=== PATIENT | female | born 1985 | race Caucasian/White ===

== ENCOUNTER 2023-03-09 11:37 | Outpatient (OUT) | payer MEDICAID, SELFPAY ==
[2023-03-09 12:32] LABS: Magnesium 1.6 mg/dL (1.8-2.4); Phosphorus 3.5 mg/dL (2.6-4.7); Thyroid Stimulating Hormone 1.372 uIU/mL (0.358-3.740)
[2023-03-10 07:11] LABS: Vitamin D, 25-Hydroxy 29.7 ng/mL (30.0-100.0)
[2023-03-12 12:13] LABS: Albumin 3.8 g/dL (2.9-4.4); Alpha-1-Globulin 0.2 g/dL (0.0-0.4); Alpha-2-Globulin 0.8 g/dL (0.4-1.0); Gamma Globulin 0.8 g/dL (0.4-1.8); Protein, Total 6.8 g/dL (6.0-8.5)
== END 2023-03-09 11:38 | disposition home or self-care (01) ==
LOC: LAB 11:40
PROVIDERS: PCP Nurse Practitioner; Visit Provider Psychiatry & Neurology Neurology
DX: G47.33 Obstructive sleep apnea (adult) (pediatric) (principal)
CPT/HCPCS: 36415; 82306; 82607; 82728; 83735; 84100; 84155; 84165; 84443

== ENCOUNTER 2023-09-26 15:05 | Outpatient (OUT) | payer MEDICAID, SELFPAY ==
[2023-09-28 05:07] LABS: Rheumatoid Factor (RF) <10.0 IU/mL (<14.0)
[2023-09-28 12:09] LABS: ANA Direct Negative (Negative)
[2023-09-28 14:09] LABS: Lyme Total Antibody CIA Negative (Negative)
== END 2023-09-26 15:06 | disposition home or self-care (01) ==
LOC: LAB 15:06
PROVIDERS: PCP Nurse Practitioner; Visit Provider Psychiatry & Neurology Neurology
DX: G47.33 Obstructive sleep apnea (adult) (pediatric) (principal); R20.2 Paresthesia of skin
CPT/HCPCS: 36415; 86038; 86430; 86431; 86618

== ENCOUNTER 2023-10-01 11:08 | Outpatient (OUT) | payer MEDICAID, SELFPAY ==
--- NOTE | 2023-10-01 11:11 | MM_ITS ---
Patient Name: THANH VILLALOBOS MR#: [id number] : 1985 Exam Date: 10/01/2023 Ordering Doctor: SCOOTER Howe CNP RADIOLOGY REPORT PROCEDURE: MM TOMOSYNTHESIS SCREENING BI COMPARISON: MG MAMM CHRISTINA DIAG W CAD DIG, 07/24/2014. MAMMO POST BIOPSY RIGHT, 07/30/2014. INDICATIONS: screening Calculator Name NCI Breast Cancer Risk Assessment Tool 5 Year Breast Cancer Risk 0.70% Lifetime Breast Cancer Risk 9.80% Personal Breast Cancer No Personal Ovarian Cancer No Treatments None Family Cancers Mother with ovarian cancer at age 42; Sister with thyroid cancer at age 18; Grandmother-maternal with lung cancer at age ~60; Grandfather-maternal with spleen cancer at age ~60. LOCATION: [facility] BREAST COMPOSITION: Almost entirely fatty. FINDINGS: DIAGNOSTIC CATEGORY 1--NEGATIVE. NO CHANGE FROM COMPARISON ASSESSMENT. Scattered benign-appearing calcifications are present. Scattered benign-appearing lymph nodes are present. RIGHT BREAST: No significant suspicious finding. LEFT BREAST: No significant suspicious finding. RECOMMENDATIONS: ROUTINE MAMMOGRAM AND CLINICAL EVALUATION IN 12 MONTHS. PLEASE NOTE: A NORMAL MAMMOGRAM DOES NOT EXCLUDE THE POSSIBILITY OF BREAST CANCER. A CLINICALLY SUSPICIOUS PALPABLE LUMP SHOULD BE BIOPSIED. Dictated by: Carson Krishnamurthy MD on 10/01/2023 at 13:45 Approved by: Carson Krishnamurthy MD on 10/01/2023 at 13:46
--- OUTSIDE RECORDS SUMMARY | 2023-10-01 11:12 | XMS_ITS | CCD ---
Author Name Unknown Address [id number] [place] [address] Organization [facility] Care Team Providers Care Senior Analyst Market Intelligence Name Role Phone KG TURNER (IMAGERY INTELLIGENCE) Unavailable Unavailable MANZON, YAKELIN D Unavailable Unavailable MANZON, YAKELIN D Unavailable Unavailable MANZON, YAKELIN D Unavailable Unavailable Suzanna Milligan Unavailable Lon Allen Unavailable Laura Howe Primary Care Provider MD Mac Shepard Attending Provider Mac Shepard Attending Unavailable Mac Shepard Admitting Unavailable Shyam, Laura Kemal Primary Care Unavailable Mac Shepard Admitting Unavailable Mac Shepard Attending Unavailable Shyam, Laura Kemal Primary Care Unavailable Mac Shepard Attending Unavailable Mac Shepard Admitting Unavailable Shyam, Laura J Primary Care Unavailable Lon Allen Admitting Unavailable Shyam, Laura Kemal Primary Care Unavailable Lon Allen Attending Unavailable Shyam, Laura Kemal Primary Care Unavailable Lon Allen Attending Unavailable Lon Allen Admitting Unavailable SHYAM, LAURA Kemal Primary Care Physician AURE HOWE LAURA Primary Care Unavailable LON ALLEN Admitting Unavailable LON ALLEN Attending Unavailable LON ALLEN Consulting Unavailable MISC, DR SCHMIDT Admitting Unavailable AICAURE SHERIDAN LAURA Primary Care Unavailable MISC, DR SCHMIDT Attending Unavailable MISC, DR SCHMIDT Consulting Unavailable CHRIS REHMAN Consulting Unavailable AICHHOLZ, IMAGERY INTELLIGENCE LAURA Primary Care Unavailable BEJ, ESVIN Consulting Unavailable BEJ, ESVIN Admitting Unavailable BEJ, ESVIN Attending Unavailable BEJ, ESVIN Attending Unavailable AICHHOLZ, IMAGERY INTELLIGENCE LAURA Primary Care Unavailable BEJ, ESVIN Consulting Unavailable BEJ, ESVIN Admitting Unavailable BEJ, ESVIN Attending Unavailable AICHHOLZ, IMAGERY INTELLIGENCE LAURA Primary Care Unavailable BEJ, ESVIN Consulting Unavailable BEJ, ESVIN Admitting Unavailable AICHHOLZ, IMAGERY INTELLIGENCE LAURA Admitting Unavailable AICHHOLZ, IMAGERY INTELLIGENCE LAURA Attending Unavailable AICHHOLZ, IMAGERY INTELLIGENCE LAURA Consulting Unavailable AICHHOLZ, IMAGERY INTELLIGENCE LAURA Primary Care Unavailable AICHHOLZ, IMAGERY INTELLIGENCE LAURA Admitting Unavailable AICHHOLZ, IMAGERY INTELLIGENCE LAURA Attending Unavailable AICHHOLZ, IMAGERY INTELLIGENCE LAURA Consulting Unavailable AICHHOLZ, IMAGERY INTELLIGENCE LAURA Primary Care Unavailable SALAM, BOB Attending Unavailable SALAM, BOB Consulting Unavailable SALAM, BOB Admitting Unavailable AICHHOLZ, IMAGERY INTELLIGENCE LAURA Primary Care Unavailable SALAM, Bob Attending Unavailable SALAM, Bob Admitting Unavailable SALAM, Bob Referring Unavailable SALAM, Bob Attending Unavailable SALAM, Bob Admitting Unavailable Kamar, Princess A Attending Unavailable Kamar, Princess A Attending Unavailable AICHHOLZ, LAURA J Referring Unavailable SALAM, Bob Attending Unavailable SALAM, Bob Attending Unavailable SALAM, Bob Admitting Unavailable SALAM, Bob Referring Unavailable Kelsy WESTBROOK, Jasmeet Wilson Attending Unavaila gaurav Vila MD, Robert Colindres Attending Unavaila ble Aichholz COMPUTER DISCOVERY TEACHER-IMAGERY INTELLIGENCE, Laura Deborah Primary Care Unava ilable AICHHOLZ, LAURA Attending Unavailable AICHHOLZ, LAURA Attending Unavailable AICHHOLZ, LAURA Attending Unavailable Aichholz AUTOMATIC I THREADING MACHINE FEEDER, Laura Unavailable Sharath Martinez MD Primary Care Provider Allergies Allergy Classification Reported Allergen(s) Allergy Type Date of Onset Reaction(s) Facility (1 source) acetaminophen / codeine; Translations: [ACETAMINOPHEN-CO DEINE] Drug Allergy 5 [facility] (7 sources) Codeine Drug Allergy Unknown [facility] Other (10 sources) Codeine; Translations: [codeine] Drug Allergy 4 Unknown [facility] (3 sources) HYDROcodone / Phenylpropanolami ne; Translations: [hydrocodone-phen ylpropanolamine] Drug Allergy Itching (finding) [facility] Medications Current Medications Medication Drug Class(es) Dates Sig (Normalized) Sig (Original) allopurinol 100 mg oral tablet (16 sources) Xanthine Oxidase Inhibitor Start: 09-10-2023 End: 10-10-2023 take 1 tablet by mouth in the morning, then take 1 tablet by mouth in the evening, then take 1 tablet by mouth at bedtime allopurinol (Zyloprim) 100 MG tablet Indications: Chronic gout without tophus, unspecified cause, unspecified site Take 1 tablet (100 mg) by mouth in the morning and 1 tablet (100 mg) in the evening and 1 tablet (100 mg) before bedtime. 90 tablet 1 09/10/2023 10/10/2023 Active Start: 10-03-2022 allopurinol Or al, BID, Refills(s) 0, Gout pain Start Date: 10/03/22 Status: Ordered Start: 10-03-2022 allopurinol Re fills(s) 0 Start Date: 10/03/22 Status: Ordered Start: 10-12-2021 take 200 mg by mouth once daily at bedtime Allopurinol Active 200 MG PO Daily at bedtime October 12, 2021 1:00am Allopurinol Acti ve ALPRAZolam 0.5 mg oral tablet (3 sources) Benzodiazepine Start: 12-25-2022 alprazolam 0.5 mg Tab Refills(s) 0 Start Date: 12/25/22 Status: Ordered carBAMazepine (9 sources) Mood Stabilizer Start: 10-03-2022 carbamazepine Oral, BID, Refills(s) 0, Seizure Start Date: 10/03/22 Status: Ordered Start: 10-03-2022 carbamazepine Refills(s) 0 Start Date: 10/03/22 Status: Ordered Start: 05-26-2022 take 300 mg by mouth once daily at bedtime Carbamazepine Active 300 MG PO Daily at bedtime May 26, 2022 12:00am ciprofloxacin 500 mg oral tablet (1 source) Quinolone Antimicrobial Start: 10-03-2022 End: 10-13-2022 take 1 tablet by mouth twice daily Cipro 500 mg Tab 500 mg = 1 tab(s), Oral, BID, X 10 day(s), # 20 tab(s), Refills(s) 0, Pharmacy: [email or web address] #[id number], 158, cm, 10/03/22 14:23:00 EST, Height/Length Dosing, 120, kg, 10/03/22 14:23:00 EST, Weight Dosing Start Date: 10/03/22 Stop Date: 10/13/22 Status: Ordered clonazePAM 1 mg oral tablet (1 source) Benzodiazepine Start: 09-09-2023 take 1 tablet by mouth at bedtime clonazePAM (KlonoPIN) 1 MG tablet Take 1 mg by mouth at bedtime 0 09/09/2023 Active dicyclomine hydrochloride 10 mg oral capsule (6 sources) Anticholinergic Start: 10-03-2022 End: 09-28-2023 take 1 capsule by mouth four times daily Bentyl 10 mg Cap 10 mg = 1 cap(s), Oral, QID, X 30 day(s), # 120 cap(s), Refills(s) 11, Pharmacy: [email or web address] #[id number], 158, cm, 10/03/22 14:23:00 EST, Height/Length Dosing, 120, kg, 10/03/22 14:23:00 EST, Weight Dosing Start Date: 10/03/22 Stop Date: 09/28/23 Status: Ordered gabapentin 100 mg oral capsule (1 source) Anti-epileptic Agent take 1 capsule by mouth every eight hours gabapentin (Neurontin) 100 MG capsule Take 100 mg by mouth every 8 (eight) hours. Take 1 every morning, 1 in afternoon and 1 to 3 capsules HS. 0 Active ibuprofen 600 mg oral tablet (1 source) Nonsteroidal Anti-inflammatory Drug Start: 06-06-2022 take 600 mg by mouth every six hours Ibuprofen Active 600 MG PO Q6H June 06, 2022 12:00am lisinopril 10 mg oral tablet (3 sources) Angiotensin Converting Enzyme Inhibitor Start: 12-25-2022 lisinopril 10 mg Tab Refills(s) 0 Start Date: 12/25/22 Status: Ordered magnesium oxide 400 mg oral tablet (1 source) take 1 tablet by mouth in the morning magnesium oxide (Mag-Ox) 400 mg tablet Take 400 mg by mouth in the morning. 0 Active magnesium sulfate 225 MG / potassium chloride 188 MG / sodium sulfate 1479 MG Oral Tablet [Sutab] (2 sources) Start: 10-03-2022 take 1 tablet by mouth once Sutab oral tablet See Instructions, 1 EA, Refill(s) 0, IDA, Please follow instructions per packaging and physician's handout, [facility], 158, cm, 10/03/22 14:23:00 EST, Height/Length Dosing, 120, kg, 10/03/22 14:23:00 EST, Weight Dosing Start Date: 10/03/22 Status: Ordered methylPREDNISolone 4 mg oral tablet (3 sources) Corticosteroid Start: 08-18-2016 Medrol (Tyrone) 4 MG as directed Orally for daily dose take half with breakfast half with dinner for 6 days May, Active methylPREDNISolo ne Not-Taking Multiple Vitamin (multivitamin) tablet (1 source) take 1 tablet by mouth in the morning Multiple Vitamin (multivitamin) tablet Take 1 tablet by mouth in the morning. 0 Active omeprazole 40 mg delayed release oral capsule (8 sources) Proton Pump Inhibitor Start: 10-03-19 take 1 capsule by mouth once daily omeprazole 40 mg Cap-DR 40 mg = 1 cap(s), Oral, Daily, # 30 cap(s), Refills(s) 2, [id number], 158, cm, 10/03/22 14:23:00 EST, Height/Length Dosing, 120, kg, 10/03/22 14:23:00 EST, Weight Dosing Start Date: 10/03/22 Status: Ordered Start: 10-13-2021 End: 05-26-2022 take 40 mg by mouth twice daily Omeprazole Discontinued 40 MG PO Twice daily 112 56 October 13, 2021 1:00am May 26, 2022 11:45am pramipexole dihydrochloride 0.5 mg oral tablet (11 sources) Nonergot Dopamine Agonist Start: 12-25-2022 pramipexole 0.5 mg oral tablet Refills(s) 0 Start Date: 12/25/22 Status: Ordered Start: 10-03-2022 pramipexole Or al, BID, Refills(s) 0, Other (see comment) Start Date: 10/03/22 Status: Ordered Start: 10-03-2022 pramipexole Re fills(s) 0 Start Date: 10/03/22 Status: Ordered Start: 05-26-2022 take 0.25 mg by mout h once daily at bedtime Pramipexole Active 0.25 MG PO Daily at bedtime May 26, 2022 12:00am Robaxin-750 750 MG (1 source) Start: 06-13-2021 take 1 tablet by mouth at bedtime Robaxin-750 750 MG 1 -2 tablet(s) Orally at bedtime for 5 days May, Active terbinafine (3 sources) Allylamine Antifungal LamISIL Active traMADol hydrochloride 50 mg oral tablet (1 source) Opioid Agonist Start: 06-06-2022 take 50 mg by mouth every six hours Tramadol Active 50 MG PO Q6H 30 June 06, 2022 12:00am VITAMIN A PO (1 source) VITAMIN A PO Shashank e by mouth Daily. 0 Active Completed/Discontinued Medications Medication Drug Class(es) Dates Sig (Normalized) Sig (Original) amoxicillin 875 mg oral tablet (1 source) Penicillin-class Antibacterial Start: 08-27-2016 take 1 tablet by mouth every twelve hours Amoxicillin 875 MG 1 tablet Orally every 12 hrs for 10 day(s) Aug, Not-Taking biotin 10 mg oral capsule (4 sources) Start: 10-12-2021 End: 05-26-2022 take 03951 ug by mouth once daily Biotin Discontinued 29894 MCG PO Daily October 12, 2021 1:00am May 26, 2022 11:44am biotin 1 MG caps ule Take by mouth 1 (one) time each day. 0 Active Brompheniramine / Pseudoephedrine (1 source) alpha-Adrenergic Agonist Start: 08-18-2016 take 10 mL by mouth every six hours as needed Bromfed DM 30-2-10 MG/5ML 10 ml as needed Orally every 6 hrs Jul, Not-Taking cholecalciferol 0.125 mg oral tablet (4 sources) Vitamin D Start: 10-12-2021 End: 05-26-2022 take 1 tablet by mouth once daily Cholecalciferol (Vitamin D3) (Vitamin D3) 125 mcg (5,000 unit) Tablet Discontinued 125 MCG PO Daily October 12, 2021 1:00am May 26, 2022 11:44am take 1 tablet by mouth in the mo rning cholecalciferol (Vitamin D-3) 25 MCG (1000 UT) tablet Take 1,000 Units by mouth in the morning. 0 Active Colchicine (1 source) Colchicine Not-Taking Falmina (1 source) Falmina Not-Taki ng Ketorolac (2 sources) Nonsteroidal Anti-inflammatory Drug, Cyclooxygenase Inhibitor Start: 07-21-20 Toradol per 15 mg Jul, 30 mg Magnesium (3 sources) Start: 10-12-19 End: 05-26-20 take 250 mg by mouth once daily Magnesium Discontinued 250 MG PO Daily October 12, 2021 1:00am May 26, 2022 11:45am Norethindrone Acet-Ethinyl Est (1 source) Norethindrone Acet-Ethinyl Est Not-Taking Prenat.Vits,Heath,Min-I checo-Folic ( Vitamin) Tablet (3 sources) Start: 10-12-19 End: 05-26-20 take 1 tablet by mouth once daily Prenat.Vits,Heath,Min- Iron-Folic ( Vitamin) Tablet Discontinued 1 TAB PO Daily October 12, 2021 1:00am May 26, 2022 11:45am Triamcinolone (2 sources) Corticosteroid Start: 07-21-20 KENALOG - 10 mg Jul, 40 mg vitamin a 2.4 mg oral capsule (3 sources) Vitamin A Start: 10-12-19 End: 05-26-20 take 2400 ug by mouth once daily Vitamin A Discontinued 2400 MCG PO Daily October 12, 2021 1:00am May 26, 2022 11:45am Vitamin B Complex (3 sources) Start: 10-12-19 End: 05-26-20 take 1 tablet by mouth once daily Vitamin B Complex Discontinued 1 TAB PO Daily October 12, 2021 1:00am May 26, 2022 11:45am Problems Active Problems Problem Classification Problem Date Documented Da te Episodic/Chronic Abdominal pain (7 sources) Abdominal pain; Translations: [Unspecified abdominal pain] Onset: 3 Episodic Acquired foot deformities (1 source) Acquired equinus deformity of foot; Translations: [Other acquired deformities of unspecified foot] Onset: 3 07-17-2023 Episodic Anxiety disorders (1 source) Claustrophobia; Translations: [Claustrophobia] Onset: 3 01-16-2023 Chronic Deficiency and other anemia (1 source) Other dietary vitamin B12 deficiency anemia; Translations: [OTH DIETARY VITAMIN B12 DEF ANEMIA] Onset: 3 Episodic Diabetes mellitus without complication (4 sources) Hyperglycemia, unspecified; Translations: [HYPERGLYCEMIA UNSPECIFIED] Onset: 3 Episodic Disorders of lipid metabolism (1 source) Hyperlipidemia, unspecified; Translations: [HYPERLIPIDEMIA UNSPECIFIED] Onset: 3 Chronic Epilepsy; convulsions (4 sources) Epilepsy, unspecified, not intractable, without status epilepticus; Translations: [EPILEPSY UNS NOT INTRACT W/O SE] Onset: 3 Chronic Esophageal disorders (7 sources) Gastroesophageal reflux disease without esophagitis; Translations: [Gastro-esophageal reflux disease without esophagitis] Onset: 3 Chronic Essential hypertension (4 sources) Essential (primary) hypertension; Translations: [ESSENTIAL PRIMARY HYPERTENSION] Onset: 3 Chronic Gastroduodenal ulcer (except hemorrhage) (3 sources) Gastric ulcer; Translations: [Gastric ulcer, unspecified as acute or chronic, without hemorrhage or perforation] Onset: 3 Chronic Gout and other crystal arthropathies (3 sources) Idiopathic chronic gout, multiple sites, without tophus (tophi); Translations: [Gout, unspecified] Onset: 6 09-10-2023 Chronic Hemorrhoids (4 sources) Hemorrhoids; Translations: [Unspecified hemorrhoids] Onset: 3 Episodic Immunizations and screening for infectious disease (2 sources) Contact with and (suspected) exposure to other viral communicable diseases; Translations: [Encounter for screening for infections with a predominantly sexual mode of transmission] Onset: 2 Resolved: 2 Episodic Intestinal infection (9 sources) Small bowel bacterial overgrowth syndrome; Translations: [Clostridium difficile diarrhea] 10-03-2022 Episodic Comment on above: Problem added second eri to positive C-Diff lab result. Menstrual disorders (1 source) Excessive and frequent menstruation with regular cycle; Translations: [Excessive and frequent menstruation with regular cycle] Onset: 2 Chronic Miscellaneous mental health disorders (1 source) Chronic insomnia; Translations: [Psychophysiologic insomnia] Onset: 3 01-16-2023 Chronic Nausea and vomiting (17 sources) Nausea; Translations: [Nausea] Onset: 1 Resolved: 2 Episodic Other and unspecified benign neoplasm (4 sources) Polyp of colon; Translations: [Polyp of colon] Onset: 3 Episodic Other connective tissue disease (1 source) Myalgia, unspecified site; Translations: [MYALGIA UNSPECIFIED SITE] Onset: 3 Episodic Other disorders of stomach and duodenum (2 sources) Indigestion; Translations: [Functional dyspepsia] Episodic Other ear and sense organ disorders (1 source) Pain of ear structure; Translations: [Otalgia, unspecified ear] Onset: 3 07-17-2023 Episodic Other ear and sense organ disorders (1 source) Bilateral earache; Translations: [Otalgia, bilateral] Onset: 4 09-18-2023 Episodic Other gastrointestinal disorders (11 sources) Abdominal bloating; Translations: [Abdominal distension (gaseous)] 09-26-2022 Episodic Other gastrointestinal disorders (1 source) Disorder of intestine; Translations: [Other specified diseases of intestine] Onset: 3 Episodic Other gastrointestinal disorders (7 sources) Diarrhea; Translations: [Diarrhea, unspecified] Onset: 3 Episodic Other gastrointestinal disorders (1 source) Abnormal feces; Translations: [Other fecal abnormalities] Onset: 3 Episodic Other gastrointestinal disorders (1 source) Swollen abdomen; Translations: [Abdominal distension (gaseous)] Onset: 3 Episodic Other gastrointestinal disorders (2 sources) Loose stool 12-25-2022 Episodic Other gastrointestinal disorders (4 sources) Diarrhea, unspecified; Translations: [DIARRHEA UNSPECIFIED] Onset: 3 Episodic Other hereditary and degenerative nervous system conditions (1 source) Restless legs; Translations: [Restless legs syndrome] Onset: 3 01-16-2023 Chronic Other nervous system disorders (1 source) Polyneuropathy, unspecified; Translations: [POLYNEUROPATHY UNSPECIFIED] Onset: 3 Chronic Other nervous system disorders (1 source) Hereditary and idiopathic neuropathy, unspecified; Translations: [HEREDITARY IDIOPATH NEUROPATHY UNS] Onset: 3 Chronic Other nervous system disorders (1 source) Polyneuropathy; Translations: [Polyneuropathy, unspecified] Onset: 3 01-16-2023 Chronic Other nervous system disorders (1 source) Acute postoperative pain; Translations: [Other acute postprocedural pain] 06-06-2022 Episodic Other nutritional; endocrine; and metabolic disorders (1 source) Body mass index 30+ - obesity; Translations: [Obesity, unspecified] Onset: 3 07-17-2023 Chronic Other nutritional; endocrine; and metabolic disorders (1 source) Severe obesity; Translations: [Morbid (severe) obesity due to excess calories] Onset: 3 08-07-2023 Chronic Other nutritional; endocrine; and metabolic disorders (1 source) Body mass index 40+ - severely obese; Translations: [Body mass index (BMI) 45.0-49.9, adult] Onset: 4 09-18-2023 Chronic Other nutritional; endocrine; and metabolic disorders (1 source) Abnormal weight gain; Translations: [Abnormal weight gain] Onset: 3 07-17-2023 Episodic Other screening for suspected conditions (not mental disorders or infectious disease) (2 sources) Other specified abnormal findings of blood chemistry; Translations: [Patient encounter status] Onset: 3 07-17-2023 Episodic Otitis media and related conditions (3 sources) Acute bilateral otitis media ; Translations: [Otitis media, unspecified, bilateral] Onset: 3 07-17-2023 Episodic Peripheral and visceral atherosclerosis (1 source) Generalized atherosclerosis; Translations: [GENERALIZED ATHEROSCLEROSIS] Onset: 3 Chronic Residual codes; unclassified (1 source) Periodic limb movement disorder; Translations: [PERIODIC LIMB MOVEMENT DISORDER] Onset: 2 Chronic Residual codes; unclassified (1 source) Obstructive sleep apnea syndrome; Translations: [Obstructive sleep apnea (adult) (pediatric)] Onset: 3 01-16-2023 Chronic Residual codes; unclassified (1 source) Hypersomnia; Translations: [Hypersomnia, unspecified] Onset: 3 05-30-2023 Chronic Spondylosis; intervertebral disc disorders; other back problems (16 sources) Backache; Translations: [Sciatica, left side] Onset: 1 Resolved: 1 Episodic Unclassified (1 source) Unknown / UNK(Unknown) Onset: 8 Unclassified (1 source) Encounter for preprocedural laboratory examination; Translations: [Encounter for preprocedural laboratory examination] Onset: 2 Unclassified (1 source) R10.13 - Epigastric pain; Translations: [R10.13 - Epigastric pain] Onset: 2 Unclassified (1 source) Z01.812 - Encounter for preprocedural laboratory examination; Translations: [Z01.812 - Encounter for preprocedural laboratory examination] Onset: 2 Past or Other Problems Problem Classification Problem Date Documented Da te Episodic/Chronic Nutritional deficiencies (3 sources) Pyridoxine deficiency; Translations: [Vitamin B6 deficiency] Onset: 10-15-2022 01-16-2023 Episodic Other aftercare (1 source) Other terminal carman (current) drug therapy; Translations: [Other terminal carman (current) drug therapy] Onset: 10-23-2017 Episodic Other connective tissue disease (4 sources) Neuralgia and neuritis, unspecified; Translations: [NEURALGIA AND NEURITIS UNSPECIFIED] Onset: 04-19-2022 Episodic Other connective tissue disease (1 source) Neurogenic pain; Translations: [Neuralgia and neuritis, unspecified] Onset: 01-16-2023 01-16-2023 Episodic Other disorders of stomach and duodenum (6 sources) Functional dyspepsia; Translations: [FUNCTIONAL DYSPEPSIA] Onset: 10-17-2021 Resolved: 03-01-2022 Episodic Other gastrointestinal disorders (1 source) Abdominal distension (gaseous) Onset: 08-08-2021 Resolved: 08-08-2021 Episodic Other nervous system disorders (1 source) Other acute postprocedural pain; Translations: [Other acute postprocedural pain] Onset: 06-06-2022 Episodic Other nutritional; endocrine; and metabolic disorders (1 source) Hyperuricemia; Translations: [Hyperuricemia without signs of inflammatory arthritis and tophaceous disease] Onset: 11-03-2015 07-17-2023 Episodic Unclassified (1 source) Exposure to 2019 novel coronavirus; Translations: [Contact with and (suspected) exposure to COVID19] Viral infection (1 source) COVID-19 Onset: 08-27-2021 Resolved: 08-27-2021 Results Test Name Value Interpretation Reference Range Facility [facility] RHEUMATOID FACTORon RHEUMATOID FACTOR (RF) <10.0 [facility] Comment on above: Performed at: [address] [id number] [place]: Matthew Araujo PhD, Phone: [phone] [facility] Otolaryngology Office/Clinic Noteon 03-26-2023 Otolaryngology Office/Clinic Note Chief Complaint Patient states I have ear pain History of Present Illness This pleasant 38-year-old woman has a very long history of chronic ear canal irritation causing her to itch her ears. There is been apparently some infections associated with low-grade chronic otalgia. She has a history of sleep apnea and is having some difficulty with her mask. Otherwise today she does not have any significant ear pain but wishes to be seen as her ENT doctor has retired. Review of Systems General Cardiovascular Chest pain/pressure: No Palpitations: No EENMT Ear drainage: No Ear pain: No Facial pain: No Hearing loss: No Hoarseness: No Nasal congestion: No Nosebleeds: No Sore_throat: No Tinnitus: Yes Gastrointestinal Dysphagia: No Heartburn: No Genitourinary Hematologic/Lymphatic Musculoskeletal Back pain: Yes Joint pain: Yes Neurological Abnormal Gait: No Headache: Yes Psychiatric Anxiety: Yes Depression: No Respiratory Apnea: Yes Cough: No Snoring: Yes Skin Physical Exam Vitals & Measurements T: 36.6 ?C (Temporal Artery) HR: 91 (Peripheral) BP: 131/86 HT: 158 cm WT: 121 kg BMI: 48.47 h General: [Alert and oriented, well nourished, no acute distress]. Eye: [PERRL, EOMI, normal conjunctiva]. HENT: [Normocephalic Ears: Both external ears are healthy without deformity. Nails have no cerumen there is a mild bit of scaling inferiorly laterally and a slight bit of erythema. There is no evidence of infection. The tympanic membranes are both intact with normal landmarks and an aerated middle ear space. Nose: External nose is healthy without deformity. The septum is relatively midline with some mild congestion but no stasis or purulence OC/OP: Good dental repair with evidence of some bruxism. The tongue is very dry though the buccal mucous membranes are moist. Oropharynx is unremarkable with very active gag reflex. Tonsils are not remarkable. Neck: [Supple, mild TMJ and stylohyoid muscle tenderness worse on the right, no lymphadenopathy]. Lungs: [Clear to auscultation and percussion, non-labored respiration]. Heart: [Normal rate, regular rhythm, no murmur, gallop or edema]. Skin: [Skin is warm, dry and pink, no rashes or lesions]. Neurologic: [Awake, alert, and oriented X3, CN II-XII intact]. Psychiatric: [Cooperative, appropriate mood and affect]. Additional Vitals BP Position/Location: Sitting, Right arm Assessment/Plan 1. Otalgia, bilateral 2. TMJ syndrome 3. Dermatitis of both ear canals Recommendation: I have again advised the patient to not place Q-tips or manipulate her ear canals because of the itching. She is aware that this can lead to ear canal infections. I have suggested that 1% hydrocortisone cream on a Q-tip just thinly placed around the external opening of the ear canal should decrease some of the itching. I have also given her some TMJ precautions. We will see her as needed her symptoms. Medical Decision Making Chronic conditions NOT treated during this visit that affected my overall medical decision making: [] Treatment plans discussed but not opted for at this time: [] Prescribed medication that requires intensive monitoring for toxicity: [] I have reviewed the patient?s medication list for medication interactions/contraindicat ions and/or for upcoming procedures: [yes or no] Time Spent with the Patient I have personally spent [] minutes on this date, directly related to today's patient visit, including pre and post visit work, for this date of service. Time listed does not include time spent on separately billable services. Problem List/Past Medical History Ongoing History of Gout Hypertension Neuropathy Sleep apnea Historical No qualifying data Procedure/Surgical History appendectomy hysterectomy Rt breat lump section (01/05/2016) Medications allopurinol lisinopril 10 mg oral tablet, 10 mg= 1 tabs, Oral, Daily Allergies codeine Social History Tobacco Former smoker, quit more than 5 years ago Use:. Cigarettes, Packs, 15 year(s). Electronically signed by Robert Vila MD 03/26/23 11:[address] [facility] Provider Letteron 03-26-2023 Provider Letter (Inserted Image. Domitila ble to display) QUIRINO Kwong [address] [place] [address] Re: THANH VILLALOBOS Date of Visit: 03/26/2023 Dear Laura WIN, Dear Laura, I had the pleasure of seeing your patient Thanh Villalobos today. 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 She has a long history of chronic irritation, otalgia, infections and persisting itching in her ears. Her hearing is otherwise been good. Her canals today reveal mild dermatitis with no infection. She also has some mild TMJ symptoms. I have suggested some 1% hydrocortisone cream very thinly placed in the opening of her canals every couple days should hopefully decrease the dermatitis and itching. I have also discussed TMJ precautions with her. Her other symptoms of pressure have resolved today. Please do not hesitate to review the enclosed office note. With best wishes, Robert Vila MD Let me know if you have any questions or concerns. Sincerely, Robert Vila MD C C Providers: [facility] Reminderson 12-27-2022 Reminders - From: Princess Galvin CNP To: Katelyn Coleman; Sent: 12/25/2022 12:31:05 EDT Show up: 12/25/2022 12:31:00 EDT Subject: Ambulatory Reminder Reminder/Recall Colonoscopy in 2025. 11/27/[address] de la rosa From: Katelyn Coleman To: [facility] - Reminders/Recalls; Sent: 12/27/2022 11:07:35 EDT ! Show up: 10/18/2025 11:07:00 EST Due Date/Time: 11/18/2025 11:07:00 EDT Normal [facility] Lab Reportson 12-26-2022 Lab Reports [id number] Normal [facility] Ambulatory Visit Summaryon 0 12-25-2022 Ambulatory Visit Summary THANH VILLALOBOS Dean :1985 Visit Date:12/25/2022 Ambulatory Visit Instructions Your Diagnosis Gastric erosions Colon polyps Hemorrhoids Abdominal bloating Abdominal pain Acid reflux Nausea Loose stools Your Care Team Attending Physician - Princess Galvin CNP Primary Care Physician - LAURA HOWE CNP This Is Your Medications List Contact prescribing physician if questions or concerns allopurinol alprazolam (alprazolam 0.5 mg Tab) carbamazepine dicyclomine (Bentyl 10 mg Cap) lisinopril (lisinopril 10 mg Tab) omeprazole (omeprazole 40 mg Cap-DR) pramipexole pramipexole (pramipexole 0.5 mg oral tablet) Procedures Performed Colonoscopy (11/27/2022), Esophagogastroduodenoscopy (11/27/2022), Hysterectomy (05/20/2022). Discharge Vitals Temperature (Temporal Artery) 36.2 ?C Heart Rate (Peripheral) 92 Blood Pressure 97/61 Height 158 cm Height 62 in Weight 119.8 kg Weight 263.56 lb BMI 47.99 What to do next Scheduled Follow-Up Appointments Sunday 1:00 PM EDT With: Princess Galvin CNP Where: [facility] Normal [facility] Gastroenterology Office/Clin ic Noteon 12-25-2022 Gastroenterology Office/Clinic Note Chief Complaint EGD and colonoscopy results. HPI Staff Patient is a 37 year old female here today to review results from EGD and colonoscopy. History of Present Illness Patient is a 37-year-old female who presents for follow-up from EGD/colonoscopy completed 11/27/[address] De La Rosa. Patient was previously evaluated by Dr. De La Rosa 09/2022 for abdominal pain, bloating, and feeling of fullness. Patient also with complaints of diarrhea. Patient was ordered stool testing to evaluate for infection, celiac blood panel, EGD/colonoscopy. Patient was also treated by Dr. De La Rosa with Domi for SIBO. Outside labs revealed 12/2022 normal H&H, normal BUN, normal creatinine, normal liver enzymes, normal TSH, normal TTG IgA. No stool testing available to review during today's encounter. EGD completed 11/27/2022 revealed normal esophagus, mild gastric erosions, normal duodenum, stomach biopsy revealed mild chronic inactive gastritis, negative for H. pylori. Colonoscopy completed 11/27/22 revealed 2 ascending colon polyps that pathology revealed was serrated adenoma, and hyperplastic polyps, hyperplastic polyp removed from sigmoid, hemorrhoids?patient is due for repeat colonoscopy in 3 years?2025. During today's visit, patient reports she is still having abdominal bloating over the last year. She is also having occasional RUQ pain described as sharp that occurs after overeating over the last year. She also reports abdominal fullness over the last year that occurs daily. She is also having loose/watery stools occurring 3 times a week that has improved- was occurring daily. Reports having nausea at night over the last year. Reports occasional acid reflux. Is having 1-3 BMs a day. She reports having BRBPR 1 week ago in toilet bowl and on toilet paper. She reports taking ibuprofen 2 times a week. Explains she has never started omeprazole. She reports hx. C. diff. infection 09/2022. Denies black stools, fevers/chills, vomiting. Denies use of fiber supplementation. Denies having any other GI complaints. Review of Systems PHQ Score Initial Depression Screen Score: 0 ROS - Provider Constitutional: no fever, no chills. Skin: no Jaundice. ENMT: Denies dysphagia. Yes occasional acid reflux. Respiratory: no shortness of breath. Cardiovascular: no chest pain. Gastrointestinal: yes nausea, no vomiting, yes loose stools, no GI bleeding. Physical Exam Vitals & Measurements T: 36.2 ?C(Temporal Artery) HR: 92(Peripheral) BP: 97/61 HT: 62 in HT: 158 cm WT: 119.8 kg WT: 263.56 lb BMI: 47.99 General: Well developed, well nourished, in no acute distress Head: Normocephalic/atraumatic Lungs: Normal respiratory effort and clear to auscultation Cardio: Regular rate and rhythm, normal S1 and S2, no murmur, no rub Abdomen: Soft, non-distended, non-tender. Normoactive bowel sounds present in all 4 abdominal quadrants, bilaterally. Mental Status: Alert and oriented x3. Normal mood and affect Assessment/Plan 1. Gastric erosions (K25.9: Gastric ulcer, unspecified as acute or chronic, without hemorrhage or perforation) EGD completed 11/27/2022 revealed normal esophagus, mild gastric erosions, normal duodenum, stomach biopsy revealed mild chronic inactive gastritis, negative for H. pylori. Educated to start omeprazole 40mg daily. Avoid NSAIDs. 2. Colon polyps (K63.5: Polyp of colon) Colonoscopy completed 11/27/22 revealed 2 ascending colon polyps that pathology revealed was serrated adenoma, and hyperplastic polyps, hyperplastic polyp removed from sigmoid, hemorrhoids?patient is due for repeat colonoscopy in 3 years?2025. Educated regarding fiber supplementation daily. 3. Hemorrhoids (K64.9: Unspecified hemorrhoids) Reports BRBPR last week- see HPI for details regarding- likely related to hemorrhoids. Colonoscopy completed 11/27/22 revealed 2 ascending colon polyps that pathology revealed was serrated adenoma, and hyperplastic polyps, hyperplastic polyp removed from sigmoid, hemorrhoids?patient is due for repeat colonoscopy in 3 years?2025. Educated regarding fiber supplementation daily. 4. Abdominal bloating (R14.0: Abdominal distension (gaseous)) Reports having abdominal bloating over the last year. She is also having occasional RUQ pain described as sharp that occurs after overeating over the last year. Has abdominal fullness over the last year that occurs daily. EGD completed 11/27/2022 revealed normal esophagus, mild gastric erosions, normal duodenum, stomach biopsy revealed mild chronic inactive gastritis, negative for H. pylori. Educated to start omeprazole 40mg daily. Educated to start probiotics daily. Avoid NSAIDs. 5. Abdominal pain (R10.9: Unspecified abdominal pain) Reports having abdominal bloating over the last year. She is also having occasional RUQ pain described as sharp that occurs after overeating over the last year. Has abdominal fullness over the last year that occurs daily. EGD completed 11/27/2022 revealed normal esophagus, mild gastric er (more content not included)... Normal [facility] Comment on above: Result Comment: Danis [place] Signed By: Princess Galvin CNP.oj\Date and Time Signed: 12/25/22 13:16 EDT Patient Educationon 12-26-19 Patient Education Oncology Colon Polyps Colon polyps are tissue growths inside the colon, which is part of the large intestine. They are one of the types of polyps that can grow in the body. A polyp may be a round bump or a mushroom-shaped growth. You could have one polyp or more than one. Most colon polyps are noncancerous (benign). However, some colon polyps can become cancerous over time. Finding and removing the polyps early can help prevent this. What are the causes? The exact cause of colon polyps is not known. What increases the risk? The following factors may make you more likely to develop this condition: ? Having a family history of colorectal cancer or colon polyps. ? Being older than 45 years of age. ? Being younger than 45 years of age and having a significant family history of colorectal cancer or colon polyps or a genetic condition that puts you at higher risk of getting colon polyps. ? Having inflammatory bowel disease, such as ulcerative colitis or Crohn's disease. ? Having certain conditions passed from parent to child (hereditary conditions), such as: ? Familial adenomatous polyposis (FAP). ? Fountain syndrome. ? Turcot syndrome. ? Peutz?Jeghers syndrome. ? MUTYH-associated polyposis (MAP). ? Being overweight. ? Certain lifestyle factors. These include smoking cigarettes, drinking too much alcohol, not getting enough exercise, and eating a diet that is high in fat and red meat and low in fiber. ? Having had childhood cancer that was treated with radiation of the abdomen. What are the signs or symptoms? Many times, there are no symptoms. If you have symptoms, they may include: ? Blood coming from the rectum during a bowel movement. ? Blood in the stool (feces). The blood may be bright red or very dark in color. ? Pain in the abdomen. ? A change in bowel habits, such as constipation or diarrhea. How is this diagnosed? This condition is diagnosed with a colonoscopy. This is a procedure in which a lighted, flexible scope is inserted into the opening between the buttocks (anus) and then passed into the colon to examine the area. Polyps are sometimes found when a colonoscopy is done as part of routine cancer screening tests. How is this treated? This condition is treated by removing any polyps that are found. Most polyps can be removed during a colonoscopy. Those polyps will then be tested for cancer. Additional treatment may be needed depending on the results of testing. Follow these instructions at home: Eating and drinking ? Eat foods that are high in fiber, such as fruits, vegetables, and whole grains. ? Eat foods that are high in calcium and vitamin D, such as milk, cheese, yogurt, eggs, liver, fish, and broccoli. ? Limit foods that are high in fat, such as fried foods and desserts. ? Limit the amount of red meat, precooked or cured meat, or other processed meat that you eat, such as hot dogs, sausages, aguilar, or meat loaves. ? Limit sugary drinks. Lifestyle ? Maintain a healthy weight, or lose weight if recommended by your health care provider. ? Exercise every day or as told by your health care provider. ? Do not use any products that contain nicotine or tobacco, such as cigarettes, e-cigarettes, and chewing tobacco. If you need help quitting, ask your health care provider. ? Do not drink alcohol if: ? Your health care provider tells you not to drink. ? You are , may be , or are planning to become . ? If you drink alcohol: ? Limit how much you use to: ? 0?1 drink a day for women. ? 0?2 drinks a day for men. ? Know how much alcohol is in your drink. In the [place] one drink equals one 12 oz bottle of beer (355 mL), one 5 oz glass of wine (148 mL), or one 1? oz glass of hard liquor (44 mL). General instructions ? Take ujvm-jan-poflasi and prescription medicines only as told by your health care provider. ? Keep all follow-up visits. This is important. This includes having regularly scheduled colonoscopies. Talk to your health care provider about when you need a colonoscopy. Contact a health care provider if: ? You have new or worsening bleeding during a bowel movement. ? You have new or increased blood in your stool. ? You have a change in bowel habits. ? You lose weight for no known reason. Summary ? Colon polyps are tissue growths inside the colon, which is part of the large intestine. They are one type of polyp that can grow in the body. ? Most colon polyps are noncancerous (benign), but some can become cancerous over time. ? This condition is diagnosed with a colonoscopy. ? This condition is treated by removing any polyps that are found. Most polyps can be removed during a colonoscopy. This information is not intended to replace advice given to you by your health care provider. Make sure you discuss any questions you have with your health care provider. Document Revised: 11/24/2020 D (more content not included)... Normal [facility] IMMUNOGLOBULIN IGA QUANTITIA VEon 12-23-2022 Immunoglobulin A, Qn, Serum 109 mg/dL Normal 87-352 [facility] Comment on above: Performed By: #### T SH, CMP #### [facility] [address] [place] [address] Dr. Hong Jacobo TRANSGLUTAMINASE IGAon 12-23 t-Transglutaminase (tTG) IgA <2 Normal 0-3 [facility] Comment on above: Result Comment: Nega tive 0 - 3 Weak Positive 4 - 10 Positive >10 . Tissue Transglutaminase (tTG) has been identified as the endomysial antigen. Studies have demonstr- ated that endomysial IgA antibodies have over 99% specificity for gluten sensitive enteropathy. Performed By: #### T ARMANDOA #### [facility] [address] [place] [address] Dr. Hong Jacobo CBC AUTO DIFFon 12-22-2022 BASO # 0.0 103/ul Normal 0.0-0.1 [facility] Comment on above: Performed By: #### C BC #### [facility] [address] [place] [address] Dr. Hong Jacobo Basophils/100 WBC (Bld) 0.5 % Normal 0.2-2.0 [facility] Comment on above: Performed By: #### C BC #### [facility] [address] [place] [address] Dr. Hong Jacobo EO # 0.5 103/ul Normal 0.0-0.7 [facility] Comment on above: Performed By: #### C BC #### [facility] [address] [place] [address] Dr. Hong Jacobo Eosinophils/100 WBC (Bld) 9.8 % Critically high 0.9-7.0 [facility] Comment on above: Performed By: #### C BC #### [facility] [address] [place] [address] Dr. Hong Jacobo Erythrocyte distribution width (RBC) [Ratio] 12.3 % Normal 11.0-15.0 [facility] Comment on above: Performed By: #### C BC #### [facility] [address] [place] [address] Dr. Hong Jacobo Hematocrit (Bld) [Volume fraction] 41.8 % Normal 36.0-48.0 [facility] Comment on above: Performed By: #### C BC #### [facility] [address] [place] [address] Dr. Hong Jacobo Hemoglobin (Bld) [Mass/Vol] 14.2 g/dL Normal 12.0-16.0 [facility] Comment on above: Performed By: #### C BC #### [facility] [address] [place] [address] Dr. Hong Jacobo IG # 0.02 10e3/ul Normal 0.00-0.03 [facility] Comment on above: Performed By: #### C BC #### [facility] [address] [place] [address] Dr. Hong Jacobo IG % 0.4 % Normal 0.0-0.5 [facility] Comment on above: Performed By: #### C BC #### [facility] [address] [place] [address] Dr. Hong Jacobo LYMPH # 1.4 103/ul Normal 1.2-3.8 [facility] Comment on above: Performed By: #### C BC #### [facility] [address] [place] [address] Dr. Hong Jacobo Lymphocytes/100 WBC (Bld) 25.9 % Normal 20.5-60.0 [facility] Comment on above: Performed By: #### C BC #### [facility] [address] [place] [address] Dr. Hong Jacobo MANUAL DIFF REQ NO Normal [facility] Comment on above: Performed By: #### C BC #### [facility] [address] [place] [address] Dr. Hong Jacobo MCH (RBC) [Entitic mass] 30.9 pg Normal 26.7-34.0 [facility] Comment on above: Performed By: #### C BC #### [facility] [address] [place] [address] Dr. Hong Jacobo MCHC (RBC) [Mass/Vol] 34.0 g/dL Normal 29.9-35.2 [facility] Comment on above: Performed By: #### C BC #### [facility] [address] [place] [address] Dr. Hong Jacobo MCV (RBC) [Entitic vol] 90.9 fL Normal 81.0-99.0 [facility] Comment on above: Performed By: #### C BC #### [facility] [address] [place] [address] Dr. Hong Jacobo MONO # 0.4 103/ul Normal 0.3-0.8 [facility] Comment on above: Performed By: #### C BC #### [facility] [address] [place] [address] Dr. Hong Jacobo Monocytes/100 WBC (Bld) 6.7 % Normal 1.7-12.0 [facility] Comment on above: Performed By: #### C BC #### [facility] [address] [place] [address] Dr. Hong Jacobo NEUT # 3.1 103/ul Normal 1.4-6.5 [facility] Comment on above: Performed By: #### C BC #### [facility] [address] [place] [address] Dr. Hong Jacobo Neutrophils/100 WBC (Bld) 56.7 % Normal 43.0-75.0 [facility] Comment on above: Performed By: #### C BC #### [facility] [address] [place] [address] Dr. Hong Jacobo Platelet mean volume (Bld) [Entitic vol] 8.5 fL Critically low 9.5-13.5 [facility] Comment on above: Performed By: #### C BC #### [facility] [address] [place] [address] Dr. Hong Jacobo PLT 208 103/ul Normal 150-450 [facility] Comment on above: Performed By: #### C BC #### [facility] [address] [place] [address] Dr. Hong Jacobo RBC 4.60 106/ul Normal 4.20-5.40 [facility] Comment on above: Performed By: #### C BC #### [facility] [address] [place] [address] Dr. Hong Jacobo WBC 5.5 103/ul Normal 4.0-11.0 [facility] Comment on above: Performed By: #### C BC #### [facility] [address] [place] [address] Dr. Hong Jacobo PROF 14(COMP METB)on 023 Albumin [Mass/Vol] 3.8 g/dL Normal 3.4-5.0 [facility] Comment on above: Performed By: #### T SH, CMP #### [facility] [address] [place] [address] Dr. Hong Jacobo Albumin/Globulin [Mass ratio] 0.9 {ratio} Normal [facility] Comment on above: Performed By: #### T SH, CMP #### [facility] [address] [place] [address] Dr. Hong Jacobo ALP [Catalytic activity/Vol] 102 U/L Normal 46-116 [facility] Comment on above: Performed By: #### T SH, CMP #### [facility] [address] [place] [address] Dr. Hong Jacobo ALT [Catalytic activity/Vol] 32 U/L Normal 14-59 [facility] Comment on above: Performed By: #### T SH, CMP #### [facility] [address] [address] [address] Hong Jacobo Anion gap [Moles/Vol] 10.1 mmol/L Normal [facility] Comment on above: Performed By: #### T SH, CMP #### [facility] [address] [address] [address] Hong Jacobo AST [Catalytic activity/Vol] 15 U/L Normal 15-37 [facility] Comment on above: Performed By: #### T SH, CMP #### [facility] [address] [address] [address] Hong Jacobo Bilirubin [Mass/Vol] 0.2 mg/dL Normal 0.2-1.0 [facility] Comment on above: Performed By: #### T SH, CMP #### [facility] [address] [address] [address] Hong Jacobo Calcium [Mass/Vol] 9.5 mg/dL Normal 8.5-10.1 [facility] Comment on above: Performed By: #### T TJ, CMP #### [facility] [address] [address] [address] Hong Jacobo Chloride [Moles/Vol] 104 mmol/L Normal 98-107 [facility] Comment on above: Performed By: #### T TJ, CMP #### [facility] [address] [address] [address] Hong Jacobo CO2 [Moles/Vol] 29.9 mmol/L Normal 21.0-32.0 [facility] Comment on above: Performed By: #### T SH, CMP #### [facility] [address] [address] [address] Hong Jacobo Creatinine [Mass/Vol] 0.94 mg/dL Normal 0.55-1.02 [facility] Comment on above: Performed By: #### T SH, CMP #### [facility] [address] [address] [address] Hong Jacobo EGFR-AF NEW ZEALANDER >60 Normal >=60 [facility] Comment on above: Performed By: #### T SH, CMP #### [facility] [address] [address] [address] Hong Jacobo EGFR-NON AF NEW ZEALANDER >60 Normal >=60 [facility] Comment on above: Performed By: #### T SH, CMP #### [facility] [address] [address] [address] Hong Jacobo Globulin (S) [Mass/Vol] 4.0 g/dL Normal [facility] Comment on above: Performed By: #### T SH, CMP #### [facility] [address] [address] [address] Hong Jacobo Glucose [Mass/Vol] 162 mg/dL Critically high 74-106 [facility] Comment on above: Performed By: #### T SH, CMP #### [facility] [address] [address] [address] Hong Jacobo Potassium [Moles/Vol] 4.0 mmol/L Normal 3.5-5.1 [facility] Comment on above: Performed By: #### T SH, CMP #### [facility] [address] [address] [address] Hong Jacobo Protein [Mass/Vol] 7.8 g/dL Normal 6.4-8.2 [facility] Comment on above: Performed By: #### T SH, CMP #### [facility] [address] [address] [address] Hong Jacobo Sodium [Moles/Vol] 140 mmol/L Normal 136-145 [facility] Comment on above: Performed By: #### T SH, CMP #### [facility] [facility] [address] [address] [address] Hong Jacobo Urea nitrogen [Mass/Vol] 12.0 mg/dL Normal 7.0-18.0 [facility] Comment on above: Performed By: #### T SH, CMP #### [facility] [address] [address] [address] Hong Jacobo Urea nitrogen/Creatinine [Mass ratio] 12.8 mg/mg Normal [facility] Comment on above: Performed By: #### T TJ, CMP #### [facility] [address] [place], [place] [address] Dr. Hong Jacobo TSHon 12-22-2022 TSH 1.356 uIU/mL Normal 0.358-3.74 0 [facility] Comment on above: Performed By: #### T TJ, CMP #### [facility] [address] [place], [place] [address] Dr. Hong Jacobo IntraOperative Documentson 0 12-01-2022 IntraOperative Documents [id number]#[id number]:127 Normal [facility] Coding Summary.on 11-30-2022 Coding Summary. CD:[id number] Ww+PGh lYWQ+JM5ILARnI52ojBWfsO8vF 0NMTElOSywgQVBQTElOSyIgbmF xJR4ydSZkFVVy IC8+VH4xRRKrJhcekZDmb2H6qQ G3X93mfq3dZRwxtRX9EYCaZxZa qbweo0zbmCl4HYxcEalyGqTi ARGbtU50KSJ7nV15Vv06fTXucU Ihr3nomJh7HrCjGXXiEVR2dPgd LSmon6BqEOPvE36ewZEnb3P5 MWWteFecaXCwMpRiqXW7gZ5uBJ wfovrmz1kpgfdqScx3xb03bHKo s8P0gPK9K9OmieZ7TXZdePLo CvhlkRQLdG4btqkva9yrkaobKa UtHNOvSUn3BTz4COOpiFkoMgJp IS04YEN4VAObnhTxB3FiWCDn iHvlLkE7n2F6Uc1OO9HLGbztV2 VNTUFSWTwvdGQ+DE47im50O8Rx NqpdBcb2SZSwYBQ1oVT9uW5s QAUcUEhxf7K6yRA2V8GoxeRzap 0mm4rqMADcGCpnX43reKCoi9D5 WCJncBI8PWYodYtcIpQhrW40 Oyc+QHLsoXkbl1SqQjzpi6rgf1 ilxFp9YcejIUMavyGqiZkcIHB4 a0GlFy9rKVVvsEL2jQE4uZ8g UqVfNvG5PGxzF847LqQdeNBwAv bxQ16iA0FuxOY+OTBtDwn6WGDx jWzhPZ2dE3RvWTKfrabowCJn qLfcWM9iRBNwaoxgQNPhzO0aXZ ZjK2x3DlBuBgE6NRaiJ5ZfWTLx icefMt64rL2gWoXkViY7PEsv Q7SgteS0PFYvdUGsYNjfKAW3E9 5kb8M7HNArAGEiSTK6xPH8aG2i bGlnbjogbGVmdDsgdmVydGlj YBopWEhbE057JIDgvHtcHmNuWU luZyBEYXRlOiAgMDQvMTMvMjAy MzwvdGQ+EJPfTWB0tZfkYSAq eIDiDEylGd4psTlmwPfpOA0sTJ EwfiviPXIhjK0hXGThtIYibFyv UJ1eUYUrtbyrg134ZhXnZBH0 ARPrpKAlK9PsiF4iUjZsLXIlLL RtL3BsiVXjBJfrW256WZwsVyL2 VSAktsWhY1XyFGBaxTpyEzQ5 r8B6Re4Jk5RtcoiqF1DzzSCsIm CaGwszMOd3B4JmWdcvlEL+PC90 QHJgRC09KZo2KGZ7aZibRNqj WEHkC8AxnC2hIqUeHYQfOGOzWv c+PHRhYmxlIHdpZHRoPScxMDAl VeXkaAfjNM4uLs4mOZSdHWYy yXcuxZByOmEwn7xuLEThGXpbRY 9nfMjyU1GdgBY8VMWsr1u6Qf83 U19hG7BicXU+VQVqbLS5oYH6 aR0vAyLzTqS4UMfsK696EcXdpZ HcBfhkx4trp4svuVs6LxE3AJFi yfMtcXabPLY7k4TeHg54U61d IHdpZHRoPSIxNSUiIHZhbGlnbj 6flQ1oEj6+LCNguQO3aNU4yH1l LwLyNsY6CMkcC063SjDpxJAq Fefgm1ajw9fpmRz5QcVpLIIuvv OjgFzoJMO3e1VcVd18S8CjgKcn f8RbRhm1vo01jSZjr3P2iBE9 O2PxDFClpyosgQXgvFixTH9cIM CtlzhdYLDbvS8pOGXwN8p0PhJr ZmG8XKalW7TarxH2PTAvjWNl FBQlaAXDoN2kbblrk6dwkjykMf QoBDFgUNu9EWp0SIRwzNugStNw HVJ7AyG3ZIJ8iSCagD4zxCrq pfcaxU8tBll+AVX4oEQycZFHTO 1lOjwvdGQ+REErMCW4wStzAKef ACOodR3xIGTlM5q8OeZbAxL4 KDvnX3RsloC5HDKomJRkUQGzsE TFbM7gwalzq0bdewvmWoSvZYJv GLx0TGu2YJGndAgcItLxCOY1 NxX6GDA8qHRebU1djZftvvfnjW 9wOyc+AklspZxiKMK4UGi5Y5Gq Jvp6GXBunIblYL6fyZTtGBmj Py2vjTcmlHkoEX3oJYCpnypuq6 97XfQhj3xcOAKeqVBeKGznPRY9 S51ok1G2HVHdDAXuGRD8zIW5 oN3jyRvtkwzslRZydTeiiyHfsU jzMAsdTAjjD628ESYfuHtxTzOy PLe8P6FdSos3SFPnuQwtNN7r mLLjENbeHf1rwKbudPfoMM9tLX Imyncqo551LbRqs5dvQQGspOTf WBpwWTO0J97ms1M2MJZwNCCa WPU5xHM6dK9smAliczybnWMweZ desyJjfJkkUElpPVnmW687XMTy nKfjJiFblZm4D3CvIve4ITUu nVhrWS8sjIJgQKpuIg2nxUflkF nySG5cLEAfradvy166GjXww4zv KKBafGFaCCimTHQ9F06ru0N9 QFXgNNXyGIR3bUI3zR9zkBciex ogbGVmdDsgdmVydGljYWwtYWxp E088RLDikXfzZtZjhUflnnDi LCaeBBl1I1FvIfwvbPK+PC90YW TfOI19oFSisHGaf3wifYb7XuMr DEDnRFL8eJebRWsms9XdOEOl A39lpXSsu0K6IFPfpLfywLChTk KfmSC4xV3tZHhgbbpum4sxitnc Gkplp8gchy71uL68B44kXIre SXBxRIOhUYDdPFPunSbzsr3zjA 9wIi8+WJPrfGV1cSK3jD6yRMEb CuP8GZitD011PyIpuGIeWrhf r2gqm1wepHr2BvY8BPYocsJltE eiDSH5s1JdNn63C79bGNbzQIDe VVUmVKXpBOQvdUqpno9rdE2b Ii8+MRTnnII5cRW2fN3dPjDsDb Y8FBurG656KhGgbGJpZquwV53g A5PzyJR+XNEsDry6QXEftIwt PR5pzFTfNKcbNm1lGHY4YgSpBa NjDIllT3UhYPXfecsjrechkGP4 DJFhQVXooD97Gt4eaMkfWOQj iAWZzW0rgnqxo2wzcrhlSwMnNN JuJKy1AHq7RWJgnGorQmFrLHJ6 CcS5CCF8dYObhX4ohJskkniw bI3pM6KlUAEukdeoEh26nT4zDk ZgMyV1AJdsClf+IeJMDp6ZNtfz HbsYD4tJSA73W7RvKux3OEHc yJbhBE3riDQpOKzkAc2gfDbzbX yaFO5xRXBrhhmdGMDkwT7sSNGn vXMfbGqqQM9zALIyrjsxj866 EjYwQUZ8VUEomIZkR7NvkS5gBl FdNVEyKNGxU0OyhKVrDUhyC066 NAagMzX7MUBvuoAeZ4XaSNAt vUfdYdN3a5S6Zq1tVG1jAp5rLS meZV60HM44wSZhe2O6sCH5G7Aw ZLXufvqtiocdeZO6MUWwLCUm mC12vGMeJRgkGt8gs9O3k343QX XoTTCbkI45Qx6guQosQANbrABH rP3vjhjon2anmmcvVrKmENFc ZSp9QLl0WIZdnRqnUdLcTRG1Nt Y5ZPO0xHBdiM2lpMgklgikxA3p Oyc+FahcHFXpzhR5M5MoJyn2 AMIvoEtrWS1efXLbOPsbPp6rjX yyiBmwKK1sILKaqcdcCRQwmY9i AQSezUUwpAwaLM1eIYKgzmkx e727ScKrGCC9CSHkrEXiD9IfnZ 9hYwNzLPPvJYYoZ5KkjQEoHPcq R295FOtxWlU6ZUBjykMxM6Ui TFUkmRxgIbF1v6X7Yk8AXY9mhR T9I4JoWyg8JQLhjBhxPS4tlIOj TAqpVa6loKgudErmKS8fYDRg ovevIBLhzN6kVHLixFAvxWyhML 9zRBRwbvqzs267UeCdCIS2WGHj gPXdC0FugN2tWsWmOKBeVVYz R1WreRFlWGrtR665LZjtMkW8JS IlefTbD1UdKIYykMvwYtG4r9X0 Bn9EhMHqPIDfYM94JB56PC65 S8YzVaygtCGsmZT+PHRhYmxlIH dnLIJgXNplSORkLsJfxWwmQS1c Cn2kJVXtJPIkhHqtiFAsEoBf v4xvAYTbXUmzSQ2ckOtlC8RroM Z3XUBfx1x1Fo13J69yN2DtaZH+ FRFwuVF2sSL6hR8dYsHwZcQ7 RHyfK610NyCksALkYwomj9agn6 nwtSd4EkUcMAYxufLfdMhjLOC7 j7PcKo34W84zOBmcZXEkGZHe UCToEAPhzYdlpm5rwG5rCx7+PG RxkKT8fFG9tP2vKuNuNmR6VAqw F635QwEpdZKrXbclL21kM6Sw dXA+NNBvJdb9WEKlzRlfDR5iwI FiCWirKd8xPUY7ChDeTjLcGQqr N4XtLWCqlsgftiwpcTE0EDMo KJYglU95Xt5asMuiEb9rXOLhOA L7RHSgaUPgI9FnwE3tYpUeHJVl XPMdE9BqfMZyYOmnB655QOtf SlF1WSXkguAwA4EhWQYeuXyaLi W0t3O9Uu4SoVbalIIfVG5vMlGv OLx6A5VbIou3BDNcgBocID2x oQYnGUswKm3arKttyLbcOU3rFS Nzbkppi737PjMsd9ffJKPvvBVl QVrtKBK9W08va8A0SFRqRDRd AAS0oGJ9vW3yjQqsbfoniFYivW lvtzNfgFaiSRotXCxpG857WVZm yYccOvGGJye9L1LfAis0PYLa eWpuHH9mmVZlWYosWj1ofWqrbY rpFJ2nWEOmxypua693YoMnl3qi RGYylURdDZetKDK3K80mq1T2 FXUbKQQwVCV6yLD3cG6ybLfelq ogbGVmdDsgdmVydGljYWwtYWxp W967NDZbeHrsPq7CYfo7F3Zk Xxp7NMFcxWrrVZ5gxNCtEGhnTf 4zwAtujSdbXB2gYKFlnhsch096 DnPqj1kzYIMzgZRoQWmdOFF0 Y26ah8A8FNXvTCWaZCM9nNG0zQ 1hbGlnbjogbGVmdDsgdmVydGlj FZwnGTxyR865GEQjxXexGnSj eWVyOjwvdGQ+VD86yp65O5RnVd ifOem5LXOjAWC0oFZ2iD5aNCTv DDrjk2M4dWT7O9YtlwXvet1f g5jnAIFm (more content not included)... Normal [facility] Consenton 11-29-2022 Consent [id number]#[id number]:127 [facility] Discharge Instructionson Discharge Instructions [id number]#1.00CD:127 [facility] Postoperative Documentson Postoperative Documents [id number]#[id number]:127 [facility] Main OR Intraoperative Recor don 11-28-2022 Main OR Intraoperative Record IntraOp Document Type FT Summary Primary Physician: Lisbeth DE LA ROSA MD Finalized Date/Time: 11/28/22 14:10:13 Pt. Name: THANH VILLALOBOS/Sex: 1985 Female Med Rec #: [id number] Physician: Lisbeth DE LA ROSA MD Financial #: [id number] Pt. Type: O Room/Bed: / Admit/Disch: 11/27/22 12:14:45 - 11/27/22 23:59:59 Institution: Case Times FT Entry 1 Patient Times In Room 11/27/22 13:28:00 Out Room 11/27/22 13:54:00 Procedure Times Start 11/27/22 13:32:00 Stop 11/27/22 13:47:00 Anesthesia Times Start 11/27/22 13:28:00 Stop 11/27/22 13:54:00 Time at [place] 11/27/22 13:37:00 Last Modified By: Chuck ALVAREZ, Brina 11/27/22 13:54:51 General Comments: 1334-EGD completed/AW RN 1335-Colonoscopy started/AW RN 11/28/22 Chart opened to review and send charges [facility]oth CSFA Case Attendance FT Entry 1 Entry 2 Entry 3 Case Attendee Shazia DOUGHERTY, Chuck ALVAREZ, Alexandria Gibbs Role Performed ASSISTANT [employer] ATTORNEY Esl Instructor - Primary Staff - Other Time In 11/27/22 13:28:00 11/27/22 13:28:00 11/27/22 13:28:00 Time Out 11/27/22 13:54:00 11/27/22 13:54:00 11/27/22 13:54:00 Procedure EGD AND COLONOSCOPY(.) EGD AND COLONOSCOPY(.) EGD AND COLONOSCOPY(.) Comments Dr. Daniels supervising help in room Last Modified By: Chuck RN, Brina Woods RN, Brina Woods RN, Brina 11/27/22 13:54:52 11/27/22 13:54:52 11/27/22 13:54:52 Entry 4 Entry 5 Case Attendee Damir Moran MD, Lisbeth Role Performed Scrub - Primary Surgeon - Primary Time In 11/27/22 13:28:00 11/27/22 13:28:00 Time Out 11/27/22 13:54:00 11/27/22 13:54:00 Procedure EGD AND COLONOSCOPY(.) EGD AND COLONOSCOPY(.) Comments Last Modified By: Chuck RN, Brina Woods RN, Brina 11/27/22 13:54:52 11/27/22 13:54:52 Perioperative Protocols FT Pre-Care Text: Implements protective measures prior to operative or invasive procedure, confirms identity before the operative or invasive procedure, verifies operative procedure, surgical site, and laterality Entry 1 Procedure(s) EGD AND COLONOSCOPY(.) Patient Identity Birthday, ID Band Verified (select at Check, Patient least 2): Participation Consents / H and P Anesthesia Consent, Operative Site N/A Verified HandP, Surgery/Procedure Marking Verified Consent Surgical Site No Laterality Verified n/a Verified Procedure Verified Yes Correct Patient Yes Position Verified Availability Equipment, Medication Prep Dry n/a Verified (If Applicable) PreOp Antibiotic No Time Out Shazia DOUGHERTY, Given Participants Saundra Prakash, Chuck ALVAREZ, Abdifatah Gonsalves Kirstyn K, Sparks, Micala E, COURTNEY WESTBROOK, Lisbeth Time Out Complete 11/27/22 13:30:00 Outcomes Met? Yes Last Modified By: Brina Woods RN 11/27/22 13:32:53 Post-Care Text: The patient is free from signs and symptoms of injury caused by extraneous objects Allergy Information FT Pre-Care Text: Verifies allergies Entry 1 Allergies Reviewed? Yes Allergies Reviewed Self/Patient With Outcomes Met? Yes Last Modified By: Brina Woods RN 11/27/22 13:33:00 Post-Care Text: The patient received appropriate medication(s) safely administered during the perioperative period Surgical Procedures FT Entry 1 Procedure Description Procedure EGD AND COLONOSCOPY Modifiers . Surgeon Description EGD with gastric biopsy. COLONOSCOPY with ascending colon polypectomy x2, sigmoid colon polypectomy Primary Procedure Yes Primary Surgeon Lisbeth DE LA ROSA MD Start 11/27/22 13:32:00 Stop 11/27/22 13:47:00 Anesthesia Type General Surgical Service Gastroenterology Wound Class 2 - Clean-Contaminated Last Modified By: Brina Woods RN 11/27/22 13:48:03 General Case Data FT Pre-Care Text: Classifies surgical wound, implements aseptic technique, initiates traffic control Entry 1 Case Information OR ENDO 1 FT Case Level Level 2 Wound Class 2 - Clean-Contaminated Specialty Gastroenterology ASA Class 3 Preop Diagnosis DIARRHEA ACID RELFEX Postop Same As Preop No ABDOMINAL PAIN Postop Diagnosis EGD- gastric erosions. Outcomes Met? Yes Colonoscopy-ascending colon polyps x2, sigmoid colon polyp and internal hemorrhoids. Last Modified By: Brina Woods RN 11/27/22 13:48:27 Post-Care Text: The patient is free from signs and symptoms of infection Skin Assessment (Pre Procedure) FT Pre-Care Text: Implements protective measures to prevent skin/ tissue injury due to thermal or mechanical sources Evaluates for signs and symptoms of physical injury to skin and tissue Entry 1 Skin Integrity Intact, [place], Warm, and Skin Abnormality No Dry Outcomes Met? Yes Last Modified By: Brina Woods RN 11/27/22 13:33:42 Post-Care Text: The patient is free from signs and symptoms of injury caused by extraneous objects Patient Positioning FT Pre-Care Text: Identifies physical alterations that require additional precautions for procedure-specific positioning, verifies pre (more content not included)... Normal [facility] Consent for Treatmenton 11-18 Consent for Treatment [id number]#[id number]:127 Normal [facility] Endoscopic Procedure Report - Otheron 11-27-2022 Endoscopic Procedure Report - Other Patient: THANH VILLALOBOS Age: 37 years Sex: Female : 1985 Associated Diagnoses: None Author: Lisbeth DE LA ROSA MD Pre-Procedure Procedure Date 11/27/2022 13:49:00 . Procedure Type: Colonoscopy with removal of tumor(s), polyp(s), or other lesion(s) by cold snare technique. Procedure provider Performed by Lisbeth De La Rosa MD. Current history and physical Documented on chart. Colorectal neoplasm risk assessment Average risk. Informed Consent After discussing the rationale, risks and benefits, and alternatives to this procedure, the patient provided signed consent for the procedure. Pre-procedure diagnosis: Diarrhea, clinically significant. Medications Anticoagulant/antiplatelet None. ASA Classification: Class II. . Procedure The procedure was performed in the hospital. Rectal exam was performed and was normal with no masses palpated. The patient was positioned in the left lateral decubitus position and a digital rectal exam was performed.. Endoscope type used was an adult-size. The endoscope was lubricated then introduced through the anus. The time to the cecum was 2 minutes The withdrawal time was 10 minutes No difficulties encountered during the procedure. The bowel preparation quality was adequate (see polyps greater than or equal to 6 millimeters). The patient tolerated the procedure well. Findings 1. 2 sessile polyps, 5 and 10 mm, in the ascending, both removed with cold snare 2. Sessile polyp, 5 mm, in the sigmoid, removed completely with cold snare 3. Stage II nonbleeding internal hemorrhoids Images Procedure images: Rec1_hd_video__ [id number].jpg Rec1_hd_video_ [id number].jpg Rec1_hd_video__ [id number].jpg Rec1_hd_video__ [id number].jpg Rec1_hd_video_ [id number].jpg . Post-Procedure Complications: none. Estimated blood loss: none. Specimens: sent to pathology. Devices/ implants: none left in place. Impression and Plan 1. 2 sessile polyps, 5 and 10 mm, in the ascending, both removed with cold snare 2. Sessile polyp, 5 mm, in the sigmoid, removed completely with cold snare 3. Stage II nonbleeding internal hemorrhoids Recommendations: Repeat colonoscopy:: Pending pathology results. Follow-up:: Clinic follow-up in 1-2 weeks. Diet:: Resume previous diet. Medication resumption:: Continue current medications. Return to activities:: After 24 hours. Normal [facility] Comment on above: Result Comment: Elec tronically Signed By: COURTNEY WESTBROOK, Lisbeth\.br\Date and Time Signed: 11/27/22 13:50 EDT Other Comment: Amber august Attachment - attachment storage system not supported [id number] Can be viewed in source systemMissing Attachment - attachment storage system not supported [id number] Can be viewed in source systemMissing Attachment - attachment storage system not supported [id number] Can be viewed in source systemMissing Attachment - attachment storage system not supported [id number] Can be viewed in source systemMissing Attachment - attachment storage system not supported [id number] Can be viewed in source system Endoscopic Procedure Report - Other Patient: THANH VILLALOBOS Age: 37 years Sex: Female : 1985 Associated Diagnoses: None Author: Lisbeth DE LA ROSA MD Pre-Procedure Procedure Date 11/27/2022 13:48:00 . Procedure Type: Esophagogastroduodenoscopy . Procedure provider Performed by Lisbeth De La Rosa MD. Current history and physical Documented on chart. Informed Consent After discussing the rationale, risks and benefits, and alternatives to this procedure, the patient provided signed consent for the procedure. Pre-procedure diagnosis: Dyspepsia. Medications Anticoagulant/antiplatelet No anticoagulation or antiplatelet. ASA Classification: Class II. . Monitoring: See anesthesia record. . Procedure The procedure was performed in the hospital. See anesthesia record for sedation given during procedure. The patient was positioned starting in the left lateral decubitus position and with safety measures. Endoscope type used was an adult-size, introduced orally, advanced to the 2nd portion of the duodenum. No difficulty was encountered during the procedure. Views were good. Gastric biopsies were taken of the fundus and of the antrum. The patient tolerated the procedure well. Findings 1. Normal esophagus, Z line at 40 cm 2. Mild gastric erosions, random biopsies obtained to rule out H. pylori 3. Normal duodenum Post-Procedure Complications: none. Estimated blood loss: none. Specimens: sent to pathology. Devices/ implants: none left in place. Impression and Plan Mild gastric erosions, random gastric biopsies obtained to rule out H. pylori Recommendations: 1. Awaiting pathology report. 2. GI clinic follow-up in 2 weeks [facility] Comment on above: Result Comment: Elec tronically Signed By: Lisbeth DE LA ROSA MD\.br\Date and Time Signed: 11/27/22 13:48 EDT Main OR PACU I Recordon 11-18 Main OR PACU I Record PACU Phase I Docum ent Type FT Summary Primary Physician: Lisbeth DE LA ROSA MD Finalized Date/Time: 11/27/22 14:34:22 Pt. Name: THANH VILLALOBOS /Sex: 1985 Female Med Rec #: [id number] Physician: Lisbeth DE LA ROSA MD Financial #: [id number] Pt. Type: O Room/Bed: / Admit/Disch: 11/27/22 12:14:45 - Institution: Case Times PACU I FT Pre-Care Text: Identifies barriers to communication and implements measures to provide psychological support Develops individualized plan of care, and ensures continuity of care Maintains patient's dignity and privacy, and maintains patient confidentiality Identifies and reports philosophical, cultural, and spiritual beliefs and values Identifies individual values and wishes concerning care Implements aseptic technique, and administers prescribed antibiotic therapy and immunizing agents as ordered Evaluates postoperative tissue perfusion Implements thermoregulation measures, and monitors body temperature Evaluates postoperative respiratory status Evaluates postoperative cardiac status Evaluates postoperative neurological status Assesses pain control, collaborated in initiating patient-controlled analgesia and implements alternative methods of pain control Verifies allergies, administers prescribed medications and solutions, evaluates response to medications Entry 1 In PACU I 11/27/22 13:56:00 Discharge from PACU 11/27/22 14:26:00 I Outcomes Met? Yes Last Modified By: Melanie Romero RN 11/27/22 14:34:14 Post-Care Text: The patient demonstrates knowledge of the expected response to the operative or invasive procedure The patient's care is consistent with the individualized perioperative plan of care The patient's right to privacy is maintained The patient's value system, lifestyle, ethnicity, and culture are considered, respected, and incorporated into the perioperative plan of care The patient participates in decisions affecting his or her perioperative plan of care The patient is free from signs and symptoms of infection The patient has wound/tissue perfusion consistent with or improved from baseline levels established preoperatively The patient is at or returning to normothermia at the conclusion of the immediate postoperative period The patient's respiratory function is consistent with or improved from baseline levels established preoperatively The patient's cardiovascular status is consistent with or improved from baseline levels established preoperatively The patient's cardiovascular status is consistent with or improved from baseline levels established preoperatively The patient demonstrates and/or reports adequate pain control throughout the perioperative period The patient received appropriate medication(s), safely administered during the perioperative period Acuity Level PACU I FT Entry 1 Start Time 11/27/22 13:56:00 Stop Time 11/27/22 14:26:00 Acuity Level Acuity Level I Last Modified By: Melanie Romero RN 11/27/22 14:34:21 Finalized By: Melanie Romero RN Document Signatures Signed By: Melanie Romero RN 11/27/22 14:34 Normal [facility] Main OR Preoperative Recordo n 11-27-2022 Main OR Preoperative Record Holding Area Document Type FT Summary Primary Physician: Lisbeth DE LA ROSA MD Finalized Date/Time: 11/27/22 12:35:48 Pt. Name: THANH VILLALOBOS Dean Banda/Sex: 1985 Female Med Rec #: [id number] Physician: Lisbeth D ELA ROSA MD Financial #: [id number] Pt. Type: O Room/Bed: / Admit/Disch: 11/27/22 12:14:45 - Institution: Case Times Holding FT Pre-Care Text: Verifies consent for planned procedure, identifies individual values and wishes concerning care, includes family members in perioperative teaching Secures patient's records' belongings, and valuables, maintains patient's dignity and privacy, and maintains patient confidentiality Entry 1 In Holding 11/27/22 12:30:00 Outcomes Met? Yes Last Modified By: Celina Zelaya RN 11/27/22 12:30:31 Post-Care Text: The patient participates in decisions affecting his or her perioperative plan of care The patient's right to privacy is maintained Surgery Checklist FT Entry 1 Patient Birthday, ID Band Procedure History and Physical, Identification: Check, Patient Verification: Surgical Consent, With Participation Patient NPO after Midnight: Yes Results Reviewed Yellow Comments: Personal Items: Glasses Personal Items Glassess Comment: Limitations: Vision Complaints of Pain: No Pain Comment: Denies Operative Site n/a Marking: Availability Equipment Verified: Does Patient Smoke No Patient states Yes Comment - Adult Tiny- daughter postop adult Supervision supervision available Case Cancelled in No Holding Area see comments below for reason Last Modified By: Celina Zelaya RN 11/27/22 12:35:43 General Comments: Pt completed prep at 0800 and remained NPO since/ANTONIO WOLFF Finalized By: Celina Zelaya RN Document Signatures Signed By: Celina Zelaya RN 11/27/22 12:35 Normal [facility] Monitor Recordon 11-27-2022 Monitor Record [id number]:127 [facility] Progress Note-Physicianon Progress Note-Physician Patient: THANH VILLALOBOS Age: 37 years Sex: Female : 1985 Associated Diagnoses: None Author: Dilan Daniels Jr., DO Postoperative Information Postoperative disposition: Postoperative disposition: Home. Optimetrix number: Optimetrix number [id number]. Anesthetic utilized: General. Physical Examination Vital Signs 11/27/2022 14:24 EDT Heart Rate Monitored 73 bpm Respiratory Rate Monitored 12 br/min Systolic Blood Pressure 136 mmHg Diastolic Blood Pressure 80 mmHg Blood Pressure Location Left arm Mean Arterial Pressure, Cuff 99 mmHg SpO2 95 % 11/27/2022 14:11 EDT Heart Rate Monitored 86 bpm Respiratory Rate Monitored 10 br/min Systolic Blood Pressure 121 mmHg Diastolic Blood Pressure 80 mmHg Blood Pressure Location Left arm Mean Arterial Pressure, Cuff 94 mmHg SpO2 97 % 11/27/2022 14:06 EDT Heart Rate Monitored 85 bpm Respiratory Rate Monitored 18 br/min Systolic Blood Pressure 118 mmHg Diastolic Blood Pressure 81 mmHg Blood Pressure Location Left arm Mean Arterial Pressure, Cuff 93 mmHg SpO2 99 % 11/27/2022 14:01 EDT Heart Rate Monitored 92 bpm Respiratory Rate Monitored 21 br/min Systolic Blood Pressure 84 mmHg LOW Diastolic Blood Pressure 65 mmHg Blood Pressure Location Left arm Mean Arterial Pressure, Cuff 71 mmHg SpO2 97 % 11/27/2022 13:56 EDT Temperature Temporal Artery 36.4 DegC Heart Rate Monitored 104 bpm HI Respiratory Rate Monitored 17 br/min Systolic Blood Pressure 132 mmHg Diastolic Blood Pressure 83 mmHg Blood Pressure Location Left arm Mean Arterial Pressure, Cuff 99 mmHg SpO2 97 % Pain Assessment: Controlled. General: Awake, Alert, Appropriate. Respiratory: Adequate air exchange, Non-labored. Cardiovascular: Stable, Normal peripheral perfusion. Neurological: Neurologic exam at baseline. No changes.. Assessment Anesthetic outcome No anesthetic complications noted. No nausea/vomiting. Review / Management Condition: Stable. Plan Transfer/Discharge: Transfer/Discharge Discharge when meets criteria ( From PACU to Ambulatory Surgery Unit, and To home ). [facility] Comment on above: Result Comment: Elec tronically Signed By: Dilan Daniels Jr., DO\.br\Date and Time Signed: 11/27/22 15:14 EDT Progress Note-Physician Patient: THANH VILLALOBOS Age: 37 years Sex: Female : 1985 Associated Diagnoses: None Author: Dilan Daniels Jr., DO Preoperative Information Anesthesia history: Patient history: No prior anesthetic problems. Informed consent: Signed by patient. Re-evaluation prior to induction: Initial evaluation reviewed: No significant change. Review of Systems Respiratory: Negative except as documented in history of present illness. Cardiovascular: Negative except as documented in history of present illness. Health Status Allergies: Allergic Reactions (Selected) Moderate Codamine- Itchy., Allergies (1) Active Reaction Codamine Itchy Current medications: (Selected) Inpatient Medications Ordered Lactated Ringers IV Faiza 1000 mL 1,000 mL: 1,000 mL, IV, 100 mL/hr, Routine, Start date 11/27/22 12:23:00 EDT, 10 hour(s), Total volume (mL): 1,000 Prescriptions Prescribed Bentyl 10 mg Cap: 10 mg = 1 cap(s), Oral, QID, X 30 day(s), # 120 cap(s), Refills(s) 11, Pharmacy: [email or web address] #[id number], 158, cm, 10/03/22 14:23:00 EST, Height/Length Dosing, 120, kg, 10/03/22 14:23:00 EST, Weight Dosing Sutab oral tablet: See Instructions, 1 EA, Refill(s) 0, IDA, Please follow instructions per packaging and physician's handout, [facility], 158, cm, 10/03/22 14:23:00 EST, Height/Length Dosing, 120, kg, 10/03/22 14:23:00 EST, Weight Dosing omeprazole 40 mg Cap-DR: 40 mg = 1 cap(s), Oral, Daily, # 30 cap(s), Refills(s) 2, Pharmacy: [facility] #[id number], 158, cm, 10/03/22 14:23:00 EST, Height/Length Dosing, 120, kg, 10/03/22 14:23:00 EST, Weight Dosing Documented Medications Documented allopurinol: Oral, BID, Refills(s) 0, Gout pain carbamazepine: Oral, BID, Refills(s) 0, Seizure pramipexole: Oral, BID, Refills(s) 0, Other (see comment), Home Medications (6) Active allopurinol , Oral, BID Bentyl 10 mg Cap 10 mg = 1 cap(s), Oral, QID carbamazepine , Oral, BID omeprazole 40 mg Cap-DR 40 mg = 1 cap(s), Oral, Daily pramipexole , Oral, BID Sutab oral tablet See Instructions , Medications (1) Active Scheduled: (0) Continuous: (1) Lactated Ringers 1,000 mL 1,000 mL, IV, 100 mL/hr PRN: (0) Problem list: All Problems Abdominal bloating / SNOMED CT 227511538 / Confirmed Abdominal pain / SNOMED CT 48549417 / Confirmed Acid reflux / SNOMED CT 785546967 / Confirmed Clostridium difficile diarrhea / SNOMED CT 6568019093 / Confirmed Problem added secondary to positive C-Diff lab result. Diarrhea / SNOMED CT 891232070 / Confirmed Small intestinal bacterial overgrowth (SIBO) / SNOMED CT 6723063583 / Confirmed Histories Past Medical History: No active or resolved past medical history items have been selected or recorded. Procedure history: Hysterectomy ([id number]) on 05/20/2022 at 37 Years. Social History Social & Psychosocial Habits Alcohol 10/03/2022 Use: Current Type: Beer Frequency: 1-2 times per year Substance Abuse Comment: denies - 10/03/2022 14:21 - Tran, Christine I Tobacco 10/03/2022 Tobacco Use: Former smoker, quit more Type: Cigarettes . Physical Examination VS/Measurements Airway: Mallampati classification: II (soft palate, fauces, uvula visible). Respiratory: Lungs are clear to auscultation, Respirations are non-labored. Cardiovascular: Regular rhythm. Plan [place] [employer] (ASA) physical status classification: Class II. Anesthetic Preoperative Plan: Anesthesia General, and -TIVA. Normal [facility] Comment on above: Result Comment: Elec tronically Signed By: Dilan Daniels Jr., DO.oj\Date and Time Signed: 11/27/22 12:25 EDT Coding Summary.on 11-21-2022 Coding Summary. CD:[id number] Ww+PGh lYWQ+RY6POJKgW59bxPXvzL2xN 0NMTElOSywgQVBQTElOSyIgbmF zIE0ugAOqITJc IC8+CN5fYSRdOyvicKXlb2O3sH B2E65usy8hEMuwdEZ0ZYDmFaCg htqnn7xsxOm9RWbvIbycOlDo KMNizC54NBI1aM12Vw72cSAegP Nkk5uysFg5IrIvAGNsXTA7wBuf CLlzf4WiKVGfU61fdWVwa4A4 MJAtfCnobWYlPxEhlXI8aY6uHU ndxhifh8fzzeukJjd6fw80dVGp z7W5pUY1S4MjjgN4ALCfbUZn AszuyCIRhW7ndwvsv3uytbbcBv OeYICkJWp4HIt9YVQktVtwZaNm DH55PYT6CRLjcrRpR1IuSQYj zSljQlF6e6F2Ph0JJ5ALGxmqH6 VNTUFSWTwvdGQ+EU98gd04X4Pl VnhlRum2FAMmYPI5eUD8zM0j HLDlEGcuf5C9aXN8U8TbifKesw 3yh3hrBYExSEhoS06jhFFzp2H9 FFEmhNH9OTVimVvcDuTlnF86 Oyc+SYUolLhtv2LlQahlt7xkt6 yzvMx0PxycUDNmfiVnyXrvHWM6 u8NaEj6rCNGaaDQ9vJK2gV6v PzUxFiX2HEuhP048QoDcpMOvIr lrJ45yN6AifEX+RHFbJcr6URZt qVoaJO3kI5MtYMHwsyedmYXt xMqyEO9qBXOhrsgoJIWwbP2wRF KqA3j4DbGtAqH8UAwjP7AhFICj ejnxCg45yP6bTcOwHnL0HKys M9YpnpK2PQIdhXGeHQzcHST4X6 0kq7Y3FGRzYUMoAFB9zRJ5fM4m bGlnbjogbGVmdDsgdmVydGlj JUpiJEcfC214MPJbtOdiJpYsFS luZyBEYXRlOiAgMDQvMDQvMjAy MzwvdGQ+MTXyHZR8uUirWATf yCIqNXzxLw1haWwplKvhWJ3hQP YrdlfaBVXaqI0qPEBahAQulBvu SV3iCCJmhsjle766KrNrUQF7 USZkeJQqP4DbwA7aGjWtDHWuRT JeO7IseJWhPLmzW836VWrzQqF8 NKMypqYzD7IkCFGqcTxuIaM6 s7F4Kz2Yi3PwhffaJ5WeiIPiSc ZuLyceGGv3H1JgPmgdjOU+PC90 SKKoRM85DXx3KTJ2xIjaQDma XRIfU8KqvQ1yFxLfMIObSNCtPe c+PHRhYmxlIHdpZHRoPScxMDAl FkPazRrqOD3jTg0jKARnWREe zTgojQEcKbOqi7jyXXKdIQxwZK 8sbIetJ2PsaWJ1POJzd6m3Am19 Q21tV3JxvPV+XIFfxBM3uZL6 uY2nFsKtBbY1UAwsP313GfJdkB MxLpqcs8iiv2lpyVh1QvP0QPIz gwMwqZncHQA6g6MwCi02V20v IHdpZHRoPSIxNSUiIHZhbGlnbj 6nmO1yFd3+FZWscFG2cKS9vE3f NgLjScA9YMxnU833YuJixFVy Gebsc0zxp2cuqEf0LjBkDPJxzz WgqZrtAFS9b1VjJf09C8FfcIjp i9TqXgd3vz80dWGke9K2sFL0 R2TxLHDjvxwcoZShoUmkSI9tIK PmbkhmYVKauX2sPPCdW4i1CoQx WiC0PYiqD7OtmoP7QMSbrCFl UYUigMOYeD9rftfei0zkyzlsTh RmTIAwYYm2EAa2VZAfmRgiSiIh JTS9DwQ1XCY2xMEskV7bwTxf ysjydJ6fWlz+XUK5wBDqcXVNJW 1lOjwvdGQ+BUMfTHV0tUjrFQii MWPxpL9qHGEnL3n6EyPtJaH7 JRxnI8YwssG5DONefCGkFWGtdH NQcT2bbgrwx8dizxcnBuBqYHVg UAe4DFn1YOWjgAwcJnVpLYE5 UzT9AZO0pXTpaJ6jkWnwufmejL 9wOyc+QnltlRazVGG4QRi2S3Ek Aqo2GMTqiJypMO1aeXYrQAvy Ik7zhUmgdVlpUZ6nIGExqvrpq1 78ChOlp4daNAMyiUUsRWauLPA9 R86me1D5NGXyCLToODG7pGI4 rY8ihWodutnomNAbvSltipXqoT xjNRfuWUksA895ZZDzzUufFuGm AUf9C1PsAry1PLEzoQxdEL5r lUYuMZkfHe3krAiasDmlYF3tHE Aqhudwb553VzFbs4xxWARepPOg HJumNXB6A86ys8V9SWZbNAYe XCX0tRW8kT8nbTkunleclVIyyR huinDpmVjsCKhzRSybL895TQRw cRbwEqOqsJu0L0HzCvt2WMGy hHacDW1tqPNcXPeuRv1avTdmoP zmSP5pFYKqybnbl073FfPna4cx XDJcyFRbRSquCAU5L73en3V6 TDWaBDYtVIZ0uFY8uV0xlUlegy ogbGVmdDsgdmVydGljYWwtYWxp Q538QSRscUneRgYacOejfzVl NFtjVRh0B0KrLyhzhJL+PC90YW JjTS67uKGlsZDdy4brqUf5JlKr CVFjWBB5cDbrQHrnq1FlABEf V65qhELqe5O4NMEeiVgvxIBtHy PvwZJ0sN0uOMheqjdoy1xrffkg Armln5quek01lA71A75yLXvk XWYjKKVvMTUcQOVgvUlmln7gtT 9wIi8+XWPmlNK4vFB1qS4qEASh IfC4KBygR292HkZxcWJiIndv c2aov2jekWi0PzH9AKAnpfMruZ ueVQA9g1PzPt52X73cLYoxXNNs XCZcPZUzZKLbaXvqsq9yxQ5x Ii8+FUOmsUU6gDT6lV4iRqBfHj B3ARqsR835ZdBeoUSqSzpqP08i F6RqcOS+KBSeWqw2XXUimEyq LD2unBFaWWriDz3wIVJ4ZtGaZy UwMTdlO9VhWDCvsedifzfepEO4 OXCqDPWovZ82Ig9ogTleZWRg gCZFqK4lafxkv4alszsdDbBbCT TsFJp5FDm1YFBsdYsyCgYqDKZ0 UoQ7CYZ2oSGvsG4ykOjgrrrm qJ7jN1KdHWMrpknzZb18tY1vMi MlFdH9ENbuOyz+ZcQQUl0PZujd DnlEY8iQAR67X0PkTzu7CNQg yCikKC0siNUgKLoiGp0haObcfU feUK6pISRpniodCLGrxO8jSPVx vYSemUtsOG9aMEGanpyox640 GbRhRVD4AWXcoPDzE4AqgD6cEj YzPVQsIPVvM9LhqGJhIDvbG266 YOztCdI5ZUHshuVjM3MrXENr qCdcDaG5n6G1Vz0oVI7oTi1aZE yvMY56WH65rWAuq6G2hHE8J5Ja NTFmogtyatznsOD9YHScKEKl mJ33eUVyXXagBi9sp4A1u820JQ HsOQQyjX28Bl1dbMxtMXLmzKPJ yK6dwofhm9jzkqhuTvSuMJAk VDr7CKv4GXHgfKniFoPjOGF4Os I1MGK0zDBrcQ6owAjehcxfxJ5z Oyc+BvepKMUppeN3G1NdRau1 VCNqeVbcKP1gfHScMZbkTn7kpC edvRelLC7hGCAnhborLZUljF9p HYGajDHukCbhSB3sPGBrglby r979MwHrVHH0IHRvxREiS6PltD 8lTwQsGHSiYASmQ1UvySIlECrj I000MBadEuW0FURrayJbC3Ki TVJloJrsSuW9i6N2Xc8PHV1dhR O6K6GhEpb6VMNaiRdqRF8rfQOc VQbkNo5itVafcTyrBP7gWWGv znelKVHdkQ6gSWCsqNAnuQtuSI 5zVLWqingcv885FcElXWI2OIQq nXPkN1OyxW0yAyLuTBRcVQHf V3AnlCQaWKlhW927NEkiPcI1VH YbpsTiD0VpGMOguJhcBoD9i9B1 Pd2ALBS7ddWapax7S8AdKqhd dHI+GQ72FBDeMC35aNNjjSVtu3 jtyOv6YcAqPZYqJEF8dWgmMGuq a3CjBEYfN47kiMHdl8K2PFFa eKaacKBxDmHjpOT9zT3bPAfoqg rjk5iftgccDmjef6jxlr94vI94 L54qIVwuRNUzQXLjZADhQLWx lZlypb4ebZ9fRo6+JCIptJR0xK W7dD9rCgGaLyF4CBdlQ293VjGm xRWgUzxau2qkd4pxiNj2OaSu URNmouYabUpnTFC5y5QwKp97B3 9sIHdpZHRoPSIyMCUiIHZhbGln zh9geQ2yNq7+GN2yx0obhi67 eU90zRK+GLUcFQR2jXatMPinBE OqiK4dMKuaZyF2HISePcHvbX83 mRLlFNitHq7coKcieUisIG6k HUOnqxvio321BuFtg5yvZGCzgM IjORboYXS9G63uu9Y1KMAzDEIj IET1oXW9cF2ttXmkhnohuVXy fToteqFiuOmpAFasDXegH799DM JnnJmwPfXonPFnG1tnmvLOMB8n OjwvdGQ+YOFyXDX2lZcdPMpg FJGqaG0eMEYzE0t0HiCmDvR6YG djG5YzgmO7TAYciBGmPYHbqSKB wO3gizvgf0mpnrbcBbDdGLGf FGu2MAa5TRLbhQcePoUnFPC0Nn G4PNS6yAPgqV7pqJzbakhhyO0w Oyc+RklOOjwvdGQ+PHRkIHN0 uZdcDNbvHJPfwA0lFNVhO6r8Vp MvJoW2LTewH7LboeK0VCHqtUHy EJEeyMQScW9diiqru4lhkemh BpUhFVLgLGj3VJo5UVHjcXcuEt ZlSNZ2SjQ1WDM5iVXgzF1qaCbc prdrpJ0vMzn+TVJOOjwvdGQ+ LYTkSSS1oCmjGQfbYTNrfD8vPH MiI2b3WcDoKzC4WGfcS6AivtW3 GDMqbTYyDDVetYPAxB4prxek z2oeqqloBaMoQXSyJUv1TFy4KH DhnOfdZoIyAQU4BjX5JJK8rNVi rG4uvFxvdxmieZ8bSus+UGF5 YBD0ND35UA18S0CvFyeecXYklF U+PHRhYmxlIHdpZHRoPScxMDAl RmEsmZwoCK3gAn1vOYElUHMy bGxhcHNl (more content not included)... Normal [facility] GLYCOHEMOGLOBIN A1Con 2022 ADA RECOMMENDATION SEE BELOW Normal [facility] Comment on above: Result Comment: ADA RECOMMENDED LIMIT 4.0 - 6.0 ADA THERAPEUTIC TARGET < 7.0 ACTION SUGGESTED > 7.0 Performed By: #### T TJ, CMP #### [facility] [address] [address] [address] Hong Jacobo Glucose [Mass/Vol] 114 mg/dL Normal [facility] Comment on above: Performed By: #### T TJ, CMP #### [facility] [address] [address] [address] Hong Jacobo HbA1c (Bld) [Mass fraction] 5.6 % Normal 4.5-6.2 [facility] Comment on above: Performed By: #### T , CMP #### [facility] [address] [address] [address] Hong Jacobo COVID-19 ([facility])on 11-20-2022 Performing Instrument FT Tomas 2 Normal [facility] Comment on above: Performed By: #### 2 [id number] ####[facility] [address] [place] [address] SARS-CoV-2 (COVID-19) RNA KYM+probe Ql (Resp) Not detected Normal Not Detected [facility] Comment on above: Result Comment: This test result should be correlated with clinical presentations and medical history by a healthcare provider to determine its clinical significance. This assay was performed by a reverse transcriptase real-time polymerase chain reaction (rt PCR) method on the [employer] system. This test has been authorized only for the detection of nucleic acid from SARS-CoV-2, not for any other viruses or pathogens. This test has not been FDA cleared or approved. This test has been authorized by FDA under an Emergency Use Authorization (EUA). This test is only authorized for the duration of time the declaration on that circumstances exist justifying the authorization emergency use of in vitro diagnostic tests for detection and/or diagnosis of COVID-19 infection under section 564 (b) (1) of the Act, 21 U.S.C. 360 bbb-3 (b) (1), unless authorization is terminated or revoked sooner. Performed By: #### 2 [id number] ####[address] [id number] SARS-CoV-2 (COVID-19) RNA KYM+probe Ql (Unsp spec) Pass Normal Pass [facility] Comment on above: Performed By: #### 2 [id number] ####[address] [id number] Specimen source Nom (Unsp spec) Nasal Normal [facility] Comment on above: Performed By: #### 2 [id number] ####[address] [address] Consent for Treatmenton Consent for Treatment [id number] Normal [facility] PROF CHEM 8 (BAS METB)on Anion gap [Moles/Vol] 11.5 mmol/L Normal [facility] Comment on above: Performed By: #### B MP, URIC #### [facility] [address] [place] [address] Dr. Hong Jacobo Calcium [Mass/Vol] 9.8 mg/dL Normal 8.5-10.1 [facility] Comment on above: Performed By: #### B MP, URIC #### [facility] [address] [place] [address] Dr. Hong Jacobo Chloride [Moles/Vol] 102 mmol/L Normal 98-107 [facility] Comment on above: Performed By: #### B MP, URIC #### [facility] [address] [place] [address] Dr. Hong Jacobo CO2 [Moles/Vol] 29.5 mmol/L Normal 21.0-32.0 [facility] Comment on above: Performed By: #### B MP, URIC #### [facility] [address] [place] [address] Dr. Hong Jacobo Creatinine [Mass/Vol] 0.81 mg/dL Normal 0.55-1.02 [facility] Comment on above: Performed By: #### B MP, URIC #### [facility] [address] [address] [address] Hong Jacobo EGFR-AF NEW ZEALANDER >60 Normal >=60 [facility] Comment on above: Performed By: #### B MP, URIC #### [facility] [address] [address] [address] Hong Jacobo EGFR-NON AF NEW ZEALANDER >60 Normal >=60 [facility] Comment on above: Performed By: #### B MP, URIC #### [facility] [address] [place] [address] Dr. Hong Jacobo Glucose [Mass/Vol] 151 mg/dL Critically high 74-106 [facility] Comment on above: Performed By: #### B MP, URIC #### [facility] [address] [address] [address] Hong Jacobo Potassium [Moles/Vol] 4.0 mmol/L Normal 3.5-5.1 [facility] Comment on above: Performed By: #### B MP, URIC #### [facility] [address] [address] [address] Hong Jacobo Sodium [Moles/Vol] 139 mmol/L Normal 136-145 [facility] Comment on above: Performed By: #### B MP, URIC #### [facility] [address] [address] [address] Hong Jacobo Urea nitrogen [Mass/Vol] 15.0 mg/dL Normal 7.0-18.0 [facility] Comment on above: Performed By: #### B MP, URIC #### [facility] [address] [address] [address] Hong Jacobo Urea nitrogen/Creatinine [Mass ratio] 18.5 mg/mg Normal [facility] Comment on above: Performed By: #### B MP, URIC #### [facility] [address] [address] [address] Hong Jacobo URIC ACID SERUMon 11-20-2022 Urate [Mass/Vol] 7.1 mg/dL Critically high 2.6-6.0 [facility] Comment on above: Performed By: #### B MP, URIC #### [facility] [address] [address] [address] Hong Jacobo COVID-19 ([facility])on 11-17-2022 ADMITTED TO INTENSIVE CARE UNIT FOR CONDITION OF INTEREST:FIND:PT: Unknown Normal [facility] Comment on above: Performed By: #### 2 [id number] ####[place] [address] EMPLOYED IN A HEALTHCARE SETTING:FIND:PT: Unknown Normal [facility] Comment on above: Performed By: #### 2 [id number] ####[place] [address] FIRST TEST FOR CONDITION OF INTEREST:FIND:PT: Unknown Normal [facility] Comment on above: Performed By: #### 2 [id number] ####[place] [address] HAS SYMPTOMS RELATED TO CONDITION OF INTEREST:FIND:PT: Unknown Normal [facility] Comment on above: Performed By: #### 2 [id number] ####[place] [address] HOSPITALIZED FOR CONDITION OF INTEREST:FIND:PT: Unknown Normal [facility] Comment on above: Performed By: #### 2 [id number] ####[place] [address] STATUS:FIND:PT: Unknown Normal [facility] Comment on above: Performed By: #### 2 [id number] ####[place] [address] [facility]:FIND:PT: Unknown Normal [facility] Comment on above: Performed By: #### 2 [id number] ####[facility] [address] [place] [address] Giardia, Direct, EIAon 10-30 G. lamblia Ag IA Ql (Stl) Negative Invalid Interpretation Code Negative [facility] Comment on above: Result Comment: Perf ormed at: [address] [id number] PhD Van Castro Performed By: #### 1 [id number], [id number], [id number], [id number], [id number], [id number] ####[facility] [address] [place] [address] O & P EXAM, ROUTINE, REFLEXo n 10-30-2022 Ova and parasites identified Concentration Nom (Stl) Comment Invalid Interpretation Code [facility] Comment on above: Result Comment: No o va, cysts, or parasites seen. One negative specimen does not rule out the possibility of a parasitic infection. Performed at: [address] [id number] PhD Van Castro Performed By: #### 1 [id number], [id number], [id number], [id number], [id number], [id number], [id number], [id number] ####[address] [address] O & P Exam, Routineon 2022 Ova and parasites identified LM Nom (Unsp spec) Final report Invalid Interpretation Code [facility] Comment on above: Result Comment: Thes e results were obtained using wet preparation(s) and trichrome stained smear. This test does not include testing for Cryptosporidium parvum, Cyclospora, or Microsporidia. Performed at: [address] [id number] PhD Van Castro Performed By: #### 1 [id number], [id number], [id number], [id number], [id number], [id number], [id number], [id number] ####[facility] [address] [place] [address] Coding Summary.on 10-28-2022 Coding Summary. CD:[id number] Gh0bWw +PGhlYWQ+ZS6DMSDzK58taJGmv V0kQ1RIWBxRCexkTNRAVKuSDqU jqqGsLE4ejGSnSXXf IC8+DE8uASGnDccbbIYgk8A6iL V7H18oik2eZLbffXO4BGCkOuLn nupbk3rcqJo5IMztFdmoEfNu DIAwjU26OIQ6cW99Ap32pEAarT Owp2epmWj8YnOeLIYsSAE8yCod FUrvp9FiIHFkH35xeYPax3Z0 XTCnxJocnYTdAuCuwQZ6lK5eSO vyorzub8axapbpMns2yq51fTUv o7K2hMT5R4OuxsF5UQDplJHg QnkfdMDKfL1gmizml1onewskPc NtNJSoAWy2MOw3PINyhTktXyUk QE32QAV7DWZuntMfN7OiNRWy hMdsYeL1j9B7Yz4NG5ZKWimrF4 VNTUFSWTwvdGQ+AK71cr51L1Gi FvhnEvc7HCYoGWU6oSY3tB0d WPOmXQzdb5X1pBK3T8ZkieNfeb 6uj0mbGTUcTGseX12bnBCcy5V8 UYLxxXF7EHMkkLwdIgYpiQ81 Oyc+AUTaaAucp1QcBqznp0wfn0 ooxSd2CpbxPAQzgnLhsSczWDZ5 v8IgKn0mLFCbkRQ3aEA0yS0c ArTzCpO5OPdnJ302TpFqpKWkWf qeP73zF5YiqIA+NNApSad4MAJu rEqeUP7vQ5AwRBMykkmdbVVh bJnpUV8nWZSrfnleAXMhrJ5dUI GhR5r6BvAgWvB4SUknK3DdSUZm dlbbYf64mS8kEtYuEeC2TVyo B7IhswN3ZDPxrYLqLLakZBF0T9 9tg1F3WMTxTTVvXUK3fAD2aW9k bGlnbjogbGVmdDsgdmVydGlj SObxKKubE331DWWukBzgXjJoVV luZyBEYXRlOiAgMDMvMTEvMjAy MzwvdGQ+NNCfQIF2lRjlLFPl nDHwHOerFg4mwSojiUbnCI0dTY JexixvOFMplZ2kZMUgdKEkdTbx JD3sCDRlqwklt459ZtVeQQW1 PHOshCFtI4CtqY8eAuCsFORsJI NdI0DdpTVgBNqiX267MAtxEqB9 UPMudwUdG4VrQCAiaVzsVaY7 o1X3Ti9Kq1ExhxzmJ2NquHOfKw KqBjurUHl7U0HtTeictWV+PC90 GOTyWL94JPb9NGB3eYplMBjx KJJyA6JlrD1qZnNdAVLtPTEuMc c+PHRhYmxlIHdpZHRoPScxMDAl FlDjrDhbKT3mBc7eZMMsZNSo kCzhdXZtClXeo0sdZZHfIMshBI 1heEgqV9GonWZ5NZPsm3z6Mh76 P44iV2RjnGC+WNJzsYI9wYI7 wZ8fAbKoOdM6PFbrI236PcHwzS EsYippx2bwe7qfbSj0SiS2EHIw xiEawCdxNUO9w6EeEe02M41z IHdpZHRoPSIxNSUiIHZhbGlnbj 9bpE3rZa4+QTWqvQM6gHT3yC3n UvTaXaS2WZrhT551EmHyoRSt Usspn4kgv9yifKv7WsWpBOUaxe UqyQwsSGL7n1ZwCa13A0UkaSmp x5BcMmn9ev47mCQil4F1cOI9 J2ZwFOAkxqzafNQkeHqxDN1wML PmrrcvTNOyxN3oNJNrN2i9MsTx XvD9LHnoB2DadtM5BDDzvGPl JBEofHOOdN8fueorz7fwppoxTi IwMRFfDUo3TKw1BDKlfJuqQnCm FEJ2HzR1BLY9cDEvyP7blUns brqglO0iApl+GWK1iGCvjVDSUR 1lOjwvdGQ+KFGtUBE7vTpcUXff LIJiuS4lSMXoT7h9XeHeAxF1 DDnsW6BpzhU1TVNylDLtYCAvvN ONzD7mwyctv6vhxakpFpIpSJWs WEn5TUq7XASdgHmaDpWnNMU7 PzY2MJJ8gITbuK4rkGiszvnjzQ 9wOyc+FijacIizAFX9AZi1T9Ag Zch6BIEahHryMB9ryQYhWErz Yj5jiSwtvUcdLB0rDCZmzhjsz7 61YtQgw6ufKJVuoNQmPPezLTY4 Q11or6P5VUZmEKZkQNJ1jUQ8 bD0vxTpjmlcnbBEmzQdvpxVnaS hdCJryAUfiN446GJInnYnsPjVq LDr3R1NiJwj3YJIbzTwuVR1o qNWmIAnzHm6jhGouhQkzTY1rAW Vovesro062CoGmc6myYKDdhHYw PPqsCQB3E00la2X5WODzKGNk PWP9tRZ5bS1jmErwqfaosYSbzK srcpOrjGueNWpxNNayX062BYOs mRnyJiRdrYq4W9HrSvc0DDNq aBtuPK3opTBaFAogEf1jxAlefV arQQ8gCUFptniud147OiRon5ct HCZekCEvFBdoUSP4L15fw5U3 JHCcMBUyPNV3rJS2pY9ddGwjqk ogbGVmdDsgdmVydGljYWwtYWxp E627PVZjpBymJsGalSahczWn SMaxEGr8T6ZlWqfoyMW+PC90YW ZsLI37fOEzbXTdz9fpdOt8FpZk YLHeDDZ9yQqnJPabp8VaKIMo W87txSWek3V8SZUzvRcdrNUqYj SkqMY4wH2wVTzeptslu2lknspn Pkxar7tkrv02nR81C13hKIuo GBXePMZqENDnKCIgkTvory2rbH 9wIi8+BFNlcNT9xNO5zA2vADTv TnI0SAhbH676PiLrfLMcVgse o6vpd1qniUo4ZrM8GMKrozKzdN rbXJD4t9EpWj43V07zHEvaIPXq NLPoPNNcECUzfAecok8ypQ7c Ii8+UQKmfJZ9mFW2kC9eNsMaHl E7BYfpA625ScLzbFSpUlkaI38o X8AarUV+PNHqXsm3VBFyeQza MG2atZSvVTnqPl9bNTM4NeHtBm EsVOmbJ9JjPPWoifzgnfxuqEX2 LDDkTSEpiW46Er9yeWdbOCWg yWJJsQ0apeflc9vanykdIaEsVK FmBIm1MBo8HAJioPirZbYhQZL5 DjL7SYD5kYSnvC9afNxxnlmt eT0qQ4VwWVXtwkguPj40lF3bQp QdQhP8XVriMkp+VmDLXq8HIris NevNI2xOTS01B9QaBtf1RTKy jTmrAC4wgSDmQUjsVo3evQlgrI paAT4oYQDegctbMENmmS6tZPYa xECnoXlkKB2jIAQvvvuge276 DrJxUBU3CRXoaFOcC8YalB1hWg JyBSQvLGZkT4UioWInVEqoO732 WBewVvE3CHXwwuIkU3FsVBNl rGvtQqE4s4B4Ge1mMC7kOp4uYA sxPV79AS50oICqo3S8cFY9X2Aj VUOwihwqkamhwBW6FXCoPMBm sK82kEYjCFrqGt4hr0D3z005MJ RbEPFnnG72Ah6fiSglPBLrmOMY yI4yxdcuh7hnntggGsObUMPo JLz7MHn0OIWluLzoFrJxMNZ0Ap T2DAK7rNYnmW4vaElkprwdyH0x Oyc+DwumFWHtuqA0S5PiHab4 AXKtdOudEZ1qvLAnBUawNj5mfX vrxAtkVZ0jDTRzzsshOHNhuZ3v YLZnzTDhtSptPA2dZBYrbter z528PdWwVST2BVXtdELgL0KsrW 1rUaKjGERyQLMwF9MtuVJnFFyo H211VCgcZvE6VTMcinXzJ8Ae TJEbwHorWqS2o4S3Se5YEZ9mvQ T0G8JtIrt9EJVlgSivLM4cvGVi CBmlTw5ssXebeVcoEK3nVMBw xxksJVKlnA7aHGKsqGMruUtgBW 3rTWVnbbzeh761ApVxXVQ2EYJz iLAaS5WucK6sAnMxRVWaJPDl J7LcuXEcTIitG115FOifOqK4MX LqcxPjA0LtSBYnwUkxHfS3y2Y2 Ql8DFRBuFIPpfFArAhQ7Q1Qy PjwvdHI+FM81AEEoNY79uQQetH Mde6lzoFj5LxEaNWZcVSA1jGby TLaew2NqRGZqT56bpTXcd4B5 KAYmqGedvANpAyTcaSN9tM0dOG oaqhaba0uvrpnbUwwtx6jbjq17 qI38F73kWAzjFROuTOCoRVQq YPAxrYpiff6qtF9nIz7+PGNvbC H0vVN1xY8wYvYtTtK5ENmfQ975 PwIomGDtSzrwr3ncn6tmwJd3 OuQoISJlnfVzmGrwNZO8g1XfEz 54W80mAKreSGIrKIBoGAOdHEDu vEqknf6xjI9iEo2+EG8kx0yd rl45jE33uDK+PTEaOYU5bKouQP avFQNkvB8yRTibTvE9GSJcYtRm jT63nWPqNOrvGp7fuXsvaOux WF4yTWNuezyds816FlJdo0gaCG NbrHDcYWncEYB2P96is4J4JTVr IODqADN4eUV8qN1rvAellmpa bGVmdDsgdmVydGljYWwtYWxpZ2 76BVEyjPwkEwFewHBpJ2bbuzCY TN3eAyfoiZF+JYKbEVS4gEoh CDrcZPLowQ2gWDZdD2r8BrQjOq I3YNqtU5KhlhJ6SSHbuVBhMXJa qXUSmH6rdifeg5uhacmxCeBy BPPcSYi2CFh4GSHyuJbqThTiTH J2BwZ5NNL5rAEndT7sqYeclfhw sZ8qCzz+RklOOjwvdGQ+PHRk MWR3uLjvLHfgFYWnfX3kQTIyU2 b4YlBbLoN6LAzyQ4YdfiL0LOIn kEByLELffUGOdU4ugpdgt6pm bzdqDdMpJNCpTAt9HDq5TXRbhQ niWqYlZJR7NkQ6ERB9zMXmhB8q pWwhuafplO0kQjm+TVJOOjwv dGQ+ZJAlTDX8dPexBPltCNGktS 3bEDSqW0y1OtTbWqN3TZhmM3Hc nyV5YUAtmZOxAWOoxKKTmV5x xzglq6evvsobVlKcSWReRJb0UG m0JLZudUciInWmYHO1VfP6AHO4 aGUbjU9mzUqsqljgjG0oJpu+ SRJ0OWB6VX59NW08D1PoCwsyaF FibGU+PHRhYmxlIHdpZHRoPScx GBZzPaWggMolZX3mYv7yHOLb LWNv (more content not included)... Normal [facility] Lab Miscellaneous-LCon 10-26 Lab Miscellaneous COMMENT Invalid Interpretation Code [facility] Comment on above: Result Comment: Test Ordered: 810103 C difficile Toxins A+B, EIA C difficile Toxins A+B, EIA Negative CB Reference Range: Negative Performed at: [facility] [address] [id number] PhD Van Castro Performed By: #### 1 [id number] ####[facility] [address] [place] [address] METHYLMALONIC ACID (MMA)on 0 10-25-2022 Methylmalonic Acid, Serum 183 nmol/L Normal 0-378 [facility] Comment on above: Performed By: #### T , CMP #### [facility] [address] [place], [place] [address] Dr. Hong Jacobo C. diff by PCRon 10-24-2022 C. diff by PCR Specimen Positive fo r toxigenic C. difficile by DNA amplification. Repeat specimens for this patient will not be accepted for the next 10 Days. ASM Guidelines recommend against using laboratory assays as tests of cure . Abnormal Negative [facility] Comment on above: Result Comment: Resu lts Called To Terrie Garzon (Digestive) By And Read Back For Confirmation On 10/24/2022 12:10:50 EST. This test result should be correlated with clinical presentations and medical history by a healthcare provider to determine its clinical significance.\.br\.br\ Other Comment: Order added by Discern Expert. Clostridium difficile by PCR Positive Abnormal Negative [facility] Comment on above: Order Comment: Order added by Discern Expert. Result Comment: Resu lts Called To Terrie Garzon (Digestive) By And Read Back For Confirmation On 10/24/2022 12:10:50 EST. This test result should be correlated with clinical presentations and medical history by a healthcare provider to determine its clinical significance. Performed By: #### 1 [id number], [id number], [id number], [id number], [id number], [id number], 30297585, [id number] ####[facility] [address] [place] [address] CDiff PCRon 10-24-2022 CDiff PCR Specimen has been fo und to be acceptable for C. difficile testing. Normal [facility] Cdiff Specimen Acceptable Acceptable Normal [facility] Comment on above: Performed By: #### 1 [id number], [id number], [id number], [id number], [id number], [id number], [id number], [id number] ####[facility] [address] [place] [address] Order Cancelled No, PCR to follow Normal [facility] Comment on above: Performed By: #### 1 [id number], [id number], [id number], 830109150, [id number], [id number], [id number], [id number] ####[facility] [address] [place] [address] Enteric Panel by PCRon 10-24 C. coli+jejuni+upsaliens is DNA KYM+non-probe Ql (Stl) Not detected Normal [facility] Comment on above: Result Comment: Test ing was performed utilizing reverse o and m supervisor (RT), polymerase chain reaction (PCR), and array hybridization to detect specific gastrointestinal microbial nucleic acid gene sequences associated with the following pathogenic bacteria and viruses:Campylobacter Group (composed of C. coli, C. jejuni, and C. chandler), Salmonella species, Shigella species (including S. dysenteriae, S. boydii, S. sonnei and S. flexneri), Vibrio Group (composed of V. cholera and V. parahaemolyticus), Yersinia enterocolitica, Norovirus GI/GII, and Rotavirus A. In addition, EPdetects Shiga toxin 1 gene and Shiga toxin 2 gene virulence markers. Shiga toxin producing E. coli (STEC) typically harbor one or both genes that encode for Shiga toxins 1 and 2. Campylobacter group, Salmonella species, Shigella species, Vibrio group, Rotavirus A, Shiga Toxin 1, Shiga Toxin 2, Norovirus GI/GII, and Yersinia enterocolitica were tested by Verigene nulcleic acid test. Performed By: #### 1 [id number], 81636665, [id number], [id number], [id number], [id number], 36578072, [id number] ####[facility] [address] [place] [address] E. coli stx1+stx2 genes KYM+non-probe Ql (Stl) Negative Normal [facility] Comment on above: Performed By: #### 1 [id number], 78558221, [id number], 220808531, [id number], [id number], 32853736, [id number] ####[facility] [address] [place] [address] Enteric Panel by PCR Negative Normal [facility] Enteric Panel Intrl QC Pass Normal [facility] Comment on above: Result Comment: Test ing was performed utilizing reverse o and m supervisor (RT), polymerase chain reaction (PCR), and array hybridization to detect specific gastrointestinal microbial nucleic acid gene sequences associated with the following pathogenic bacteria and viruses:Campylobacter Group (composed of C. coli, C. jejuni, and C. chandler), Salmonella species, Shigella species (including S. dysenteriae, S. boydii, S. sonnei and S. flexneri), Vibrio Group (composed of V. cholera and V. parahaemolyticus), Yersinia enterocolitica, Norovirus GI/GII, and Rotavirus A. In addition, EPdetects Shiga toxin 1 gene and Shiga toxin 2 gene virulence markers. Shiga toxin producing E. coli (STEC) typically harbor one or both genes that encode for Shiga toxins 1 and 2. Performed By: #### 1 [id number], 05418903, 6804305292, 982743332, 7090436387, [id number], 29915412, 45171442 ####[facility] [address] [place] [address] Norovirus genogroup I+II RNA KYM+non-probe Ql (Stl) Not detected Normal [facility] Comment on above: Performed By: #### 1 [id number], 82011983, [id number], 262899768, 0169531171, 1491134578, 09298996, [id number] ####[address] [place] [address] Rotavirus A RNA KYM+non-probe Ql (Stl) Not detected Normal [facility] Comment on above: Performed By: #### 1 9747700, 82366685, [id number], 514804934, 9970263137, 0535978362, 02409732, 25802161 ####[facility] [address] [place] [address] S. enterica+bongori DNA KYM+non-probe Ql (Stl) Not detected Normal [facility] Comment on above: Result Comment: This test result should be correlated with clinical presentations and medical history by a healthcare provider to determine its clinical significance. Performed By: #### 1 [id number], 15844100, [id number], 111277184, 5588180563, 8388126987, 86641217, 98544635 ####[address] [place] [address] Shigella species+EIEC invasion plasmid antigen H ipaH gene KYM+non-probe Ql (Stl) Not detected Normal [facility] Comment on above: Performed By: #### 1 7754214, 74553115, 8917560519, 718335883, 9901547434, 1743622547, 78941276, 78388061 ####[facility] [address] [place] [address] V. cholerae+parahaemolyt icus+vulnificus DNA KYM+non-probe Ql (Stl) Not detected Normal [facility] Comment on above: Performed By: #### 1 9840200, 59116899, 9090489119, 158442728, 6347993130, 8313812159, 00850898, 52196293 ####[facility] [address] [place] [address] Y. enterocolitica DNA KYM+non-probe Ql (Stl) Not detected Normal [facility] Comment on above: Performed By: #### 1 8936557, 66923047, 2655950957, 563132031, 5300492584, 0638982870, 58959163, 45797026 ####[facility] [address] [place] [address] Fecal WBC Lactoferrinon -0 Fecal WBC Lactoferrin Negative Normal Negative [facility] Comment on above: Result Comment: The semi-quantitative detection of elevated levels of fecal lactoferrin is a marker for fecal leukocytes and an indication of intestinal inflammation. Performed By: #### 1 4718236, 79840831, 9244607307, 401913645, 3820435271, 6279173716, 79503055, 40610068 ####[facility] [address] [place] [address] Lab Miscellaneous-LCon 10-24 Source stool Invalid Interpretation Code [facility] Comment on above: Performed By: #### 1 4761368, 73653062, 3998468048, 206523512, 0217825031, 6686121688, 17202287, 01980634 ####[facility] [address] [place] [address] Lab Miscellaneous-LCOrdered By: Joyce Lomeli on 10-24-2022 Test Code 348728 Invalid Interpretation Code [facility] SendOutsSS Comment on above: Performed By: #### 1 7865787, 42523754, 5784589782, 894120507, 6020713170, 7309524547, 81875451, 75847743 ####[facility] [address] [place] [address] Test Name C.diff Toxin Invalid Interpretation Code [facility]Out[facility] Comment on above: Performed By: #### 1 8440616, 70481372, 6682951750, 046177133, 6546126603, 8588190957, 91195105, 54905100 ####[facility] [address] [place] [address] MICRO OTHER TESTSOrdered By: Francy Locke on 10-24-2022 Fecal WBC Lactoferrin Negative (10/24/22 7:00 AM) Normal Negative [facility] Man Sero VITAMIN B6on 10-13-2022 Vitamin B6 16.6 ug/L Normal 3.4-65.2 [facility] Comment on above: Result Comment: Defi ciency: <3.4 Marginal: 3.4 - 5.1 Adequate: >5.1 Performed By: #### T TJ, CMP #### [facility] [address] [place] [address] Dr. Hong Jacobo HOMOCYSTEINEon 10-12-2022 Homocyst(e)ine, Plasma 8.8 umol/L Normal 0.0-14.5 [facility] Comment on above: Performed By: #### T TJ, CMP #### [facility] [address] [address] [address] Hong Jacobo VIT B12 AND FOLATEon 023 Cobalamin (Vitamin B12) [Mass/Vol] 610.0 pg/mL Normal 193.0-986. 0 [facility] Comment on above: Performed By: #### T TJ, CMP #### [facility] [address] [place] [address] Dr. Hong Jacobo FOLATE 26.40 ng/mL Normal 8.60-58.90 [facility] Comment on above: Performed By: #### T , [facility] #### [facility] [address] [address] [address] Hong Jacobo Consent for Procedure/Surger yon 10-05-2022 Consent for Procedure/Surgery [id number]:127 Normal [facility] Gastroenterology Office/Clin ic Noteon 10-04-2022 Gastroenterology Office/Clinic Note Chief Complaint c/o abdominal pain/bloating, distention and diarrhea HPI Staff Patient is a 37 year old femalewho was referred by Shyam for abdominal pain/bloating, feeling of fullness and diarrhea. History of Present Illness Thanh Villalobos is a 37-year-old white female who was referred to me for bloating, abdominal pain, and abdominal distention. The patient reports that she had a hysterectomy in 05/2022 and after that, she started developing diarrhea. She states that her mother had ovarian cancer. The patient reports that she had heavy periods and a lot of cramping. She states that it took her 6 years to find someone to perform an elective hysterectomy. The patient reports that she has an average of 3 to 4 bowel movements daily, but some days she had had more than 7. She states that she does not see a solid stool very often. The patient reports that she has occasional abdominal pain, but nothing consistent. She states that she has nausea, heartburn, and acid reflux. The patient reports that she does not take medication for it. She states that she does not have any specific food that brings up her symptoms. The patient reports that she feels very gassy. She states that she still has her gallbladder. The patient denies any history of pancreas problems. She states that she has not had any recent blood tests. The patient reports that she had an EGD done by Dr. Lon Allen in 09/2021 for the same issue. She states that she was told that she had gastritis. The patient reports that she was given medication, and thinks that it may have been pantoprazole, though she is unsure. She states that the medication gave her a headache. The patient reports that she does not think anxiety or stress brings up her pain and discomfort. She denies being tested for any bowel infections via stool sample. She denies pain during intercourse. The patient denies any history of endometriosis. She denies any family history of Crohn's disease, ulcerative colitis, or celiac disease. Review of Systems PHQ Score Initial Depression Screen Score: 0 Constitutional: no fever, no chills, no sweats, no weakness Skin: no Jaundice, no rash, no lesions, no petechiae ENMT: no ear pain, no sore throat, no congestion, no hoarseness Respiratory: no shortness of breath, no cough, no orthopnea, no wheezing Cardiovascular: no chest pain, no palpitations, no edema Gastrointestinal: no constipation, no GI bleeding, no dysphagia. Positive for nausea, heartburn, abdominal pain, and diarrhea. Genitourinary: no dysuria, no hematuria, no discharge, no pain Musculoskeletal: no back pain, no trauma Neurologic: no numbness, no sleeping problems Additional ROS info: Except as noted in the above Review of Systems and in the History of Present Illness all other systems have been reviewed and are negative or noncontributory. Physical Exam Vitals & Measurements HR: 67(Peripheral) RR: 16 BP: 168/98 HT: 62 in HT: 158 cm WT: 120 kg WT: 264 lb BMI: 48.07 Constitutional: Appearance: well developed Skin: Inspection: no rashes, ulcers, icterus, or telangiectasias. Eyes: Conjunctivae/lids: normal conjunctivae and lids. ENMT: Hearing: within normal limits. Lips/Teeth/Gums: normal oral mucosa Neck: Neck: normal motion, central trachea Respiratory: Percussion: thorax normoresonant. Auscultation: normal breath sounds; no rubs, wheezes, rale or ronchi. Cardiovascular: Auscultation: normal rhythm, S1 and S2; no rubs, murmurs or gallop. Peripheral: no edema Gastrointestinal/Abdomen: Abdomen: normal consistency and bowel sounds; no tenderness or masses. Liver/Spleen: normal size and consistency, not palpable. Rectal: deferred Musculoskeletal: Gait/station: normal gait Assessment/Plan 1. Diarrhea (R19.7: Diarrhea, unspecified) The patient reports a chronic history of diarrhea that started in mid 2021 after her hysterectomy surgery. She has no history of cholecystectomy. She has no history of pancreatic pathology. She has no family history of celiac disease or IBD. At this point, I will proceed with stool testing to rule out infectious etiology. We will also proceed with a celiac panel. We will proceed with a colonoscopy to rule out inflammatory bowel disease and microscopic colitis. 2. Abdominal pain (R10.9: Unspecified abdominal pain) She reports sporadic abdominal pain. We will proceed with an EGD and colonoscopy. 3. Acid reflux (K21.9: Gastro-esophageal reflux disease without esophagitis) She has a history of gastritis. She was started previously on pantoprazole, but stopped secondary to headache. I will switch pantoprazole to omeprazole and we will repeat an EGD. 4. Small intestinal bacterial overgrowth (SIBO) (K63.89: Other specified diseases of intestine) I believe part of her symptoms, mainly the bloating, can be related to small intestinal bacterial overgrowth. We will give a trial of Ciprofloxacin to be taken twice a day for 10 days. Documentation services were performed after patient or guar (more content not included)... Normal [facility] Comment on above: Result Comment: Elec tronically Signed By: Katelyn Alcazar\.br\Date and Time Signed: 10/03/22 16:32 EST\.br\Electronically Co-Signed By: Lisbeth DE LA ROSA MD\.br\Date and Time Co-Signed: 10/04/22 19:21 EST Ambulatory Visit Summaryon 0 10-03-2022 Ambulatory Visit Summary THANH VILLALOBOS Dean :1985 Visit Date:10/03/2022 Ambulatory Visit Instructions Your Diagnosis Diarrhea Abdominal pain Acid reflux Small intestinal bacterial overgrowth (SIBO) Your Care Team Attending Physician - Lisbeth DE LA ROSA MD Primary Care Physician - LAURA HOWE CNP Referring Physician - LAURA HOWE CNP This Is Your Medications List ciprofloxacin (Cipro 500 mg Tab) dicyclomine (Bentyl 10 mg Cap) omeprazole (omeprazole 40 mg Cap-DR) Contact prescribing physician if questions or concerns allopurinol carbamazepine pramipexole Procedures Performed Hysterectomy (05/20/2022). Discharge Vitals Heart Rate (Peripheral) 67 Respiratory Rate 16 Blood Pressure 168/98 Height 62 in Height 158 cm Weight 264 lb Weight 120 kg BMI 48.07 What to do next You Need to Complete the Following CBC w/ Auto Diff, Blood, Routine collect, 10/03/22, Order for future visit, Lab Collect, Diarrhea, Print Label By Order Location Clostridium Difficile PCR, Stool, Routine collect, 10/03/22, Order for future visit, Nurse collect, Diarrhea, Print Label By Order Location Comprehensive Metabolic Panel, Blood, Routine collect, 10/03/22, Order for future visit, Lab Collect, Diarrhea, Print Label By Order Location Enteric Panel by PCR, Stool, Routine collect, 10/03/22, Order for future visit, Nurse collect, Diarrhea, Print Label By Order Location Fecal WBC Lactoferrin, Stool, Routine collect, 10/03/22, Order for future visit, Nurse collect, Diarrhea, Print Label By Order Location Giardia lamblia, Direct Detection EIA, Stool, Routine collect, 10/03/22, Order for future visit, Nurse collect, Diarrhea, Print Label By Order Location IgA, Quant., Blood, Routine collect, 10/03/22, Order for future visit, Lab Collect, Diarrhea, Print Label By Order Location O & P Exam, Routine, Stool, Routine collect, 10/03/22, Order for future visit, Nurse collect, Diarrhea, Print Label By Order Location t-Transglutaminase IgA, Blood, Routine collect, 10/03/22, Order for future visit, Lab Collect, Diarrhea, Print Label By Order Location Thyroid Stimulating Hormone, Blood, Routine collect, 10/03/22, Order for future visit, Lab Collect, Diarrhea, Print Label By Order Location Medications What How Much When Why Instructions New ciprofloxacin (Cipro 500 mg Tab) 1 Tablets By Mouth 2 times a day Small intestinal bacterial overgrowth (SIBO) Duration: 10 Days Pickup at [facility] #[id number] New dicyclomine (Bentyl 10 mg Cap) 1 Capsules By Mouth 4 times a day Abdominal pain Duration: 30 Days Refills: 11 Pickup at [facility] #[id number] New omeprazole (omeprazole 40 mg Cap-DR) 1 Capsules By Mouth Every day Acid reflux Refills: 2 Pickup at [facility] #[id number] Unchanged allopurinol Contact prescribing physician if questions or concerns Unchanged carbamazepine Contact prescribing physician if questions or concerns Unchanged pramipexole Contact prescribing physician if questions or concerns Pharmacy Information [facility] #[id number]: [address] [place] [address] [phone] [phone] Medications and Immunizations Administered Not Given influenza virus vaccine, inactivated, Patient Refuses Allergies Codamine (Itchy) Problems Ongoing - Any problem that you are currently receiving treatment for. Abdominal bloating Abdominal pain Acid reflux Diarrhea Small intestinal bacterial overgrowth (SIBO) Normal [facility] Physician Referralon 023 Physician Referral [id number]:127 Normal [facility] CARBAMAZEPINE FREEon 022 Carbamazepine, Free, Serum 1.0 ug/mL Normal 0.6-4.2 [facility] Comment on above: Result Comment: Dete ction Limit = 0.5 Performed By: #### T TJ, CMP #### [facility] [address] [place] [address] Dr. Hong Jacobo METHYLMALONIC ACID (MMA)on 09-08-2021 Methylmalonic Acid, Serum 287 nmol/L Normal 0-378 [facility] Comment on above: Performed By: #### T TJ, CMP #### [facility] [address] [place] [address] Dr. Hong Jacobo HOMOCYSTEINEon 07-07-2022 Homocyst(e)ine, Plasma 9.4 umol/L Normal 0.0-14.5 [facility] Comment on above: Performed By: #### T TJ, CMP #### [facility] [address] [place] [address] Dr. Hong Jacobo TRANSFERRINon 07-07-2022 Transferrin [Mass/Vol] 330 mg/dL Normal 192-364 [facility] Comment on above: Performed By: #### T TJ, CMP #### [facility] [address] [place] [address] Dr. Hong Jacobo CALCIUMon 07-05-2022 Calcium [Mass/Vol] 9.5 mg/dL Normal 8.5-10.1 [facility] Comment on above: Performed By: #### M G, LIVER, CARB, CA, PHOS #### [facility] [address] [place] [address] Dr. Hong Jacobo CBC AUTO DIFFon 07-05-2022 BASO # 0.0 103/ul Normal 0.0-0.1 [facility] Comment on above: Performed By: #### T SH, CMP #### [facility] [address] [place] [address] Dr. Hong Jacobo Basophils/100 WBC (Bld) 0.3 % Normal 0.2-2.0 [facility] Comment on above: Performed By: #### T SH, CMP #### [facility] [address] [place] [address] Dr. Hong Jacobo EO # 0.2 103/ul Normal 0.0-0.7 [facility] Comment on above: Performed By: #### T TJ, CMP #### [facility] [address] [place] [address] Dr. Hong Jacobo Eosinophils/100 WBC (Bld) 3.5 % Normal 0.9-7.0 [facility] Comment on above: Performed By: #### T TJ, CMP #### [facility] [address] [place] [address] Dr. Hong Jacobo Erythrocyte distribution width (RBC) [Ratio] 12.0 % Normal 11.0-15.0 [facility] Comment on above: Performed By: #### T TJ, CMP #### [facility] [address] [place] [address] Dr. Hong Jacobo Hematocrit (Bld) [Volume fraction] 40.3 % Normal 36.0-48.0 [facility] Comment on above: Performed By: #### T TJ, CMP #### [facility] [address] [place] [address] Dr. Hong Jacobo Hemoglobin (Bld) [Mass/Vol] 13.8 g/dL Normal 12.0-16.0 [facility] Comment on above: Performed By: #### T TJ, CMP #### [facility] [address] [place] [address] Dr. Hong Jacobo IG # 0.02 10e3/ul Normal 0.00-0.03 [facility] Comment on above: Performed By: #### T TJ, CMP #### [facility] [address] [address] [address] Hong Jacobo IG % 0.3 % Normal 0.0-0.5 [facility] Comment on above: Performed By: #### T SH, CMP #### [facility] [address] [address] [address] Hong Jacobo LYMPH # 1.4 103/ul Normal 1.2-3.8 [facility] Comment on above: Performed By: #### T SH, CMP #### [facility] [address] [place] [address] Dr. Hong Jacobo Lymphocytes/100 WBC (Bld) 22.7 % Normal 20.5-60.0 [facility] Comment on above: Performed By: #### T TJ, CMP #### [facility] [address] [place] [address] Dr. Hong Jacobo MANUAL DIFF REQ NO Normal [facility] Comment on above: Performed By: #### T TJ, CMP #### [facility] [address] [place] [address] Dr. Hong Jacobo MCH (RBC) [Entitic mass] 29.7 pg Normal 26.7-34.0 [facility] Comment on above: Performed By: #### T SH, CMP #### [facility] [address] [place] [address] Dr. Hong Jacobo MCHC (RBC) [Mass/Vol] 34.2 g/dL Normal 29.9-35.2 [facility] Comment on above: Performed By: #### T TJ, CMP #### [facility] [address] [place] [address] Dr. Hong Jacobo MCV (RBC) [Entitic vol] 86.7 fL Normal 81.0-99.0 [facility] Comment on above: Performed By: #### T SH, CMP #### [facility] [address] [place] [address] Dr. Hong Jacobo MONO # 0.4 103/ul Normal 0.3-0.8 [facility] Comment on above: Performed By: #### T TJ, CMP #### [facility] [address] [place] [address] Dr. Hong Jacobo Monocytes/100 WBC (Bld) 7.1 % Normal 1.7-12.0 [facility] Comment on above: Performed By: #### T SH, CMP #### [facility] [address] [place] [address] Dr. Hong Jacobo NEUT # 3.9 103/ul Normal 1.4-6.5 [facility] Comment on above: Performed By: #### T SH, CMP #### [facility] [address] [place] [address] Dr. Hong Jacobo Neutrophils/100 WBC (Bld) 66.1 % Normal 43.0-75.0 [facility] Comment on above: Performed By: #### T SH, CMP #### [facility] [address] [place] [address] Dr. Hong Jacobo Platelet mean volume (Bld) [Entitic vol] 8.9 fL Critically low 9.5-13.5 [facility] Comment on above: Performed By: #### T SH, CMP #### [facility] [address] [place] [address] Dr. Hong Jacobo PLT 208 103/ul Normal 150-450 [facility] Comment on above: Performed By: #### T SH, CMP #### [facility] [address] [place] [address] Dr. Hong Jacobo RBC 4.65 106/ul Normal 4.20-5.40 [facility] Comment on above: Performed By: #### T SH, CMP #### [facility] [address] [place] [address] Dr. Hong Jacobo WBC 5.9 103/ul Normal 4.0-11.0 [facility] Comment on above: Performed By: #### T SH, CMP #### [facility] [address] [place] [address] Dr. Hong Jacobo FERRITINon 07-05-2022 Ferritin [Mass/Vol] 39.0 ng/mL Normal 6.2-137.[address] [facility] Comment on above: Performed By: #### T SH, CMP #### [facility] [address] [address] [address] Hong Jacobo IRON AND TIBCon 07-05-2022 % SATURATION 11.4 % Normal [facility] Comment on above: Performed By: #### T SH, CMP #### [facility] [address] [place] [address] Dr. Hong Jacobo Iron [Mass/Vol] 43.0 ug/dL Critically low 50.0-170.[address] [facility] Comment on above: Performed By: #### T SH, CMP #### [facility] [address] [place] [address] Dr. Hong Jacobo TIBC DIRECT 378.0 ug/dL Normal 250.0-450. 0 [facility] Comment on above: Performed By: #### T SH, CMP #### [facility] [address] [place] [address] Dr. Hong Jacobo LIVER PROFILEon 07-05-2022 Albumin [Mass/Vol] 4.0 g/dL Normal 3.4-5.0 [facility] Comment on above: Performed By: #### M G, LIVER, CARB, CA, PHOS #### [facility] [address] [place] [address] Dr. Hong Jaocbo Albumin/Globulin [Mass ratio] 1.1 {ratio} Normal [facility] Comment on above: Performed By: #### M G, LIVER, CARB, CA, PHOS #### [facility] [address] [place] [address] Dr. Hong Jacobo ALP [Catalytic activity/Vol] 84 U/L Normal 46-116 [facility] Comment on above: Performed By: #### M G, LIVER, CARB, CA, PHOS #### [facility] [address] [place] [address] Dr. Hong Jacobo ALT [Catalytic activity/Vol] 19 U/L Normal 14-59 [facility] Comment on above: Performed By: #### M G, LIVER, CARB, CA, PHOS #### [facility] [address] [place] [address] Dr. Hong Jacobo AST [Catalytic activity/Vol] 16 U/L Normal 15-37 [facility] Comment on above: Performed By: #### M G, LIVER, CARB, CA, PHOS #### [facility] [address] [place] [address] Dr. Hong Jacobo BILI, CONJUGATED 0.1 mg/dL Normal 0.0-0.2 [facility] Comment on above: Performed By: #### M G, LIVER, CARB, CA, PHOS #### [facility] [address] [place] [address] Dr. Hong Jacobo Bilirubin [Mass/Vol] 0.2 mg/dL Normal 0.2-1.0 [facility] Comment on above: Performed By: #### M G, LIVER, CARB, CA, PHOS #### [facility] [address] [place] [address] Dr. Hong Jacobo Globulin (S) [Mass/Vol] 3.7 g/dL Normal [facility] Comment on above: Performed By: #### M G, LIVER, CARB, CA, PHOS #### [facility] [address] [place] [address] Dr. Hong Jacobo Protein [Mass/Vol] 7.7 g/dL Normal 6.4-8.2 [facility] Comment on above: Performed By: #### M G, LIVER, CARB, CA, PHOS #### [facility] [address] [place] [address] Dr. Hong Jacobo MAGNESIUMon 07-05-2022 Magnesium [Mass/Vol] 1.9 mg/dL Normal 1.8-2.4 [facility] Comment on above: Performed By: #### M G, LIVER, CARB, CA, PHOS #### [facility] [address] [place] [address] Dr. Hong Jacobo PHOSPHORUSon 07-05-2022 Phosphate [Mass/Vol] 3.4 mg/dL Normal 2.6-4.7 [facility] Comment on above: Performed By: #### M G, LIVER, CARB, CA, PHOS #### [facility] [address] [address] [address] Hong Jacobo TEGRETOLon 07-05-2022 TEGRETOL 3.9 ug/mL Critically low 4.0-12.0 [facility] Comment on above: Performed By: #### T TJ, CMP #### [facility] [address] [address] [address] Hong Jacobo VIT B12 AND FOLATEon 022 Cobalamin (Vitamin B12) [Mass/Vol] 424.0 pg/mL Normal 193.0-986. 0 [facility] Comment on above: Performed By: #### T SH, CMP #### [facility] [address] [address] [address] Hong Jacobo FOLATE 21.00 ng/mL Normal 8.60-58.90 [facility] Comment on above: Performed By: #### T TJ, CMP #### [facility] [address] [address] [address] Hong Jacobo HCG ( test) IA.rapi d Ql (U)Ordered By: Kvng Mobley on 06-06-2022 HCG ( test) Ql (U) Negative [facility] HCG,Urineon 06-06-2022 Beta HCG ( test) Ql (U) Negative Normal [facility] Comment on above: Result Comment: PERF ORMED BY: [place] [address] PATHOLOGIST PILLOWCASE MAKER MARY ALICE SY M.D. Performed By: #### U HCG #### [place] [address] [place] Ivan 06-06-2022 L ------ Specimen: [id number] Received: 06/06/22 Status: SOUT Req Num: [id number] Spec Type: Surgical Subm Dr: MAC SHEPARD MD Tissues: A Uterus w/ or w/o tubes ovaries except neoplastic or prolap (CERVIX, CHRISTINA TU Procedures: HE Stain/12, Gross/Micro L5 Age/ Patient Sex Location Account Attending Physician Thanh Villalobos 37/F [place] [id number] MAC SHEPARD MD SPEC NUM: [id number] RECD: 06/06/22 STATUS: EMILIANA HAQUE NUM: [id number] SILVIA: 06/06/[address] [facility] [address]: MAC SHEPARD MD ENTERED: 06/06/[address] [facility] [address]: SPEC TYPE: Surgical DEPT: S ORDERED: HE Stain/12, Gross/Micro L5 ORDERED: HE Stain/12, Gross/Micro L5 Pathological Diagnosis Uterus and bilateral ovaries and fallopian tubes, total hysterectomy, bilateral salpingo- oophorectomy: Uterine cervix: Nabothian cyst. Endometrium: Secretory phase endometrium. Myometrium: Leiomyoma with dystrophic calcifications. Bilateral ovaries: Cystic follicles and corpus luteum. Bilateral fallopian tubes: Unremarkable. Clinical Information Endometrial polyps, menorrhagia, Grams 230 Gross Description Received in formalin labeled with the patient's name, number and uterus, cervix, bilateral tubes and ovaries is a 216 g, 12.3 x 7.5 x 6.8 cm uterus with attached bilateral adnexa. The uterine serosa is purple pink, focally hyperemic with yellow-kennedy fibrous adhesions on the anterior surface. The exocervix is kennedy pink with a central 1.3 cm slitlike os. The endocervix is kennedy red, glistening. There is a 0.6 cm linear umbilication in the anterior lower uterine segment consistent with site of previous . The lash, kennedy-red endometrium averages 0.4 cm in thickness. No discrete polyps are identified. The pink-kennedy, trabecular myometrium measures up to 1.8 cm in thickness and contains a 1.5 cm subserosal nodule with a white, for old, focally indurated cut surface. The right purple-hidalgo lobular ovary measures 4.5 x 3.2 x 2.5 cm and contains multiple smooth-walled, clear fluid-filled cysts and hemorrhagic material filled cysts measuring up to 1.5 cm. The remaining cut Specimen: [id number] Received: 06/06/22 Status: EMILIANA Haque Num: [id number] Spec Type: Surgical Subm Dr: MAC SHEPARD MD Tissues: A Uterus w/ or w/o tubes ovaries except neoplastic or prolap (CERVIX, CHRISTINA TU Procedures: HE Stain/12, Gross/Micro L5 Patient: Thanh Villalobos [id number] (Continued) Specimen: [id number] Received: 06/06/22 (Continued) Gross Description (Continued) Signed (signature on file) Therese Browne MD 06/07/22 175 Specimen: [id number] Received: 06/06/22 Status: EMILIANA Haque Num: [id number] Spec Type: Surgical Subm Dr: MAC SHEPARD MD Tissues: A Uterus w/ or w/o tubes ovaries except neoplastic or prolap (CERVIX, CHRISTINA TU Procedures: HE Stain/, Gross/Micro L5 Patient: Thanh Villalobos [id number] (Continued) Specimen: [id number] Received: 06/06/22 (Continued) Gross Description (Continued) surface is rubbery, kennedy-villanueva. The right purple villanueva fimbriated fallopian tube measures 6.3 x 1.0 x 0.8 cm and has a pinpoint lumen on cut section. The left kennedy-villanueva, lobular ovary measures 3.5 x 3.0 x 2.2 cm and contains multiple smooth-walled, clear fluid-filled cysts measuring up to 0.7 cm. The remaining cut surface is rubbery, kennedy-villanueva. The left purple villanueva fimbriated fallopian tube measures 6.0 x 0.8 x 0.5 cm and has a patent lumen on cut section.. [employer] sections are submitted in 13 cassettes as follows: A1 - Anterior cervix A2 - Anterior lower uterine segment A3 - Posterior cervix A4-A5 - Anterior endomyometrium A6-A7 - Posterior endomyometrium A8 - Subserosal nodule A9 - Serosa A10 - Right ovary A11 - Right fallopian tube A12 - Left ovary A13 - Left fallopian tube Microscopic Description 13 glass slides with H E stained material have been examined. The microscopic findings support the above pathologic diagnosis. CPT Codes (more content not included)... Normal [facility] SARS-CoV-2 (COVID-19) RNA KYM+probe Ql (Unsp spec) Negative Normal Negative [facility] Comment on above: Order Comment: Healt hcare Worker?: N Result Comment: Testing for SARS-CoV-2 by RT-PCR This test was developed and its performance characteristics determined by [employer]) and validated at the [facility]. This test has not been FDA cleared or approved. This test has been authorized by FDA under an Emergency Use Authorization (EUA). This test has been validated in accordance with the FDA's Guidance Document (Policy for Diagnostics Testing in Laboratories Certified to Perform High Complexity Testing under CLIA prior to Emergency Use Authorization for Coronavirus Disease-2019 during the Public Health Emergency) issued on November 20, 2019. This test is only authorized for the duration of time the declaration that circumstances exist justifying the authorization of the emergency use of in vitro diagnostic tests for detection of SARS-CoV-2 virus and/or diagnosis of COVID-19 infection under section 564(b)(1) of the Act, 21 U.S.C. 360bbb-3(b)(1), unless the authorization is terminated or revoked sooner. PERFORMED BY: [place] [address] PATHOLOGIST PILLOWCASE MAKER MARY ALICE SY M.D. Performed By: #### C OVID 19 [facility] #### [address] COVID-19 Positive/NegativeOr dered By: MAC SHEPARD on 06-02-2022 SARS-CoV-2 (COVID-19) N gene KYM+probe Ql (Resp) Negative Negative [facility] Comment on above: Testing for SARS-CoV -2 by RT-PCRThis test was developed and its performance characteristics determined by [employer] and validated at the [facility]. This test has not been FDA cleared or approved. This test has been authorized by FDA under an Emergency Use Authorization (EUA). This test has been validated in accordance with the FDA's Guidance Document (Policy for Diagnostics Testing in Laboratories Certified to Perform High Complexity Testing under CLIA prior to Emergency Use Authorization for Coronavirus Disease-2019 during the Public Health Emergency) issued on November 20, 2019. This test is only authorized for the duration of time the declaration that circumstances exist justifying the authorization of the emergency use of in vitro diagnostic tests for detection of SARS-CoV-2 virus and/or diagnosis of COVID-19 infection under section 564(b)(1) of the Act, 21 U.S.C. 360bbb-3(b)(1), unless the authorization is terminated or revoked sooner. Basic Metabolic Panelon 10-0 Anion gap [Moles/Vol] 14.6 mmol/L Normal 6.0-15.0 [facility] Comment on above: Performed By: #### C BC, BMP #### [facility] [address] [place] [address] [place] Calcium [Mass/Vol] 9.6 mg/dL Normal 8.2-10.2 [facility] Comment on above: Result Comment: PERF ORMED BY: [place] [address] PATHOLOGIST PILLOWCASE MAKER MARY ALICE SY M.D. Performed By: #### C BC, BMP #### [facility] [address] [place] [address] [place] Chloride [Moles/Vol] 100 mmol/L Normal 95-114 [facility] Comment on above: Performed By: #### C BC, BMP #### [facility] [address] CO2 [Moles/Vol] 27.1 mmol/L Normal 22.0-30.0 [facility] Comment on above: Performed By: #### C BC, BMP #### [facility] [address] Creatinine [Mass/Vol] 0.83 mg/dL Normal 0.44-1.03 [facility] Comment on above: Performed By: #### C BC, BMP #### [facility] [address] Estimated GFR ( Karen > 60 [facility] Comment on above: Result Comment: GFR estimated reference range: According to KDOQI guidelines, <60 ml/min/1.73m2 is sufficient to diagnose a patient with chronic kidney disease. Performed By: #### C BC, BMP #### [facility] [address] [place] [address] [place] Estimated GFR (Non- Am > 60 [facility] Comment on above: Performed By: #### C BC, BMP #### [facility] [address] [place] [address] [place] Glucose [Mass/Vol] 145 mg/dL High 70-100 [facility] Comment on above: Result Comment: [place] om Glucose Reference Range is dependent on time and content of last meal. Glucose of more than 200 mg/dL in a nonstressed, ambulatory subject supports the diagnosis of Diabetes Mellitus. ADA recommended reference range Performed By: #### C ALLAN, BMP #### [facility] [address] Potassium [Moles/Vol] 3.7 mmol/L Normal 3.5-5.1 [facility] Comment on above: Performed By: #### C ALLAN, BMP #### [facility] [address] Sodium [Moles/Vol] 138 mmol/L Normal 136-146 [facility] Comment on above: Performed By: #### C ALLAN, BMP #### [facility] [address] Urea nitrogen [Mass/Vol] 9 mg/dL Normal 9-23 [facility] Comment on above: Performed By: #### C ALLAN, BMP #### [facility] [address] Basophils Auto (Bld) [#/Vol] Ordered By: MAC SHEPARD on 05-26-2022 Basophils (Bld) [#/Vol] 0.0 10*3/uL 0.0-0.2 [facility] Basophils/100 WBC Auto (Bld) Ordered By: MAC SHEPARD on 05-26-2022 Basophils/100 WBC (Bld) 0.7 % . [facility] Blood hemoglobin measurement (mass/volume)Ordered By: MAC SHEPARD on 05-26-2022 Hemoglobin (Bld) [Mass/Vol] 13.8 g/dL 11.8-15.4 [facility] Blood leukocytes automated c ount (number/volume)Ordered By: MAC SHEPARD on 05-26-2022 WBC (Bld) [#/Vol] 4.7 10*3/uL 4.5-11.0 [facility] Complete Blood Count Auto Di ffon 05-26-2022 Basophils (Bld) [#/Vol] 0.0 10*3/uL Normal 0.0-0.2 [facility] Comment on above: Result Comment: PERF ORMED BY: [place] [address] PATHOLOGIST PILLOWCASE MAKER MARY ALICE SY M.D. Performed By: #### C BC, BMP #### [address] Basophils/100 WBC (Bld) 0.7 % Normal . [facility] Comment on above: Performed By: #### C BC, BMP #### [address] Eosinophils (Bld) [#/Vol] 0.2 10*3/uL Normal 0.0-0.45 [facility] Comment on above: Performed By: #### C BC, BMP #### [address] Eosinophils/100 WBC (Bld) 3.8 % Normal . [facility] Comment on above: Performed By: #### C BC, BMP #### [address] Erythrocyte distribution width (RBC) [Ratio] 13.3 % Normal 11.9-15.3 [facility] Comment on above: Performed By: #### C ALLAN, BMP #### [address] Hematocrit (Bld) [Volume fraction] 40.5 % Normal 34.0-46.4 [facility] Comment on above: Performed By: #### C BC, BMP #### [address] Hemoglobin (Bld) [Mass/Vol] 13.8 g/dL Normal 11.8-15.4 [facility] Comment on above: Performed By: #### C BC, BMP #### [address] Lymphocytes (Bld) [#/Vol] 1.0 10*3/uL Normal 1.00-4.8 [facility] Comment on above: Performed By: #### C BC, BMP #### [address] Lymphocytes/100 WBC (Bld) 20.5 % Normal . [facility] Comment on above: Performed By: #### C BC, BMP #### [address] MCH (RBC) [Entitic mass] 30.7 pg Normal 24.7-34.3 [facility] Comment on above: Performed By: #### C BC, BMP #### [address] MCV (RBC) [Entitic vol] 90.2 fL Normal 80-100 [facility] Comment on above: Performed By: #### C ALLAN, BMP #### [address] Mean Corpuscular HGB Conc 34.0 g/dL Normal 32.0-35.0 [facility] Comment on above: Performed By: #### C ALLAN, BMP #### [address] Monocytes (Bld) [#/Vol] 0.4 10*3/uL Normal 0.0-0.8 [facility] Comment on above: Performed By: #### C ALLAN, BMP #### [address] Monocytes/100 WBC (Bld) 8.0 % Normal . [facility] Comment on above: Performed By: #### C BC, BMP #### [address] Neutrophils (Bld) [#/Vol] 3.2 10*3/uL Normal 1.8-7.7 [facility] Comment on above: Performed By: #### C BC, BMP #### [address] Neutrophils/100 WBC (Bld) 67.0 % Normal . [facility] Comment on above: Performed By: #### C BC, BMP #### [address] Nucleated RBC/100 WBC (Bld) [Ratio] 0.1 % Normal 0-0.5 [facility] Comment on above: Performed By: #### C BC, BMP #### [facility] [address] Platelet mean volume (Bld) [Entitic vol] 6.8 fL Normal 6.3-10.7 [facility] Comment on above: Performed By: #### C BC, BMP #### [facility] [address] [place] [address] [place] Platelets (Bld) [#/Vol] 208 10*3/uL Normal 150-450 [facility] Comment on above: Performed By: #### C BC, BMP #### [facility] [address] RBC (Bld) [#/Vol] 4.48 10*6/uL Normal 3.60-5.00 [facility] Comment on above: Performed By: #### C BC, BMP #### [facility] [address] WBC (Bld) [#/Vol] 4.7 10*3/uL Normal 4.5-11.0 [facility] Comment on above: Performed By: #### C BC, BMP #### [address] Creatinine and Glomerular fi ltration rate.predicted panel (S/P/Bld)Ordered By: MAC SHEPARD on 05-26-2022 Creatinine [Mass/Vol] 0.83 mg/dL 0.44-1.03 [facility] ECG 12 lead ECGon 05-26-2022 ECG 12 lead ECG [facility] [place] [address] [place] [address] Electrocardiograph Report Signed Patient: Thanh Villalobos MR#: [id number] : 1985 Acct:[id number] Age/Sex: 37 / F ADM Date: 05/26/22 Loc: Room: Type: [facility] Attending Dr: Mac Shepard MD Ordering Provider: MAC SHEPARD MD Date of Service: 05/26/2203/10/1111 ECG/ECG 12 lead ECG: surgery 06/06/22 Copies to: Test Reason : Blood Pressure : / mmHG Vent. Rate : 078 BPM Atrial Rate : 078 BPM P-R Int : 166 ms QRS Dur : 070 ms QT Int : 350 ms P-R-T Axes : 018 033 028 degrees QTc Int : 399 ms Normal sinus rhythm Cannot rule out Anteroseptal infarct , age undetermined Abnormal ECG No previous ECGs available Confirmed by RAMSEY GALLAGHER DO ([id number]) on 05/27/2022 8:11:47 AM Referred By: DREA Electronically Signed By:RAMSEY GALLAGHER DO Transcribed By: MUS Signed By Ramsey Gallagher DO 05/27 0811 Normal [facility] Eosinophils Auto (Bld) [#/Vo l]Ordered By: MAC SHEPARD on 05-26-2022 Eosinophils (Bld) [#/Vol] 0.2 10*3/uL 0.0-0.45 [facility] Eosinophils/100 WBC Auto (Bl d)Ordered By: MAC SHEPARD on 05-26-2022 Eosinophils/100 WBC (Bld) 3.8 % . [facility] Erythrocyte distribution wid th Auto (RBC) [Ratio]Ordered By: MAC SHEPARD on 05-26-2022 Erythrocyte distribution width (RBC) [Ratio] 13.3 % 11.9-15.3 [facility] Estimated glomerular filtrat ion rate (GFR) non- AmericanOrdered By: MAC SHEPARD on 05-26-2022 GFR/1.73 sq M.predicted among non-blacks MDRD (S/P/Bld) [Vol rate/Area] > 60 mL/Min [facility] Hematocrit Auto (Bld) [Volum e fraction]Ordered By: MAC SHEPARD on 05-26-2022 Hematocrit (Bld) [Volume fraction] 40.5 % 34.0-46.4 [facility] - Hematology and Cell countsOrdered By: MAC SHEPARD on 05-26-2022 Nucleated RBC/100 WBC (Bld) [Ratio] 0.1 % 0-0.5 [facility] Lymphocytes Auto (Bld) [#/Vo l]Ordered By: MAC SHEPARD on 05-26-2022 Lymphocytes (Bld) [#/Vol] 1.0 10*3/uL 1.00-4.8 [facility] Lymphocytes/100 WBC Auto (Bl d)Ordered By: MAC SHEPARD on 05-26-2022 Lymphocytes/100 WBC (Bld) 20.5 % . [facility] MCH Auto (RBC) [Entitic mass ]Ordered By: MAC SHEPARD on 05-26-2022 MCH (RBC) [Entitic mass] 30.7 pg 24.7-34.3 [facility] MCHC Auto (RBC) [Mass/Vol]Or dered By: MAC SHEPARD on 05-26-2022 MCHC (RBC) [Mass/Vol] 34.0 g/dL 32.0-35.0 [facility] MCV Auto (RBC) [Entitic vol] Ordered By: MAC SHEPARD on 05-26-2022 MCV (RBC) [Entitic vol] 90.2 fL 80-100 [facility] Monocytes Auto (Bld) [#/Vol] Ordered By: MAC SHEPARD on 05-26-2022 Monocytes (Bld) [#/Vol] 0.4 10*3/uL 0.0-0.8 [facility] Monocytes/100 WBC Auto (Bld) Ordered By: MAC SHEPARD on 05-26-2022 Monocytes/100 WBC (Bld) 8.0 % . [facility] Neutrophils Auto (Bld) [#/Vo l]Ordered By: MAC SHEPARD on 05-26-2022 Neutrophils (Bld) [#/Vol] 3.2 10*3/uL 1.8-7.7 [facility] Neutrophils/100 WBC Auto (Bl d)Ordered By: MAC SHEPARD on 05-26-2022 Neutrophils/100 WBC (Bld) 67.0 % . [facility] No Panel InformationOrdered By: MAC SHEPARD on 05-26-2022 Estimated GFR () > 60 mL/Min [facility] Comment on above: GFR estimated refere nce range: According to KDOQI guidelines, <60 ml/min/1.73m2 is sufficient to diagnose a patient with chronic kidney disease. Pharmacy Creatinine Clearance (Chem N/A [facility] Platelet mean volume Auto (B ld) [Entitic vol]Ordered By: MAC SHEPARD on 05-26-2022 Platelet mean volume (Bld) [Entitic vol] 6.8 fL 6.3-10.7 [facility] Platelets Auto (Bld) [#/Vol] Ordered By: MAC SHEPARD on 05-26-2022 Platelets (Bld) [#/Vol] 208 10*3/uL 150-450 [facility] RBC Auto (Bld) [#/Vol]Ordere d By: MAC SHEPARD on 05-26-2022 RBC (Bld) [#/Vol] 4.48 10*6/uL 3.60-5.00 [facility] Serum or plasma anion gap de terminationOrdered By: MAC SHEPARD on 05-26-2022 Anion gap [Moles/Vol] 14.6 mmol/L 6.0-15.0 [facility] Serum or plasma calcium sofya urement (mass/volume)Ordered By: MAC SHEPARD on 05-26-2022 Calcium [Mass/Vol] 9.6 mg/dL 8.2-10.2 [facility] Serum or plasma chloride lauren surement (moles/volume)Ordered By: MAC SHEPARD on 05-26-2022 Chloride [Moles/Vol] 100 mmol/L 95-114 [facility] Serum or plasma glucose sofya urement (mass/volume)Ordered By: MAC SHEPARD on 05-26-2022 Glucose [Mass/Vol] 145 mg/dL 70-100 [facility] Comment on above: ADA recommended refe rence rangeRandom Glucose Reference Range is dependent on time and content of last meal. Glucose of more than 200 mg/dL in a nonstressed, ambulatory subject supports the diagnosis of Diabetes Mellitus. Serum or plasma potassium me asurement (moles/volume)Ordered By: MAC SHEPARD on 05-26-2022 Potassium [Moles/Vol] 3.7 mmol/L 3.5-5.1 [facility] Serum or plasma sodium measu rement (moles/volume)Ordered By: MAC SHEPARD on 05-26-2022 Sodium [Moles/Vol] 138 mmol/L 136-146 [facility] Serum or plasma total carbon dioxide measurement (moles/volume)Ordered By: MAC SHEPARD on 05-26-2022 CO2 [Moles/Vol] 27.1 mmol/L 22.0-30.0 [facility] Serum or plasma urea nitroge n measurement (mass/volume)Ordered By: MAC SHEPARD on 05-26-2022 Urea nitrogen [Mass/Vol] 9 mg/dL 05-12 [facility] CBC AUTO DIFFon 04-19-2022 BASO # 0.0 103/ul Normal 0.0-0.1 [facility] Comment on above: Performed By: #### T TJ, CMP #### [facility] [address] [place] [address] Dr. Hong Jacobo Basophils/100 WBC (Bld) 0.4 % Normal 0.2-2.0 [facility] Comment on above: Performed By: #### T TJ, CMP #### [facility] [facility] [address] [place] [address] Dr. Hong Jacobo EO # 0.2 103/ul Normal 0.0-0.7 [facility] Comment on above: Performed By: #### T TJ, CMP #### [facility] [address] [place] [address] Dr. Hong Jacobo Eosinophils/100 WBC (Bld) 3.7 % Normal 0.9-7.0 [facility] Comment on above: Performed By: #### T TJ, CMP #### [facility] [address] [place] [address] Dr. Hong Jacobo Erythrocyte distribution width (RBC) [Ratio] 13.0 % Normal 11.0-15.0 [facility] Comment on above: Performed By: #### T TJ, CMP #### [facility] [address] [place] [address] Dr. Hong Jacobo Hematocrit (Bld) [Volume fraction] 41.2 % Normal 36.0-48.0 [facility] Comment on above: Performed By: #### T TJ, CMP #### [facility] [address] [place] [address] Dr. Hong Jacobo Hemoglobin (Bld) [Mass/Vol] 13.8 g/dL Normal 12.0-16.0 [facility] Comment on above: Performed By: #### T SH, CMP #### [facility] [address] [place] [address] Dr. Hong Jacobo IG # 0.01 10e3/ul Normal 0.00-0.03 [facility] Comment on above: Performed By: #### T SH, CMP #### [facility] [address] [place] [address] Dr. Hong Jacobo IG % 0.2 % Normal 0.0-0.5 [facility] Comment on above: Performed By: #### T TJ, CMP #### [facility] [address] [place] [address] Dr. Hong Jacobo LYMPH # 1.4 103/ul Normal 1.2-3.8 [facility] Comment on above: Performed By: #### T TJ, CMP #### [facility] [address] [place] [address] Dr. Hong Jacobo Lymphocytes/100 WBC (Bld) 24.9 % Normal 20.5-60.0 [facility] Comment on above: Performed By: #### T TJ, CMP #### [facility] [address] [place] [address] Dr. Hong Jacobo MANUAL DIFF REQ NO Normal [facility] Comment on above: Performed By: #### T TJ, CMP #### [facility] [address] [address] [address] Hong Jacobo MCH (RBC) [Entitic mass] 31.1 pg Normal 26.7-34.0 [facility] Comment on above: Performed By: #### T SH, CMP #### [facility] [address] [place] [address] Dr. Hong Jacobo MCHC (RBC) [Mass/Vol] 33.5 g/dL Normal 29.9-35.2 [facility] Comment on above: Performed By: #### T TJ, CMP #### [facility] [address] [place] [address] Dr. Hong Jacobo MCV (RBC) [Entitic vol] 92.8 fL Normal 81.0-99.0 [facility] Comment on above: Performed By: #### T SH, CMP #### [facility] [address] [place] [address] Dr. Hong Jacobo MONO # 0.3 103/ul Normal 0.3-0.8 [facility] Comment on above: Performed By: #### T SH, CMP #### [facility] [address] [place] [address] Dr. Hong Jacobo Monocytes/100 WBC (Bld) 6.3 % Normal 1.7-12.0 [facility] Comment on above: Performed By: #### T SH, CMP #### [facility] [address] [place] [address] Dr. Hong Jacobo NEUT # 3.5 103/ul Normal 1.4-6.5 [facility] Comment on above: Performed By: #### T SH, CMP #### [facility] [address] [place] [address] Dr. Hong Jacobo Neutrophils/100 WBC (Bld) 64.5 % Normal 43.0-75.0 [facility] Comment on above: Performed By: #### T SH, CMP #### [facility] [address] [place] [address] Dr. Hong Jacobo Platelet mean volume (Bld) [Entitic vol] 9.1 fL Critically low 9.5-13.5 [facility] Comment on above: Performed By: #### T SH, CMP #### [facility] [address] [place] [address] Dr. Hong Jacobo PLT 255 103/ul Normal 150-450 [facility] Comment on above: Performed By: #### T SH, CMP #### [facility] [address] [place] [address] Dr. Hong Jacobo RBC 4.44 106/ul Normal 4.20-5.40 [facility] Comment on above: Performed By: #### T SH, CMP #### [facility] [address] [place] [address] Dr. Hong Jacobo WBC 5.4 103/ul Normal 4.0-11.0 [facility] Comment on above: Performed By: #### T TJ, CMP #### [facility] [address] [place] [address] Dr. Hong Jacobo LIVER PROFILEon 04-19-2022 Albumin [Mass/Vol] 3.7 g/dL Normal 3.4-5.0 [facility] Comment on above: Performed By: #### T TJ, CMP #### [facility] [address] [place] [address] Dr. Hong Jacobo Albumin/Globulin [Mass ratio] 1.1 {ratio} Normal [facility] Comment on above: Performed By: #### T TJ, CMP #### [facility] [address] [place] [address] Dr. Hong Jacobo ALP [Catalytic activity/Vol] 66 U/L Normal 46-116 [facility] Comment on above: Performed By: #### T TJ, CMP #### [facility] [address] [place] [address] Dr. Hong Jacobo ALT [Catalytic activity/Vol] 19 U/L Normal 14-59 [facility] Comment on above: Performed By: #### T TJ, CMP #### [facility] [address] [place] [address] Dr. Hong Jacobo AST [Catalytic activity/Vol] 16 U/L Normal 15-37 [facility] Comment on above: Performed By: #### T TJ, CMP #### [facility] [address] [place] [address] Dr. Hong Jacobo BILI, CONJUGATED 0.1 mg/dL Normal 0.0-0.2 [facility] Comment on above: Performed By: #### T SH, CMP #### [facility] [address] [place] [address] Dr. Hong Jacobo Bilirubin [Mass/Vol] 0.4 mg/dL Normal 0.2-1.0 [facility] Comment on above: Performed By: #### T TJ, CMP #### [facility] [address] [place], [place] [address] Dr. Hong Jacobo Globulin (S) [Mass/Vol] 3.4 g/dL Normal [facility] Comment on above: Performed By: #### T SH, CMP #### [facility] [address] [place], [place] [address] Dr. Hong Jacobo Protein [Mass/Vol] 7.1 g/dL Normal 6.4-8.2 [facility] Comment on above: Performed By: #### T SH, CMP #### [facility] [address] [place], [place] [address] Dr. Hong Jacobo MRI Pelvis w/o + w/on 2021 MRI Pelvis w/o + w/ CLINICAL HISTORY: Dysmenorrhea. Menorrhagia with regular cycle. Patient is currently on her menstrual cycle. COMPARISON: Pelvic sonogram 03/10/2022. TECHNIQUE: Multiplanar multi sequence images of the pelvis were obtained without and with IV contrast. 20 mL ProHance was given intravenously. FINDINGS: The uterus is anteverted and measures approximately 6.3 x 5.4 x 11.8 cm in length. The uterus has a volume of approximately 209 mL. The uterus does appear enlarged. Within the lower uterine segment endometrium on the sagittal T2 image suspect rounded lesion that measures approximately 16 mm diameter, possible endometrial polyp. This is only seen on the sagittal T2-weighted image . Endometrium measures approximate 9 mm in AP diameter. There is fluid within the endometrial cavity and the endocervical canal. There is a small amount fluid within the anterior and posterior fornix is of the vagina. No definite myometrial mass. The right ovary measures approximately 3.2 x 3 x 2.1 cm with a volume of 10.5 mL. The left ovary measures approximate 2.8 x 3.3 x 2.2 cm with a volume of 10.6 mL. There are small peripheral follicles in both ovaries. No abnormal mass arising from the ovaries. No free fluid in posterior cul-de-sac. No abnormal adnexal mass visualized. IMPRESSION: ENLARGED UTERUS. SUSPECT ROUNDED LESION IN THE LOWER UTERINE SEGMENT ENDOMETRIUM, POSSIBLE POLYP ONLY SEEN ON SAGITTAL T2-WEIGHTED SEQUENCE. NORMAL-SIZED OVARIES WITH SMALL PERIPHERAL FOLLICLES. NO FREE FLUID OR ABNORMAL ADNEXAL MASS. Report reported and signed by Kassidy Nur on 03/20/2022 1345 Normal [facility] NM GASTRIC EMPTYon 2 NM GASTRIC EMPTY NUCLEAR MEDICINE GAS TRIC EMPTYING SCAN HISTORY: Nausea and vomiting.. COMPARISON: None. TECHNIQUE: The patient ingested a meal of eggs labeled with 1.0 mCi of technetium-99 sulfur colloid and images were performed of the stomach over 4 hours. Gastric retention was calculated. FINDINGS: There is normal clearance of activity from the stomach into the small bowel. At one hour, there was 74% gastric retention. The normal range is 30% to 90%. At two hours, there was 9% gastric retention. The normal range 0% to 60%. At four hours, there was 0% gastric retention. The normal range 0% to 10%. IMPRESSION: Normal gastric emptying. Electronically authenticated by: CHRIS REHMAN Date: 2022-03-16 11:00 Normal [facility] CELIAC ANTIBODIES PROFILEon 2022 Deamidated Gliadin Abs, IgA 6 units Normal 0-19 [facility] Comment on above: Result Comment: Nega tive 0 - 19 Weak Positive 20 - 30 Moderate to Strong Positive >30 Performed By: #### T SH, CMP #### [facility] [address] [address] [address] Hong Jacobo Deamidated Gliadin Abs, IgG 4 units Normal 0-19 [facility] Comment on above: Result Comment: Nega tive 0 - 19 Weak Positive 20 - 30 Moderate to Strong Positive >30 Performed By: #### T SH, CMP #### [facility] [address] [address] [address] Hong Jacobo Endomysial Antibody IgA Negative Normal Negative [facility] Comment on above: Result Comment: Seru m is slightly hemolyzed Performed By: #### T SH, CMP #### [facility] [address] [address] [address] Hong Jacobo Immunoglobulin A, Qn, Serum 148 mg/dL Normal 87-352 [facility] Comment on above: Performed By: #### T SH, CMP #### [facility] [address] [address] [address] Hong Jacobo t-Transglutaminase (tTG) IgA <2 Normal 0-3 [facility] Comment on above: Result Comment: Nega tive 0 - 3 Weak Positive 4 - 10 Positive >10 . Tissue Transglutaminase (tTG) has been identified as the endomysial antigen. Studies have demonstr- ated that endomysial IgA antibodies have over 99% specificity for gluten sensitive enteropathy. Performed By: #### T SH, CMP #### [facility] [address] [address] [address] Hong Jacobo t-Transglutaminase (tTG) IgG 4 U/mL Normal 0-5 [facility] Comment on above: Result Comment: Nega tive 0 - 5 Weak Positive 6 - 9 Positive >9 Performed By: #### T SH, CMP #### [facility] [address] [address] [address] Hong Jacobo HCG,Urineon 10-13-2021 Beta HCG ( test) Ql (U) Negative Normal [facility] Comment on above: Result Comment: PERF ORMED BY: [place] [address] PATHOLOGIST PILLOWCASE MAKER MARY ALICE SY M.D. Performed By: #### U HCG #### [address] 10-13-2021 L ------ Specimen: [id number] Received: 10/13/21 Status: EMILIANA Haque Num: [id number] Spec Type: Surgical Subm Dr: Lon Allen MD Tissues: A Small Intestine - Biopsy/Polyp (SMALL BOWEL) B Stomach - Biopsy/Polyp (GASTRIC) Procedures: HE Stain/4, Gross/Micro L4/2 Patient Age/Sex Location Account Attending Physician Thanh Villalobos 36/F [id number] Lon Allen MD SPEC NUM: [id number] RECD: 10/13/21 STATUS: EMILIANA ESTRELLAYoni NUM: [id number] SILVIA: 10/13/21- DR: Lon Allen MD ENTERED: 10/13/21-[address] [facility] [address]: SHE TYPE: Surgical DEPT: S ORDERED: HE Stain/4, Gross/Micro L4/2 ORDERED: HE Stain/4, Gross/Micro L4/2 Pathological Diagnosis A. Small bowel, biopsy: - Small bowel mucosa with patchy mild villous blunting, no intraepithelial lymphocytosis identified, see NOTE. Note: Clinical correlation with serology studies is recommended to rule out celiac disease. B. Stomach,: - Gastric mucosa with minimal chronic gastritis and focal reactive change. - No morphologic evidence of H. pylori Identified. Clinical Information Abdominal bloating, nausea Gross Description A. Received in formalin labeled with the patient's name, number and small bowel biopsy rule out celiac are 2 kennedy tissue fragments, 0.2 cm and 0.3 cm. Entirely submitted in one cassette labeled A1. Type of Fixative: 10% Neutral Buffered Formalin (AMY/YJ) B. Received in formalin labeled with the patient's name, number and gastric biopsy rule out H. pylori by IHC is a 0.4 cm kennedy tissue fragment. Entirely submitted in one cassette Specimen: [id number] Received: 10/13/21 Status: EMILIANA Haque Num: [id number] Spec Type: Surgical Subm Dr: Lon Allen MD Tissues: A Small Intestine - Biopsy/Polyp (SMALL BOWEL) B Stomach - Biopsy/Polyp (GASTRIC) Procedures: HE Stain/4, Gross/Micro L4/2 Patient: Thanh Villalobos [id number] (Continued) Specimen: [id number] Received: 10/13/21 (Continued) Gross Description (Continued) Signed (signature on file) Quang Heath MD 10/14/21 1400 Specimen: [id number] Received: 10/13/21 Status: EMILIANA Haque Num: [id number] Spec Type: Surgical Subm Dr: Lon Allne MD Tissues: A Small Intestine - Biopsy/Polyp (SMALL BOWEL) B Stomach - Biopsy/Polyp (GASTRIC) Procedures: HE Stain/4, Gross/Micro L4/2 Patient: Thanh Villalobos [id number] (Continued) Specimen: [id number] Received: 10/13/21 (Continued) Gross Description (Continued) labeled B1. Type of Fixative: 10% Neutral Buffered Formalin (AMY/YJ) Microscopic Description A. Two glass slides with H E stained material have been examined. The microscopic findings support the above pathologic diagnosis. B. Two glass slides with H E stained material have been examined. The microscopic findings support the above pathologic diagnosis. CPT Codes 81882?2 Specimen: [id number] Received: 10/13/21 Status: EMILIANA Cristian Num: [id number] Spec Type: Surgical Subm Dr: Lon Allen MD Tissues: A Small Intestine - Biopsy/Polyp (SMALL BOWEL) B Stomach - Biopsy/Polyp (GASTRIC) Procedures: HE Stain/4, Gross/Micro L4/2 Patient: Thanh Villalobos [id number] (Continued) Signed (signature on file) Quang Heath MD 10/14/21 1400 [facility] COVID-19 FRon 09-26-2021 SARS-CoV-2 (COVID-19) RNA KYM+probe Ql (Unsp spec) Positive Critically abnormal Negative [facility] Comment on above: Order Comment: Resul ts called at 1025 on 09/27/21. Healthcare Worker?: N Result Comment: Posi tive results will only be called to Providers for the following groups of patients: Pre-Surgical Testing, Emergency Room, and Inpatients. Testing for SARS-CoV-2 by RT-PCR This test was developed and its performance characteristics determined by [employer] and validated at the [facility]. This test has not been FDA cleared or approved. This test has been authorized by FDA under an Emergency Use Authorization (EUA). This test has been validated in accordance with the FDA's Guidance Document (Policy for Diagnostics Testing in Laboratories Certified to Perform High Complexity Testing under CLIA prior to Emergency Use Authorization for Coronavirus Disease-2019 during the Public Health Emergency) issued on November 20, 2019. This test is only authorized for the duration of time the declaration that circumstances exist justifying the authorization of the emergency use of in vitro diagnostic tests for detection of SARS-CoV-2 virus and/or diagnosis of COVID-19 infection under section 564(b)(1) of the Act, 21 U.S.C. 360bbb-3(b)(1), unless the authorization is terminated or revoked sooner. PERFORMED BY: [place] [address] PATHOLOGIST PILLOWCASE MAKER MARY ALICE SY M.D. Performed By: #### C OVID 19 [facility] #### [address] COVID Quick Testingon 2021 Result Positive [employer] Other CNOVon 04-30-2018 CNOV Office Visit (RICCOUAV) THANH VILLALOBOS ([id number]) 1985 FDate Time Provider Department04/30/18 1:20 PM YAKELIN CARRILLOYGBryant During your visit today, we recorded the following information about you: Temperature Pulse Blood pressure Weight 98.4 degrees 90/minute 128/81 112.5 kgYakelin Carrillo MD 04/30/2018 2:49 PM SignedDx: Gout (not crystal proven)BRIEF RHEUM HISTORYPresented to rheum clinic October 2014 with episodic joint pain and swelling thatis steroid responsive. She was diagnosed with gout when she was 19 yoa.Presented to ED with left elbow swollen, red, hot and painful to move. Nodiagnostic aspiration. Uric acid elevated. Continues to have episodic swellingand warmth of the feet, knees, elbows and wrist but no tenderness to touch.These episodes can last anywhere from a couple of days to weeks. She had twoepisodes of possible dactylitis based on her description. [place]. She does not recall any tests done.Treated with colchicine and allopurinol but she discontinued allopurinol aftera month because joints got worse while she was on it. She was on colchicinetwice a day for a couple months without relief of her symptoms.Jul 2014, she developed acute widespread pain. Given steroids for 9 days withimprovement but she continues to have daily pain in her feet. She alsocomplains of nonradiating low back pain that started around 8 yo and morningstiffness lasting an hour or two. Back pain can wake her up at night.Uric acid 11.2Elevated sed rate and crp (31 and 2.3, respectively)(-)RF/CCP/HLA B27/KENDALL/Hepatitis serologiesNormal x-rays of feet and SI jointsTHERAPIES/MEDICATION S TRIEDNSAIDs: indocin, naproxenOthers: Tylenol, allopurinol, colchicineOral glucocorticosteroids: prednisoneInjections in joints: noneInjections in spine: noneINTERVAL HISTORY:-accompanied by her toddler daughter Sabiha today.-she reduce allopurinol to 300 mg daily from 400 mg daily with improvement inthe numbness and tingling in her feet. No longer on gabapentin because itcaused excessive sedation-no gout flares-a month ago, she noticed soreness in her hands (only when she grasped thingsbut not with palpation of the hands). It resolved after a week. 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).No pain elsewhere.Swollen joints: noneEMS:E lasting 30 minutesTolerating allopurinol, colchicine,Tylenol without evident toxicities: yesREVIEW OF SYSTEMS (Positive symptoms in bold-7 positive responses recorded):CONSTITUTIONAL: Fever, fatigue, unintentional weight lossEYES: Pain, redness, loss of vision, drynessEAR, NOSE, MOUTH, THROAT: nose bleeds, hearing loss, sores in mouth,swallowing problems, dry mouthCARDIOVASCULAR: chest pain, swelling in the feet or legsRESPIRATORY: shortness of breath, pain with breathing, chronic cough, coughingup bloodGASTROINTESTINAL: heartburn, nausea, diarrhea, blood in the stool or blackstool, abdominal painGENITOURINARY: blood in urine, pain or burning on urinationMUSCULOSKELETAL: joint pain, joint swelling, morning stiffness in joint,muscle weakness, back painSKIN: rashes, sun sensitive rashes, color changes of hands or feet in thecold, hair loss, nail changesNEUROLOGICAL: Headaches, dizziness, numbness or tingling (intermittent rightfoot), memory loss, seizuresHEMATOLOGIC/LYMPHA TIC: Swollen glands, anemiaALLERGIES/IMMUNOLOGI C: allergies (other than medications), increasedsusceptibility to infectionKNOWN MEDICAL CONDITIONS: Diabetes, thyroid disease, high blood pressurePAST MEDICAL HISTORYHyperlipidemiaNephr olithiasisOBSTETRICAL/SUPERVISOR ADVERTISING DISPATCH CLERKS PCFSOPER1V2 2 first trimester miscarriagesPAST SURGICAL HISTORY/PROCEDURESbreast reductionappendectomyJoint arthroscopies or surgeries: noneSpinal surgeries: noneFAMILY HISTORYMother: ovarian cancerSister: thyroid cancerNo crystal arthritis. No rheumatologic autoimmune disorders, psoriasis or IBDSOCIAL HISTORYMarital status:SingleNumber of children: 1Occupation: works at [employer]: Current Every Day Smoker Packs/Day: .5 Years: 15 Types: CigarettesEtOH: noneRecreational drugs: noneExercise: noneALLERGIESAllergen Reactions- Acetaminophen-Codei* ItchingCurrent Outpatient Prescriptions:allopurinol (ZYLOPRIM) 100 mg tablet Take along with 300 mg tabs. Take a totalof 350 mg daily. (Patient not taking: Reported on 04/30/2018)allopurinol (ZYLOPRIM) 300 mg tablet Take along with with 100 mg tabs. Take atotal of 350 mg daily. (Patient taking differently: 300 mg. Take along withwith 100 mg tabs. Take a total of 350 mg daily.) VIT/IRON FUMARATE/FA ( ORAL) Take by mouth.No current facility-administered medications for this visit.PE:BP 128/81 (BP Site: Left Arm, BP Position: Sitting, BP Cuff Size: RegularAdult) Pulse 90 Temp 36.9 ?C (98.4 ?F) (Oral) Wt 112.5 kg (248 lb) BMI 45.36 kg/m?GEN WD/WN, in nad, AANDOx3, normal gaitHEART rrr, no mgrLUNGS ctabABDOM +bs, soft, ndEXT no e/e/cMSSwollen joints: noneTender joints: noneNo synovitisNo joint deformities, tophi or subcutaneous nodules.Remainder of joint exam unremarkable.OUTSIDE IMAGING ([facility]) - SEE SCANNED DOCUMENTS IN EMR11/16/14 XR FEET BILATERAL-normal11/16/14 XR SACROILIAC JOINTS-normalPRIOR LABSComponent CRP Uric Acid WSR Vitamin D 25 HydroxyLatest Ref Rng AND Units <0.9 mg/dL 2.5 - 6.6 mg/dL 0 - 20 mm/hr 31.0 - 80.0ng/mL05/05/2015 0.9 9.0 (H)06/06/2016 1.0 13.3 (H) 0.6 8.3 (H) 8 21.0 (L)OUTSIDE LABS ([facility]) - SEE SCANNED DOCUMENTS IN EMR11/16/14abnormal: sed rate 31 (<25mm/hr), crp 2.3 (<1.0 mg/dL), uric acid 11.2RECENT LABS11/23/17WBC 4.2Hgb 18.8Hct 43.1Platelets 224Sed rate 21 H (<20)Creatinine 0.74CRP 1.4 H (<1.0)Uric acid 5. (abnormal results in bold):wbc 6.1 (4.0-11.0)Hgb 14.1 (12.0-16.0)Hct 40.5 (36.0-48.0)plt 221 (150-450)sed rate 33 H <20Alb 4.2 (3.5-5.0)AST 16 (14-36)ALT 28 (9-52)Uric acid 5.5 (2.5-6.2)11/09/16:Creat 0.83ALT 27AST 24Uric acid 6.3 H (2.5-6.2)09/22/16:AST 27ALT 32Uric acid 7.5 H (2.5-6.2)Creatinine 0.87ASSESSMENT:Gout (not crystal proven). Other PMH: hyperlipidemia and nephrolithiasis.On allopurinol 300 mg dailyPLAN1. GOUT-she was on allopurinol and colchicine in the past but likely had insufficienttreatment since she only took them for a month.-Treatment with colchicine and allopurinol postponed because of plans to starta family. Started allopurinol 08/23/2016-off colchicine since 03/[id number]-jkokdvxpqu-zgdatihu allopurinol at the present dose.-she had labs drawn yesterday, will obtain results.-I asked that she have labs done a few days prior to next visit. (signed letterfor lab orders given to patient today):-CBC + DIFF-AST/SGOT BLD-ALT/SGPT-ALBUMIN NEU-K-[id number] PROTEIN (CRP)-CREATININE BLD-SED RATE WESTERGREN-URIC ACID BLOOD2. HYPERURICEMIA-at goal-continue allopurinol at the present dose3. VITAMIN D DEFICIENCY-completed 8 week course of twice weekly vitamin D 50,000 IU-currently taking vitamin D 1000 IU daily4. GENERAL HEALTH MAINTENANCE-she will follow up with her PCP for her general health issuesRTC in 6 mon or sooner if neededYakelin Carrillo MD 04/30/2018 2:13 PM AddendumContinue allopurinol 300 mg once a dayPlease have labs done at least 3-4 days prior to your appointment. This willallow me to discuss results, adjust medication(s) and answer any questions atyour visit. No paperwork or appointment is needed. You can go to any [facility] facility to have the labs drawn since the orders are in the system.Referring Provider: YAKELIN CARRILLO [[id number]]Allergies As of Date: 04/30/2018 Noted Allergy ReactionACETAMINOPHEN-CODE INE 11/11/2014 9 - ItchingDate Reviewed: 04/30/2018Reviewed by: Momo Comer) JASEN Cody - Fully AssessedReason for Visit: Established Patient [175]Primary Visit Diagnosis:Idiopathic chronic gout of multiple sites without tophus [M1A.09X0] Other Visit Diagnoses:Hyperuricemia [E79.0] Medication monitoring encounter [Z51.81]Order(s):allopurin ol (ZYLOPRIM) 300 mg tabletTake 1 tablet by mouth once daily.Disp: 90 tabletRfl: 2Prescriptions as of 04/30/2018 Sig: ALLOPURINOL 300 MG TABLET Take 1 tablet by mouth once d* ORAL Take by mouth.Problem List As Of Date 04/30/2018 Noted Resolved Idiopathic chronic gout of multiple sites witho*INVALID FOR* Hyperuricemia [E79.0] INVALID FOR* Other instructions from your clinician: Continue allopurinol 300 mg once a day Please have labs done at least 3-4 days prior to your appointment. This will allow me to discuss results, adjust medication(s) and answer any questions at your visit. No paperwork or appointment is needed. You can go to any [facility] facility to have the labs drawn since the orders are in the system.Prescriptions ordered this encounter Disp Refills Start End ALLOPURINOL 300 MG TABLET 90 t* 2 04/30/2018 Route: ORAL Sig: Take 1 tablet by mouth once daily.Medications Discontinued During This Encounter gabapentin (NEURONTIN) 100 mg capsule 0 03/12/2017 04/30/2018 Class: Historical Med Route: ORAL Sig: Take 100 mg by mouth once daily. Disc: Reason for discontinue is not on file. allopurinol (ZYLOPRIM) 100 mg tablet 45 t* 1 10/23/2017 04/30/2018 Sig: Take along with 300 mg tabs. Take a total of 350 mg daily. Patient not taking: Reported on 04/30/2018 Disc: Reason for discontinue is not on file. allopurinol (ZYLOPRIM) 300 mg tablet 90 t* 1 10/23/2017 04/30/2018 Sig: Take along with with 100 mg tabs. Take a total of 350 mg daily. Patient taking differently: 300 mg. Take along with with 100 mg tabs. Take a total of 350 mg daily. Disc: Reason for discontinue is not on file.Disposition: Return in about 6 months (around 10/28/2018).Follow-up and Disposition History RecordedLetter Aisha Carrillo MS, , FACRRheumatic and Immunologic DiseasesMarshfield Medical Center [facility]aver Dam MarivelHealdsburg District Hospitalcal Specialties, 3rd Xmrft[address], [place] [phone] 2017Re: Thanh Le:. 1985Please obtain the following laboratory tests October 2018:-CBC + DIFF-AST/SGOT BLD-ALT/SGPT-ALBUMIN [id number] PROTEIN (CRP)-CREATININE BLD-SED RATE WESTERGREN-URIC ACID BLOODDiagnoses:M1A.09X0 Idiopathic chronic gout of multiple sites without tophus (primaryencounter diagnosis)E79.0 HyperuricemiaPlease fax result to [phone] (Sabrina)Thank you.Yakelin Carrillo MDEncounter Number: [id number] Status:Closed by YAKELIN CARRILLO MD on 04/30/18 Normal [facility] PROGRESSon 04-30-2018 Protein mass conc HNO ID: [id number] thor: Yakelin Garciaervice: (none)Author Type: PhysicianType: Progress NotesFiled: 04/30/2018 7:39 PMNote Text:ESTEBAN Sandy pls inform patient that her Apr 2018 lab results. Hercreatinine is mildly elevated. This mild elevation is not worrisome butshe should have her primary care doctor keep an eye on the creatinine.I also suggest that she minimize or avoid using anti-inflammatoryarthritis medication (such as Aleve, Advil, Ibuprofen, Motrin etc) as muchas possible and ensure that she is keeping herself adequately hydratedwith fluidsThe remainder of her lab results are normal or within acceptable range.Her uric acid level is at goal. Pls advise patient ok to continueallopurinol at the present dose. Thx.Received results of labs done on 04/29/18 from [facility] (abnormalresults in bold) :wbc 5.9Hgb 14.1Hct 40.7plt 189CRP 0.9 (1.0 or less)sed rate 13 (0-20)uric acid 5.9Alb 3.6AST 14ALT 20Cr 1.09 (0.52-1.04), eGFR 57Report sent for scanning into EMR Normal [facility] PROGRESSon 04-28-2018 Protein mass conc HNO ID: [id number] thor: Yakelin Davidson: (none)Author Type: PhysicianType: Progress NotesFiled: 04/30/2018 2:49 PMNote Text:Dx: Gout (not crystal proven)BRIEF RHEUM HISTORYPresented to rheum clinic October 2014 with episodic joint pain and swellingthat is steroid responsive. She was diagnosed with gout when she was 19yoa. Presented to ED with left elbow swollen, red, hot and painful tomove. No diagnostic aspiration. Uric acid elevated. Continues to haveepisodic swelling and warmth of the feet, knees, elbows and wrist but notenderness to touch. These episodes can last anywhere from a couple ofdays to weeks. She had two episodes of possible dactylitis based on herdescription. She saw a barber stylist in [place] few years ago. She doesnot recall any tests done. Treated with colchicine and allopurinol ritesh discontinued allopurinol after a month because joints got worse whileshmarivel was on it. She was on colchicine twice a day for a couple monthswithout relief of her symptoms.Jul 2014, she developed acute widespread pain. Given steroids for 9 dayswith improvement but she continues to have daily pain in her feet. Maryalso complains of nonradiating low back pain that started around 8 yo andmorning stiffness lasting an hour or two. Back pain can wake her up atnight.Uric acid 11.2Elevated sed rate and crp (31 and 2.3, respectively)(-)RF/CCP/HLA B27/KENDALL/Hepatitis serologiesNormal x-rays of feet and SI jointsTHERAPIES/MEDICATION S TRIEDNSAIDs: indocin, naproxenOthers: Tylenol, allopurinol, colchicineOral glucocorticosteroids: prednisoneInjections in joints: noneInjections in spine: noneINTERVAL HISTORY:-accompanied by her toddler daughter Sabiha today.-she reduce allopurinol to 300 mg daily from 400 mg daily with improvementin the numbness and tingling in her feet. No longer on gabapentin becauseit caused excessive sedation-no gout flares-a month ago, she noticed soreness in her hands (only when she graspedthings but not with palpation of the hands). It resolved after a week.No associated swelling or erythema of the joints.-she has not noticed the chronic bump on her left elbow in quite a whileSites of pain:-knees (usually at the end of the day)-chronic intermittent low back - no worse (PT was ordered by her doctorbut she was unable to go due to her schedule and child welfare consultant issues).No pain elsewhere.Swollen joints: noneEMS:E lasting 30 minutesTolerating allopurinol, colchicine,Tylenol without evident toxicities: yesREVIEW OF SYSTEMS (Positive symptoms in bold-7 positive responsesrecorded):CONSTIT UTIONAL: Fever, fatigue, unintentional weight lossEYES: Pain, redness, loss of vision, drynessEAR, NOSE, MOUTH, THROAT: nose bleeds, hearing loss, sores in mouth,swallowing problems, dry mouthCARDIOVASCULAR: chest pain, swelling in the feet or legsRESPIRATORY: shortness of breath, pain with breathing, chronic cough,coughing up bloodGASTROINTESTINAL: heartburn, nausea, diarrhea, blood in the stool or blackstool, abdominal painGENITOURINARY: blood in urine, pain or burning on urinationMUSCULOSKELETAL: joint pain, joint swelling, morning stiffness in joint,muscle weakness, back painSKIN: rashes, sun sensitive rashes, color changes of hands or feet in thecold, hair loss, nail changesNEUROLOGICAL: Headaches, dizziness, numbness or tingling (intermittentright foot), memory loss, seizuresHEMATOLOGIC/LYMPHA TIC: Swollen glands, anemiaALLERGIES/IMMUNOLOGI C: allergies (other than medications), increasedsusceptibility to infectionKNOWN MEDICAL CONDITIONS: Diabetes, thyroid disease, high blood pressurePAST MEDICAL HISTORYHyperlipidemiaNephr olithiasisOBSTETRICAL/SUPERVISOR ADVERTISING DISPATCH CLERKS [id number] 2 first trimester miscarriagesPAST SURGICAL HISTORY/PROCEDURESbreast reductionappendectomyJoint arthroscopies or surgeries: noneSpinal surgeries: noneFAMILY HISTORYMother: ovarian cancerSister: thyroid cancerNo crystal arthritis. No rheumatologic autoimmune disorders, psoriasis orIBDSOCIAL HISTORYMarital status:SingleNumber of children: 1Occupation: works at [employer]: Current Every Day Smoker Packs/Day: .5 Years: 15 Types: CigarettesEtOH: noneRecreational drugs: noneExercise: noneALLERGIESAllergen Reactions- Acetaminophen-Codei* ItchingCurrent Outpatient Prescriptions:allopurinol (ZYLOPRIM) 100 mg tablet Take along with 300 mg tabs. Take atotal of 350 mg daily. (Patient not taking: Reported on 04/30/2018)allopurinol (ZYLOPRIM) 300 mg tablet Take along with with 100 mg tabs.Take a total of 350 mg daily. (Patient taking differently: 300 mg. Takealong with with 100 mg tabs. Take a total of 350 mg daily.) VIT/IRON FUMARATE/FA ( ORAL) Take by mouth.No current facility-administered medications for this visit.PE:BP 128/81 (BP Site: Left Arm, BP Position: Sitting, BP Cuff Size: RegularAdult) Pulse 90 Temp 36.9 ?C (98.4 ?F) (Oral) Wt 112.5 kg (248lb) BMI 45.36 kg/m?GEN WD/WN, in nad, AANDOx3, normal gaitHEART rrr, no mgrLUNGS ctabABDOM +bs, soft, ndEXT no e/e/cMSSwollen joints: noneTender joints: noneNo synovitisNo joint deformities, tophi or subcutaneous nodules.Remainder of joint exam unremarkable.OUTSIDE IMAGING ([facility]) - SEE SCANNED DOCUMENTS IN EMR11/16/14 XR FEET BILATERAL-normal11/16/14 XR SACROILIAC JOINTS-normalPRIOR LABSComponent CRP Uric Acid WSR Vitamin D 25 HydroxyLatest Ref Rng AND Units <0.9 mg/dL 2.5 - 6.6 mg/dL 0 - 20 mm/hr 31.0 - 80.0ng/mL05/05/2015 0.9 9.0 (H)06/06/2016 1.0 13.3 (H) 0.6 8.3 (H) 8 21.0 (L)OUTSIDE LABS ([facility]) - SEE SCANNED DOCUMENTS IN EMR11/16/14abnormal: sed rate 31 (<25mm/hr), crp 2.3 (<1.0 mg/dL), uric acid 11.2RECENT LABS11/23/17WBC 4.2Hgb 18.8Hct 43.1Platelets 224Sed rate 21 H (<20)Creatinine 0.74CRP 1.4 H (<1.0)Uric acid 5. (abnormal results in bold):wbc 6.1 (4.0-11.0)Hgb 14.1 (12.0-16.0)Hct 40.5 (36.0-48.0)plt 221 (150-450)sed rate 33 H <20Alb 4.2 (3.5-5.0)AST 16 (14-36)ALT 28 (9-52)Uric acid 5.5 (2.5-6.2)11/09/16:Creat 0.83ALT 27AST 24Uric acid 6.3 H (2.5-6.2)09/22/16:AST 27ALT 32Uric acid 7.5 H (2.5-6.2)Creatinine 0.87ASSESSMENT:Gout (not crystal proven). Other PMH: hyperlipidemia and nephrolithiasis.On allopurinol 300 mg dailyPLAN1. GOUT-she was on allopurinol and colchicine in the past but likely hadinsufficient treatment since she only took them for a month.-Treatment with colchicine and allopurinol postponed because of plans tostart a family. Started allopurinol 08/23/2016-off colchicine since [id number]-nvyzdxekfu-vtshykph allopurinol at the present dose.-she had labs drawn yesterday, will obtain results.-I asked that she have labs done a few days prior to next visit. (signedletter for lab orders given to patient today):-CBC + DIFF-AST/SGOT BLD-ALT/SGPT-ALBUMIN [id number] PROTEIN (CRP)-CREATININE BLD-SED RATE WESTERGREN-URIC ACID BLOOD2. HYPERURICEMIA-at goal-continue allopurinol at the present dose3. VITAMIN D DEFICIENCY-completed 8 week course of twice weekly vitamin D 50,000 IU-currently taking vitamin D 1000 IU daily4. GENERAL HEALTH MAINTENANCE-she will follow up with her PCP for her general health issuesRTC in 6 mon or sooner if needed Normal [facility] PROGRESSon 11-30-2017 Protein mass conc HNO ID: [id number] thor: Kg Keating: (none)Author Type: Nurse PractitionerType: Progress NotesFiled: 11/30/2017 1:37 PMNote Text:Outside labs reviewed and discussed with the patient:WBC 4.2Hgb 18.8Hct 43.1Platelets 224Sed rate 21 H (<20)Creatinine 0.74CRP 1.4 H (<1.0)Uric acid 5.5 Normal [facility] CNOVon 10-23-2017 CNOV Office Visit (RHEUAV) THANH VILLALOBOS ([id number]) 1985 [facility] Time Provider Department10/23/17 3:40 PM KG TURNER (AURE) RHEUAV During your visit today, we recorded the following information about you: Temperature Pulse Respiration Blood pressure 98.2 degrees 96/minute 16/minute 129/89 Weight Height 112.8 kg 1.575 Timo Turner CNP, AURE 10/23/2017 4:55 PM SignedDx: Gout (not crystal proven)BRIEF RHEUM HISTORYPresented to rheum clinic October 2014 with episodic joint pain and swelling thatis steroid responsive. She was diagnosed with gout when she was 19 yoa.Presented to ED with left elbow swollen, red, hot and painful to move. Nodiagnostic aspiration. Uric acid elevated. Continues to have episodic swellingand warmth of the feet, knees, elbows and wrist but no tenderness to touch.These episodes can last anywhere from a couple of days to weeks. She had twoepisodes of possible dactylitis based on her description. [place]. She does not recall any tests done.Treated with colchicine and allopurinol but she discontinued allopurinol aftera month because joints got worse while she was on it. She was on colchicinetwice a day for a couple months without relief of her symptoms.Jul 2014, she developed acute widespread pain. Given steroids for 9 days withimprovement but she continues to have daily pain in her feet. She alsocomplains of nonradiating low back pain that started around 8 yo and morningstiffness lasting an hour or two. Back pain can wake her up at night.Uric acid 11.2Elevated sed rate and crp (31 and 2.3, respectively)(-)RF/CCP/HLA B27/KENDALL/Hepatitis serologiesNormal x-rays of feet and SI jointsTHERAPIES/MEDICATION S TRIEDNSAIDs: indocin, naproxenOthers: Tylenol, allopurinol, colchicineOral glucocorticosteroids: prednisoneInjections in joints: noneInjections in spine: noneINTERVAL HISTORY:She is here for follow up. She is accompanied by her 22 month old daughter.She is doing well in terms of the gout. She denies any gout flares since herLOV.She reports numbness and tingling to feet that seemed to start when sheincreased allopurinol to 400 mg daily. Symptoms are worse at night. She wasprescribed neurontin, but states it does not help and makes her drowsy.She was diagnosed DDD to the neck. She completed PT and is doing a HEP, whichhelps somewhat.She is taking antibiotics for an infected tooth. She had a root canal today.Sites of pain: no current painJoint swelling: noneEMS: yes, lasting a couple hoursNo recent infections.Tolerating meds.-she has chronic ANDquot;bumpANDquot; on left elbow and the left elbow willintermittently be sore and swollen but it resolves after a couple of days. Wasbothering her last weekend. No more than an annoyance.Chronic intermittent low back and neck pain. Overall her symptoms aremanageable with ibuprofen prn.REVIEW OF SYSTEMS: October 23, 2017CONSTITUTIONAL:Fever: NoFatigue: YesPain: Yes- no current painEYES:Pain: Yes- error, patient denies any eye pain.Redness: NoLoss of vision: NoDryness: NoEAR, NOSE, MOUTH, THROAT:Nose bleeds: NoHearing loss: NoSores in mouth: NoSwallowing problems: NoDry mouth: NoCARDIOVASCULAR:Chest pain: NoSwelling in the feet or legs: NoRESPIRATORY:Shortness of breath: NoPain with breathing: NoChronic cough: NoCoughing up blood: No,GASTROINTESTINAL:Heartb urn: NoNausea: NoDiarrhea: NoBlood in the stool or black stool: NoAbdominal pain: NoGENITOURINARY:Blood in urine: NoPain or burning on urination: NoMUSCULOSKELETAL:See above:Joint pain: YesJoint swelling: NoMorning stiffness in joints: YesMuscle weakness: NoBack pain: YesSKIN:Rashes: NoSun sensitive rashes: NoColor changes of hands or feet in the cold: NoHair loss: NoNail changes: NoNEUROLOGICAL:Headaches: YesDizziness: NoNumbness or tingling: Yes- intermittent to b/l feetMemory loss: NoSeizures: NoHEMATOLOGIC/LYMPHATIC:Sw ollen glands: NoAnemia: NoALLERGIES/IMMUNOLOGIC:Al lergies (other than medications): NoIncreased susceptibility to infection: NoKNOWN MEDICAL CONDITIONS:Diabetes: NoThyroid disease: NoHigh blood pressure: NoPAST MEDICAL HISTORYHyperlipidemiaNephr olithiasisOBSTETRICAL/SUPERVISOR ADVERTISING DISPATCH CLERKS [id number] 2 first trimester miscarriagesPAST SURGICAL HISTORY/PROCEDURESbreast reductionappendectomyJoint arthroscopies or surgeries: noneSpinal surgeries: noneFAMILY HISTORYMother: ovarian cancerSister: thyroid cancerNo crystal arthritis. No rheumatologic autoimmune disorders, psoriasis or IBDSOCIAL HISTORYMarital status:SingleNumber of children: 1Occupation: works at [employer]: Current Every Day Smoker Packs/Day: .5 Years: 15 Types: CigarettesEtOH: noneRecreational drugs: noneExercise: noneALLERGIESAllergen Reactions- Acetaminophen-Codei* ItchingCurrent Outpatient Prescriptions:gabapentin (NEURONTIN) 100 mg capsule Take 100 mg by mouth once daily.allopurinol (ZYLOPRIM) 100 mg tablet Take along with 300 mg tabs. Take a totalof 400 mg daily.allopurinol (ZYLOPRIM) 300 mg tablet Take along with with 100 mg tabs. Take atotal of 400 mg daily. VIT/IRON FUMARATE/FA ( ORAL) Take by mouth.No current facility-administered medications for this visit.PE:BP 129/89 (BP Site: Left Arm, BP Position: Sitting, BP Cuff Size: Large Adult) Pulse 96 Temp 36.8 ?C (98.2 ?F) (Oral) Resp 16 Ht 157.5 cm (5' 2ANDquot;) Wt 112.8 kg (248 lb 11.2 oz) BMI 45.49 kg/m2GEN WD/WN, in nad, AANDamp;Ox3, normal gaitHEART rrr, no mgrLUNGS ctabABDOM +bs, soft, ndEXT no e/e/cMSSwollen joints: noneTender joints: noneNo synovitisNo joint deformities, tophi or subcutaneous nodules.Remainder of joint exam unremarkable.OUTSIDE IMAGING ([facility]) - SEE SCANNED DOCUMENTS IN EMR11/16/14 XR FEET BILATERAL-normal11/16/14 XR SACROILIAC JOINTS-normalLabs reviewed and discussed with the patient:10/12/2017 from [facility] (abnormal results in bold):wbc 6.1 (4.0-11.0)Hgb 14.1 (12.0-16.0)Hct 40.5 (36.0-48.0)plt 221 (150-450) CRP 2.5 H (ANDlt;+1.0)sed rate 33 H ANDlt;20creatinine 0.70 (0.52-1.04)Vitamin D 68.9 (ANDlt;20)Alb 4.2 (3.5-5.0)AST 16 (14-36)ALT 28 (9-52)Uric acid 5.5 (2.5-6.2)Report sent for scanning.?04/02/17 [facility] (ABNORMAL RESULTS IN BOLD)Lwbc 5.7Hgb 14.1Hct 40.4plt 230CRP 2.2 (ANDlt;=1.0)sed rate 12(ANDlt;=20)uric acid 5.9 (2.5-6.2)AST 35ALT 20Cr 0.73 (0.52-1.04)11/09/16:Creat 0.83ALT 27AST 24Uric acid 6.3 H (2.5-6.2)09/22/16:AST 27ALT 32Uric acid 7.5 H (2.5-6.2)Creatinine 0.87Component Latest Ref Rng 05/05/2015CRP 0.0 - 1.0 mg/dL 0.9Uric Acid 2.0 - 7.0 mg/dL 9.0 (H)OUTSIDE LABS ([facility]) - SEE SCANNED DOCUMENTS IN EMR11/16/14abnormal: sed rate 31 (ANDlt;25mm/hr), crp 2.3 (ANDlt;1.0 mg/dL), uric acid 11.:Creat 0.83ALT 27AST 24Uric acid 6.3 H (2.5-6.2)09/22/16:AST 27ALT 32Uric acid 7.5 H (2.5-6.2)Creatinine 0.87Component Latest Ref Rng ANDamp; Units 09/05/2016WBC 3.70 - 11.00 k/uL 4.90RBC 3.90 - 5.20 m/uL 4.85Hemoglobin 11.5 - 15.5 g/dL 14.2Hematocrit 36.0 - 46.0 % 41.9MCV 80.0 - 100.0 fL 86.4MCH 26.0 - 34.0 pG 29.3MCHC 30.5 - 36.0 g/dL 33.9RDW-CV 11.5 - 15.0 % 13.5Platelet Count 150 - 400 k/uL 241MPV 9.0 - 12.7 fL 9.3Neut% % 54.2Abs Neut (ANC) 1.45 - 7.50 k/uL 2.66Lymph% % 34.9Abs Lymph 1.00 - 4.00 k/uL 1.71Mono% % 7.6Abs [place] 0.00 - 0.86 k/uL 0.37Eosin% % 2.9Abs Eosin 0.00 - 0.45 k/uL 0.14Baso% % 0.4Abs Baso 0.00 - 0.10 k/uL 0.02Diff Type Auto DiffAlbumin 3.9 - 4.9 g/dL 4.4Bilirubin, Total 0.2 - 1.3 mg/dL 0.3Bilirubin, Conjug ANDlt;0.2 mg/dL ANDlt;0.2Alkaline Phosphatase 32 - 117 U/L 49AST 13 - 35 U/L 22ALT 7 - 38 U/L 17Protein, Total 6.3 - 8.0 g/dL 7.3Creatinine 0.58 - 0.96 mg/dL 0.81eGFR- ANDgt;60eGFR-All Other Races . ANDgt;60Component CRP Uric Acid WSR Vitamin D 25 HydroxyLatest Ref Rng ANDamp; Units ANDlt;0.9 mg/dL 2.5 - 6.6 mg/dL 0 - 20 mm/hr 31.0 -80.0 ng/mL05/05/2015 0.9 9.0 (H)06/06/2016 1.0 13.3 (H) 0.6 8.3 (H) 8 21.0 (L)ASSESSMENT:Gout (not crystal proven). Other PMH: hyperlipidemia and nephrolithiasis.PLAN1. GOUT-she was on allopurinol and colchicine in the past but likely had insufficienttreatment since she only took them for a month.-Treatment with colchicine and allopurinol postponed because of plans to starta family. Started allopurinol 08/23/2016-controlled. Uric acid at goal.-will decrease allopurinol to 350 mg daily to see if numbness and tingling tofeet improves-will check labs in 4 weeks-order letter given2. Numbness and tingling to feet- see above3. VITAMIN D DEFICIENCY-completed 8 week course of twice weekly vitamin D 50,000 IU-continue taking vitamin D 1000 IU daily4. GENERAL HEALTH MAINTENANCE-she will follow up with her PCP for her general health issuesPatient was advised to call for any new or worsening symptoms.RTC in 4 months or sooner if neededShun Reyes CNP, AURE 10/23/2017 4:18 PM AddendumPlease have labs done in 4 weeks.Referring Provider: YAKELIN CARRILLO [[id number]]Allergies As of Date: 10/23/2017 Noted Allergy ReactionACETAMINOPHEN-CODE INE 11/11/2014 9 - ItchingDate Reviewed: 10/23/2017Reviewed by: Kg (Egg Gatherer) AURE Turner - Fully AssessedReason for Visit: Follow Up [171]Primary Visit Diagnosis:Idiopathic chronic gout of multiple sites without tophus [M1A.09X0] Other Visit Diagnosis:Encounter for long-term (current) use of medications [Z79.899]Order(s):CBC + DIFF [SQCBCDIF] Order #: [id number] FUTURE AST/SGOT BLD [SQAST] Order #: [id number] FUTURE ALT/SGPT [SQALT] Order #: [id number] FUTURE ALBUMIN BLD [SQALB] Order #: [id number] FUTURE CREATININE BLD [SQCRET] Order #: [id number] FUTURE SED RATE WESTERGREN [SQWSR] Order #: [id number] FUTURE C-REACTIVE PROTEIN (CRP) [SQCRP] Order #: [id number] FUTURE URIC ACID BLOOD [SQURIC] Order #: [id number] FUTURE allopurinol (ZYLOPRIM) 100 mg tabletTake along with 300 mg tabs. Take a total of 350 mg daily.Disp: 45 tabletRfl: 1 allopurinol (ZYLOPRIM) 300 mg tabletTake along with with 100 mg tabs. Take a total of 350 mg daily.Disp: 90 tabletRfl: 1Prescriptions as of 10/23/2017 Sig: ALLOPURINOL 100 MG TABLET Take along with 300 mg tabs. * ALLOPURINOL 300 MG TABLET Take along with with 100 mg t* GABAPENTIN 100 MG CAPSULE Take 100 mg by mouth once skylar* ORAL Take by mouth.Problem List As Of Date 10/23/2017 Noted Resolved Idiopathic chronic gout of multiple sites witho*INVALID FOR* Hyperuricemia [E79.0] INVALID FOR* Other instructions from your clinician: Please have labs done in 4 weeks.Prescriptions ordered this encounter Disp Refills Start End ALLOPURINOL 100 MG TABLET 45 t* 1 10/23/2017 Sig: Take along with 300 mg tabs. Take a total of 350 mg daily. ALLOPURINOL 300 MG TABLET 90 t* 1 10/23/2017 Sig: Take along with with 100 mg tabs. Take a total of 350 mg daily.Medications Discontinued During This Encounter colchicine 0.6 mg tablet 90 t* 0 11/10/2016 10/23/2017 Route: ORAL Sig: Take 1 tablet by mouth once daily. Disc: Reason for discontinue is not on file. methylPREDNISolone (MEDROL, TYRONE,) 4 * 1 Pa* 0 04/25/2017 10/23/2017 Sig: Take as directed on package. Disc: Reason for discontinue is not on file. allopurinol (ZYLOPRIM) 100 mg tablet 90 t* 2 04/06/2017 10/23/2017 Sig: Take along with 300 mg tabs. Take a total of 400 mg daily. Disc: Reason for discontinue is not on file. allopurinol (ZYLOPRIM) 300 mg tablet 90 t* 2 04/06/2017 10/23/2017 Sig: Take along with with 100 mg tabs. Take a total of 400 mg daily. Disc: Reason for discontinue is not on file.Disposition: Return in about 4 months (around 02/22/2018).Follow-up and Disposition History RecordedLetter Radha Villalobos Turner CNPRheumatic and Immunologic DiseasesCHI St. Alexius Health Bismarck Medical Centercal Specialties, 3rd [id number] [place] [address].[place], [place] [phone] [phone]?Date: 10/23/2017??Tests to be performed approximately 11/23/2017.??Name: Thanh Villalobos [facility] ID: [id number]??Please obtain the following tests:???Appointment on 10/23/17-CBC + DIFF-AST/SGOT BLD-ALT/SGPT-ALBUMIN BLD-CREATININE BLD-SED RATE [id number] PROTEIN (CRP)-URIC ACID BLOODICD Code: (M1A.09X0) Idiopathic chronic gout of multiple sites without tophus(primary encounter diagnosis)(Z79.899) Encounter for long-term (current) use of medications?Please fax results to Elyse Reyes the above fax number.??Kg Turner [employer]TELL[employer],(Electronically signed to expedite mailing)?? Status:Closed by KG TURNER CNP on 10/23/17 [facility]-2017 Protein mass conc HNO ID: [id number] thor: Kg (Aure) AURE TurnerService: (none)Author Type: Nurse PractitionerType: Progress NotesFiled: 10/23/2017 4:55 PMNote Text:Dx: Gout (not crystal proven)BRIEF RHEUM HISTORYPresented to rheum clinic October 2014 with episodic joint pain and swellingthat is steroid responsive. She was diagnosed with gout when she was 19yoa. Presented to ED with left elbow swollen, red, hot and painful tomove. No diagnostic aspiration. Uric acid elevated. Continues to haveepisodic swelling and warmth of the feet, knees, elbows and wrist but notenderness to touch. These episodes can last anywhere from a couple ofdays to weeks. She had two episodes of possible dactylitis based on herdescription. She saw a barber stylist in [place] a few years ago. She doesnot recall any tests done. Treated with colchicine and allopurinol butmary discontinued allopurinol after a month because joints got worse whileshe was on it. She was on colchicine twice a day for a couple monthswithout relief of her symptoms.Jul 2014, she developed acute widespread pain. Given steroids for 9 dayswith improvement but she continues to have daily pain in her feet. Shealso complains of nonradiating low back pain that started around 8 yo andmorning stiffness lasting an hour or two. Back pain can wake her up atnight.Uric acid 11.2Elevated sed rate and crp (31 and 2.3, respectively)(-)RF/CCP/HLA B27/KENDALL/Hepatitis serologiesNormal x-rays of feet and SI jointsTHERAPIES/MEDICATION S TRIEDNSAIDs: indocin, naproxenOthers: Tylenol, allopurinol, colchicineOral glucocorticosteroids: prednisoneInjections in joints: noneInjections in spine: noneINTERVAL HISTORY:She is here for follow up. She is accompanied by her 22 month olddaughter.She is doing well in terms of the gout. She denies any gout flares sinceher ZULLY.She reports numbness and tingling to feet that seemed to start when sheincreased allopurinol to 400 mg daily. Symptoms are worse at night. Shewas prescribed neurontin, but states it does not help and makes herdrowsy.She was diagnosed DDD to the neck. She completed PT and is doing a HEP,which helps somewhat.She is taking antibiotics for an infected tooth. She had a root canaltoday.Sites of pain: no current painJoint swelling: noneEMS: yes, lasting a couple hoursNo recent infections.Tolerating meds.-she has chronic bump on left elbow and the left elbow willintermittently be sore and swollen but it resolves after a couple of days.Was bothering her last weekend. No more than an annoyance.Chronic intermittent low back and neck pain. Overall her symptoms aremanageable with ibuprofen prn.REVIEW OF SYSTEMS: October 23, 2017CONSTITUTIONAL:Fever: NoFatigue: YesPain: Yes- no current painEYES:Pain: Yes- error, patient denies any eye pain.Redness: NoLoss of vision: NoDryness: NoEAR, NOSE, MOUTH, THROAT:Nose bleeds: NoHearing loss: NoSores in mouth: NoSwallowing problems: NoDry mouth: NoCARDIOVASCULAR:Chest pain: NoSwelling in the feet or legs: NoRESPIRATORY:Shortness of breath: NoPain with breathing: NoChronic cough: NoCoughing up blood: No,GASTROINTESTINAL:Heartb urn: NoNausea: NoDiarrhea: NoBlood in the stool or black stool: NoAbdominal pain: NoGENITOURINARY:Blood in urine: NoPain or burning on urination: NoMUSCULOSKELETAL:See above:Joint pain: YesJoint swelling: NoMorning stiffness in joints: YesMuscle weakness: NoBack pain: YesSKIN:Rashes: NoSun sensitive rashes: NoColor changes of hands or feet in the cold: NoHair loss: NoNail changes: NoNEUROLOGICAL:Headaches: YesDizziness: NoNumbness or tingling: Yes- intermittent to b/l feetMemory loss: NoSeizures: NoHEMATOLOGIC/LYMPHATIC:Sw ollen glands: NoAnemia: NoALLERGIES/IMMUNOLOGIC:Al lergies (other than medications): NoIncreased susceptibility to infection: NoKNOWN MEDICAL CONDITIONS:Diabetes: NoThyroid disease: NoHigh blood pressure: NoPAST MEDICAL HISTORYHyperlipidemiaNephr olithiasisOBSTETRICAL/SUPERVISOR ADVERTISING DISPATCH CLERKS [id number] 2 first trimester miscarriagesPAST SURGICAL HISTORY/PROCEDURESbreast reductionappendectomyJoint arthroscopies or surgeries: noneSpinal surgeries: noneFAMILY HISTORYMother: ovarian cancerSister: thyroid cancerNo crystal arthritis. No rheumatologic autoimmune disorders, psoriasis orIBDSOCIAL HISTORYMarital status:SingleNumber of children: 1Occupation: works at [employer]: Current Every Day Smoker Packs/Day: .5 Years: 15 Types: CigarettesEtOH: noneRecreational drugs: noneExercise: noneALLERGIESAllergen Reactions- Acetaminophen-Codei* ItchingCurrent Outpatient Prescriptions:gabapentin (NEURONTIN) 100 mg capsule Take 100 mg by mouth once daily.allopurinol (ZYLOPRIM) 100 mg tablet Take along with 300 mg tabs. Take atotal of 400 mg daily.allopurinol (ZYLOPRIM) 300 mg tablet Take along with with 100 mg tabs.Take a total of 400 mg daily. VIT/IRON FUMARATE/FA ( ORAL) Take by mouth.No current facility-administered medications for this visit.PE:BP 129/89 (BP Site: Left Arm, BP Position: Sitting, BP Cuff Size: LargeAdult) Pulse 96 Temp 36.8 ?C (98.2 ?F) (Oral) Resp 16 Ht 157.5 cm(5' 2 ) Wt 112.8 kg (248 lb 11.2 oz) BMI 45.49 kg/m2GEN WD/WN, in nad, AANDOx3, normal gaitHEART rrr, no mgrLUNGS ctabABDOM +bs, soft, ndEXT no e/e/cMSSwollen joints: noneTender joints: noneNo synovitisNo joint deformities, tophi or subcutaneous nodules.Remainder of joint exam unremarkable.OUTSIDE IMAGING ([facility]) - SEE SCANNED DOCUMENTS IN EMR11/16/14 XR FEET BILATERAL-normal11/16/14 XR SACROILIAC JOINTS-normalLabs reviewed and discussed with the patient:10/12/2017 from [facility] (abnormal results in bold):wbc 6.1 (4.0-11.0)Hgb 14.1 (12.0-16.0)Hct 40.5 (36.0-48.0)plt 221 (150-450) CRP 2.5 H (<+1.0)sed rate 33 H <20creatinine 0.70 (0.52-1.04)Vitamin D 68.9 (<20)Alb 4.2 (3.5-5.0)AST 16 (14-36)ALT 28 (9-52)Uric acid 5.5 (2.5-6.2)Report sent for scanning.?04/02/17 [facility] (ABNORMAL RESULTS IN BOLD)Lwbc 5.7Hgb 14.1Hct 40.4plt 230CRP 2.2 (<=1.0)sed rate 12(<=20)uric acid 5.9 (2.5-6.2)AST 35ALT 20Cr 0.73 (0.52-1.04)11/09/16:Creat 0.83ALT 27AST 24Uric acid 6.3 H (2.5-6.2)09/22/16:AST 27ALT 32Uric acid 7.5 H (2.5-6.2)Creatinine 0.87Component Latest Ref Rng 05/05/2015CRP 0.0 - 1.0 mg/dL 0.9Uric Acid 2.0 - 7.0 mg/dL 9.0 (H)OUTSIDE LABS ([facility]) - SEE SCANNED DOCUMENTS IN EMR11/16/14abnormal: sed rate 31 (<25mm/hr), crp 2.3 (<1.0 mg/dL), uric acid 11.:Creat 0.83ALT 27AST 24Uric acid 6.3 H (2.5-6.2)09/22/16:AST 27ALT 32Uric acid 7.5 H (2.5-6.2)Creatinine 0.87Component Latest Ref Rng AND Units 09/05/2016WBC 3.70 - 11.00 k/uL 4.90RBC 3.90 - 5.20 m/uL 4.85Hemoglobin 11.5 - 15.5 g/dL 14.2Hematocrit 36.0 - 46.0 % 41.9MCV 80.0 - 100.0 fL 86.4MCH 26.0 - 34.0 pG 29.3MCHC 30.5 - 36.0 g/dL 33.9RDW-CV 11.5 - 15.0 % 13.5Platelet Count 150 - 400 k/uL 241MPV 9.0 - 12.7 fL 9.3Neut% % 54.2Abs Neut (ANC) 1.45 - 7.50 k/uL 2.66Lymph% % 34.9Abs Lymph 1.00 - 4.00 k/uL 1.71Mono% % 7.6Abs Shackelford 0.00 - 0.86 k/uL 0.37Eosin% % 2.9Abs Eosin 0.00 - 0.45 k/uL 0.14Baso% % 0.4Abs Baso 0.00 - 0.10 k/uL 0.02Diff Type Auto DiffAlbumin 3.9 - 4.9 g/dL 4.4Bilirubin, Total 0.2 - 1.3 mg/dL 0.3Bilirubin, Conjug <0.2 mg/dL <0.2Alkaline Phosphatase 32 - 117 U/L 49AST 13 - 35 U/L 22ALT 7 - 38 U/L 17Protein, Total 6.3 - 8.0 g/dL 7.3Creatinine 0.58 - 0.96 mg/dL 0.81eGFR- >60eGFR-All Other Races . >60Component CRP Uric Acid WSR Vitamin D 25 HydroxyLatest Ref Rng AND Units <0.9 mg/dL 2.5 - 6.6 mg/dL 0 - 20 mm/hr 31.0 - 80.0ng/mL05/05/2015 0.9 9.0 (H)06/06/2016 1.0 13.3 (H) 0.6 8.3 (H) 8 21.0 (L)ASSESSMENT:Gout (not crystal proven). Other PMH: hyperlipidemia and nephrolithiasis.PLAN1. GOUT-she was on allopurinol and colchicine in the past but likely hadinsufficient treatment since she only took them for a month.-Treatment with colchicine and allopurinol postponed because of plans tostart a family. Started allopurinol 08/23/2016-controlled. Uric acid at goal.-will decrease allopurinol to 350 mg daily to see if numbness and tinglingto feet improves-will check labs in 4 weeks-order letter given2. Numbness and tingling to feet- see above3. VITAMIN D DEFICIENCY-completed 8 week course of twice weekly vitamin D 50,000 IU-continue taking vitamin D 1000 IU daily4. GENERAL HEALTH MAINTENANCE-she will follow up with her PCP for her general health issuesPatient was advised to call for any new or worsening symptoms.RTC in 4 months or sooner if neededKg Turner CNP Normal [facility] Vital Signs Date Time Vital Sign Value Performing Clinician Facility 12-25-2022 12:55-0400 Blood Pressure Location Princess Sera [facility] 12-25-2022 12:55-0400 Body temperature 97.16 [degF] Princess Kamar [facility] 12-25-2022 12:55-0400 Diastolic blood pressure 61 mm[Hg] Princess S[facility] 12-25-2022 12:55-0400 Heart rate 92 /min Princess Sera [facility] 12-25-2022 12:55-0400 Systolic blood pressure 97 mm[Hg] Princess Sera [facility] 11-27-2022 14:24-0400 Blood Pressure Location [facility] 11-27-2022 14:24-0400 Diastolic blood pressure 80 mm[Hg] Bob SALAM [facility] 11-27-2022 14:24-0400 Heart rate 73 /min Bob SALAM [facility] 11-27-2022 14:24-0400 Mean blood pressure 99 mm[Hg] Bob SALAM [facility] 11-27-2022 14:24-0400 Respiratory rate 12 /min Bob SALAM [facility] 11-27-2022 14:24-0400 SaO2% (BldA) [Mass fraction] 95 % Bob SALAM [facility] 11-27-2022 14:24-0400 Systolic blood pressure 136 mm[Hg] Bob SALAM [facility] 11-27-2022 14:11-0400 Blood Pressure Location Bob SALAM [facility] 11-27-2022 14:11-0400 Diastolic blood pressure 80 mm[Hg] Bob SALAM [facility] 11-27-2022 14:11-0400 Heart rate 86 /min Bob SALAM [facility] 11-27-2022 14:11-0400 Mean blood pressure 94 mm[Hg] Bob SALAM [facility] 11-27-2022 14:11-0400 Respiratory rate 10 /min Bob SALAM [facility] 11-27-2022 14:11-0400 SaO2% (BldA) [Mass fraction] 97 % Bob SALAM [facility] 11-27-2022 14:11-0400 Systolic blood pressure 121 mm[Hg] Bob SALAM [facility] 11-27-2022 14:06-0400 Blood Pressure Location Bob SALAM [facility] 11-27-2022 14:06-0400 Diastolic blood pressure 81 mm[Hg] Bob SALAM [facility] 11-27-2022 14:06-0400 Heart rate 85 /min Bob SALAM [facility] 11-27-2022 14:06-0400 Mean blood pressure 93 mm[Hg] Bob SALAM [facility] 11-27-2022 14:06-0400 Respiratory rate 18 /min Bob SALAM [facility] 11-27-2022 14:06-0400 SaO2% (BldA) [Mass fraction] 99 % Bob SALAM [facility] 11-27-2022 14:06-0400 Systolic blood pressure 118 mm[Hg] Bob SALAM [facility] 11-27-2022 13:56-0400 Body temperature 97.52 [degF] Bbo SALAM [facility] 11-27-2022 12:51-0400 Body temperature 97.52 [degF] Bob SALAM [facility] 11-27-2022 12:51-0400 Respiratory rate 12 /min Bob SALAM [facility] 10-03-2022 14:23-0500 Diastolic blood pressure 98 mm[Hg] Bob SALAM [facility] 10-03-2022 14:23-0500 Mean blood pressure 121 mm[Hg] Bob SALAM [facility] 10-03-2022 14:23-0500 Systolic blood pressure 168 mm[Hg] Bob SALAM [facility] 10-03-2022 14:20-0500 Blood Pressure Location Bob SALAM [facility] 10-03-2022 14:20-0500 Diastolic blood pressure 90 mm[Hg] Bob SALAM [facility] 10-03-2022 14:20-0500 Heart rate 67 /min Bob SALAM [facility] 10-03-2022 14:20-0500 Respiratory rate 16 /min Bob SALAM [facility] 10-03-2022 14:20-0500 Systolic blood pressure 160 mm[Hg] Bob SALAM [facility] 06-06-2022 14:00-0400 Diastolic blood pressure 78 mm[Hg] Laura Aichholz Work Phone: [facility] 06-06-2022 14:00-0400 Heart rate 80 /min Laura Aichholz Work Phone: [facility] 06-06-2022 14:00-0400 SaO2% (BldA) [Mass fraction] 96 % Laura Aichholz Work Phone: [facility] 06-06-2022 14:00-0400 Systolic blood pressure 115 mm[Hg] Laura Aichholz Work Phone: [facility] 06-06-2022 12:00-0400 Inhaled oxygen flow rate 2 L/min Laura Aichholz Work Phone: [facility] 06-06-2022 11:45-0400 Respiratory rate 18 /min Laura Aichholz Work Phone: [facility] 06-06-2022 11:00-0400 Body temperature 97.2 [degF] Laura Aichholz Work Phone: [facility] 06-06-2022 08:25-0400 Body height 158.75 cm Laura Aichholz Work Phone: [facility] 06-06-2022 08:25-0400 Body mass index (BMI) [Ratio] 47.6 kg/m2 Laura Howe Work Phone: [facility] 06-06-2022 08:25-0400 Body weight 120 kg Laura Howe Work Phone: [facility] 03-01-2022 14:15-0400 Body height 157.48 cm Lon Allen Other [facility] Other 03-01-2022 14:15-0400 Body mass index (BMI) [Ratio] 46.45 kg/m2 Lon Ashleighzoeyy Other [facility] Other 03-01-2022 14:15-0400 Body weight 115.21 kg Lon Grahamy Other [facility] Other 03-01-2022 14:15-0400 Diastolic blood pressure 105 mm[Hg] Lon Grahamy Other [facility] Other 03-01-2022 14:15-0400 Systolic blood pressure 149 mm[Hg] Lon Sotelotty Other [facility] Other 08-27-2021 12:00-0500 Body height 157.48 cm Suzanna Ginty Other [facility] Other 08-27-2021 12:00-0500 Body mass index (BMI) [Ratio] 48.46 kg/m2 Suzanna Ginty Other [facility] Other 08-27-2021 12:00-0500 Body weight 120.2 kg Suzanna Ginty Other [facility] Other 08-08-2021 15:30-0500 Body height 157.48 cm Lon Allen Other [facility] Other 08-08-2021 15:30-0500 Body mass index (BMI) [Ratio] 47.55 kg/m2 Lon Allen Other [facility] Other 08-08-2021 15:30-0500 Body weight 117.94 kg Lon Allen Other [facility] Other 06-13-2021 16:35-0400 Body height 157.48 cm Suzanna Ginty Other [facility] Other 06-13-2021 16:35-0400 Body mass index (BMI) [Ratio] 48.28 kg/m2 Suzanna Ginty Other [facility] Other 06-13-2021 16:35-0400 Body temperature 99.3 [degF] Suzanna Ginty Other [facility] Other 06-13-2021 16:35-0400 Body weight 119.75 kg Suzanna Ginty Other [facility] Other 06-13-2021 16:35-0400 Diastolic blood pressure 95 mm[Hg] Suzanna Ginty Other [facility] Other 06-13-2021 16:35-0400 Respiratory rate 18 /min Suzanna Ginty Other [facility] Other 06-13-2021 16:35-0400 SaO2% (BldA) [Mass fraction] 99 % Suzanna Ginty Other [facility] Other 06-13-2021 16:35-0400 Systolic blood pressure 155 mm[Hg] Suzanna Milligan Other [facility] Other Encounters Encounter Date Encounter Type Care Provider Facility Start: 09-26-2023 Clinisync Result Encounter Generic External Data Provider [facility] External [facility] Unsolicited Start: 09-26-2023 Clinisync Result Encounter Generic External Data Provider [facility] External Department Unsolicited Start: 09-18-2023 End: 09-18-2023 ambulatory LAURA AICHHOLZ Not Available Start: 08-07-2023 End: 08-07-2023 ambulatory LAURA AICHHOLZ Not Available Start: 07-17-2023 End: 07-17-2023 ambulatory LAURA AICHHOLZ Not Available Start: 03-28-2023 ambulatory Princess Galvin Facili ty:[facility] Start: 03-26-2023 End: 03-27-2023 ambulatory Robert Vila MD Facility[facility] Start: 01-09-2023 End: 01-10-2023 ambulatory Jasmeet Tierney MD Facility:[facility] Start: 12-25-2022 End: 12-26-2022 [facility]ulatory [facility] Start: 12-25-2022 End: 12-25-2022 Patient encounter procedure Princess Galvin [facility] Start: 12-22-2022 End: 12-23-2022 ambulatory BOB SALAM Facility: Start: 11-27-2022 End: 11-28-2022 ambulatory Bob SALAM Facility:[facility] Start: 11-27-2022 End: 11-27-2022 Patient encounter procedure Bob SALAM [facility] Start: 11-21-2022 End: 11-22-2022 ambulatory [facility] LAURA AICHHOLZ Facility:[facility] Start: 11-20-2022 End: 02-19-2023 ambulatory [facility] LAURA SHYAM Facility:[facility] Start: 10-24-2022 End: 10-25-2022 ambulatory Bob SALAM Facility:[facility] Start: 10-24-2022 End: 10-24-2022 Lab Drop off Bob SALAM [facility] Start: 10-11-2022 End: 10-12-2022 ambulatory ESVIN BEJ Facility:[facility] Start: 10-03-2022 End: 10-04-2022 ambulatory LAURA J SHAVONNEHLAZAROZ Facility:[facility] Start: 10-03-2022 End: 02-18-2023 Recurring [facility] Start: 10-03-2022 End: 10-03-2022 Patient encounter procedure [facility] Start: 09-18-2022 ambulatory Bob SALAM Facility:[facility] Start: 07-05-2022 End: 07-06-2022 ambulatory ESVIN BEJ Facility:[facility] Start: 06-06-2022 End: 06-06-2022 ambulatory Mac Printy Facility:[facility] Start: 06-06-2022 End: 06-06-2022 Admission to same day surgery center Laura Howe Work Phone: [facility] [place] Start: 06-06-2022 End: 06-06-2022 ambulatory Laura J Aichholz Work Phone: [facility] Work Phone: Start: 06-02-2022 End: 06-02-2022 ambulatory Mac Printy Facility:[facility] Start: 06-02-2022 End: 06-02-2022 ambulatory Laura J Shavonnehholz Work Phone: [facility] Work Phone: Start: 06-02-2022 End: 06-02-2022 Patient encounter procedure Laura Howe Work Phone: [facility] Start: 05-26-2022 End: 05-26-2022 ambulatory Laura Kemal Shawholz Work Phone: [facility] Work Phone: Start: 05-26-2022 End: 05-26-2022 Patient encounter procedure Laura Howe Work Phone: [facility] Start: 04-19-2022 End: 04-20-2022 ambulatory [facility] LAURA ROMAHOLZ Facility:[facility] Start: 03-16-2022 End: 03-17-[address] DOCTOR SALEH Facility:[facility] Start: 03-01-2022 End: 03-01-2022 ambulatory Lon Grahamy Other [facility] Other Start: 03-01-2022 Patient encounter procedure Lon Allen [facility] Start: 01-02-2022 End: 2022 ambulatory [employer] [employer] LAURA SHAWHOLZ Facility:[facility] Start: 10-17-2021 End: 10-17-2021 ambulatory Lon Grahamy Other [facility] Other Start: 10-17-2021 Telephone encounter Lon LUBIN [facility] Start: 10-13-2021 End: 10-13-2021 ambulatory Lon Allen Facility:[facility] Start: 09-27-2021 End: 09-27-2021 ambulatory Lon Grahamy Other [facility] Other Start: 09-27-2021 Telephone encounter Lon Allen [facility] Start: 09-26-2021 End: 09-26-2021 ambulatory Laura J Shavonnehholz Facility:[facility] Start: 08-27-2021 End: 08-27-2021 ambulatory Suzanna Ginty Other [facility] Other Start: 08-27-2021 Office outpatient visit 15 minutes Suzanna Ginty [facility] Start: 08-26-2021 End: 08-26-2021 ambulatory Lon Allen Other [facility] Other Start: 08-26-2021 Telephone encounter Lon Allen [facility] Start: 08-08-2021 End: 08-08-2021 ambulatory Lon Allen Other [facility] Other Start: 08-08-2021 [facility] visit new patient Lon [facility] Start: 06-13-2021 Office outpatient ne w 20 minutes Suzanna Ginty [facility] Start: 04-30-2018 End: 05-01-2018 Patient encounter [facility]ELIN [facility] Start: 10-23-2017 End: 10-25-2017 Patient encounter KG TURNER [facility] Procedures Date Procedure Procedure Detail Performing Clinician Start: 09-26-2023 [facility] RHEUMATOID FACTOR Generic External Data Provider Start: 11-27-2022 Colonoscopy [facility] Start: 11-27-2022 Esophagogastroduodenoscopy [facility] Start: 06-06-2022 Total hysterectomy via vaginal approach Laura Howe Work Phone: Start: 05-20-2022 Hysterectomy [facility] Plan of Treatment Date Care Activity Detail Author Start: 02-17-2024 Influenza vaccination Influenza Vacc ine (#1) [facility] Comment on above: Postponed from 04/20 (Patient Refused) Start: 12-18-2023 End: 12-18-2023 Patient encounter procedure 12/18/2023 9:20 AM EDT Office Visit [facility] [address] [place] [address] Laura Howe, [employer] [address] [place] [address] [facility] Start: 2023 Screening for malign ant neoplasm of breast Mammogram [facility] Start: 06-06-2022 [facility] Start: 06-06-2022 Hospital admission [facility] Start: 2013 Screening for malign ant neoplasm of cervix HPV/Cotest [facility] Start: 01-04-2004 Screening for malign ant neoplasm of cervix Pap Smear [facility] Patient Education Hysterectomy, Abdominal or Laparoscopic Surgery [facility] Work Phone: Patient referral [facility] Work Phone: Immunizations Immunization Date Immunization Notes Care Provider Fa jose 07-21-2017 KENALOG - 10 mg Suzanna Ginty Other [facility] Other 07-21-2017 Toradol per 15 mg Suzanna Gint y Other [facility] Other 01-25-2007 measles, mumps and rubella virus vaccine [employer] [facility] 01-25-2007 poliovirus vaccine, unspecified formulation [employer] [facility] 08-02-2006 hepatitis A vaccine, adult dosage [employer] [facility] 08-02-2006 tetanus and diphtheria toxoids, adsorbed, preservative free, for adult use (2 Lf of tetanus toxoid and 2 Lf of diphtheria toxoid) [employer] [facility] NEGATED: Highlighted row has not occurred!10-03-2022 influenza virus vaccine, unspecified formulation [employer] [facility] Payers Date Payer Category Payer Medicaid [id number] 2022 Medicaid [place] [employer] [id number] 2022-Present [address] [place] [address] [id number] 2022 Unknown 2021 Self-pay [id number] 1983 Unknown [id number] 2.840.1.343848.3.579.2.593 1983 Unknown [id number] .840.1.310297.3.579.2.593 1983 Unknown [id number] 840.1.710997.3.579.2.593 1983 Unknown [id number] .840.1.208579.3.579.2.593 1983 Unknown [id number] 840.1.088261.3.579.2.593 1983 Unknown [id number] 840.1.567096.3.579.2.593 1983 Unknown [id number] 840.1.515692.3.579.2.593 1983 Unknown [id number] .840.1.571749.3.579.2.593 1983 Unknown [id number] 2.16840.1.567255.3.579.2.727 1983 Unknown [id number] 2.16840.1.852765.3.579.2.727 1983 Unknown [id number] 2.16840.1.993581.3.579.2.727 1983 Unknown [id number] 2.16.840.1.557455.3.579.2.727 1983 Unknown [id number] 2.16.840.1.372191.3.579.2.727 1983 Unknown [id number] 2.16.840.1.279403.3.579.2.727 1983 Unknown [id number] 2.16.840.1.388808.3.579.2.196 1983 Unknown [id number] 2.16.840.1.863220.3.579.2.1259 1983 Unknown [id number] 2.16.840.1.164529.3.579.2.1259 1983 Unknown [id number] 2.16.840.1.337632.3.579.2.1259 1959 Unknown [id number] 2.16.840.1.443583.19 Unknown [id number] 2.16.840.1.428793.3.579.2.531 Unknown [id number] 2.16.840.1.846633.3.579.2.531 Unknown [id number] 2.16.840.1.254017.3.579.2.531 Unknown [id number] 2.16.840.1.705300.3.579.2.531 Unknown [id number] 2.16.840.1.305836.3.579.2.531 Social History Date Type Detail Facility Unknown if ever smoked [facility] Other Start: 09-18-2023 Sex Assigned At F [facility] Start: 05-26-2022 End: 08-07-2023 Tobacco smoking status MAIS Ex-smoker (finding) [facility] Start: 1985 Sex Assigned At Female F [facility] Tobacco smoking status Never [facility] Start: 02-28-2000 End: 08-20-2014 History of tobacco use Current smoker [facility] Start: 02-28-2000 End: 08-20-2014 History of tobacco use Cigarette Smoker [facility] Start: 08-07-2023 End: 09-18-2023 Cigarettes smoked current (pack per day) - Reported 0.5 [facility] Start: 08-07-2023 Tobacco use and exposure Smokeless tobacco non-user [facility] Start: 09-18-2023 Alcohol intake Lifetime non-d jonah (finding) [facility] Start: 08-07-2023 Alcohol Comment soda: 1 daily [facility] Start: 1985 Sex Assigned At Not on file [facility] Goals Date Patient Goal Desired Activity /State Functional Status Date Assessment Result Facility 12-25-2022 Functional Status N/A [facility] 11-27-2022 Functional Status N/A [facility] 10-03-2022 Functional Status N/A [facility] Clinical Notes 06-13-2021 to 12-25-2022 Note Date & Type Note Facility 12-25-2022 Hospital Discharg e instructions Patient Education 12/25/2022 13:15:36 Colon Polyps Colon Polyps Colon polyps are tissue growths inside the colon, which is part of the large intestine. They are one of the types of polyps that can grow in the body. A polyp may be a round bump or a mushroom-shaped growth. You could have one polyp or more than one. Most colon polyps are noncancerous (benign). However, some colon polyps can become cancerous over time. Finding and removing the polyps early can help prevent this. What are the causes? The exact cause of colon polyps is not known. What increases the risk? The following factors may make you more likely to develop this condition: Having a family history of colorectal cancer or colon polyps. Being older than 45 years of age. Being younger than 45 years of age and having a significant family history of colorectal cancer or colon polyps or a genetic condition that puts you at higher risk of getting colon polyps. Having inflammatory bowel disease, such as ulcerative colitis or Crohn's disease. Having certain conditions passed from parent to child (hereditary conditions), such as: ?Familial adenomatous polyposis (FAP). ?Fountain syndrome. ?Turcot syndrome. ?Peutz Jeghers syndrome. ?MUTYH-associated polyposis (MAP). Being overweight. Certain lifestyle factors. These include smoking cigarettes, drinking too much alcohol, not getting enough exercise, and eating a diet that is high in fat and red meat and low in fiber. Having had childhood cancer that was treated with radiation of the abdomen. What are the signs or symptoms? Many times, there are no symptoms. If you have symptoms, they may include: Blood coming from the rectum during a bowel movement. Blood in the stool (feces). The blood may be bright red or very dark in color. Pain in the abdomen. A change in bowel habits, such as constipation or diarrhea. How is this diagnosed? This condition is diagnosed with a colonoscopy. This is a procedure in which a lighted, flexible scope is inserted into the opening between the buttocks (anus) and then passed into the colon to examine the area. Polyps are sometimes found when a colonoscopy is done as part of routine cancer screening tests. How is this treated? This condition is treated by removing any polyps that are found. Most polyps can be removed during a colonoscopy. Those polyps will then be tested for cancer. Additional treatment may be needed depending on the results of testing. Follow these instructions at home: Eating and drinking Eat foods that are high in fiber, such as fruits, vegetables, and whole grains. Eat foods that are high in calcium and vitamin D, such as milk, cheese, yogurt, eggs, liver, fish, and broccoli. Limit foods that are high in fat, such as fried foods and desserts. Limit the amount of red meat, precooked or cured meat, or other processed meat that you eat, such as hot dogs, sausages, aguilar, or meat loaves. Limit sugary drinks. Lifestyle Maintain a healthy weight, or lose weight if recommended by your health care provider. Exercise every day or as told by your health care provider. Do not use any products that contain nicotine or tobacco, such as cigarettes, e-cigarettes, and chewing tobacco. If you need help quitting, ask your health care provider. Do not drink alcohol if: ?Your health care provider tells you not to drink. ?You are , may be , or are planning to become . If you drink alcohol: ?Limit how much you use to: ?0 1 drink a day for women. ?0 2 drinks a day for men. ?Know how much alcohol is in your drink. In the [place] one drink equals one 12 oz bottle of beer (355 mL), one 5 oz glass of wine (148 mL), or one 1 oz glass of hard liquor (44 mL). General instructions Take ntky-ywx-bkaktql and prescription medicines only as told by your health care provider. Keep all follow-up visits. This is important. This includes having regularly scheduled colonoscopies. Talk to your health care provider about when you need a colonoscopy. Contact a health care provider if: You have new or worsening bleeding during a bowel movement. You have new or increased blood in your stool. You have a change in bowel habits. You lose weight for no known reason. Summary Colon polyps are tissue growths inside the colon, which is part of the large intestine. They are one type of polyp that can grow in the body. Most colon polyps are noncancerous (benign), but some can become cancerous over time. This condition is diagnosed with a colonoscopy. This condition is treated by removing any polyps that are found. Most polyps can be removed during a colonoscopy. This information is not intended to replace advice given to you by your health care provider. Make sure you discuss any questions you have with your health care provider. Document Revised: 11/24/2020 Document Reviewed: 11/24/2020 [employer] Patient Education 2022 [employer]. Follow Up Care 12/06/2022 10:44:07 With:Princess Galvin CNP Address: When:3 months [facility] 11-29-2022 Note [id number] [facility] 11-27-2022 Hospital Discharg e instructions Patient Education 11/27/2022 14:12:05 Upper Endoscopy, Adult, Care After Upper Endoscopy, Adult, Care After This sheet gives you information about how to care for yourself after your procedure. Your health care provider may also give you more specific instructions. If you have problems or questions, contact your health care provider. What can I expect after the procedure? After the procedure, it is common to have: A sore throat. Mild stomach pain or discomfort. Bloating. Nausea. Follow these instructions at home: Follow instructions from your health care provider about what to eat or drink after your procedure. Return to your normal activities as told by your health care provider. Ask your health care provider what activities are safe for you. Take afeu-zoo-pttzizl and prescription medicines only as told by your health care provider. Do not drive for 24 hours if you were given a sedative during your procedure. Keep all follow-up visits as told by your health care provider. This is important. Contact a health care provider if you have: A sore throat that lasts longer than one day. Trouble swallowing. Get help right away if: You vomit blood or your vomit looks like coffee grounds. You have: ?A fever. ?Bloody, black, or tarry stools. ?A severe sore throat or you cannot swallow. ?Difficulty breathing. ?Severe pain in your chest or abdomen. Summary After the procedure, it is common to have a sore throat, mild stomach discomfort, bloating, and nausea. Do not drive for 24 hours if you were given a sedative during the procedure. Follow instructions from your health care provider about what to eat or drink after your procedure. Return to your normal activities as told by your health care provider. This information is not intended to replace advice given to you by your health care provider. Make sure you discuss any questions you have with your health care provider. Document Released: 02/04/2013 Document Revised: 01/28/2019 Document Reviewed: 01/06/2019 [employer] Patient Education 2020 [employer]. 11/27/2022 14:12:05 Colonoscopy, Care After Surgery [facility] (CUSTOM) Colonoscopy Care After Surgery Please read the instructions outlined below and refer to this sheet in the next few weeks. These discharge instructions provide you with general information on caring for yourself after you leave the hospital. Your doctor may also give you specific instructions. While your treatment has been planned according to the most current medical practices available, unavoidable complications occasionally occur. If you have any problems or questions after discharge, please call your doctor. ACTIVITY You may resume your regular activity, but move at a slower pace for the next 24 hours. Take frequent rest periods for the next 24 hours. Walking will help get rid of the air and reduce the bloated feeling in your abdomen (belly). No driving for 24 hours (because of the anesthesia (medicine) used during the test). You may shower. Do not sign any important legal documents or operate any machinery for 24 hours (because of the anesthesia used during the test). NUTRITION Drink plenty of fluids. You may resume your normal diet as instructed by your doctor. Begin with a light meal and progress to your normal diet. Heavy or fried foods are harder to digest and may make you feel nauseated (sick to your stomach). Avoid alcoholic beverages for 24 hours or as instructed. MEDICATIONS You may resume your normal medications unless your doctor tells you otherwise. WHAT YOU CAN EXPECT TODAY Some feelings of bloating in the abdomen. Passage of more gas than usual. Spotting of blood in your stool or on the toilet paper. FOLLOW-UP Your doctor will discuss the results of your test with you. SEEK IMMEDIATE MEDICAL ATTENTION IF: There is more than a spotting of blood in your stool. There is abdominal distention (your abdomen is swollen). There is vomiting. You have a temperature over 101.5 F. There is abdominal pain or discomfort that is severe or gets worse throughout the day. 11/27/2022 14:12:05 Colon Polyps Colon Polyps Polyps are tissue growths inside the body. Polyps can grow in many places, including the large intestine (colon). A polyp may be a round bump or a mushroom-shaped growth. You could have one polyp or several. Most colon polyps are noncancerous (benign). However, some colon polyps can become cancerous over time. Finding and removing the polyps early can help prevent this. What are the causes? The exact cause of colon polyps is not known. What increases the risk? You are more likely to develop this condition if you: Have a family history of colon cancer or colon polyps. Are older than 50 or older than 45 if you are . Have inflammatory bowel disease, such as ulcerative colitis or Crohn's disease. Have certain hereditary conditions, such as: ?Familial adenomatous polyposis. ?Fountain syndrome. ?Turcot syndrome. ?Peutz Jeghers syndrome. Are overweight. Smoke cigarettes. Do not get enough exercise. Drink too much alcohol. Eat a diet that is high in fat and red meat and low in fiber. Had childhood cancer that was treated with abdominal radiation. What are the signs or symptoms? Most polyps do not cause symptoms. If you have symptoms, they may include: Blood coming from your rectum when having a bowel movement. Blood in your stool. The stool may look dark red or black. Abdominal pain. A change in bowel habits, such as constipation or diarrhea. How is this diagnosed? This condition is diagnosed with a colonoscopy. This is a procedure in which a lighted, flexible scope is inserted into the anus and then passed into the colon to examine the area. Polyps are sometimes found when a colonoscopy is done as part of routine cancer screening tests. How is this treated? Treatment for this condition involves removing any polyps that are found. Most polyps can be removed during a colonoscopy. Those polyps will then be tested for cancer. Additional treatment may be needed depending on the results of testing. Follow these instructions at home: Lifestyle Maintain a healthy weight, or lose weight if recommended by your health care provider. Exercise every day or as told by your health care provider. Do not use any products that contain nicotine or tobacco, such as cigarettes and e-cigarettes. If you need help quitting, ask your health care provider. If you drink alcohol, limit how much you have: ?0 1 drink a day for women. ? 0 2 drinks a day for men. Be aware of how much alcohol is in your drink. In the [place] one drink equals one 12 oz bottle of beer (355 mL), one 5 oz glass of wine (148 mL), or one 1 oz shot of hard liquor (44 mL). Eating and drinking Eat foods that are high in fiber, such as fruits, vegetables, and whole grains. Eat foods that are high in calcium and vitamin D, such as milk, cheese, yogurt, eggs, liver, fish, and broccoli. Limit foods that are high in fat, such as fried foods and desserts. Limit the amount of red meat and processed meat you eat, such as hot dogs, sausage, aguilar, and lunch meats. General instructions Keep all follow-up visits as told by your health care provider. This is important. ?This includes having regularly scheduled colonoscopies. ?Talk to your health care provider about when you need a colonoscopy. Contact a health care provider if: You have new or worsening bleeding during a bowel movement. You have new or increased blood in your stool. You have a change in bowel habits. You lose weight for no known reason. Summary Polyps are tissue growths inside the body. Polyps can grow in many places, including the colon. Most colon polyps are noncancerous (benign), but some can become cancerous over time. This condition is diagnosed with a colonoscopy. Treatment for this condition involves removing any polyps that are found. Most polyps can be removed during a colonoscopy. This information is not intended to replace advice given to you by your health care provider. Make sure you discuss any questions you have with your health care provider. Document Released: 05/02/2005 Document Revised: 11/21/2018 Document Reviewed: 11/21/2018 [employer] Patient Education 2020 [employer]. 11/27/2022 14:12:05 Hemorrhoids Hemorrhoids Hemorrhoids are swollen veins in and around the rectum or anus. There are two types of hemorrhoids: Internal hemorrhoids. These occur in the veins that are just inside the rectum. They may poke through to the outside and become irritated and painful. External hemorrhoids. These occur in the veins that are outside the anus and can be felt as a painful swelling or hard lump near the anus. Most hemorrhoids do not cause serious problems, and they can be managed with home treatments such as diet and lifestyle changes. If home treatments do not help the symptoms, procedures can be done to shrink or remove the hemorrhoids. What are the causes? This condition is caused by increased pressure in the anal area. This pressure may result from various things, including: Constipation. Straining to have a bowel movement. Diarrhea. . Obesity. Sitting for long periods of time. Heavy lifting or other activity that causes you to strain. Anal sex. Riding a bike for a long period of time. What are the signs or symptoms? Symptoms of this condition include: Pain. Anal itching or irritation. Rectal bleeding. Leakage of stool (feces). Anal swelling. One or more lumps around the anus. How is this diagnosed? This condition can often be diagnosed through a visual exam. Other exams or tests may also be done, such as: An exam that involves feeling the rectal area with a gloved hand (digital rectal exam). An exam of the anal canal that is done using a small tube (anoscope). A blood test, if you have lost a significant amount of blood. A test to look inside the colon using a flexible tube with a camera on the end (sigmoidoscopy or colonoscopy). How is this treated? This condition can usually be treated at home. However, various procedures may be done if dietary changes, lifestyle changes, and other home treatments do not help your symptoms. These procedures can help make the hemorrhoids smaller or remove them completely. Some of these procedures involve surgery, and others do not. Common procedures include: Rubber band ligation. Rubber bands are placed at the base of the hemorrhoids to cut off their blood supply. Sclerotherapy. Medicine is injected into the hemorrhoids to shrink them. Infrared coagulation. A type of light energy is used to get rid of the hemorrhoids. Hemorrhoidectomy surgery. The hemorrhoids are surgically removed, and the veins that supply them are tied off. Stapled hemorrhoidopexy surgery. The surgeon neelima the base of the hemorrhoid to the rectal wall. Follow these instructions at home: Eating and drinking Eat foods that have a lot of fiber in them, such as whole grains, beans, nuts, fruits, and vegetables. Ask your health care provider about taking products that have added fiber (fiber supplements). Reduce the amount of fat in your diet. You can do this by eating low-fat dairy products, eating less red meat, and avoiding processed foods. Drink enough fluid to keep your urine pale yellow. Managing pain and swelling Take warm sitz baths for 20 minutes, 3 4 times a day to ease pain and discomfort. You may do this in a bathtub or using a portable sitz bath that fits over the toilet. If directed, apply ice to the affected area. Using ice packs between sitz baths may be helpful. ?Put ice in a plastic bag. ?Place a towel between your skin and the bag. ?Leave the ice on for 20 minutes, 2 3 times a day. General instructions Take oese-qfr-naeqbdt and prescription medicines only as told by your health care provider. Use medicated creams or suppositories as told. Get regular exercise. Ask your health care provider how much and what kind of exercise is best for you. In general, you should do moderate exercise for at least 30 minutes on most days of the week (150 minutes each week). This can include activities such as walking, biking, or yoga. Go to the bathroom when you have the urge to have a bowel movement. Do not wait. Avoid straining to have bowel movements. Keep the anal area dry and clean. Use wet toilet paper or moist towelettes after a bowel movement. Do not sit on the toilet for long periods of time. This increases blood pooling and pain. Keep all follow-up visits as told by your health care provider. This is important. Contact a health care provider if you have: Increasing pain and swelling that are not controlled by treatment or medicine. Difficulty having a bowel movement, or you are unable to have a bowel movement. Pain or inflammation outside the area of the hemorrhoids. Get help right away if you have: Uncontrolled bleeding from your rectum. Summary Hemorrhoids are swollen veins in and around the rectum or anus. Most hemorrhoids can be managed with home treatments such as diet and lifestyle changes. Taking warm sitz baths can help ease pain and discomfort. In severe cases, procedures or surgery can be done to shrink or remove the hemorrhoids. This information is not intended to replace advice given to you by your health care provider. Make sure you discuss any questions you have with your health care provider. Document Released: 08/03/2001 Document Revised: 01/02/2020 Document Reviewed: 12/26/2018 [employer] Patient Education 2020 [employer]. Follow Up Care 10/03/2022 15:02:46 With:Lisbeth DE LA ROSA Address: [address] [place] [address]. [address] [place] [address] [facility] (1) When: Unknown Comments:Call for any problemsCall for followup appointment [facility] 11-27-2022 Evaluation + Plan note Extrac dejon from: Title:ANES Post-operative Note - General Author: Dilan Daniels Jr., DO Date:11/27/22 Plan Transfer/Discharge: Transfer/Discharge Discharge when meets criteria ( From PACU to Ambulatory Surgery Unit, and To home ). Extracted from: Title:REBAS Pre-operative Note - Endo Author:Dilan Davey Jr., DO Date:11/27/22 Plan [place] [employer] (ASA) physical status classification: Class II. Anesthetic Preoperative Plan: Anesthesia General, and -TIVA. Future Scheduled Tests Laboratory* IgA, Quant. 10/03/22 * t-Transglutaminase IgA 10/03/22 * CBC w/ Auto Diff 10/03/22 * Comprehensive Metabolic Panel 10/03/22 * Thyroid Stimulating Hormone 10/03/22 [facility]07-13-2022 Evaluation note* Encounter Date Diagnosis Assessment Notes Treatment Notes Treatment Clinical Notes Feb, Dyspepsia (ICD-10 - K30) Feb, Nausea & vomiting (ICD-10 - R11.2) Proceed with gastric emptying study as ordered previously - pt states she would like to have this done at [email or web address] Other 02-28-2022 Evaluation note* Encounter Date Diagnosis Assessment Notes Treatment Notes Treatment Clinical Notes Sep, Dyspepsia (ICD-10 - K30) [email or web address] Other 01-08-2022 Evaluation note* Encounter Date Diagnosis Assessment Notes Treatment Notes Treatment Clinical Notes Aug, Contact with and (suspected) exposure to other viral communicable diseases (ICD-10 - Z20.828) Aug, COVID-19 (ICD-10 - U07.1) Rapid COVID test performed in office today. Advised patient that test was positive. Instructed patient to isolate per CDC guidelines for 10 days from symptom onset. May return to work/activities outside home after isolation period as long as symptoms are improving and has been afebrile for 24 hours without use of antipyretic. Advised patient that health dept. will be in contact as results are reported to them. Advised patient that treatment of COVID is with viral supportive care, OTC cold medications as directed, Tylenol/Motrin as needed for body aches/fever. Increase fluids and rest. Encouraged use of cool mist humidifier. Follow-up with PCP to advise of positive result and further management. Immediate eval for SOB, difficulty, chest pain, fevers that do not break with antipyretic or any other concerning symptoms as reviewed on patient education handout. Patient verbalizes understanding and is agreeable to treatment plan. Patient left in stable condition Aug, Other Additional time spent conducting pre-visit phone call, screening for symptoms, instructions on social distancing, application and removal of PPE, and cleaning of examination room, equipment and supplies was preformed. Patient education given for testing methodology and results. Patient care instructions given in writting by [facility] document [email or web address] Other 01-07-2022 Evaluation note* Encounter Date Diagnosis Assessment Notes Treatment Notes Treatment Clinical Notes Aug, Nausea (ICD-10 - R11.0) Aug, Vomiting (ICD-10 - R11.10) [email or web address] Other 12-20-2021 Evaluation note* Encounter Date Diagnosis Assessment Notes Treatment Notes Treatment Clinical Notes Jul, Abdominal bloating (ICD-10 - R14.0) AFTER EATING ABOUT 30-45 MINS. ONGOING FOR A FEW MONTHS PROCEED WITH EGD Jul, Nausea (ICD-10 - R11.0) AFTER EATING ABOUT 30-45 MINS. PROCEED WITH EGD [email or web address] Other 10-25-2021 Evaluation note* Encounter Date Diagnosis Assessment Notes Treatment Notes Treatment Clinical Notes May, Back pain with left-sided sciatica (ICD-10 - M54.32) Discussed dx with patient. Advised patient to take steroid as directed, take with food and plenty of water, reviewed side effects of steroid. Advised patient to use muscle relaxer at night time as it may cause drowsiness. May take Tylenol as directed. Warm compress, light stretches, and massage may also help with pain. Avoid strenuous activity, perform activity as tolerated, do not stay stationary for long periods of time as it might make symptoms worse. Follow up with PCP in 1 week. Immediate eval if chest pain, shortness of breath, fever, numbness or tingling, loss of bowel or bladder control, pain becomes severe, difficulty moving neck, back, arms or legs, dizziness, headache, or any other new or concerning symptoms. Patient verbalizes understanding and is agreeable to treatment plan [email or web address] Other Evaluation + Plan note Future Appointments Appointment Date:11/20/2022 01:00:00 PM Scheduled Provider: Location:[facility] Appointment Type:Surgery PAT COVID Testing Appointment Date:11/27/2022 01:30:00 PM Scheduled Provider: Location:[facility] Appointment Type:Surgery FT Future Scheduled Tests Laboratory* Fecal WBC Lactoferrin 10/03/22 * Giardia lamblia, Direct Detection EIA 10/03/22 * IgA, Quant. 10/03/22 * O & P Exam, Routine 10/03/22 * t-Transglutaminase IgA 10/03/22 * Clostridium Difficile PCR 10/03/22 * Enteric Panel by PCR 10/03/22 * CBC w/ Auto Diff 10/03/22 * Comprehensive Metabolic Panel 10/03/22 * Thyroid Stimulating Hormone 10/03/22 [facility] Evaluation + Plan note Future Appointments Appointment Date:11/20/2022 01:00:00 PM Scheduled Provider: Location:[facility] Appointment Type:Surgery PAT COVID Testing Appointment Date:11/27/2022 01:30:00 PM Scheduled Provider: Location:[facility] Appointment Type:Surgery FT Diagnostic Tests Pending * O & P Exam, Routine 10/24/22 * Giardia lamblia, Direct Detection EIA 10/24/22 Future Scheduled Tests Laboratory* IgA, Quant. 10/03/22 * t-Transglutaminase IgA 10/03/22 * CBC w/ Auto Diff 10/03/22 * Comprehensive Metabolic Panel 10/03/22 * [facility] Appointment Date:03/28/2023 01:00:00 PM Scheduled Provider:Princess Galvin CNP Location:[facility] Appointment Type:[facility] Follow Up Future Scheduled Tests Laboratory* IgA, Quant. 10/03/22 * t-Transglutaminase IgA 10/03/22 * CBC w/ Auto Diff 10/03/22 * Comprehensive Metabolic Panel 10/03/22 * Thyroid Stimulating Hormone 10/03/22 [facility]No [facility] Other Evaluation noteNo assessment information available [facility] Work Phone: Histbnd general Narrative - Reported* Type Description Date Medical History Fungal infection of toenail Medical History Gout Medical History neuropathy in feet Surgical History breast reduction 1998 Surgical History appendectomy 2001 Surgical History lumpectomy, right breast November 17, 2014 Surgical History Hospitalization History see above surgical histo ry [facility] N4MD Other Hospital course Narrative No data available for this section [facility] Discharge instructions No data available for this section [facility] Progress note No data available for this section [facility] Reason for visit NarrativePATIENT HERE AT THE REQUEST OF LAURA HOWE FOR EVALUATION & TREATMENT OF ABDOMINAL BLOATING, PATIENT STATES THIS HAS BEEN ONGOING SINCE . PATIENT STATES WORSE AT NIGHT, NAUSEATED AFTEREATING. PATIENT STATES MOVING BOWELS DO NOT HELP. PATIENT HAS NEVER HAD EGD/COLON BEFORE.[email or web address] Other Summary Purpose Family History Relationship Condition Age at Onset Recorded Date/T [place] Not Specified Malignant neoplasm of ovary Unknown grandparent Kidney disorder Unknown Heart problem Unknown Malignant neoplasm of lung Unknown grandparent Malignant neoplasm of spleen Unknown sister Malignant neoplasm of thyroid gland Unkno wn father Medical history unknown Unknown Advance Directives Advance Directive Response Recorded Date/ Time Advance Directives No July 24, 2017 1:12pm Chief Complaint and Reason for Visit Chief Complaint Endometrial Polyps, Menorrhagia with Regular Cycle Chief Complaint Endometrial Polyps, Menorrhagia with Regular Cycle Endometrial Polyps, Menorrhagia with Regular Cycle Chief Complaint Endometrial Polyps, Menorrhagia with Regular Cycle Endometrial Polyps, Menorrhagia with Regular Cycle Endometrial Polyps, Menorrhagia with Regular Cyc. Additional Source Comments INFORMATION SOURCE (unrecogn ized section and content) DATE CREATED AUTHOR 05/22/2018 [facility] DATE CREATED AUTHOR AUTHOR'S ORGANIZ ATION 03/22/2022 [facility] dical Specialist DATE CREATED AUTHOR AUTHOR'S ORGANIZ ATION 09/23/2022 [facility] DATE CREATED AUTHOR AUTHOR'S ORGANIZ ATION 12/29/2022 [facility] DATE CREATED AUTHOR AUTHOR'S ORGANIZ ATION 03/26/2023 [facility] DATE CREATED AUTHOR AUTHOR'S ORGANIZ ATION 03/27/2023 [facility] DATE CREATED AUTHOR AUTHOR'S ORGANIZ ATION 09/19/2023 [facility] dical Specialists EPIC REASON FOR VISIT (unrecogniz ed section and content) LOWER BACK PAINNo Informatio nClinical Acute [id number] ORANGE DODGE DART, FEVER, B/A, EXPOSURElab orderPATIENT HERE FOR FOLLOW UP EGD. PT WAS TO HAVE CELIAC LAB DRAWN AT [facility]. 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 This clinical summary was aggregated from multiple sources. Caution should be exercised in using it in the provision of clinical care. This summary normalizes information from multiple sources, and as a consequence, information in this document may materially change the coding, format and clinical context of patient data. In addition, data may be omitted in some cases. CLINICAL DECISIONS SHOULD BE BASED ON THE PRIMARY CLINICAL RECORDS. [employer] provides no warranty or guarantee of the accuracy or completeness of information in this document.
== END 2023-10-01 11:09 | disposition home or self-care (01) ==
LOC: MAMMO 11:09
PROVIDERS: PCP Nurse Practitioner; Visit Provider Nurse Practitioner
DX: Z12.31 Encounter for screening mammogram for malignant neoplasm of breast (principal); Z80.41 Family history of malignant neoplasm of ovary; Z80.8 Family history of malignant neoplasm of other organs or systems
CPT/HCPCS: 77063; 77067

== ENCOUNTER 2024-01-07 08:58 | Outpatient (OUT) | payer MEDICAID, SELFPAY ==
--- OUTSIDE RECORDS SUMMARY | 2024-01-07 09:24 | XMS_ITS | CCD ---
Author Organization [facility] Care Team Providers Care Machinery Erector Name Role Phone KG TURNER (LAW ENFORCEMENT OFFICER) Unavailable Unavailable MANZON, YAKELIN D Unavailable Unavailable MANZON, YAKELIN D Unavailable Unavailable MANZON, YAKELIN D Unavailable Unavailable Suzanna Milligan Unavailable Lon Allen Unavailable Laura Howe Primary Care Provider [phone] MD Mac Shepard Attending Provider Mac Shepard Attending Unavailable Mac Shepard Admitting Unavailable Aicmagali, Laura J Primary Care Unavailable Mac Shepard Admitting Unavailable Mac Shepard Attending Unavailable Shyam Laura Keaml Primary Care Unavailable Mac Shepard Attending Unavailable Mac Shepard Admitting Unavailable Aichholratna, Laura J Primary Care Unavailable Lon Allen Admitting Unavailable Shyam, Laura J Primary Care Unavailable Lon Allen Attending Unavailable Shyam Laura J Primary Care Unavailable Lon Allen Attending Unavailable Lon Allen Admitting Unavailable ROMAHOLZ, LAURA J Primary Care Physician SHYAM, LAW ENFORCEMENT OFFICER LAURA Primary Care Unavailable LON ALLEN Admitting Unavailable LON ALLEN Attending Unavailable LON ALLEN Consulting Unavailable MISC, DR SCHMIDT Admitting Unavailable AICHHOLZ, LAW ENFORCEMENT OFFICER LAURA Primary Care Unavailable MISC, DR SCHMIDT Attending Unavailable MISC, DR SCHMIDT Consulting Unavailable CHRIS REHMAN Consulting Unavailable AICHHOLZ, LAW ENFORCEMENT OFFICER LAURA Primary Care Unavailable ESVIN OLMSTEAD Consulting Unavailable ESVIN OLMSTEAD Admitting Unavailable ESVIN OLMSTEAD Attending Unavailable ESVIN OLMSTEAD Attending Unavailable AICHHOLZ, LAW ENFORCEMENT OFFICER LAURA Primary Care Unavailable BEJ, ESVIN Consulting Unavailable BEJ, ESVIN Admitting Unavailable BEJ, ESVIN Attending Unavailable AICHHOLZ, LAW ENFORCEMENT OFFICER LAURA Primary Care Unavailable BEJ, ESVIN Consulting Unavailable BEJ, ESVIN Admitting Unavailable AICHHOLZ, LAW ENFORCEMENT OFFICER LAURA Admitting Unavailable AICHHOLZ, LAW ENFORCEMENT OFFICER LAURA Attending Unavailable AICHHOLZ, LAW ENFORCEMENT OFFICER LAURA Consulting Unavailable AICHHOLZ, LAW ENFORCEMENT OFFICER LAURA Primary Care Unavailable AICHHOLZ, LAW ENFORCEMENT OFFICER LAURA Admitting Unavailable AICHHOLZ, LAW ENFORCEMENT OFFICER LAURA Attending Unavailable AICHHOLZ, LAW ENFORCEMENT OFFICER LAURA Consulting Unavailable AICHHOLZ, LAW ENFORCEMENT OFFICER LAURA Primary Care Unavailable SALAM, BOB Attending Unavailable SALAM, BOB Consulting Unavailable SALAM, BOB Admitting Unavailable AICHHOLZ, LAW ENFORCEMENT OFFICER LAURA Primary Care Unavailable SALAM, Bob Attending [...] MD, Robert Colindres Attending Unavaila ble Aichholz KEEPER HEAD-LAW ENFORCEMENT OFFICER, Laura Deborah Primary Care Unava ilable Aichholz INTERNAL AUDIT SENIOR MANAGER, Laura Unavailable Juan WESTBROOK, Sharath Primary Care Provider AICHHOLZ, LAURA Attending Unavailable AICHHOLZ, LAURA Attending Unavailable AICHHOLZ, LAURA Attending Unavailable AICHHOLZ, LAURA Attending Unavailable Allergies Allergy Classification Reported Allergen(s) Allergy Type Date of Onset Reaction(s) Facility (1 source) acetaminophen / codeine; Translations: [ACETAMINOPHEN-CO DEINE] Drug Allergy 5 [facility] (7 sources) Codeine Drug Allergy Unknown [facility] Other (11 sources) Codeine; Translations: [codeine] Drug Allergy 4 Unknown [facility] (3 sources) HYDROcodone / Phenylpropanolami ne; Translations: [hydrocodone-phen ylpropanolamine] Drug Allergy Itching (finding) [facility] Medications Current Medications Medication Drug [...] day(s), # 20 tab(s), Refills(s) 0, Pharmacy: [facility] #[id number], 158, cm, 10/03/22 14:23:00 EST, Height/Length Dosing, [...] day(s), # 120 cap(s), Refills(s) 11, Pharmacy: [facility] #[id number], 158, cm, 10/03/22 14:23:00 EST, Height/Length Dosing, [...] 2022 12:00am lisinopril 10 mg oral tablet (4 sources) Angiotensin Converting Enzyme Inhibitor Start: 12-25-2022 [...] follow instructions per packaging and physician's handout, [facility], 158, cm, 10/03/22 14:23:00 EST, [...] Daily, # 30 cap(s), Refills(s) 2, [id number], 158, cm, 10/03/22 14:23:00 EST, Height/Length Dosing, 120, kg, 10/03/22 14:23:00 EST, Weight Dosing Start Date: 10/03/22 Status: Ordered Start: 10-13-2021 End: 05-26-2022 take 40 mg by mouth twice daily Omeprazole Discontinued 40 MG PO Twice daily 112 56 October 13, 2021 1:00am May 26, 2022 11:45am pramipexole dihydrochloride 0.5 mg oral tablet (12 sources) Nonergot Dopamine Agonist Start: 12-25-2022 pramipexole [...] (4 sources) Start: 10-12-2021 End: 05-26-2022 take 33181 ug by mouth once daily Biotin Discontinued 33071 MCG PO Daily October 12, 2021 1:00am [...] pain] Onset: 3 Episodic Acquired foot deformities (2 sources) Acquired equinus deformity of foot; Translations: [Other acquired deformities of unspecified foot] Onset: 3 07-17-2023 Episodic Anxiety disorders (2 sources) Claustrophobia; Translations: [Claustrophobia] Onset: 3 01-16-2023 Chronic [...] 3 Chronic Gout and other crystal arthropathies (4 sources) Idiopathic chronic gout, multiple sites, without tophus (tophi); Translations: [Gout, unspecified] Onset: 6 09-10-2023 Chronic Hemorrhoids (5 sources) Hemorrhoids; Translations: [Unspecified hemorrhoids] Onset: 3 [...] Onset: 2 Chronic Miscellaneous mental health disorders (2 sources) Chronic insomnia; Translations: [Psychophysiologic insomnia] Onset: 3 01-16-2023 Chronic Nausea and vomiting (17 sources) Nausea; Translations: [Nausea] Onset: 1 Resolved: 2 Episodic Other and unspecified benign neoplasm (5 sources) Polyp of colon; Translations: [Polyp of colon] Onset: 3 Episodic Other connective tissue disease (1 source) Myalgia, unspecified site; Translations: [MYALGIA UNSPECIFIED SITE] Onset: 3 Episodic Other disorders of stomach and duodenum (2 sources) Indigestion; Translations: [Functional dyspepsia] Episodic Other ear and sense organ disorders (2 sources) Pain of ear structure; Translations: [Otalgia, unspecified ear] Onset: 3 07-17-2023 Episodic Other ear and sense organ disorders (2 sources) Bilateral earache; Translations: [Otalgia, bilateral] Onset: 4 [...] Other hereditary and degenerative nervous system conditions (2 sources) Restless legs; Translations: [Restless legs syndrome] Onset: 3 01-16-2023 Chronic Other nervous system disorders (1 source) Polyneuropathy, unspecified; Translations: [POLYNEUROPATHY UNSPECIFIED] Onset: 3 Chronic Other nervous system disorders (1 source) Hereditary and idiopathic neuropathy, unspecified; Translations: [HEREDITARY IDIOPATH NEUROPATHY UNS] Onset: 3 Chronic Other nervous system disorders (2 sources) Polyneuropathy; Translations: [Polyneuropathy, unspecified] Onset: 3 01-16-2023 Chronic Other nervous system disorders (1 source) Acute postoperative pain; Translations: [Other acute postprocedural pain] 06-06-2022 Episodic Other nutritional; endocrine; and metabolic disorders (2 sources) Body mass index 30+ - obesity; Translations: [Obesity, unspecified] Onset: 3 07-17-2023 Chronic Other nutritional; endocrine; and metabolic disorders (2 sources) Severe obesity; Translations: [Morbid (severe) obesity due to excess calories] Onset: 3 08-07-2023 Chronic Other nutritional; endocrine; and metabolic disorders (2 sources) Body mass index 40+ - severely obese; Translations: [Body mass index (BMI) 45.0-49.9, adult] Onset: 4 09-18-2023 Chronic Other nutritional; endocrine; and metabolic disorders (2 sources) Abnormal weight gain; Translations: [Abnormal weight gain] Onset: 3 07-17-2023 Episodic Other screening for suspected conditions (not mental disorders or infectious disease) (3 sources) Other specified abnormal findings of blood chemistry; Translations: [Patient encounter status] Onset: 3 07-17-2023 Episodic Otitis media and related conditions (6 sources) Acute bilateral otitis media ; Translations: [Otitis media, unspecified, bilateral] Onset: 3 07-17-2023 Episodic Peripheral and visceral atherosclerosis (1 source) Generalized atherosclerosis; Translations: [GENERALIZED ATHEROSCLEROSIS] Onset: 3 Chronic Residual codes; unclassified (1 source) Periodic limb movement disorder; Translations: [PERIODIC LIMB MOVEMENT DISORDER] Onset: 2 Chronic Residual codes; unclassified (2 sources) Obstructive sleep apnea syndrome; Translations: [Obstructive sleep apnea (adult) (pediatric)] Onset: 3 01-16-2023 Chronic Residual codes; unclassified (2 sources) Hypersomnia; Translations: [Hypersomnia, unspecified] Onset: 3 01-16-2023 Chronic Spondylosis; intervertebral disc disorders; other back problems (17 sources) Backache; Translations: [Sciatica, left side] Onset: [...] Date Documented Da te Episodic/Chronic Nutritional deficiencies (5 sources) Pyridoxine deficiency; Translations: [Vitamin B6 deficiency] Onset: 10-15-2022 01-16-2023 Episodic Other aftercare (1 source) Other group home (current) drug therapy; Translations: [Other group home (current) drug therapy] Onset: 10-23-2017 Episodic Other connective tissue disease (4 sources) Neuralgia and neuritis, unspecified; Translations: [NEURALGIA AND NEURITIS UNSPECIFIED] Onset: 04-19-2022 Episodic Other connective tissue disease (2 sources) Neurogenic pain; Translations: [Neuralgia and neuritis, unspecified] [...] Episodic Other nutritional; endocrine; and metabolic disorders (2 sources) Hyperuricemia; Translations: [Hyperuricemia without signs of inflammatory arthritis and tophaceous disease] Onset: 11-03-2015 07-17-2023 Episodic Unclassified (1 source) Exposure to 2019 novel coronavirus; Translations: [Contact with and (suspected) exposure to COVID19] Viral infection (1 source) COVID-19 Onset: 08-27-2021 Resolved: 08-27-2021 Results Test Name Value Interpretation Reference Range Facility [facility] RHEUMATOID FACTORon RHEUMATOID FACTOR (RF) <10.0 [facility] Comment on above: Performed at: [address] [id number] Mainframe Architect: Matthew Araujo PhD, Phone: [phone] [facility] 03-26-2023 Otolaryngology Office/Clinic Note [...] by Robert Vila MD 03/26/23 11:08 EDT [facility] Provider Letteron 03-26-2023 Provider Letter (Inserted Image. Domitila ble to display) QUIRINO Kwong [address] [place] [address] Re: THANH VILLALOBOS Date of Visit: 03/26/2023 Dear Laura WIN, Dear Laura, I had the pleasure of seeing your patient Thanh Villalobos today. 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 She has a long history of chronic [...] Sincerely, Robert Vila MD C C Providers: [facility] Reminderson 12-27-2022 Reminders - From: Princess Galvin CNP To: Katelyn Coleman; Sent: 12/25/2022 12:31:05 EDT Show up: 12/25/2022 12:31:00 EDT Subject: Ambulatory Reminder Reminder/Recall Colonoscopy in 2025. 11/27/[address] de la rosa From: Katelyn Coleman To: [facility] - Reminders/Recalls; Sent: 12/27/2022 11:07:35 EDT ! Show up: 10/18/2025 11:07:00 EST Due Date/Time: 11/18/2025 11:07:00 EDT Normal [facility] Lab Reportson 12-26-2022 Lab Reports [id number]:127 Normal [facility] Ambulatory Visit Summaryon 0 12-25-2022 Ambulatory Visit Summary THANH VILLALOBOS :1985 Visit Date:12/25/2022 Ambulatory Visit Instructions Your [...] PM EDT With: Princess Galvin CNP Where: [facility] Normal [facility] Gastroenterology Office/Clin ic Noteon 12-25-2022 Gastroenterology Office/Clinic [...] gastric er (more content not included)... Normal [facility] Comment on above: Result Comment: Elec tronically Signed By: Princess Galvin CNP\.oj\Date and Time Signed: 12/25/22 13:16 EDT Patient [...] liquor (44 mL). General instructions ? Take liix-qcy-hgihkzs and prescription medicines only as told by [...] 11/24/2020 D (more content not included)... Normal [facility] IMMUNOGLOBULIN IGA QUANTITIA VEon 12-23-2022 Immunoglobulin A, Qn, Serum 109 mg/dL Normal 87-352 [facility] Comment on above: Performed By: #### T SH, CMP #### [facility] [address] [place] [address] Dr. Hong Jacobo TRANSGLUTAMINASE IGAon 12-23 t-Transglutaminase (tTG) IgA <2 Normal 0-3 [facility] Comment on above: Result Comment: Nega tive 0 - 3 Weak Positive 4 - 10 Positive >10 . Tissue Transglutaminase (tTG) has been identified as the endomysial antigen. Studies have demonstr- ated that endomysial IgA antibodies have over 99% specificity for gluten sensitive enteropathy. Performed By: #### T ARMANDOA #### [facility] [address] [place] [address] Dr. Hong Jacobo CBC AUTO DIFFon 12-22-2022 BASO # 0.0 103/ul Normal 0.0-0.1 [facility] Comment on above: Performed By: #### C BC #### [facility] [address] [address] [address] Hong Jacobo Basophils/100 WBC (Bld) 0.5 % Normal 0.2-2.0 [facility] Comment on above: Performed By: #### C BC #### [facility] [address] [place] [address] Dr. Hong Jacobo EO # 0.5 103/ul Normal 0.0-0.7 [facility] Comment on above: Performed By: #### C BC #### [facility] [address] [place] [address] Dr. Hong Jacobo Eosinophils/100 WBC (Bld) 9.8 % Critically high 0.9-7.0 [facility] Comment on above: Performed By: #### C BC #### [facility] [address] [place] [address] Dr. Hong Jacobo Erythrocyte distribution width (RBC) [Ratio] 12.3 % Normal 11.0-15.0 [facility] Comment on above: Performed By: #### C BC #### [facility] [address] [place] [address] Dr. Hong Jacobo Hematocrit (Bld) [Volume fraction] 41.8 % Normal 36.0-48.0 [facility] Comment on above: Performed By: #### C BC #### [facility] [address] [place] [address] Dr. Hong Jacobo Hemoglobin (Bld) [Mass/Vol] 14.2 g/dL Normal 12.0-16.0 [facility] Comment on above: Performed By: #### C BC #### [facility] [address] [place] [address] Dr. Hong Jacobo IG # 0.02 10e3/ul Normal 0.00-0.03 [facility] Comment on above: Performed By: #### C BC #### [facility] [address] [place] [address] Dr. Hong Jacobo IG % 0.4 % Normal 0.0-0.5 [facility] Comment on above: Performed By: #### C BC #### [facility] [address] [place] [address] Dr. Hong Jacobo LYMPH # 1.4 103/ul Normal 1.2-3.8 [facility] Comment on above: Performed By: #### C BC #### [facility] [address] [place] [address] Dr. Hong Jacobo Lymphocytes/100 WBC (Bld) 25.9 % Normal 20.5-60.0 [facility] Comment on above: Performed By: #### C BC #### [facility] [address] [place] [address] Dr. Hong Jacobo MANUAL DIFF REQ NO Normal [facility] Comment on above: Performed By: #### C BC #### [facility] [address] [place] [address] Dr. Hong Jacobo MCH (RBC) [Entitic mass] 30.9 pg Normal 26.7-34.0 [facility] Comment on above: Performed By: #### C BC #### [facility] [address] [place] [address] Dr. Hong Jacobo MCHC (RBC) [Mass/Vol] 34.0 g/dL Normal 29.9-35.2 [facility] Comment on above: Performed By: #### C BC #### [facility] [address] [place] [address] Dr. Hong Jacobo MCV (RBC) [Entitic vol] 90.9 fL Normal 81.0-99.0 [facility] Comment on above: Performed By: #### C BC #### [facility] [address] [place] [address] Dr. Hong Jacobo MONO # 0.4 103/ul Normal 0.3-0.8 [facility] Comment on above: Performed By: #### C BC #### [facility] [address] [place] [address] Dr. Hong Jacobo Monocytes/100 WBC (Bld) 6.7 % Normal 1.7-12.0 [facility] Comment on above: Performed By: #### C BC #### [facility] [address] [place] [address] Dr. Hong Jacobo NEUT # 3.1 103/ul Normal 1.4-6.5 [facility] Comment on above: Performed By: #### C BC #### [facility] [address] [place] [address] Dr. Hong Jacobo Neutrophils/100 WBC (Bld) 56.7 % Normal 43.0-75.0 [facility] Comment on above: Performed By: #### C BC #### [facility] [address] [place] [address] Dr. Hong Jacobo Platelet mean volume (Bld) [Entitic vol] 8.5 fL Critically low 9.5-13.5 [facility] Comment on above: Performed By: #### C BC #### [facility] [address] [place] [address] Dr. Hong Jacobo PLT 208 103/ul Normal 150-450 [facility] Comment on above: Performed By: #### C BC #### [facility] [address] [place] [address] Dr. Hong Jacobo RBC 4.60 106/ul Normal 4.20-5.40 [facility] Comment on above: Performed By: #### C BC #### [facility] [address] [place] [address] Dr. Hong Jacobo WBC 5.5 103/ul Normal 4.0-11.0 [facility] Comment on above: Performed By: #### C BC #### [facility] [address] [place] [address] Dr. Hong Jacobo PROF 14(COMP METB)on 023 Albumin [Mass/Vol] 3.8 g/dL Normal 3.4-5.0 [facility] Comment on above: Performed By: #### T SH, CMP #### [facility] [address] [place] [address] Dr. Hong Jacobo Albumin/Globulin [Mass ratio] 0.9 {ratio} Normal [facility] Comment on above: Performed By: #### T SH, CMP #### [facility] [address] [place] [address] Dr. Hong Jacobo ALP [Catalytic activity/Vol] 102 U/L Normal 46-116 [facility] Comment on above: Performed By: #### T SH, CMP #### [facility] [address] [place] [address] Dr. Hong Jacobo ALT [Catalytic activity/Vol] 32 U/L Normal 14-59 [facility] Comment on above: Performed By: #### T SH, CMP #### [facility] [address] [address] [address] Hong Jacobo Anion gap [Moles/Vol] 10.1 mmol/L Normal [facility] Comment on above: Performed By: #### T SH, CMP #### [facility] [address] [address] [address] Hong Jacobo AST [Catalytic activity/Vol] 15 U/L Normal 15-37 [facility] Comment on above: Performed By: #### T SH, CMP #### [facility] [address] [address] [address] Hong Jacobo Bilirubin [Mass/Vol] 0.2 mg/dL Normal 0.2-1.0 [facility] Comment on above: Performed By: #### T TJ, CMP #### [facility] [address] [address] [address] Hong Jacobo Calcium [Mass/Vol] 9.5 mg/dL Normal 8.5-10.1 [facility] Comment on above: Performed By: #### T TJ, CMP #### [facility] [address] [address] [address] Hong Jacobo Chloride [Moles/Vol] 104 mmol/L Normal 98-107 [facility] Comment on above: Performed By: #### T SH, CMP #### [facility] [address] [address] [address] Hong Jacobo CO2 [Moles/Vol] 29.9 mmol/L Normal 21.0-32.0 [facility] Comment on above: Performed By: #### T SH, CMP #### [facility] [address] [address] [address] Hong Jacobo Creatinine [Mass/Vol] 0.94 mg/dL Normal 0.55-1.02 [facility] Comment on above: Performed By: #### T SH, CMP #### [facility] [address] [address] [address] Hong Jacobo EGFR-AF CHINESE >60 Normal >=60 [facility] Comment on above: Performed By: #### T SH, CMP #### [facility] [address] [address] [address] Hong Jacobo EGFR-NON AF CHINESE >60 Normal >=60 [facility] Comment on above: Performed By: #### T SH, CMP #### [facility] [address] [address] [address] Hong Jacobo Globulin (S) [Mass/Vol] 4.0 g/dL Normal [facility] Comment on above: Performed By: #### T SH, CMP #### [facility] [address] [address] [address] Hong Jacobo Glucose [Mass/Vol] 162 mg/dL Critically high 74-106 [facility] Comment on above: Performed By: #### T SH, CMP #### [facility] [address] [place] [address] Dr. Hong Jacobo Potassium [Moles/Vol] 4.0 mmol/L Normal 3.5-5.1 [facility] Comment on above: Performed By: #### T SH, CMP #### [facility] [address] [place] [address] Dr. Hong Jacobo Protein [Mass/Vol] 7.8 g/dL Normal 6.4-8.2 [facility] Comment on above: Performed By: #### T TJ, CMP #### [facility] [address] [place] [address] Dr. Hong Jacobo Sodium [Moles/Vol] 140 mmol/L Normal 136-145 [facility] Comment on above: Performed By: #### T SH, CMP #### [facility] [address] [place] [address] Dr. Hong Jacobo Urea nitrogen [Mass/Vol] 12.0 mg/dL Normal 7.0-18.0 [facility] Comment on above: Performed By: #### T SH, CMP #### [facility] [address] [place] [address] Dr. Hong Jacobo Urea nitrogen/Creatinine [Mass ratio] 12.8 mg/mg Normal [facility] Comment on above: Performed By: #### T SH, CMP #### [facility] [address] [place], [place] [address] Dr. Hong Jacobo TSHon 12-22-2022 TSH 1.356 uIU/mL Normal 0.358-3.74 0 [facility] Comment on above: Performed By: #### T , CMP #### [facility] [address] [place], [place] [address] Dr. Hong Jacobo IntraOperative Documentson 0 12-01-2022 Intra[employer] Documents [id number]:127 Normal [facility] Coding Summary.on 11-30-2022 Coding Summary. CD:[id number] Ww+PGh lYWQ+VZ4NDUDmW98xqDHjlC7kL 0NMTElOSywgQVBQTElOSyIgbmF oQG9xuVNnESMi IC8+GT1zTVZlExzrvKLpx1D6jY H7G39yqy3xTMawnFH3JZTcJnKj ekqcc9tbhUt6XMmpAgpnBySd VBGohW46HAX8tW05Vz02gXTcaN Xhi9gduGh6HjPsBEZaEBR2jMwn HPhjc9AgHPXxP76ogPMrx8W3 PFIxxBkgvORyKaXobKD5fT1lEH saywipj2bexbhbDtp5po96vIOj b0S0nPY8D7DwpiN5WVNhmELr MbomkRZVbB5abovja2nswfkkAx HyYRCiJPx8RGu4EIGtbDlsGsHa UD37NBL3YCNydaDeT0VvIPFj fLjrBoV3k9O2Ei8SX4GQAoreY5 VNTUFSWTwvdGQ+UH37qv84R5Zv KedoMrf8DAGuYWZ4cNY5sX3q ZKUvSNlww0C9mGD3S2HvpmEotg 0up8ylOKUkOPiqU22klZPbw3M8 JYJohWR3ZSOzuTpmMtAmbE79 Oyc+NYFphVaov5FqAkvvi5axj4 ndaFe7HegkZSIwyjUblQtkISY2 u0UxYs2cLTRmlNE8tKB3nU1v NaCkQpA5UVqbJ940FkKkvWZvOc ezQ61rW7RnyHE+CHKeFud4TUCz rHvoIZ5nA3HpLPAvkscewXJw wBkrCS6wRNNaddokHOYoqH9qNG CnN2t1UoTrVuR0CYcwK0HlNRJc wzjeZv27aT2jCiTdBpU7BKrv F9RhhyD3VVHfjCEwETwuKHY7Q7 4ki3F7IOYxGPTiNWH6pPW3yB3h bGlnbjogbGVmdDsgdmVydGlj ZXwbBRdjX196EUAuuXofOkMlOQ luZyBEYXRlOiAgMDQvMTMvMjAy MzwvdGQ+HVNxIEN4oGmgTPGo fCVvJMgqAi7urIuroPnpDI0qKN ObemcpCGNcwR2wUIYjkVKjlCcb IQ6zFWZmmecqo711HmQjGQI8 MVGjzZQaN8KwxG1oWiJbLPBeIY HmW8XixEMxHMjkI094AZweIgR8 PDAspdUbF0SdLCTpvPnmWeB2 r1B7Zn6Tu0VjvwjcF8XeqJYqYd BmVoujDTb4A6XfMmzhvPV+PC90 UELhOI63KQf8DUL5eCzqRNrj OODzZ8AdgY2eIxEdVSHzIYJkFi c+PHRhYmxlIHdpZHRoPScxMDAl LuGylHdxTG2oYa0yZHLsGPSf sAeujXLeWhBlm0qjTQMxTLltZG 8wlGqeD8QraNJ4MNIwi8q6Qa44 K86kL6QgnAK+SZStjYB2dBX2 uV6xFuQnOpJ3RFbgX494SaMeeU RqWfxug0qdb7qmxYp2QyA7EDGm tfUaeIbnCQA7h4BoLh03X25f IHdpZHRoPSIxNSUiIHZhbGlnbj 3wqQ1qDo3+UZRblXG7yXL1vI4h EnKnEkL7SKgnP684HvEebLCi Difsa6exh9jnvAk9AtPkRECmwh PukYrlCZX3a6DjBf77Q1ZyqHha q3JeZrf8za74xYUpv8G3aYV1 M3GaPUColdthfPItzRhbTI4xTK FwqwblUVDdwX5wHLQeF5q3GxXd TqO7EPabD5HgltR8KSFtqUCk FRNxeJUFlZ6kdbzoy3kivktxCf UkAPWrWVc7TVr9CHUioDkcYwEl UTF6PaG3CIN5aMOmrJ4nlEvn dmrinO7eBwm+ONS5tZDogODSXA 1lOjwvdGQ+DQNhRYB9sIonIYrf AHOljF0pKXJvF1u0UzQgOoC9 TDpiH5OqzhC9HHSltVZrHRNhwB QPvM9rhigmv3tvjwppKtFkJUUe FJa0BWz2XNHycTwwRgXiTEN9 DkH4RKJ9kWZrxR0bcFtsdqgyrX 9wOyc+YivsdTzdTML7ARu6R7Rg Hhn1GYSrlXktZJ4tdFUzCGby Ad5fyQhquBfvQN0xZKHxlgpjh0 44TvEme9viHRNoxPTfQVdePEA6 Z06io5O2QIVlKURyEDH5oRE0 lV1fyPwwdrnjnPDqpYdtclDpbQ rfRWkxOXsuL178CXKuwTbeFwNv KYk4P7SwGms5TBApuBxbBQ7h qAEmFZweFu3soFrifXaxCK8dOG Sgkfrvy250MnIaf9sfMWDubFTt NWwvTZD0T14xh1G7MWMlKGMl NVA4mVM4oZ3jqWdywmkdzXQtzH hubiMgoTegPSzjMWlhR839XLEf qLauKlBpyTn1C4DzZhd4KFYg oXeaVH0ayXZzYPlwRb7pxXbjeT aaNL1sIBZhialex235KwDjz7fr OJMouBMsYIdbMNZ8Q02ih8I5 KNWqNKIeBWN1dHU0sD2neAcatc ogbGVmdDsgdmVydGljYWwtYWxp E288OGBjbRsgGiOenZqgfvKt GKtzQPv9U7TmTcqniTT+PC90YW CxNL28aNBnoCUac5acnPi8EvHm LTDmKPX1aSpvJQiyb2VqXQZu R79mbUEtr0K2CGWkhYkudRAcKn EbjPN0zW5tLCxfitmry6zqlkeb Ltioh0renv24wQ57P47lDSlb TQFmERNnJEZyOJKpcTgzgx2koJ 9wIi8+ROPknZU7kKI0cP3oMNQj EeS3VChcF932LpGydRYzKzdc s8nvv1zpsJu3OaK8ZBWomhKyoZ vjBEQ3g9ZcAp98S92qECvyWJQg WDVtITNxZMSzlUxbux0ddG7u Ii8+WSOhdSD1qWQ9jZ4uUfXkSb W9FPqiI719HhHvbRDnHhujY54s H6JlfKA+TPRzTyv6ISUydZfk TM0dyXQpVBbkAn5aAYD7OzRwRz AhQVwbM4GbACXhihozkxpqkCW9 MYLuURIckB03Ty2pmRgaQUZx zEEKbI4rsaukn9zhjsfgMfSfHG IlIGm1HAu1YKPvnDolPbMnUGC9 LbE3SPH7dXCpyR9krHxmrjxy fW2jW2XeWYEftxxcHv08vA5sXs MaDwH4IVfdSso+RlGFFw2SYyyr YiiTR9cCAD61N1HvNtz1HHHs tPorMI1ytFLhHGlgDj6bvVgpiG msBT4dRNAwelxlKZRuwU6qHOPc rEIriZkvDA7nPMEzeemie253 MnBxMDH5JEGnxLMfZ3FzlE1rSl OdHQTnEOMrW8EpxMNpYUqsA890 TAgyOvJ2VBQazkBjD3YzXWQf nHtjMkK0x1J3En8rXB7mSi0yPX brNU79ZX40hCBng4E9kWE8B7Th KYQzbbyxgjqfoSG4COGqOWLa xS25rOXiIHcvXn9ka3A8f494XW OlXUPnwT12Hx8uuYkhTVGpxQCD mK3rekjen0gcwmakPePcDBVa WUj7NYz3NAZcwCcuJjLuXGZ4Ei B6RTB1iGVvnJ3hkTzzlefllX0v Oyc+WfegZXAtiwU6Y3YmCbv9 UBAbyFdsMT7ewQFqCWjtQo0brV imjLunHG5dYGJkanwgZHGbvN4v YPTmkMLziDsrMG1oEPUajwit w117InKaGYQ1GRYahOMjN4LsgV 5mWtFqQBGoRNXlU0KvnNTnVYka J311UQbpHhW7ZGHiasEsN9Ke WXAhaQcpMoG9q3P2Hx5ECZ1icU N9Z3KeUiq8EQRnpMveTN7nuYRu CXsyBe3jcNvnqXllOF7iXVKn ljsvJFDvrN8xYHOghVVuzOwbSI 7gXHIcagxdc995CqBeBJY8CUEn fHGiF5VpwT6nEoJwEHOoDTYi U9XgdAGySUztB838WDzoRiH8YQ NyatZhA0CdCSQinMiuPiP7q5G7 Sm9MnIPqCEMuWD22UV05YY09 I2YqZozntZHtpHA+PHRhYmxlIH bnMEFtJGguKJTtJuIccIbzCW1v Es1xQXGnQPNqlQgjyHTkMzDo n3ulJHSkDUgyLH5enXyuL2DopO F4TEBqd6l8Fp53D51gN7VigYQ+ GRIihQF8aUP1zP2bYuGwFvZ1 ZOlxB715VhSyuZHiWndbv6ryu9 bcjMg4NkKzFJJwhxRqaPbzESP1 a1ThMl54X18dKVwkFNVbLWVr WUQeJFKghEboar6myE5dSw6+PG PdnOR1wPP2oT0rKiPgMgW6LDbq N879MnNzuHXtLzjbM94xG4Pd dXA+AUNuVho3XJObbKbnMS7veT SaAPtzAn0hAWV0NxUsHhMjNHyk U7VyCITgjuyfdwhrhOX5UHHt OAMbjC06Ha2grZljKe6tSNDtZE N9CHKpcHJfW1UbbF0qQcQsAKRv BENhD4VasHFrJYzeR018DEse DhK6GCPvkeByY4EpRZVlqNxdHg X3u8H1Kn3ScDzaeYTsSC6qZnOt ZKg0Y9RtTpn5XIBdaOniAI6f dYThEWlmCu4rtVthkSjnUI0cGZ Sazbvyk579TvZka1miWRQvrCOd KOplEPC7N08fd4U6LVWfAJTc PZP6sND2fB1jmLkciwdmhTUhvM fwriQddRekYIfhGGskL584PNPk cMnnRpPVIox4E5KoAbd7SZQk oKciBJ0ynUXcKYloBw4qxMwxoS ubWY2cGBQtffxjg377VdYtg3ry MTVimVTnCTnbFPU5H45bg4B3 FGLeAWJbXIU1lSQ0cN1izDznsa ogbGVmdDsgdmVydGljYWwtYWxp I719AFPwlOadFx2ZPtp5A1Nm Ems8ADJdhDrnFP7mxLVaGXbkNe 5uyOyipUqyYU5pSCVerrklp744 ScCsr8vmSZJzzPDtCUkyOZA2 Q84bt5Q4RPTjYDLpCKT9gRQ9fJ 1hbGlnbjogbGVmdDsgdmVydGlj ESvqVIucB064HQXktPynWuGa eWVyOjwvdGQ+TY58of40L8HtGj bwFxb8JUIxSWI5kZB9aQ0iJDRu WQqgc4V3lRW2T1YlkqOaex3s g8lnCCXn (more content not included)... Normal [facility] Consenton 11-29-2022 Consent [id number]#1.00CD:127 [facility] Discharge Instructionson Discharge Instructions [id number]#1.00CD:127 [facility] Postoperative Documentson Postoperative Documents [id number]#1.00CD:127 [facility] Main OR Intraoperative Recor don 11-28-2022 Main OR Intraoperative Record IntraOp Document Type FT Summary Primary Physician: Lisbeth DE LA ROSA MD Finalized Date/Time: 11/28/22 14:10:13 Pt. Name: THANH VILLALOBOS/Sex: 1985 Female Med Rec #: [id number] Physician: Lisbeth DE LA ROSA MD Financial #: [id number] Pt. Type: O Room/Bed: / Admit/Disch: 11/27/22 12:14:45 - 04/10/23 23:59:59 Institution: Case Times FT Entry 1 [...] DOUGHERTY, Chuck ALVAREZ, Alexandria Gibbs Role Performed [facility] [facility] - Primary Staff - Other Time In [...] Entry 5 Case Attendee Damir Moran MD, Bob Role Performed Scrub - Primary Surgeon - [...] No Time Out Shazia DOUGHERTY, Given Participants Chuck Singleton RN, Abdifatah Gonsalves Kirstyn K, Sparks, Micala E, [...] and tissue Entry 1 Skin Integrity Intact, Booker, Warm, and Skin Abnormality No Dry Outcomes Met? Yes Last Modified By: Brina Woods RN 11/27/22 13:33:42 Post-Care Text: The patient is free from signs and symptoms of injury caused by extraneous objects Patient Positioning FT Pre-Care Text: Identifies physical alterations that require additional precautions for procedure-specific positioning, verifies pre (more content not included)... Normal [facility] Consent for Treatmenton 11-18 Consent for Treatment [id number]#[id number]:127 Normal [facility] Endoscopic Procedure Report - Otheron 11-27-2022 Endoscopic [...] II nonbleeding internal hemorrhoids Images Procedure images: Rec1_hd_video_ 2_50_14_712.jpg Rec1_hd_video_ 2_44_30_132.jpg Rec1_hd_video_ 2_41_47_921.jpg Rec1_hd_video_ 2_42_17_808.jpg Rec1_hd_video_ 2_41_12_329.jpg . Post-Procedure Complications: none. [...] Return to activities:: After 24 hours. Normal [facility] Comment on above: Result Comment: Elec tronically Signed By: COURTNEY WESTBROOK, Lisbeth\.br\Date and Time Signed: 11/27/22 13:50 EDT Other Comment: Amber august Attachment - attachment storage system not supported [id number] Can be viewed in source systemMissing Attachment - attachment storage system not supported [id number] Can be viewed in source systemMissing Attachment - attachment storage system not supported [id number] Can be viewed in source systemMissing Attachment - attachment storage system not supported [id number] Can be viewed in source systemMissing Attachment - attachment storage system not supported [id number] Can be viewed in source system Endoscopic [...] 2. GI clinic follow-up in 2 weeks [facility] Comment on above: Result Comment: Elec tronically Signed By: Lisbeth DE LA ROSA MD\.br\Date and Time Signed: 11/27/22 13:48 EDT Main OR PACU I Recordon 11-18 Main OR PACU I Record PACU Phase I Docum ent Type FT Summary Primary Physician: Lisbeth DE LA ROSA MD Finalized Date/Time: 11/27/22 14:34:22 Pt. Name: THANH VILLALOBOS/Sex: 1985 Female Med Rec #: [id number] Physician: Lisbeth DE LA ROSA MD Financial #: [id number] Pt. Type: O Room/Bed: / Admit/Disch: 11/27/22 [...] RN Document Signatures Signed By: Melanie Romero RN/10/23 14:34 Normal [facility] Main OR Preoperative Recordo n 11-27-2022 Main OR Preoperative Record Holding Area Document Type FT Summary Primary Physician: Lisbeth DE LA ROSA MD Finalized Date/Time: 11/27/22 12:35:48 Pt. Name: THANH VILLALOBOS /Sex: 1985 Female Med Rec #: [id number] Physician: Lisbeth DE LA ROSA MD Financial #: [id number] Pt. Type: O Room/Bed: / Admit/Disch: 11/27/22 [...] By: Celina Zelaya RN 11/27/22 12:35 Normal [facility] Monitor Recordon 11-27-2022 Monitor Record [id number]#[id number]:127 Normal [facility] Progress Note-Physicianon Progress Note-Physician Patient: THANH VILLALOBOS Age: 37 years Sex: Female : 1985 Associated Diagnoses: None Author: Dilan Daniels Jr., DO Postoperative Information Postoperative disposition: Postoperative disposition: Home. Optimetrix number: Optimetrix number [id number]. Anesthetic utilized: General. Physical Examination Vital Signs [...] Ambulatory Surgery Unit, and To home ). Normal [facility] Comment on above: Result Comment: Elec [...] day(s), # 120 cap(s), Refills(s) 11, Pharmacy: [id number], 158, cm, 10/03/22 14:23:00 EST, Height/Length Dosing, 120, kg, 10/03/22 14:23:00 EST, Weight Dosing Sutab oral tablet: See Instructions, 1 EA, Refill(s) 0, IDA, Please follow instructions per packaging and physician's handout, [facility], 158, cm, 10/03/22 14:23:00 EST, Height/Length Dosing, 120, kg, 10/03/22 14:23:00 EST, Weight Dosing omeprazole 40 mg Cap-DR: 40 mg = 1 cap(s), Oral, Daily, # 30 cap(s), Refills(s) 2, Pharmacy: [facility] #[id number], 158, cm, 10/03/22 14:23:00 EST, Height/Length Dosing, [...] All Problems Abdominal bloating / SNOMED CT 293086274 / Confirmed Abdominal pain / SNOMED CT 35764571 / Confirmed Acid reflux / SNOMED CT 394973793 / Confirmed Clostridium difficile diarrhea / SNOMED CT 6153541127 / Confirmed Problem added secondary to positive C-Diff lab result. Diarrhea / SNOMED CT 074042235 / Confirmed Small intestinal bacterial overgrowth (SIBO) / SNOMED CT 4356486408 / Confirmed Histories Past Medical History: No active or resolved past medical history items have been selected or recorded. Procedure history: Hysterectomy ([id number]) on 05/20/2022 at 37 Years. Social History [...] Respirations are non-labored. Cardiovascular: Regular rhythm. Plan [employer] (ASA) physical status classification: Class II. Anesthetic Preoperative Plan: Anesthesia General, and -TIVA. Normal [facility] Comment on above: Result Comment: Elec tronically Signed By: Dilan Daniels Jr., DO.oj\Date and Time Signed: 11/27/22 12:25 EDT Coding Summary.on 11-21-2022 Coding Summary. CD:[id number] Ww+PGh lYWQ+QV0YTGKcV37jfQXfiG9mW 0NMTElOSywgQVBQTElOSyIgbmF qEW6avGGoYWQt IC8+JB7yICYpRqluvLUah4V3tA G2L76obq7tDFallBY8PQPtFnBg wrxvj6ykdDa2URycVpohBjOm TRQruP11ONA2bW59Ig10xNIrvL Bcl0xptMs1BbAsNVFnNQX2nUum SHsoi8OyTJXdW01tzHWof6U4 KYZwhZdjpPGdSuXdlAH7rD1nDK vxtbjfi1kfxkosYho1hj88uCTk u2F0uQR0E4SvadL1BJVftKOz VytvdNPDgV6tzgkit2syeumvUe HmPEHdWPs8NKr1CVCcuLorBaId GM14YAZ6CYAolzPtQ0TwQDEo bAtcTuB4i5X8Bi0SW3SFGclkY5 VNTUFSWTwvdGQ+IU85jz01H9Ll MkirQct1BBAmFTQ3xEY4bX6o SIGjMAiui6J2lJM8T4XqujLvja 8nf2ldPTTfUUkfR99tqKScq8H5 PMJjnCM6PEAfoZidYaQmrZ27 Oyc+HSNzzSoqx2XcOhdnn2bvf9 sffJx9ZoukEBCfcbVcsUjbXJJ1 f5RgNh8mPNKiiTC0rFE9wH9b JzBnYfJ1MOjrF855DaBjmMFaOk vtO84sJ0WmeYR+HWSaQiz1JHMu vOpdDF3gF4QuRSBfepufxKLu wLxgPL6jLMYbrencSNBqpX7pRK GyC4i1UrXaOqE9TSypB1ViRTVq fyfnJs84cZ1iToIiYyC8PQub R8AqzdF6VTCykDPiJBgvICK9H6 5id9D6PNQuOSLcPLZ6jBO7gG2v bGlnbjogbGVmdDsgdmVydGlj YWkaWYhjA948SLOjzPxsXyGnYQ luZyBEYXRlOiAgMDQvMDQvMjAy MzwvdGQ+IRWoNNQ6gQdkTXBp aYEgUQkvRt6zlYuhqGzuKG2jRX OwqwsuZLYrmA6jXKTwtJEvnVap XX3uOBGephcwz245CaYcWJE7 KLBaeGOrZ4MioG1cGkHdRVPoSI OyG9CadZSkMLrgJ661FFceWkZ5 EQRhkhKwE5OpYDRcmCnaZfU4 p0M6Ut5Pk6SycakgX2VtlOQtUd OqTpfwIEi1P4VaWucegHF+PC90 EEQyIU31XZh9MIT1lNkbJEdj CQXwH1KgmD3mQzDcTCJlPTKgSu c+PHRhYmxlIHdpZHRoPScxMDAl UtBefFmtTM1rFe4tZFRrUMTz xCxzcVVvKvAzt2xbXKUhQTxmXL 2dnJegG2UmnIX9JWFbc2v7Ci55 O78eM0GhmRN+GGHikEQ0qLI0 uV7aLqDyTeH9LUywM238KiUtsK RtQbltc0jlj4pzaMw0WdY6PSCz fcCywJxzSAB3h9YvNj40X18z IHdpZHRoPSIxNSUiIHZhbGlnbj 8bhR9mNh2+YSAhcLA6fOB2qU3j QaGkHlY9UCibD887LyAwmSVi Egjta8ijt8ebkMq3XqPsENIcld KshCfmWKU0a3TmQe52L9HbwTwg g9EwPzt6pa81kPFuv1B0jOE2 E1QxDMSjvaijlFHahYhiVG5lEI IdykwdSZTqkF4jIPSsU2c3NlCq EkK6BEcoO6QzxpN9VSPueFOj FMSvoZANkX9zlfnvw4rtyswqPx DhDAVyKUb8YDa8RNRwmAxjQsWb KKI8QsM5OAP5uVBfhG1xbEpd nakliP1gRic+DWE1sLNxjAZWJO 1lOjwvdGQ+UXYeIKI1mDmbFVcl PXQurP5zGIRzW4n5AzXuIlL3 ZYqnK5OkjpM5RQEzqBLmKSQsoK GRmP1ydkbhg5ahyutpNwZyGAAc EFa6CSl0GPTeiEreTxZfOOG2 SbO4EIJ1hNJapP0vkIegdsjajL 9wOyc+UwweoJjfAXL1IOp0J0Fg Ujz1RBYggFvlRY7wsUAuHDlf Vz8isPstuDduUJ1xGFHddqqim9 95JtVkp7tgFSOhzBQdKKwjGCT4 Y93ax6H2IYNnAJPnAMA5tNM8 rP1jtXknbkzzvKWlxZmyzzZwzF gdEIueBOziT065LZOmcMioJrVx RJe3B7MiIlv3CWAvcGyyNA6z rENmUEdvAh0psSstpGfpZN8zTK Ylwlpih164ThXgd3rqZDArjDKi RVjuQEI3A23dr0B1TDBfPIQl ORH1cVK7bR5ihUmzijmhcGNgwT tpvlIenWtdLGdjGDbzS627YCCe sRapWhYcyOv8I9WnPmz7XOUv aSznHJ6qwTZrCAuvKh3qrWwmxP qnGM3kRNMearrco780LjIet1wb OZEitTOfEFlkEQN4T70dw2E9 PPOaQTTnCIL3sRK5rM5kuNoqvd ogbGVmdDsgdmVydGljYWwtYWxp D779CTVniKdlTzXdpDbefrYg CTagPNb4O2YoJbjxmVG+PC90YW SkAA94wGEtyISjo4xruUv1ExKj QSUcJSJ9yTbdTRylo3UfOQTm C22pzWVqy6F3PZPbaWgsfLLaAg KzgUY3xU0cRVrbwmzmg2ebopon Pdfur0mpms45gW77V96tJKzz NOFdYBPyLGYeUIQjgOzpsa0aiT 9wIi8+WBKgoFS6aYJ5qZ8vGPCh UsE7GDmmK199AqVfaZFnGmre r5oxf2hneDn9FuR8MCHvvwAnoV qnWLP1k8NwYx68L04yPNhrHAIv AGMgDSMrOYKcrNzwdb1ioE5b Ii8+LTGjzEI2xTF7jJ4lJmFoUm R8BMpbU141WuXocSHcIbyxX19k H8ThgVT+ESJaPjq3YFXrwGvo OL9uvEHcKRqsXw0oVNO6LvVbFa PmJJoxI6VlWVWxuaqvumjriTI5 CAUvQFRpeF62Kx5njHyaUMCk cMTUoN4rxuqli6rgpxcwLxEqWC SqPVw3QXm0SXPkiZonSaXuCUW9 TdV4NTI8tSJbgA9pqMbfxwzm mQ4cV7GpPDVvnssaEt22bP2vVt MhGfW1MDxzXrb+YqQSRw8IDhjm WqlIL3uLGV50P0AhHoo5YMQt dVqwEX2ltRUiTPtvTb8scRzyqY xvBP8vGVJksplrKHPpgO9eOQTo uVUdxIorBH2pDFWastzoj807 HwKvSSP9NTDzkVZhH8CooT8aRw AsNPOlXJYdQ5TxiUKcRKrsP661 HRnuHoW3QZTpzzWzR6SvRKOe uTlkHfM2t4K8Ex4zSU8mRx4tRG koXB77GM35sHCoo4S5bTE1T2Si IDEzzupzfbentPC5XRCvHDKy nJ81zSEpPWncWz6wd8P1a571NI OmXNNjwZ13Dr5dxMcnWMFqmFWR zV0wzyqxn4sswjoiDwQxZATk NOv5VSr4KRSozDdeWpJeDBE6Uh D7SLR6nVBfxK1hhOifnfhbfJ1q Oyc+BgyeSVMcdiX7L7QhEjm3 PYJreAthVS3fxKAgRRwkQt1rkY iblDmwPW0qNFMgdtrnBHXahH7x DQUiyJNheBpxRU8nLPXlzqoa j163QkDnHFV5IWWwhOYoD2TwwQ 0xVxYyYYLgBLEeD1SmrVLxJYra M073NNdhTfA0FXGaodEvZ5Kw KAHqkXufZwM6t7I8Fh0VJW8rgX F1D2AxPkr5JVIseVkwNQ6enVGx JVnpVs4ipHvqoBblJS7wHZEz tfiaTXTvuJ6qQAFxlPFpsMafEF 7vZTUfuprnr492PvGfTUF7ZVPw tLIaX4ArzP9qTpGnCAXkQIWe H1JzcFLhTMfrO894TNwdTrW4TU RbpqQpV3LuIBWsgMbxHhS8i0I7 Kz2CQRV0cdZgkmr6S6SvQnwa dHI+IU21XLVtZT57jVHskSHzv6 zfkLy3SqOaPKBvHUM8oXxoLCvt h0ZyVCLxN87ljDJiv3U9MOBe fTautZCcPcBioRK4gK4xVCtkhx tqr0bhtcbdFyyzo7nnfl34sS04 H05fPMpnFLOlLRIjNTQyHVYa bSwujw6ofT1zWk8+EPEvgDN6yL P4xV2vQeTvTpS3MWacI835GgHo wBEwNhahr9qiv9cizIf6PsSb RCLsjiJfmDzmWFJ7p6XpEu86R4 9sIHdpZHRoPSIyMCUiIHZhbGln fv7kxF1lOu9+NR7jo2ezqf97 oH42mLH+JUScRQO2yFxiXBvnSW XbnV5xODegNyR8IUMmKwCzhM65 eIJuMCgjQx4buLnbzCogPF7i VFLsrjzcb415TrJqp7xwOAOumA YqPMqzICE0A43tv0E6OCVcQMDh RUL7oGU0qL5gaIuiavkryECe sDsvvoMigTqaPUycGPslL831TA FrzPzpLtFblKSxY1vbfaBPGE9j OjwvdGQ+UTSdKCY6nDhaKNge DLSkbG1tSDEcH0q6IhJyVhL7WM dzI1JppiK4TDXifNYrGUIhjEJA hE2njthlr5bsdbhmZaLlJZAc FJb1UJt4CRAldIxoDtZqPGE7Pl T1ZOH4qHRfvQ6izEfstjzdsH4n Oyc+RklOOjwvdGQ+PHRkIHN0 uPtwJKyiYKQjnD0jRKSlD7g5Np SyAxS3NQkhO7EjxrF1CFEdsTDb DMJmpBFAmY9hakkhu4rlnocv ArLwFFRtRXm9CUa5CMKcyEusHi LnPIS4JnE0ISX8xULarA5cfOlv ilktnM6uKbq+TVJOOjwvdGQ+ QTUyEYG6wVbiIJybOIGnhH7rEX HqY9s7IwMnMbV5XGxvQ6EufpQ1 DVVbaZRtQWEtbBZUfY8cgejn u8eyawaxOrLyCVUzCWi4VXn4VL DyyDjmDdQeBIB7YqD0IJH2kXFi eK6myUlmieogjL8aBpt+UGF5 XQP8HR10OM68A2EgSbqanUEssD U+PHRhYmxlIHdpZHRoPScxMDAl RaBvtStcCI7zIr9oCPUoYAHl bGxhcHNl (more content not included)... Normal [facility] GLYCOHEMOGLOBIN A1Con 2022 ADA RECOMMENDATION SEE BELOW Normal [facility] Comment on above: Result Comment: ADA RECOMMENDED LIMIT 4.0 - 6.0 ADA THERAPEUTIC TARGET < 7.0 ACTION SUGGESTED > 7.0 Performed By: #### T TJ, CMP #### [facility] [address] [address] [address] Hong Jacobo Glucose [Mass/Vol] 114 mg/dL Normal [facility] Comment on above: Performed By: #### T TJ, CMP #### [facility] [address] [address] [address] Hong Jacobo HbA1c (Bld) [Mass fraction] 5.6 % Normal 4.5-6.2 [facility] Comment on above: Performed By: #### T TJ, CMP #### [facility] [address] [address] [address] Hong Jacobo COVID-19 ([facility])on 11-20-2022 Performing Instrument FT Tomas 2 Normal [facility] Comment on above: Performed By: #### 2 [id number] ####[facility] [address] [place] [address] SARS-CoV-2 (COVID-19) RNA KYM+probe Ql (Resp) Not detected Normal Not Detected [facility] Comment on above: Result Comment: This test result should be correlated with clinical presentations and medical history by a healthcare provider to determine its clinical significance. This assay was performed by a reverse transcriptase real-time polymerase chain reaction (rt PCR) method on the [employer] system. This test has been authorized only [...] or revoked sooner. Performed By: #### 2 [id number] ####[facility] [address] [place] [address] SARS-CoV-2 (COVID-19) RNA KYM+probe Ql (Unsp spec) Pass Normal Pass [facility] Comment on above: Performed By: #### 2 [id number] ####[facility] [address] [place] [address] Specimen source Nom (Unsp spec) Nasal Normal [facility] Comment on above: Performed By: #### 2 [id number] ####[facility] [address] [place] [address] Consent for Treatmenton Consent for Treatment [id number]#[id number]:127 Normal [facility] PROF CHEM 8 (BAS METB)on Anion gap [Moles/Vol] 11.5 mmol/L Normal [facility] Comment on above: Performed By: #### B MP, URIC #### [facility] [address] [place] [address] Dr. Hong Jacobo Calcium [Mass/Vol] 9.8 mg/dL Normal 8.5-10.1 [facility] Comment on above: Performed By: #### B MP, URIC #### [facility] [address] [place] [address] Dr. Hong Jacobo Chloride [Moles/Vol] 102 mmol/L Normal 98-107 [facility] Comment on above: Performed By: #### B MP, URIC #### [facility] [address] [place] [address] Dr. Hong Jacobo CO2 [Moles/Vol] 29.5 mmol/L Normal 21.0-32.0 [facility] Comment on above: Performed By: #### B MP, URIC #### [facility] [address] [address] [address] Hong Jacobo Creatinine [Mass/Vol] 0.81 mg/dL Normal 0.55-1.02 [facility] Comment on above: Performed By: #### B MP, URIC #### [facility] [address] [place] [address] Dr. Hong Jacobo EGFR-AF CHINESE >60 Normal >=60 [facility] Comment on above: Performed By: #### B MP, URIC #### [facility] [address] [address] [address] Hong Jacobo EGFR-NON AF CHINESE >60 Normal >=60 [facility] Comment on above: Performed By: #### B MP, URIC #### [facility] [address] [place] [address] Dr. Hong Jacobo Glucose [Mass/Vol] 151 mg/dL Critically high 74-106 [facility] Comment on above: Performed By: #### B MP, URIC #### [facility] [address] [place] [address] Dr. Hong Jacobo Potassium [Moles/Vol] 4.0 mmol/L Normal 3.5-5.1 [facility] Comment on above: Performed By: #### B MP, URIC #### [facility] [address] [place] [address] Dr. Hong Jacobo Sodium [Moles/Vol] 139 mmol/L Normal 136-145 [facility] Comment on above: Performed By: #### B MP, URIC #### [facility] [address] [place] [address] Dr. Hong Jacobo Urea nitrogen [Mass/Vol] 15.0 mg/dL Normal 7.0-18.0 [facility] Comment on above: Performed By: #### B MP, URIC #### [facility] [address] [place] [address] Dr. Hong Jacobo Urea nitrogen/Creatinine [Mass ratio] 18.5 mg/mg Normal [facility] Comment on above: Performed By: #### B MP, URIC #### [facility] [address] [address] [address] Hong Jacobo URIC ACID SERUMon 11-20-2022 Urate [Mass/Vol] 7.1 mg/dL Critically high 2.6-6.0 [facility] Comment on above: Performed By: #### B MP, URIC #### [facility] [address] [address] [address] Hong Jacobo COVID-19 ([facility])on 11-17-2022 ADMITTED TO INTENSIVE CARE UNIT FOR CONDITION OF INTEREST:FIND:PT: Unknown Normal [facility] Comment on above: Performed By: #### 2 [id number] ####[place] [address] EMPLOYED IN A HEALTHCARE SETTING:FIND:PT: Unknown Normal [facility] Comment on above: Performed By: #### 2 [id number] ####[place] [address] FIRST TEST FOR CONDITION OF INTEREST:FIND:PT: Unknown Normal [facility] Comment on above: Performed By: #### 2 [id number] ####[place] [address] HAS SYMPTOMS RELATED TO CONDITION OF INTEREST:FIND:PT: Unknown Normal [facility] Comment on above: Performed By: #### 2 [id number] ####[place] [address] HOSPITALIZED FOR CONDITION OF INTEREST:FIND:PT: Unknown Normal [facility] Comment on above: Performed By: #### 2 [id number] ####[place] [address] STATUS:FIND:PT: Unknown Normal [facility] Comment on above: Performed By: #### 2 [id number] ####[facility] [address] [place] [address] RESIDES IN A CONGREGATE CARE SETTING:FIND:PT: Unknown Normal [facility] Comment on above: Performed By: #### 2 [id number] ####[facility] [address] [place] [address] Giardia, Direct, EIAon 10-30 G. lamblia Ag IA Ql (Stl) Negative Invalid Interpretation Code Negative [facility] Comment on above: Result Comment: Perf ormed at: [address] [id number] PhD Van Castro Performed By: #### 1 [id number], [id number], [id number], [id number], [id number], [id number], [id number] ####[facility] [address] [place] [address] O & P EXAM, ROUTINE, REFLEXo n 10-30-2022 Ova and parasites identified Concentration Nom (Stl) Comment Invalid Interpretation Code [facility] Comment on above: Result Comment: No o va, cysts, or parasites seen. One negative specimen does not rule out the possibility of a parasitic infection. Performed at: [address] [id number] PhD Van Castro Performed By: #### 1 [id number], [id number], [id number], [id number], [id number], [id number], [id number] ####[facility] [address] [place] [address] O & P Exam, Routineon 2022 Ova and parasites identified LM Nom (Unsp spec) Final report Invalid Interpretation Code [facility] Comment on above: Result Comment: Thes e results were obtained using wet preparation(s) and trichrome stained smear. This test does not include testing for Cryptosporidium parvum, Cyclospora, or Microsporidia. Performed at: [address] [id number] PhD Van Castro Performed By: #### 1 [id number], [id number], [id number], [id number], [id number], [id number], [id number] ####[facility] [address] [place] [address] Coding Summary.on 10-28-2022 Coding Summary. CD:[id number] Gh0bWw +PGhlYWQ+AU5JIOOqV13bhFSku Y9nN8GGRXcNSrqnAFQQDOfWKpV jmuSfQI3uwDWiSQLp IC8+JN0eTOErPcfdaMSfe8N4qA Z0Y26unn4pLJqthJT4CWVeAiWw hwhcl4eaoGg6CFyvPyreDaDj GOCotV20RPA2vU25Wn41aJZkgJ Yzo7eylKf7KlYkDADcUFB2nCgd KNpvx6PzUHDxO91pvZZos3J5 PIPgmDtmaBOhVhZaoSH4eB5jOP yjztwlr1xixogtFxs2tu26cQYh y9R4aNN4W2WzuhR3KICmrHEy GxwymFZIkN3wfapia3lqljeiNd KgLOOaUJn7GAv0EHWdxItmZwLm RB74COM7RPGslrOvZ1PgYKNp vLdvVjQ9q2M2Qw7ET8LCDoehL8 VNTUFSWTwvdGQ+AD62ab16A5Dv AjjjXxy4XLAeGPL0aSS4hC3n SVZbNHwdb1B9dGV3U3NscoMeeo 2hm9zcQOLqKItdN82kqVFsz2X3 CQWasWK4RSYiyIkiLfYmeA51 Oyc+MNVlwVfgl7GoHcryw4lrq3 vnkEl1HhosVZZpnmNgzIheGUF4 m5NcWj7nKDMuxFD0fGJ1sT2t DvStZrE8KAnlK592MdSjlYRlLn sjE82lL8VpqYP+ITQvArv8IDEe eXmlMU9dF6YrCZQnrnuzzWSq lFxuOC1zLMKibzkjAWZswG7bPB OyY5e0MpSaOnN3ZCqpD1VaCNRp uproFs94wK7xXeWuGvK9FNvj W1OuahX7PLDfnGIpPPycWXH1H5 9vy0V3DXPeKDQkUBZ9vMQ2vM3q bGlnbjogbGVmdDsgdmVydGlj SBibYEwlH820SFRtvZitJlSkQP luZyBEYXRlOiAgMDMvMTEvMjAy MzwvdGQ+MWUlQXE4hMlgTJPt pVTzCBdtTg2ucXrybMqkJT9cWL IbyyhrSQHsqP9rRZAtwRLzjOxp XS9rLSBjdbwnl972VoUtBOQ4 FMPnoGHnV2YitT3ePfIjJEDvGW SdZ2HobFWyXFdtT746EGxjTyX3 ZDMlplBmN1NjZXDehDzmSmJ6 a0E8Ap7Fj1GvcpptX7DihEQmOa FtKavoYIm5R3BtVuugxXY+PC90 UFThPS03ZNw4SOP4kBemXGld QWBjA8HyeK5vGlRoUKDtQJDuCe c+PHRhYmxlIHdpZHRoPScxMDAl LtUdeJjtCX5pXg2zSEOeTSFf iSnipJGwViBuo7grMJUtGWhpLA 0hkNfpU8GogPE1AYXru6r0Xw24 M93rS6NtbTI+XEZzuSH7nQW6 gM3hFuOiGoI3OMujT690RuZthZ VrLkhsi4eof7reaBz2BkF3IWDw bsUckOjiNUF0t2SzFe32L24f IHdpZHRoPSIxNSUiIHZhbGlnbj 0rmI3zOp0+BQXwiKQ0dGA4pD3x MjLpHxC1VMxmO047SsQyjNEv Jmjfa8lwc4lnpFx7SgZcRUJufr GkvPtrLZD8x6MgKk00F6NowDyn u8KzUkn1og28vSArf8W7nEH0 D8EwVOEaciumjLSunTczKE0vJJ TjehdyHDFwgI9pNPTuY5r1XyZh CpM3QBqzN5PqvkX2IVZsvAGv HCXsrXGUgI0onknte4yrazzpEe BkIWLyVLc1EYz9HQJoiGfrWrSe IIR6IrN7QLN2nHAitV1nsIrc anmqkR6zPjk+GXW3yRHuxFEMFS 1lOjwvdGQ+PRChBEK5fZkeYDeo BGYvdG7kFQBmF0x6OpRiXdK0 WPjhG5XlprE3HUCoiOCoVBZhzU QBgD3oagejk3hyoqdtAmOzFYOn FVv1IPq7ANIqzKosKeHvLOG9 KrX3BDX9aHGrvP2hbOcfljbpeO 9wOyc+JejamWncCFK5VOk1W5Bt Oni0RMQdtHtfVR3vnYZeQFwd Iu2wqHytaYzoRM3gTDFwblncy2 08OjFga8idTLEztXRdTAdkAZO3 F55dw5N6GDUnGGByLWJ4vXT5 nM3mdBqvriavhKTxkLlnakIzmV isABwoSDfzE898XWBxtYjvWtDv LZf5L7FmUed1MGEvyFroHO2x sOXjUWjvAv1osZfqaNbsTF0mBS Dfgsfkv341TrBpt2ptTVWnfGIh EWaxGFH9J84xj6N1MNBqJJFc BWS5wQJ7eH5aqLbjmcuclVPvvE cmhbDtiYxeVFnsOUayZ680HNVr kXuqXaAlnMu9T7QpAqe2WOMp vXgcTF4paFBrATxuZq5nrZxkaW nwMV8wRITfnvrtl196DpLcw6be ECJmhYUmJXoxVAV5Y49md2V0 PLRlROIlSTC2eYG7vP0nbYeabj ogbGVmdDsgdmVydGljYWwtYWxp B581UQRjhNriZhFogVtavxKu LJaaMWr9O2RnAttnrET+PC90YW KiSZ45aLOebPEgi8kvrQs8WlJy BJDvUQQ6mVsyDOpsn0NkIARv H32hyGVmb7U5WGExcDgzhPTeWa QqwRG6mH4zKYkkrwwgh1tntdje Rtgdc8rgqe13zO73B80rYZym MQJsRGMbFPGkBCSgtWzoza9vzM 9wIi8+DKQhtRW6vRP5wR4uNVBl ZgK7NAbbE748GmFxoGXlVfng w0adv4wvdPy7RgP4DUAqtyEuuE qfECP6n5PcRp95E24jAWmbXOVh VKImZFOcJXYexCjspt1inJ2k Ii8+PMTsxIA4aPP3nL4wZhYyVi C3TTebV479CcXasTHoVinjY01b J3IuvQA+KADjBjg0XLXfnWdl HE5dkDKsNZspSw3jOTZ5CuLkLn QqLYnkJ0LwHQMfhhvtaqmuuUC1 IYMbGXOjzJ96Eb6hoAmbNXGh rZCYrL8eaelvd1mkddghHzIqJE SnAOa1TYm7HYApqIbsZmSgPGN3 VtV1ALE2yKBijB4tkVxtespt nM2nV6WcQJTbptceNd90hI2vTc CiQkO7UFwwExk+GtIIIb5QJxfz IewHD2oARZ99P7CpIfn1NDAk sLxcAR3btWGaMGlwUs3buHmprH fgNC2gKQPncpeiUXOraP6tQSSq sGBwiKknFV6qCBRrktyid210 AzGvJXA5RWEmsILiR3WioH3qKg DeLOUeRMMsH9HtvJZuZRhmZ947 MHagFvY2GGWlcjJfB4IcPOZj uVqiXkC0p2H2Ea9sKR8kDb2nOR qiUJ61EH34bDYix1N1zVZ3C8Ut ROHnwsyocsdjjNF1CZLoUEBn pW10qSUyUMugBi7ry1F0z767ER XeTAJtaJ62Eu0lrBoiJUChzLBB aG0llaxsz3gaafdvPrXoIBOp FFk2KWc1RHUguBngXtTdHKG5Vm C8ZUO1nIYvrX2kyPckbekwbX1s Oyc+EvbrVZNeatT9Y8LmOtg8 BHVgzAlrLE5alKKtMClhRv8klY cwwLqaJC3pZAGolmgnTJUstI0e DQUpjBHwfHnpFT0eOXFbrjin d617KaFdHAO2TMOihDZxJ3TgoA 9nBrPgGUTmNAUzP0KgcIIjJQos V440WAcwOsQ6IRDikjSlK3Ug TRJlpBggAsU1u4O8Ux8CEF1brJ K1Y7CuTqn1CXXunWfiOI9xjJBd TFtcBx0yuWqovKolJU9tOGJz sgucJFIgtV4aGKGbeQYnjPbgYN 4uKOGdznemq069TuXqDZA6VWMe hJZhS0UlnE2vXsRbTMHkISXp Y1HxqAQcTVhmB069KZugIjL0QS SdxvGmJ1XvCMZzqSdvOaC9c0U2 Ru8DYAWbFRYkfJOoCjA4P0Iu PjwvdHI+OZ14OWWcBP90rWNwtY Pts1wzxIm2ZiHtUAUnMCG1qKck LHqxk4HxEHCuO38dkTEqr5H3 HIYrzWbnfBUjRdOjbDY1lY6yOZ njfuops9llihlpDfpvi2tnba54 hN15M45wNLscAMDoENJjZAMr ILSiwGwqir9awN8jEa6+PGNvbC D5jRI9hX8eEpZxGgC0FKixF932 IfNytOPuBkntq0xgj7iqcMm8 NqMuXXKfysFteJajASS6a2XhCw 70H49eFOrxZILiAONeROGvAYSa nZtsgo7tqP6nGv9+ZO8rw2sd tw41oC81mAV+POOfUBG5oMpmEA umBJRijE3zKWogQaZ1MPYpRuBb bZ45lPMdVPkkBt7uyHgzmGsl QU9xHFOdfymar292KoEem3wfKF SefKUtFJycPEB1Y18ef7E8FQMg KTMwLWC2fYM5aX7rrBtiifux bGVmdDsgdmVydGljYWwtYWxpZ2 97TQMbyApvCyTvuLPqW7sxjcWJ PV7lBqzexFH+OZUxQFT6wOwh BWabHPVrjT9bWUDgP9p3DcKjMs N9OMugX4FhzjR6JVByoGYtQUYo jSSPlW1cwwrfn1qiebkcByPb CXKuVAf8BPd6PFPbxAsdYvPuAB L2VlL9ZQS9uXNkvB6qaFlkjsur yW1uFva+RklOOjwvdGQ+PHRk IGH8nMolDUtgPRKydK8hKNCyC5 j4LbRqBcN6EByqQ3UwwzO0PRKw kNVdGYThuGKBoT3hqmqka8di sywcBpSfAFJnYRk4WXf1ZAUtyA yeMzNvKTE8RaF6MUM4nCFzcO9m rRdtbtwjxO6hSgg+TVJOOjwv dGQ+GRXrFKZ4oFxoDBalCYEyiB 4vXVDzL2t1CrGeNtZ0CJjmJ6Ae zlJ9TLRagKXeVYTlsHUEtF7z lmvfu9dxpnvyGiWbDQMyYHh6MW f4SGUdiYzaBsLoNBA1DwP0WTJ2 oJStaQ6tyUmplyoliS9oAdd+ VKV6NJF0OY43JX40A6NlPrpdmX FibGU+PHRhYmxlIHdpZHRoPScx URKhGaBzaEwlLN7pTw4cUAJw LWNv (more content not included)... Normal [facility] Lab Miscellaneous-LCon 10-26 Lab Miscellaneous COMMENT Invalid Interpretation Code [facility] Comment on above: Result Comment: Test Ordered: [id number] C difficile Toxins A+B, EIA C difficile Toxins A+B, EIA Negative CB Reference Range: Negative Performed at: [facility] [id number] PhD Van Castro Performed By: #### 1 [id number], [id number], [id number], [id number], [id number], [id number], 05989289, [id number] ####[facility] [address] [place] [address] METHYLMALONIC ACID (MMA)on 0 10-25-2022 Methylmalonic Acid, Serum 183 nmol/L Normal 0-378 [facility] Comment on above: Performed By: #### T , CMP #### [facility] [address] [place], [place] [address] Dr. Hong Jacobo C. diff by PCRon 10-24-2022 C. diff by PCR Specimen Positive fo r toxigenic C. difficile by DNA amplification. Repeat specimens for this patient will not be accepted for the next 10 Days. ASM Guidelines recommend against using laboratory assays as tests of cure . Abnormal Negative [facility] Comment on above: Result Comment: Resu lts Called To Terrie Garzon (Digestive) By And Read Back For Confirmation On 10/24/2022 12:10:50 EST. This test result should be correlated with clinical presentations and medical history by a healthcare provider to determine its clinical significance.\.br\.br\ Other Comment: Order added by Discern Expert. Clostridium difficile by PCR Positive Abnormal Negative [facility] Comment on above: Order Comment: Order added by Discern Expert. Result Comment: Resu lts Called To Terrie Garzon (Digestive) By And Read Back For Confirmation On 10/24/2022 12:10:50 EST. This test result should be correlated with clinical presentations and medical history by a healthcare provider to determine its clinical significance. Performed By: #### 1 [id number], 82556725, 7989049136, 926249194, 9428584551, 1490610721, 88019453, 43451881 ####[facility] [address] [place] [address] CDiff PCRon 10-24-2022 CDiff PCR Specimen has been fo und to be acceptable for C. difficile testing. Normal [facility] Cdiff Specimen Acceptable Acceptable Normal [facility] Comment on above: Performed By: #### 1 [id number], 20985939, 8229848571, 804850576, 8100216025, 5861785904, 69060712, 63703812 ####[facility] [address] [place] [address] Order Cancelled No, PCR to follow Normal Fi [facility] Comment on above: Performed By: #### 1 9849837, 65516697, 0001035911, 726133261, 5933482678, 2744549226, 47998348, 96704118 ####[facility] [address] [place] [address] Enteric Panel by PCRon 10-24 C. coli+jejuni+upsaliens is DNA KYM+non-probe Ql (Stl) Not detected Normal [facility] Comment on above: Result Comment: Test ing was performed utilizing reverse popcorn candy maker (RT), polymerase chain reaction (PCR), and array [...] nulcleic acid test. Performed By: #### 1 7738683, 31983749, 6223539526, 785760460, 9158438733, 6477997677, 10491434, 39186942 ####[place] [address] [place] [address] E. coli stx1+stx2 genes KYM+non-probe Ql (Stl) Negative Normal [facility] Comment on above: Performed By: #### 1 6833567, 11800167, 0177066752, 747696545, 1421265937, 2081116411, 93143226, 19191061 ####[facility] [address] [place] [address] Enteric Panel by PCR Negative Normal [facility] Enteric Panel Intrl QC Pass Normal [facility] Comment on above: Result Comment: Test ing was performed utilizing reverse popcorn candy maker (RT), polymerase chain reaction (PCR), and array [...] 1 and 2. Performed By: #### 1 7992329, 19963665, 1652082345, 534590192, 5238575858, 6026667634, 28583009, 31110156 ####[facility] [address] [place] [address] Norovirus genogroup I+II RNA KYM+non-probe Ql (Stl) Not detected Normal [facility] Comment on above: Performed By: #### 1 6847755, 69628344, 6535267814, 810072356, 2575078319, 9482804650, 40365580, 15504981 ####[facility] [address] [place] [address] Rotavirus A RNA KYM+non-probe Ql (Stl) Not detected Normal [facility] Comment on above: Performed By: #### 1 1139487, 62175827, 8168034412, 051190178, 2312627218, 2343737218, 17363812, 91800966 ####[facility] [address] [place] [address] S. enterica+bongori DNA KYM+non-probe Ql (Stl) Not detected Normal [facility] Comment on above: Result Comment: This test result should be correlated with clinical presentations and medical history by a healthcare provider to determine its clinical significance. Performed By: #### 1 5973390, 81066075, 6913865333, 854067378, 6233614494, 7427406509, 66020819, 73218231 ####[facility] [address] [place] [address] Shigella species+EIEC invasion plasmid antigen H ipaH gene KYM+non-probe Ql (Stl) Not detected Normal [facility] Comment on above: Performed By: #### 1 2626414, 06591950, 4380801084, 345211985, 1312617205, 5814881989, 21988058, 35690554 ####[facility] [address] [place] [address] V. cholerae+parahaemolyt icus+vulnificus DNA KYM+non-probe Ql (Stl) Not detected Normal [facility] Comment on above: Performed By: #### 1 6741917, 62895148, 9391296093, 672920601, 9793749441, 8058576437, 61988652, 19735078 ####[facility] [address] [place] [address] Y. enterocolitica DNA KYM+non-probe Ql (Stl) Not detected Normal [facility] Comment on above: Performed By: #### 1 1786784, 99092446, 0428567244, 668404570, 2818093673, 8921706526, 21789775, 99965361 ####[address] [place] [address] Fecal WBC Lactoferrinon 0 Fecal WBC Lactoferrin Negative Normal Negative [facility] Comment on above: Result Comment: The semi-quantitative detection of elevated levels of fecal lactoferrin is a marker for fecal leukocytes and an indication of intestinal inflammation. Performed By: #### 1 6378334, 93273706, 2716163231, 769287433, 5266292348, 3906402561, 06365724, 86738726 ####[facility] [address] [place] [address] Lab Miscellaneous-LCon 10-24 Source stool Invalid Interpretation Code [facility] Comment on above: Performed By: #### 1 6189698, 46652089, 2942456764, 270210674, 3975720241, 6593711878, 87787566, 47386037 ####[facility] [address] [place] [address] Lab Miscellaneous-LCOrdered By: Joyce Lomeli on 10-24-2022 Test Code 251821 Invalid Interpretation Code [facility] Comment on above: Performed By: #### 1 6455323, 22893374, 4744347281, 483424898, 1127307556, 0814412539, 45610328, 50982464 ####[facility] [address] [place] [address] Test Name C.diff Toxin Invalid Interpretation Code [facility] Comment on above: Performed By: #### 1 8713102, 78802635, 2370799971, 034774813, 4341681304, 1267029893, 65555371, 12309281 ####[facility] [address] [place] [address] MICRO OTHER TESTSOrdered By: Francy Locke on 10-24-2022 Fecal WBC Lactoferrin Negative (10/24/22 7:00 AM) Normal Negative [facility] Man Sero VITAMIN B6on 10-13-2022 Vitamin B6 16.6 ug/L Normal 3.4-65.2 [facility] Comment on above: Result Comment: Defi ciency: <3.4 Marginal: 3.4 - 5.1 Adequate: >5.1 Performed By: #### T TJ, CMP #### [facility] [address] [place] [address] Dr. Hong Jacobo HOMOCYSTEINEon 10-12-2022 Homocyst(e)ine, Plasma 8.8 umol/L Normal 0.0-14.5 [facility] Comment on above: Performed By: #### T TJ, CMP #### [facility] [address] [place] [address] Dr. Hong Jacobo VIT B12 AND FOLATEon 023 Cobalamin (Vitamin B12) [Mass/Vol] 610.0 pg/mL Normal 193.0-986. 0 [facility] Comment on above: Performed By: #### T TJ, CMP #### [facility] [address] [place] [address] Dr. Hong Jacobo FOLATE 26.40 ng/mL Normal 8.60-58.90 [facility] Comment on above: Performed By: #### T , [facility] #### [facility] [address] [place] [address] [address] Hong Jacobo Consent for Procedure/Surger yon 10-05-2022 Consent for Procedure/Surgery [id number]:127 Normal [facility] Gastroenterology Office/Clin ic Noteon 10-04-2022 Gastroenterology Office/Clinic [...] or guar (more content not included)... Normal [facility] Comment on above: Result Comment: Elec tronically Signed By: Katelyn Alcazar\.br\Date and Time Signed: 10/03/22 16:32 EST\.br\Electronically Co-Signed By: iLsbeth DE LA ROSA MD\.br\Date and Time Co-Signed: 10/04/22 19:21 EST Ambulatory Visit Summaryon 0 10-03-2022 Ambulatory Visit Summary GRISELDATHANH :1985 Visit Date:10/03/2022 Ambulatory Visit Instructions Your [...] overgrowth (SIBO) Duration: 10 Days Pickup at [facility] #[id number] New dicyclomine (Bentyl 10 mg Cap) 1 Capsules By Mouth 4 times a day Abdominal pain Duration: 30 Days Refills: 11 Pickup at [facility] #[id number] New omeprazole (omeprazole 40 mg Cap-DR) 1 Capsules By Mouth Every day Acid reflux Refills: 2 Pickup at [facility] #[id number] Unchanged allopurinol Contact prescribing physician if questions or concerns Unchanged carbamazepine Contact prescribing physician if questions or concerns Unchanged pramipexole Contact prescribing physician if questions or concerns Pharmacy Information [id number]: [address], [place] [id number] [phone] Medications and Immunizations Administered Not Given influenza virus vaccine, inactivated, Patient Refuses Allergies Codamine (Itchy) Problems Ongoing - Any problem that you are currently receiving treatment for. Abdominal bloating Abdominal pain Acid reflux Diarrhea Small intestinal bacterial overgrowth (SIBO) Normal [facility] Physician Referralon 023 Physician Referral [id number]:127 Normal [facility] CARBAMAZEPINE FREEon 022 Carbamazepine, Free, Serum 1.0 ug/mL Normal 0.6-4.2 [facility] Comment on above: Result Comment: Dete ction Limit = 0.5 Performed By: #### T TJ, CMP #### [facility] [address] [place] [address] Dr. Hong Jacobo METHYLMALONIC ACID (MMA)on 09-08-2021 Methylmalonic Acid, Serum 287 nmol/L Normal 0-378 [facility] Comment on above: Performed By: #### T TJ, CMP #### [facility] [address] [place] [address] Dr. Hong Jacobo HOMOCYSTEINEon 07-07-2022 Homocyst(e)ine, Plasma 9.4 umol/L Normal 0.0-14.5 [facility] Comment on above: Performed By: #### Bryant SPENCER, CMP #### [facility] [address] [place] [address] Dr. Hong Jacobo TRANSFERRINon 07-07-2022 Transferrin [Mass/Vol] 330 mg/dL Normal 192-364 [facility] Comment on above: Performed By: #### Bryant SPENCER, CMP #### [facility] [address] [place] [address] Dr. Hong Jacobo CALCIUMon 07-05-2022 Calcium [Mass/Vol] 9.5 mg/dL Normal 8.5-10.1 [facility] Comment on above: Performed By: #### M G, LIVER, CARB, CA, PHOS #### [facility] [address] [place] [address] Dr. Hong Jacobo CBC AUTO DIFFon 07-05-2022 BASO # 0.0 103/ul Normal 0.0-0.1 [facility] Comment on above: Performed By: #### T SH, CMP #### [facility] [address] [place] [address] Dr. Hong Jacobo Basophils/100 WBC (Bld) 0.3 % Normal 0.2-2.0 [facility] Comment on above: Performed By: #### T SH, CMP #### [facility] [address] [place] [address] Dr. Hong Jacobo EO # 0.2 103/ul Normal 0.0-0.7 [facility] Comment on above: Performed By: #### T SH, CMP #### [facility] [address] [place] [address] Dr. Hong Jacobo Eosinophils/100 WBC (Bld) 3.5 % Normal 0.9-7.0 [facility] Comment on above: Performed By: #### T SH, CMP #### [facility] [address] [place] [address] Dr. Hong Jacobo Erythrocyte distribution width (RBC) [Ratio] 12.0 % Normal 11.0-15.0 [facility] Comment on above: Performed By: #### T SH, CMP #### [facility] [address] [place] [address] Dr. Hong Jacobo Hematocrit (Bld) [Volume fraction] 40.3 % Normal 36.0-48.0 [facility] Comment on above: Performed By: #### T SH, CMP #### [facility] [address] [place] [address] Dr. Hong Jacobo Hemoglobin (Bld) [Mass/Vol] 13.8 g/dL Normal 12.0-16.0 [facility] Comment on above: Performed By: #### T SH, CMP #### [facility] [address] [place] [address] Dr. Hong Jacobo IG # 0.02 10e3/ul Normal 0.00-0.03 [facility] Comment on above: Performed By: #### T SH, CMP #### [facility] [address] [place] [address] Dr. Hong Jacobo IG % 0.3 % Normal 0.0-0.5 [facility] Comment on above: Performed By: #### T SH, CMP #### [facility] [address] [place] [address] Dr. Hong Jacobo LYMPH # 1.4 103/ul Normal 1.2-3.8 [facility] Comment on above: Performed By: #### T SH, CMP #### [facility] [address] [place] [address] Dr. Hong Jacobo Lymphocytes/100 WBC (Bld) 22.7 % Normal 20.5-60.0 [facility] Comment on above: Performed By: #### T SH, CMP #### [facility] [address] [place] [address] Dr. Hong Jacobo MANUAL DIFF REQ NO Normal [facility] Comment on above: Performed By: #### T SH, CMP #### [facility] [address] [place] [address] Dr. Hong Jacobo MCH (RBC) [Entitic mass] 29.7 pg Normal 26.7-34.0 [facility] Comment on above: Performed By: #### T SH, CMP #### [facility] [address] [place] [address] Dr. Hong Jacobo MCHC (RBC) [Mass/Vol] 34.2 g/dL Normal 29.9-35.2 [facility] Comment on above: Performed By: #### T SH, CMP #### [facility] [address] [place] [address] Dr. Hong Jacoob MCV (RBC) [Entitic vol] 86.7 fL Normal 81.0-99.0 [facility] Comment on above: Performed By: #### T SH, CMP #### [facility] [address] [place] [address] Dr. Hong Jacobo MONO # 0.4 103/ul Normal 0.3-0.8 [facility] Comment on above: Performed By: #### T SH, CMP #### [facility] [address] [place] [address] Dr. Hong Jacobo Monocytes/100 WBC (Bld) 7.1 % Normal 1.7-12.0 [facility] Comment on above: Performed By: #### T TJ, CMP #### [facility] [address] [place] [address] Dr. Hong Jacobo NEUT # 3.9 103/ul Normal 1.4-6.5 [facility] Comment on above: Performed By: #### T TJ, CMP #### [facility] [address] [place] [address] Dr. Hong Jacobo Neutrophils/100 WBC (Bld) 66.1 % Normal 43.0-75.0 [facility] Comment on above: Performed By: #### T TJ, CMP #### [facility] [address] [place] [address] Dr. Hong Jacobo Platelet mean volume (Bld) [Entitic vol] 8.9 fL Critically low 9.5-13.5 [facility] Comment on above: Performed By: #### T TJ, CMP #### [facility] [address] [place] [address] Dr. Hong Jacobo PLT 208 103/ul Normal 150-450 [facility] Comment on above: Performed By: #### T TJ, CMP #### [facility] [address] [place] [address] Dr. Hong Jacobo RBC 4.65 106/ul Normal 4.20-5.40 [facility] Comment on above: Performed By: #### T TJ, CMP #### [facility] [address] [place] [address] Dr. Hong Jacobo WBC 5.9 103/ul Normal 4.0-11.0 [facility] Comment on above: Performed By: #### T TJ, CMP #### [facility] [address] [place] [address] Dr. Hong Jacobo FERRITINon 07-05-2022 Ferritin [Mass/Vol] 39.0 ng/mL Normal 6.2-137.0 [facility] Comment on above: Performed By: #### T TJ, CMP #### [facility] [address] [place] [address] Dr. Hong Jacobo IRON AND TIBCon 07-05-2022 % SATURATION 11.4 % Normal [facility] Comment on above: Performed By: #### T SH, CMP #### [facility] [address] [place] [address] [address] Hong Jacobo Iron [Mass/Vol] 43.0 ug/dL Critically low 50.0-170.0 [facility] Comment on above: Performed By: #### T SH, CMP #### [facility] [address] [place] [address] [address] Hong Jacobo TIBC DIRECT 378.0 ug/dL Normal 250.0-450. 0 [facility] Comment on above: Performed By: #### T SH, CMP #### [facility] [address] [place] [address] [address] Hong Jacobo LIVER PROFILEon 07-05-2022 Albumin [Mass/Vol] 4.0 g/dL Normal 3.4-5.0 [facility] Comment on above: Performed By: #### M G, LIVER, CARB, CA, PHOS #### [facility] [address] [place] [address] [address] Hong Jacobo Albumin/Globulin [Mass ratio] 1.1 {ratio} Normal [facility] Comment on above: Performed By: #### M G, LIVER, CARB, CA, PHOS #### [facility] [address] [place] [address] [address] Hong Jacobo ALP [Catalytic activity/Vol] 84 U/L Normal 46-116 [facility] Comment on above: Performed By: #### M G, LIVER, CARB, CA, PHOS #### [facility] [address] [place] [address] [address] Hong Jacobo ALT [Catalytic activity/Vol] 19 U/L Normal 14-59 [facility] Comment on above: Performed By: #### M G, LIVER, CARB, CA, PHOS #### [facility] [address] [place] [address] [address] Hong Jacobo AST [Catalytic activity/Vol] 16 U/L Normal 15-37 [facility] Comment on above: Performed By: #### M G, LIVER, CARB, CA, PHOS #### [facility] [address] [place] [address] [address] Hong Jacobo BILI, CONJUGATED 0.1 mg/dL Normal 0.0-0.2 [facility] Comment on above: Performed By: #### M G, LIVER, CARB, CA, PHOS #### [facility] [address] [place] [address] [address] Hong Jacobo Bilirubin [Mass/Vol] 0.2 mg/dL Normal 0.2-1.0 [facility] Comment on above: Performed By: #### M G, LIVER, CARB, CA, PHOS #### [facility] [address] [place] [address] Dr. Hong Jacobo Globulin (S) [Mass/Vol] 3.7 g/dL Normal [facility] Comment on above: Performed By: #### M G, LIVER, CARB, CA, PHOS #### [facility] [address] [place] [address] Dr. Hong Jacobo Protein [Mass/Vol] 7.7 g/dL Normal 6.4-8.2 [facility] Comment on above: Performed By: #### M G, LIVER, CARB, CA, PHOS #### [facility] [address] [place] [address] Dr. Hong Jacobo MAGNESIUMon 07-05-2022 Magnesium [Mass/Vol] 1.9 mg/dL Normal 1.8-2.4 [facility] Comment on above: Performed By: #### M G, LIVER, CARB, CA, PHOS #### [facility] [address] [address] [address] Hong Jacobo PHOSPHORUSon 07-05-2022 Phosphate [Mass/Vol] 3.4 mg/dL Normal 2.6-4.7 [facility] Comment on above: Performed By: #### M G, LIVER, CARB, CA, PHOS #### [facility] [address] [place] [address] Dr. Hong Jacobo TEGRETOLon 07-05-2022 TEGRETOL 3.9 ug/mL Critically low 4.0-12.0 [facility] Comment on above: Performed By: #### T SH, CMP #### [facility] [address] [address] [address] Hong Jacobo VIT B12 AND FOLATEon 022 Cobalamin (Vitamin B12) [Mass/Vol] 424.0 pg/mL Normal 193.0-986. 0 [facility] Comment on above: Performed By: #### T SH, CMP #### [facility] [address] [address] [address] Hong Jacobo FOLATE 21.00 ng/mL Normal 8.60-58.90 [facility] Comment on above: Performed By: #### T SH, CMP #### [facility] [address] [address] [address] Hong Jacobo HCG ( test) IA.kenneth d Ql (U)Ordered By: Kvng Mobley on 06-06-2022 HCG ( test) Ql (U) Negative [facility] HCG,Urineon 06-06-2022 Beta HCG ( test) Ql (U) Negative Normal [facility] [facility] Comment on above: Result Comment: PERF ORMED BY: [place] [id number] PATHOLOGIST OUTSIDE PARTS SALESMAN MARY ALICE SY M.D. Performed By: #### U HCG #### [address] Ivan 06-06-2022 L ------ Specimen: [id number] Received: 06/06/22 Status: EMILIANA Felicianokorina Num: [id number] Spec Type: Surgical Subm Dr: MAC SHEPARD MD Tissues: A Uterus w/ or w/o tubes ovaries except neoplastic or prolap (CERVIX, CHRISTINA TU Procedures: HE Stain/12, Gross/Micro L5 Age/ Patient Sex Location Account Attending Physician Thanh Villalobos 37/F [place] [id number] MAC SHEPARD MD SPEC NUM: [id number] RECD: 06/06/22 STATUS: EMILIANA SHABNAM NUM: [id number] SILVIA: 06/06/22 [facility] DR: MAC SHEPARD MD ENTERED: 06/06/22 [facility] DR: SHE TYPE: Surgical DEPT: S ORDERED: HE Stain/12, [...] to 1.5 cm. The remaining cut Specimen: [id number] Received: 06/06/22 Status: EMILIANA Felicianokorina Num: [id number] Spec Type: Surgical Subm Dr: MAC SHEPARD MD Tissues: A Uterus w/ or w/o tubes ovaries except neoplastic or prolap (CERVIX, CHRISTINA TU Procedures: HE Stain/12, Gross/Micro L5 Patient: Thanh Villalobos [id number] (Continued) Specimen: [id number] Received: 06/06/22 (Continued) Gross Description (Continued) Signed (signature on file) Therese Browne MD 06/07/221751 Specimen: [id number] Received: 06/06/22 Status: EMILIANA Shabnam Num: [id number] Spec Type: Surgical Subm Dr: MAC SHEPARD MD Tissues: A Uterus w/ or w/o tubes ovaries except neoplastic or prolap (CERVIX, CHRISTINA TU Procedures: HE Stain/12, Gross/Micro L5 Patient: Thanh Villalobos [id number] (Continued) Specimen: [id number] Received: 06/06/22103 (Continued) Gross Description (Continued) surface is rubbery, [...] has a patent lumen on cut section.. [employer] sections are submitted in 13 cassettes as [...] CPT Codes (more content not included)... Normal [facility] SARS-CoV-2 (COVID-19) RNA KYM+probe Ql (Unsp spec) Negative Normal Negative [facility] Comment on above: Order Comment: Healt hcare Worker?: N Result Comment: Testing for SARS-CoV-2 by RT-PCR This test was developed and its performance characteristics determined by [employer] ([employer]) and validated at the [facility]. This test has not been FDA [...] is terminated or revoked sooner. PERFORMED BY: [place] [id number] PATHOLOGIST [employer]IDE [employer] SALESMAN MARY ALICE SY M.D. Performed By: #### C OVID 19 [facility] #### [address] COVID-19 Positive/NegativeOr dered By: MAC SHEPARD on 06-02-2022 SARS-CoV-2 (COVID-19) N gene KYM+probe Ql (Resp) Negative Negative [facility] Comment on above: Testing for SARS-CoV -2 by RT-PCRThis test was developed and its performance characteristics determined by [employer] ([employer]) and validated at the [facility]. This test has not been FDA [...] Anion gap [Moles/Vol] 14.6 mmol/L Normal 6.0-15.0 [facility] Comment on above: Performed By: #### C BC, [facility] #### [facility] [address] Calcium [Mass/Vol] 9.6 mg/dL Normal 8.2-10.2 [facility] Comment on above: Result Comment: PERF ORMED BY: [place] [id number] PATHOLOGIST [employer] SALESMAN MARY ALICE SY M.D. Performed By: #### C BC, BMP #### [facility] [address] Chloride [Moles/Vol] 100 mmol/L Normal 95-114 [facility] Comment on above: Performed By: #### C ALLAN, BMP #### [address] CO2 [Moles/Vol] 27.1 mmol/L Normal 22.0-30.0 [facility] Comment on above: Performed By: #### C ALLAN, BMP #### [address] Creatinine [Mass/Vol] 0.83 mg/dL Normal 0.44-1.03 [facility] Comment on above: Performed By: #### C ALLAN, BMP #### [address] Estimated GFR ( Karen > 60 [facility] Comment on above: Result Comment: GFR estimated reference range: According to KDOQI guidelines, <60 ml/min/1.73m2 is sufficient to diagnose a patient with chronic kidney disease. Performed By: #### C BC, BMP #### [address] Estimated GFR (Non- Am > 60 Normal [facility] Comment on above: Performed By: #### C BC, BMP #### [place] [address] [place] Glucose [Mass/Vol] 145 mg/dL High 70-100 [facility] Comment on above: Result Comment: [place] Glucose Reference Range is dependent on time and content of last meal. Glucose of more than 200 mg/dL in a nonstressed, ambulatory subject supports the diagnosis of Diabetes Mellitus. ADA recommended reference range Performed By: #### C BC, BMP #### [facility] [address] Potassium [Moles/Vol] 3.7 mmol/L Normal 3.5-5.1 [facility] Comment on above: Performed By: #### C BC, BMP #### [facility] [address] Sodium [Moles/Vol] 138 mmol/L Normal 136-146 [facility] Comment on above: Performed By: #### C BC, BMP #### [facility] [address] Urea nitrogen [Mass/Vol] 9 mg/dL Normal 9-23 [facility] Comment on above: Performed By: #### C BC, BMP #### [facility] [address] Basophils Auto (Bld) [#/Vol] Ordered By: MAC SHEPARD on 05-26-2022 Basophils (Bld) [#/Vol] 0.0 10*3/uL 0.0-0.2 [facility] Basophils/100 WBC Auto (Bld) Ordered By: MAC SHEPARD on 05-26-2022 Basophils/100 WBC (Bld) 0.7 % . [facility] Blood hemoglobin measurement (mass/volume)Ordered By: MAC SHEPARD on 05-26-2022 Hemoglobin (Bld) [Mass/Vol] 13.8 g/dL 11.8-15.4 [facility] Blood leukocytes automated c ount (number/volume)Ordered By: MAC SHEPARD on 05-26-2022 WBC (Bld) [#/Vol] 4.7 10*3/uL 4.5-11.0 [facility] Complete Blood Count Auto Di ffon 05-26-2022 Basophils (Bld) [#/Vol] 0.0 10*3/uL Normal 0.0-0.2 [facility] Comment on above: Result Comment: PERF ORMED BY: [facility] [address] [place] [address] PATHOLOGIST [employer] SALESMAN MARY ALICE SY M.D. Performed By: #### C BC, BMP #### [facility] [address] [place] [address] [place] Basophils/100 WBC (Bld) 0.7 % Normal . [facility] Comment on above: Performed By: #### C BC, BMP #### [facility] [address] [place] [address] [place] Eosinophils (Bld) [#/Vol] 0.2 10*3/uL Normal 0.0-0.45 [facility] Comment on above: Performed By: #### C BC, BMP #### [facility] [address] Eosinophils/100 WBC (Bld) 3.8 % Normal . [facility] Comment on above: Performed By: #### C BC, BMP #### [facility] [address] Erythrocyte distribution width (RBC) [Ratio] 13.3 % Normal 11.9-15.3 [facility] Comment on above: Performed By: #### C BC, BMP #### [facility] [address] Hematocrit (Bld) [Volume fraction] 40.5 % Normal 34.0-46.4 [facility] Comment on above: Performed By: #### C BC, BMP #### [facility] [address] [place] [address] [place] Hemoglobin (Bld) [Mass/Vol] 13.8 g/dL Normal 11.8-15.4 [facility] Comment on above: Performed By: #### C BC, BMP #### [facility] [address] [place] [address] [place] Lymphocytes (Bld) [#/Vol] 1.0 10*3/uL Normal 1.00-4.8 [facility] Comment on above: Performed By: #### C BC, BMP #### [facility] [address] [place] [address] [place] Lymphocytes/100 WBC (Bld) 20.5 % Normal . [facility] Comment on above: Performed By: #### C BC, BMP #### [facility] [address] MCH (RBC) [Entitic mass] 30.7 pg Normal 24.7-34.3 [facility] Comment on above: Performed By: #### C BC, BMP #### [facility] [address] MCV (RBC) [Entitic vol] 90.2 fL Normal 80-100 [facility] Comment on above: Performed By: #### C BC, BMP #### [facility] [address] Mean Corpuscular HGB Conc 34.0 g/dL Normal 32.0-35.0 [facility] Comment on above: Performed By: #### C BC, BMP #### [facility] [address] [place] [address] [place] Monocytes (Bld) [#/Vol] 0.4 10*3/uL Normal 0.0-0.8 [facility] Comment on above: Performed By: #### C BC, BMP #### [facility] [address] [place] [address] [place] Monocytes/100 WBC (Bld) 8.0 % Normal . [facility] Comment on above: Performed By: #### C BC, BMP #### [facility] [address] [place] [address] [place] Neutrophils (Bld) [#/Vol] 3.2 10*3/uL Normal 1.8-7.7 [facility] Comment on above: Performed By: #### C BC, BMP #### [facility] [address] [place] [address] [place] Neutrophils/100 WBC (Bld) 67.0 % Normal . [facility] Comment on above: Performed By: #### C BC, BMP #### [facility] [address] [place] [address] [place] Nucleated RBC/100 WBC (Bld) [Ratio] 0.1 % Normal 0-0.5 [facility] Comment on above: Performed By: #### C BC, BMP #### [facility] [address] [place] [id number] [facility] Platelet mean volume (Bld) [Entitic vol] 6.8 fL Normal 6.3-10.7 [facility] Comment on above: Performed By: #### C BC, BMP #### [facility] [address] [place] [address] [place] Platelets (Bld) [#/Vol] 208 10*3/uL Normal 150-450 [facility] Comment on above: Performed By: #### C BC, BMP #### [facility] [address] RBC (Bld) [#/Vol] 4.48 10*6/uL Normal 3.60-5.00 [facility] Comment on above: Performed By: #### C BC, BMP #### [facility] [address] WBC (Bld) [#/Vol] 4.7 10*3/uL Normal 4.5-11.0 [facility] Comment on above: Performed By: #### C BC, BMP #### [facility] [address] Creatinine and Glomerular fi ltration rate.predicted panel (S/P/Bld)Ordered By: MAC SHEPARD on 05-26-2022 Creatinine [Mass/Vol] 0.83 mg/dL 0.44-1.03 [facility] ECG 12 lead ECGon 05-26-2022 ECG 12 lead ECG [facility] [address] [place] [address] [place] [address] Electrocardiograph Report Signed Patient: Thanh Villalobos MR#: [id number] : 1985 Acct:[id number] Age/Sex: 37 / F ADM Date: 05/26/22 Loc: PS Room: Type: [facility] Attending Dr: Mac Shepard MD Ordering Provider: [...] By Ramsey Gallagher DO 05/27 0811 Normal [facility] Eosinophils Auto (Bld) [#/Vo l]Ordered By: MAC SHEPARD on 05-26-2022 Eosinophils (Bld) [#/Vol] 0.2 10*3/uL 0.0-0.45 [facility] Eosinophils/100 WBC Auto (Bl d)Ordered By: MAC SHEPARD on 05-26-2022 Eosinophils/100 WBC (Bld) 3.8 % . [facility] Erythrocyte distribution wid th Auto (RBC) [Ratio]Ordered By: MAC SHEPARD on 05-26-2022 Erythrocyte distribution width (RBC) [Ratio] 13.3 % 11.9-15.3 [facility] Estimated glomerular filtrat ion rate (GFR) non- AmericanOrdered By: MAC SHEPARD on 05-26-2022 GFR/1.73 sq M.predicted among non-blacks MDRD (S/P/Bld) [Vol rate/Area] > 60 mL/Min [facility] Hematocrit Auto (Bld) [Volum e fraction]Ordered By: MAC SHEPARD on 05-26-2022 Hematocrit (Bld) [Volume fraction] 40.5 % 34.0-46.4 [facility] Laboratory - Hematology and Cell countsOrdered By: MAC SHEPARD on 05-26-2022 Nucleated RBC/100 WBC (Bld) [Ratio] 0.1 % 0-0.5 [facility] Lymphocytes Auto (Bld) [#/Vo l]Ordered By: MAC SHEPARD on 05-26-2022 Lymphocytes (Bld) [#/Vol] 1.0 10*3/uL 1.00-4.8 [facility] Lymphocytes/100 WBC Auto (Bl d)Ordered By: MAC SHEPARD on 05-26-2022 Lymphocytes/100 WBC (Bld) 20.5 % . [facility] MCH Auto (RBC) [Entitic mass ]Ordered By: MAC SHEPARD on 05-26-2022 MCH (RBC) [Entitic mass] 30.7 pg 24.7-34.3 [facility] MCHC Auto (RBC) [Mass/Vol]Or dered By: MAC SHEPARD on 05-26-2022 MCHC (RBC) [Mass/Vol] 34.0 g/dL 32.0-35.0 [facility] MCV Auto (RBC) [Entitic vol] Ordered By: MAC SHEPARD on 05-26-2022 MCV (RBC) [Entitic vol] 90.2 fL 80-100 [facility] Monocytes Auto (Bld) [#/Vol] Ordered By: MAC SHEPARD on 05-26-2022 Monocytes (Bld) [#/Vol] 0.4 10*3/uL 0.0-0.8 [facility] Monocytes/100 WBC Auto (Bld) Ordered By: MAC SHEPARD on 05-26-2022 Monocytes/100 WBC (Bld) 8.0 % . [facility] Neutrophils Auto (Bld) [#/Vo l]Ordered By: MAC SHEPARD on 05-26-2022 Neutrophils (Bld) [#/Vol] 3.2 10*3/uL 1.8-7.7 [facility] Neutrophils/100 WBC Auto (Bl d)Ordered By: MAC SHEPARD on 05-26-2022 Neutrophils/100 WBC (Bld) 67.0 % . [facility] No Panel InformationOrdered By: MAC SHEPARD on 05-26-2022 Estimated GFR () > 60 mL/Min [facility] Comment on above: GFR estimated refere nce range: According to KDOQI guidelines, <60 ml/min/1.73m2 is sufficient to diagnose a patient with chronic kidney disease. Pharmacy Creatinine Clearance (Chem N/A [facility] Platelet mean volume Auto (B ld) [Entitic vol]Ordered By: MAC SHEPARD on 05-26-2022 Platelet mean volume (Bld) [Entitic vol] 6.8 fL 6.3-10.7 [facility] Platelets Auto (Bld) [#/Vol] Ordered By: MAC SHEPARD on 05-26-2022 Platelets (Bld) [#/Vol] 208 10*3/uL 150-450 [facility] RBC Auto (Bld) [#/Vol]Ordere d By: MAC SHEPARD on 05-26-2022 RBC (Bld) [#/Vol] 4.48 10*6/uL 3.60-5.00 [facility] Serum or plasma anion gap de terminationOrdered By: MAC SHEPARD on 05-26-2022 Anion gap [Moles/Vol] 14.6 mmol/L 6.0-15.0 [facility] Serum or plasma calcium sofya urement (mass/volume)Ordered By: MAC SHEPARD on 05-26-2022 Calcium [Mass/Vol] 9.6 mg/dL 8.2-10.2 [facility] Serum or plasma chloride lauren surement (moles/volume)Ordered By: MAC SHEPARD on 05-26-2022 Chloride [Moles/Vol] 100 mmol/L 95-114 [facility] Serum or plasma glucose sofya urement (mass/volume)Ordered By: MAC SHEPARD on 05-26-2022 Glucose [Mass/Vol] 145 mg/dL 70-100 [facility] Comment on above: ADA recommended refe rence rangeRandom Glucose Reference Range is dependent on time and content of last meal. Glucose of more than 200 mg/dL in a nonstressed, ambulatory subject supports the diagnosis of Diabetes Mellitus. Serum or plasma potassium me asurement (moles/volume)Ordered By: MAC SHEPARD on 05-26-2022 Potassium [Moles/Vol] 3.7 mmol/L 3.5-5.1 [facility] Serum or plasma sodium measu rement (moles/volume)Ordered By: MAC SHEPARD on 05-26-2022 Sodium [Moles/Vol] 138 mmol/L 136-146 [facility] Serum or plasma total carbon dioxide measurement (moles/volume)Ordered By: MAC SHEPARD on 05-26-2022 CO2 [Moles/Vol] 27.1 mmol/L 22.0-30.0 [facility] Serum or plasma urea nitroge n measurement (mass/volume)Ordered By: MAC SHEPARD on 05-26-2022 Urea nitrogen [Mass/Vol] 9 mg/dL 05-12 [facility] CBC AUTO DIFFon 04-19-2022 BASO # 0.0 103/ul Normal 0.0-0.1 [facility] Comment on above: Performed By: #### T SH, CMP #### [facility] [address] [place] [address] [address] Hong Jacobo Basophils/100 WBC (Bld) 0.4 % Normal 0.2-2.0 [facility] Comment on above: Performed By: #### T SH, CMP #### [facility] [address] [place] [address] [address] Hong Jacobo EO # 0.2 103/ul Normal 0.0-0.7 [facility] Comment on above: Performed By: #### T SH, CMP #### [facility] [address] [place] [address] [address] Hong Jacobo Eosinophils/100 WBC (Bld) 3.7 % Normal 0.9-7.0 [facility] Comment on above: Performed By: #### T SH, CMP #### [facility] [address] [place] [address] [address] Hong Jacobo Erythrocyte distribution width (RBC) [Ratio] 13.0 % Normal 11.0-15.0 [facility] Comment on above: Performed By: #### T SH, CMP #### [facility] [address] [place] [address] [address] Hong Jacobo Hematocrit (Bld) [Volume fraction] 41.2 % Normal 36.0-48.0 [facility] Comment on above: Performed By: #### T SH, CMP #### [facility] [address] [place] [address] [address] Hong Jacobo Hemoglobin (Bld) [Mass/Vol] 13.8 g/dL Normal 12.0-16.0 [facility] Comment on above: Performed By: #### T SH, CMP #### [facility] [address] [place] [address] Dr. Hong Jacobo IG # 0.01 10e3/ul Normal 0.00-0.03 [facility] Comment on above: Performed By: #### T SH, CMP #### [facility] [address] [place] [address] Dr. Hong Jacobo IG % 0.2 % Normal 0.0-0.5 [facility] Comment on above: Performed By: #### T SH, CMP #### [facility] [address] [place] [address] Dr. Hong Jacobo LYMPH # 1.4 103/ul Normal 1.2-3.8 [facility] Comment on above: Performed By: #### T SH, CMP #### [facility] [address] [place] [address] Dr. Hong Jacobo Lymphocytes/100 WBC (Bld) 24.9 % Normal 20.5-60.0 [facility] Comment on above: Performed By: #### T SH, CMP #### [facility] [address] [place] [address] Dr. Hong Jacobo MANUAL DIFF REQ NO Normal [facility] Comment on above: Performed By: #### T SH, CMP #### [facility] [address] [place] [address] Dr. Hong Jacobo MCH (RBC) [Entitic mass] 31.1 pg Normal 26.7-34.0 [facility] Comment on above: Performed By: #### T SH, CMP #### [facility] [address] [place] [address] Dr. Hong Jacobo MCHC (RBC) [Mass/Vol] 33.5 g/dL Normal 29.9-35.2 [facility] Comment on above: Performed By: #### T SH, CMP #### [facility] [address] [place] [address] Dr. Hong Jacobo MCV (RBC) [Entitic vol] 92.8 fL Normal 81.0-99.0 [facility] Comment on above: Performed By: #### T SH, CMP #### [facility] [address] [place] [address] Dr. Hong Jacobo MONO # 0.3 103/ul Normal 0.3-0.8 [facility] Comment on above: Performed By: #### T SH, CMP #### [facility] [address] [place] [address] Dr. Hong Jacobo Monocytes/100 WBC (Bld) 6.3 % Normal 1.7-12.0 [facility] Comment on above: Performed By: #### T TJ, CMP #### [facility] [address] [place] [address] Dr. Hong Jacobo NEUT # 3.5 103/ul Normal 1.4-6.5 [facility] Comment on above: Performed By: #### T TJ, CMP #### [facility] [address] [place] [address] Dr. Hong Jacobo Neutrophils/100 WBC (Bld) 64.5 % Normal 43.0-75.0 [facility] Comment on above: Performed By: #### T TJ, CMP #### [facility] [address] [place] [address] Dr. Hong Jacobo Platelet mean volume (Bld) [Entitic vol] 9.1 fL Critically low 9.5-13.5 [facility] Comment on above: Performed By: #### T SH, CMP #### [facility] [address] [place] [address] Dr. Hong Jacobo PLT 255 103/ul Normal 150-450 [facility] Comment on above: Performed By: #### T SH, CMP #### [facility] [address] [place] [address] Dr. Hogn Jacobo RBC 4.44 106/ul Normal 4.20-5.40 [facility] Comment on above: Performed By: #### T SH, CMP #### [facility] [address] [place] [address] Dr. Hong Jacobo WBC 5.4 103/ul Normal 4.0-11.0 [facility] Comment on above: Performed By: #### T SH, CMP #### [facility] [address] [place] [address] Dr. Hong Jacobo LIVER PROFILEon 04-19-2022 Albumin [Mass/Vol] 3.7 g/dL Normal 3.4-5.0 [facility] Comment on above: Performed By: #### T TJ, CMP #### [facility] [address] [place] [address] Dr. Hong Jacobo Albumin/Globulin [Mass ratio] 1.1 {ratio} Normal [facility] Comment on above: Performed By: #### T TJ, CMP #### [facility] [address] [place] [address] Dr. Hong Jacobo ALP [Catalytic activity/Vol] 66 U/L Normal 46-116 [facility] Comment on above: Performed By: #### T TJ, CMP #### [facility] [address] [place] [address] Dr. Hong Jacobo ALT [Catalytic activity/Vol] 19 U/L Normal 14-59 [facility] Comment on above: Performed By: #### T TJ, CMP #### [facility] [address] [place] [address] Dr. Hong Jacobo AST [Catalytic activity/Vol] 16 U/L Normal 15-37 [facility] Comment on above: Performed By: #### T TJ, CMP #### [facility] [address] [place] [address] Dr. Hong Jacobo BILI, CONJUGATED 0.1 mg/dL Normal 0.0-0.2 [facility] Comment on above: Performed By: #### T TJ, CMP #### [facility] [address] [place] [address] Dr. Hong Jacobo Bilirubin [Mass/Vol] 0.4 mg/dL Normal 0.2-1.0 [facility] Comment on above: Performed By: #### T TJ, CMP #### [facility] [address] [place] [address] Dr. Hong Jacobo Globulin (S) [Mass/Vol] 3.4 g/dL Normal [facility] Comment on above: Performed By: #### T , CMP #### [facility] [address] [place], [place] [address] Dr. Hong Jacobo Protein [Mass/Vol] 7.1 g/dL Normal 6.4-8.2 [facility] Comment on above: Performed By: #### T SH, CMP #### [facility] [address] [place], [place] [address] Dr. Hong Jacobo MRI Pelvis w/o + [...] by Kassidy Nur on 03/20/2022 1345 Normal [facility] [employer] Producer NM GASTRIC EMPTYon 2 NM GASTRIC EMPTY [...] by: CHRIS REHMAN Date: 2022-03-16 11:00 Normal [facility] CELIAC ANTIBODIES PROFILEon 2022 Deamidated Gliadin Abs, IgA 6 units Normal 0-19 [facility] Comment on above: Result Comment: Nega tive 0 - 19 Weak Positive 20 - 30 Moderate to Strong Positive >30 Performed By: #### T SH, CMP #### [facility] [address] [place] [address] [address] Hong Jacobo Deamidated Gliadin Abs, IgG 4 units Normal 0-19 [facility] Comment on above: Result Comment: Nega tive 0 - 19 Weak Positive 20 - 30 Moderate to Strong Positive >30 Performed By: #### T SH, CMP #### [facility] [address] [place] [address] [address] Hong Jacobo Endomysial Antibody IgA Negative Normal Negative [facility] Comment on above: Result Comment: Seru m is slightly hemolyzed Performed By: #### T SH, CMP #### [facility] [address] [place] [address] [address] Hong Jacobo Immunoglobulin A, Qn, Serum 148 mg/dL Normal 87-352 [facility] Comment on above: Performed By: #### T SH, CMP #### [facility] [address] [place] [address] [address] Hong Jacobo t-Transglutaminase (tTG) IgA <2 Normal 0-3 [facility] Comment on above: Result Comment: Nega tive 0 - 3 Weak Positive 4 - 10 Positive >10 . Tissue Transglutaminase (tTG) has been identified as the endomysial antigen. Studies have demonstr- ated that endomysial IgA antibodies have over 99% specificity for gluten sensitive enteropathy. Performed By: #### T SH, CMP #### [facility] [address] [address] [address] Hong Jacobo t-Transglutaminase (tTG) IgG 4 U/mL Normal 0-5 [facility] Comment on above: Result Comment: Nega tive 0 - 5 Weak Positive 6 - 9 Positive >9 Performed By: #### T SH, CMP #### [facility] [address] [address] [address] Hong Jacobo HCG,Urineon 10-13-2021 Beta HCG ( test) Ql (U) Negative Normal [facility] Comment on above: Result Comment: PERF ORMED BY: [place] [id number] PATHOLOGIST [employer] SALESMAN MARY ALICE SY M.D. Performed By: #### U HCG #### [address] 10-13-2021 L ------ Specimen: [id number] Received: 10/13/21 Status: EMILIANA Shabnam Num: [id number] Spec Type: Surgical Subm Dr: Lon Allen MD Tissues: A Small Intestine - Biopsy/Polyp (SMALL BOWEL) B Stomach - Biopsy/Polyp (GASTRIC) Procedures: HE Stain/4, Gross/Micro L4/2 Patient Age/Sex Location Account Attending Physician Thanh Villalobos 36/F [id number] Lon Allen MD SPEC NUM: [id number] RECD: 10/13/21-1001 STATUS: EMILIANA HAQUE NUM: [id number] SILVIA: 10/13/21- SUBM DR: Lon Allen MD ENTERED: 10/13/21-1003 [facility] [address]: SHE TYPE: Surgical DEPT: S [...] Type of Fixative: 10% Neutral Buffered Formalin (/TEZ) Jessica. Received in formalin labeled with the patient's name, number and gastric biopsy rule out H. pylori by IHC is a 0.4 cm kennedy tissue fragment. Entirely submitted in one cassette Specimen: [id number] Received: 10/13/21 Status: EMILIANA Haque Num: [id number] Spec Type: Surgical Subm Dr: Lon Allen MD Tissues: A Small Intestine - Biopsy/Polyp (SMALL BOWEL) B Stomach - Biopsy/Polyp (GASTRIC) Procedures: HE Stain/4, Gross/Micro L4/2 Patient: Thanh Villalobos [id number] (Continued) Specimen: [id number] Received: 10/13/21 (Continued) Gross Description (Continued) Signed (signature on file) Quang Heath MD 10/14/21 1400 Specimen: [id number] Received: 10/13/21 Status: EMILIANA Haque Num: [id number] Spec Type: Surgical Subm Dr: Lon Allen MD Tissues: A Small Intestine - Biopsy/Polyp (SMALL BOWEL) B Stomach - Biopsy/Polyp (GASTRIC) Procedures: HE Stain/4, Gross/Micro L4/2 Patient: Thanh Villalobos [id number] (Continued) Specimen: [id number] Received: 10/13/21 (Continued) Gross Description (Continued) labeled B1. Type of Fixative: 10% Neutral Buffered Formalin (/YJ) Microscopic Description A. Two glass slides with H E stained material have been examined. The microscopic findings support the above pathologic diagnosis. B. Two glass slides with H E stained material have been examined. The microscopic findings support the above pathologic diagnosis. CPT Codes 98663?2 Specimen: [id number] Received: 10/13/21 Status: EMILIANA Haque Num: [id number] Spec Type: Surgical Subm Dr: Lon Allen MD Tissues: A Small Intestine - Biopsy/Polyp (SMALL BOWEL) B Stomach - Biopsy/Polyp (GASTRIC) Procedures: HE Stain/4, Gross/Micro L4/2 Patient: Thanh Villalobos [id number] (Continued) Signed (signature on file) Quang Heath MD 10/14/21 1400 Normal [facility] COVID-19 FRon 09-26-2021 SARS-CoV-2 (COVID-19) RNA KYM+probe Ql (Unsp spec) Positive Critically abnormal Negative [facility] Comment on above: Order Comment: Resul ts called at 1025 on 09/27/21. Healthcare Worker?: N Result Comment: Posi tive results will only be called to Providers for the following groups of patients: Pre-Surgical Testing, Emergency Room, and Inpatients. Testing for SARS-CoV-2 by RT-PCR This test was developed and its performance characteristics determined by [employer] and validated at the [facility]. This test has not been FDA [...] is terminated or revoked sooner. PERFORMED BY: [place] [id number] PATHOLOGIST [employer]SIDE [employer] SALESMAN MARY ALICE SY M.D. Performed By: #### C OVID 19 [facility] #### [address] COVID Quick Testingon 2021 Result Positive [facility] [employer] Other CNOVon 04-30-2018 CNOV Office Visit (RHEUAV) THANH VILLALOBOS ([id number]) 1985 FDate Time Provider Department04/30/18 1:20 PM MANZOYAKELIN Collins During your visit today, we recorded the [...] on her description. She saw arheumatologist in [place] a few years ago. She does not [...] to go due to her schedule and childcare attendant issues).No pain elsewhere.Swollen joints: noneEMS:E lasting 30 [...] thyroid disease, high blood pressurePAST MEDICAL HISTORYHyperlipidemiaNephr olithiasisOBSTETRICAL/MOBILE ENGINEER [id number] 2 first trimester miscarriagesPAST SURGICAL HISTORY/PROCEDURESbreast reductionappendectomyJoint arthroscopies or surgeries: noneSpinal surgeries: noneFAMILY HISTORYMother: ovarian cancerSister: thyroid cancerNo crystal arthritis. No rheumatologic autoimmune disorders, psoriasis or IBDSOCIAL HISTORYMarital status:SingleNumber of children: 1Occupation: works at [employer]: Current Every Day Smoker Packs/Day: .5 Years: [...] subcutaneous nodules.Remainder of joint exam unremarkable.OUTSIDE IMAGING ([place]) - SEE SCANNED DOCUMENTS IN EMR11/16/14 XR FEET BILATERAL-normal11/16/14 XR SACROILIAC JOINTS-normalPRIOR LABSComponent CRP Uric Acid WSR Vitamin D 25 HydroxyLatest Ref Rng AND Units <0.9 mg/dL 2.5 - 6.6 mg/dL 0 - 20 mm/hr 31.0 - 80.0ng/mL05/05/2015 0.9 9.0 (H)06/06/2016 1.0 13.3 (H) 0.6 8.3 (H) 8 21.0 (L)OUTSIDE LABS ([place]) - SEE SCANNED DOCUMENTS IN EMR11/16/14abnormal: sed [...] starta family. Started allopurinol 08/23/2016-off colchicine since 03/[id number]-iocuboikjm-ibconnrp allopurinol at the present dose.-she had labs drawn yesterday, will obtain results.-I asked that she have labs done a few days prior to next visit. (signed letterfor lab orders given to patient today):-CBC + DIFF-AST/SGOT BLD-ALT/SGPT-ALBUMIN ERL-D-WSRAOZLB PROTEIN (CRP)-CREATININE BLD-SED RATE WESTERGREN-URIC ACID BLOOD2. [...] to any [facility] facility to have the labs drawn since the orders are in the system.Referring Provider: YAKELIN CARRILLO [[id number]]Allergies As of Date: 04/30/2018 Noted Allergy ReactionACETAMINOPHEN-CODE [...] is needed. You can go to any [facility] facility to have the labs drawn since [...] and Disposition History RecordedLetter Aisha Carrillo MS, MD, FACRRheumatic and Immunologic DiseasesAurora [facility] MarivelMercy San Juan Medical Centercal Specialties, 3rd [id number], [place] [phone] 2017Re: Thanh Le:. 1985Please obtain the following laboratory tests October 2018:-CBC + DIFF-AST/SGOT BLD-ALT/SGPT-ALBUMIN KOI-G-JWCVQQAV PROTEIN (CRP)-CREATININE BLD-SED RATE WESTERGREN-URIC ACID BLOODDiagnoses:M1A.09X0 Idiopathic chronic gout of multiple sites without tophus (primaryencounter diagnosis)E79.0 HyperuricemiaPlease fax result to [phone] ([place])Thank you.Yakelin Carrillo MDEncounter Number: [id number] Status:Closed by YAKELIN CARRILLO MD on 04/30/18 Normal [facility] PROGRESSon 04-30-2018 Protein mass conc HNO ID: [id number] thor: Yakelin Garciaervice: (none)Author Type: PhysicianType: Progress NotesFiled: 04/30/2018 7:39 PMNote Text:ESTEBAN blue - pls inform patient that her Apr 2018 [...] results of labs done on 04/29/18 from [facility] (abnormalresults in bold) :wbc 5.9Hgb 14.1Hct 40.7plt 189CRP 0.9 (1.0 or less)sed rate 13 (0-20)uric acid 5.9Alb 3.6AST 14ALT 20Cr 1.09 (0.52-1.04), eGFR 57Report sent for scanning into EMR Normal [facility] PROGRESSon 04-28-2018 Protein mass conc HNO ID: [id number] thor: Yakelin Schneiderice: (none)Author Type: PhysicianType: Progress NotesFiled: 04/30/2018 2:49 [...] dactylitis based on herdescription. She saw a toe former in [place] a few years ago. She doesnot recall [...] to go due to her schedule and childcare attendant issues).No pain elsewhere.Swollen joints: noneEMS:E lasting 30 [...] thyroid disease, high blood pressurePAST MEDICAL HISTORYHyperlipidemiaNephr olithiasisOBSTETRICAL/MOBILE ENGINEER [id number] 2 first trimester miscarriagesPAST SURGICAL HISTORY/PROCEDURESbreast reductionappendectomyJoint arthroscopies or surgeries: noneSpinal surgeries: noneFAMILY HISTORYMother: ovarian cancerSister: thyroid cancerNo crystal arthritis. No rheumatologic autoimmune disorders, psoriasis orIBDSOCIAL HISTORYMarital status:SingleNumber of children: 1Occupation: works at [employer]: Current Every Day Smoker Packs/Day: .5 Years: [...] subcutaneous nodules.Remainder of joint exam unremarkable.OUTSIDE IMAGING ([place]) - SEE SCANNED DOCUMENTS IN EMR11/16/14 XR FEET BILATERAL-normal11/16/14 XR SACROILIAC JOINTS-normalPRIOR LABSComponent CRP Uric Acid WSR Vitamin D 25 HydroxyLatest Ref Rng AND Units <0.9 mg/dL 2.5 - 6.6 mg/dL 0 - 20 mm/hr 31.0 - 80.0ng/mL05/05/2015 0.9 9.0 (H)06/06/2016 1.0 13.3 (H) 0.6 8.3 (H) 8 21.0 (L)OUTSIDE LABS ([place]) - SEE SCANNED DOCUMENTS IN EMR11/16/14abnormal: sed [...] a family. Started allopurinol 08/23/2016-off colchicine since 03/20178400-wthazpyksj-bzcchsoy allopurinol at the present dose.-she had labs drawn yesterday, will obtain results.-I asked that she have labs done a few days prior to next visit. (signedletter for lab orders given to patient today):-CBC + DIFF-AST/SGOT BLD-ALT/SGPT-ALBUMIN MTM-L-UMHCNNWJ PROTEIN (CRP)-CREATININE BLD-SED RATE WESTERGREN-URIC ACID BLOOD2. HYPERURICEMIA-at goal-continue allopurinol at the present dose3. VITAMIN D DEFICIENCY-completed 8 week course of twice weekly vitamin D 50,000 IU-currently taking vitamin D 1000 IU daily4. GENERAL HEALTH MAINTENANCE-she will follow up with her PCP for her general health issuesRTC in 6 mon or sooner if needed Normal [facility] PROGRESSon 11-30-2017 Protein mass conc HNO ID: [id number] thor: Kg Prater) Rishabh: (none)Author Type: Nurse PractitionerType: Progress NotesFiled: 11/30/2017 1:37 PMNote Text:Outside labs reviewed and discussed with the patient:WBC 4.2Hgb 18.8Hct 43.1Platelets 224Sed rate 21 H (<20)Creatinine 0.74CRP 1.4 H (<1.0)Uric acid 5.5 Normal [facility] CNOVon 10-23-2017 CNOV Office Visit (RHEUAV) THANH VILLALOBOS ([id number]) 1985 [facility] Time Provider Department10/23/17 3:40 PM KG TURNER (AURE) RHEYGV During your visit today, we recorded the [...] on her description. She saw arheumatologist in [place] a few years ago. She does not [...] disease: NoHigh blood pressure: NoPAST MEDICAL HISTORYHyperlipidemiaNephr olithiasisOBSTETRICAL/MOBILE ENGINEER [id number] 2 first trimester miscarriagesPAST SURGICAL HISTORY/PROCEDURESbreast reductionappendectomyJoint arthroscopies or surgeries: noneSpinal surgeries: noneFAMILY HISTORYMother: ovarian cancerSister: thyroid cancerNo crystal arthritis. No rheumatologic autoimmune disorders, psoriasis or IBDSOCIAL HISTORYMarital status:SingleNumber of children: 1Occupation: works at [employer]: Current Every Day Smoker Packs/Day: .5 Years: [...] subcutaneous nodules.Remainder of joint exam unremarkable.OUTSIDE IMAGING ([place]) - SEE SCANNED DOCUMENTS IN EMR11/16/14 XR FEET BILATERAL-normal11/16/14 XR SACROILIAC JOINTS-normalLabs reviewed and discussed with the patient:10/12/2017 from [facility] (abnormal results in bold):wbc 6.1 (4.0-11.0)Hgb 14.1 (12.0-16.0)Hct 40.5 (36.0-48.0)plt 221 (150-450) CRP 2.5 H (ANDlt;+1.0)sed rate 33 H ANDlt;20creatinine 0.70 (0.52-1.04)Vitamin D 68.9 (ANDlt;20)Alb 4.2 (3.5-5.0)AST 16 (14-36)ALT 28 (9-52)Uric acid 5.5 (2.5-6.2)Report sent for scanning.?04/02/17 [facility] (ABNORMAL RESULTS IN BOLD)Lwbc 5.7Hgb 14.1Hct 40.4plt 230CRP 2.2 (ANDlt;=1.0)sed rate 12(ANDlt;=20)uric acid 5.9 (2.5-6.2)AST 35ALT 20Cr 0.73 (0.52-1.04)11/09/16:Creat 0.83ALT 27AST 24Uric acid 6.3 H (2.5-6.2)09/22/16:AST 27ALT 32Uric acid 7.5 H (2.5-6.2)Creatinine 0.87Component Latest Ref Rng 05/05/2015CRP 0.0 - 1.0 mg/dL 0.9Uric Acid 2.0 - 7.0 mg/dL 9.0 (H)OUTSIDE LABS ([place]) - SEE SCANNED DOCUMENTS IN EMR11/16/14abnormal: sed [...] 1.00 - 4.00 k/uL 1.71Mono% % 7.6Abs [place] 0.00 - 0.86 k/uL 0.37Eosin% % 2.9Abs [...] done in 4 weeks.Referring Provider: YAKELIN CARRILLO [[id number]]Allergies As of Date: 10/23/2017 Noted Allergy ReactionACETAMINOPHEN-CODE INE 11/11/2014 9 - ItchingDate Reviewed: 10/23/2017Reviewed by: Kg (Aure) AURE Turner - Fully AssessedReason for Visit: Follow Up [171]Primary Visit Diagnosis:Idiopathic chronic gout of multiple sites without tophus [M1A.09X0] Other Visit Diagnosis:Encounter for long-term (current) use of medications [Z79.899]Order(s):CBC + DIFF [SQCBCDIF] Order #: [id number] FUTURE AST/SGOT BLD [SQAST] Order #: [id number] FUTURE ALT/SGPT [SQALT] Order #: [id number] FUTURE ALBUMIN BLD [SQALB] Order #: [id number] FUTURE CREATININE BLD [SQCRET] Order #: [id number] FUTURE SED RATE WESTERGREN [SQWSR] Order #: [id number] FUTURE C-REACTIVE PROTEIN (CRP) [SQCRP] Order #: [id number] FUTURE URIC ACID BLOOD [SQURIC] Order #: [id number] FUTURE allopurinol (ZYLOPRIM) 100 mg tabletTake along [...] RecordedLetter Radha Villalobos Turner CNPRheumatic and Immunologic DiseasesKenmare Community Hospitalcal Specialties, 3rd [id number] [place] [address].[place], [place] [phone] [phone]?Date: 10/23/2017??Tests to be performed approximately 11/23/2017.??Name: Thanh Villalobos [facility] ID: [id number]??Please obtain the following tests:???Appointment on 10/23/17-CBC + DIFF-AST/SGOT BLD-ALT/SGPT-ALBUMIN BLD-CREATININE BLD-SED RATE PZSGPTQETX-J-FEWPIUOP PROTEIN (CRP)-URIC ACID BLOODICD Code: (M1A.09X0) 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 Status:Closed by KG TURNER CNP on 10/23/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 She saw a toe former in [place] a few years ago. She doesnot recall [...] disease: NoHigh blood pressure: NoPAST MEDICAL HISTORYHyperlipidemiaNephr olithiasisOBSTETRICAL/MOBILE ENGINEER [id number] 2 first trimester miscarriagesPAST SURGICAL HISTORY/PROCEDURESbreast reductionappendectomyJoint arthroscopies or surgeries: noneSpinal surgeries: noneFAMILY HISTORYMother: ovarian cancerSister: thyroid cancerNo crystal arthritis. No rheumatologic autoimmune disorders, psoriasis orIBDSOCIAL HISTORYMarital status:SingleNumber of children: 1Occupation: works at [employer]: Current Every Day Smoker Packs/Day: .5 Years: [...] subcutaneous nodules.Remainder of joint exam unremarkable.OUTSIDE IMAGING ([place]) - SEE SCANNED DOCUMENTS IN EMR11/16/14 XR FEET BILATERAL-normal11/16/14 XR SACROILIAC JOINTS-normalLabs reviewed and discussed with the patient:10/12/2017 from [facility] (abnormal results in bold):wbc 6.1 (4.0-11.0)Hgb 14.1 (12.0-16.0)Hct 40.5 (36.0-48.0)plt 221 (150-450) CRP 2.5 H (<+1.0)sed rate 33 H <20creatinine 0.70 (0.52-1.04)Vitamin D 68.9 (<20)Alb 4.2 (3.5-5.0)AST 16 (14-36)ALT 28 (9-52)Uric acid 5.5 (2.5-6.2)Report sent for scanning.?04/02/17 [facility] (ABNORMAL RESULTS IN BOLD)Lwbc 5.7Hgb 14.1Hct 40.4plt 230CRP 2.2 (<=1.0)sed rate 12(<=20)uric acid 5.9 (2.5-6.2)AST 35ALT 20Cr 0.73 (0.52-1.04)11/09/16:Creat 0.83ALT 27AST 24Uric acid 6.3 H (2.5-6.2)09/22/16:AST 27ALT 32Uric acid 7.5 H (2.5-6.2)Creatinine 0.87Component Latest Ref Rng 05/05/2015CRP 0.0 - 1.0 mg/dL 0.9Uric Acid 2.0 - 7.0 mg/dL 9.0 (H)OUTSIDE LABS ([place]) - SEE SCANNED DOCUMENTS IN EMR11/16/14abnormal: sed [...] 1.00 - 4.00 k/uL 1.71Mono% % 7.6Abs [place] 0.00 - 0.86 k/uL 0.37Eosin% % 2.9Abs [...] or sooner if neededKg Turner CNP Normal [facility] Vital Signs Date Time Vital Sign Value Performing Clinician Facility 12-25-2022 12:55-0400 Blood Pressure Location Princess Metail [facility] 12-25-2022 12:55-0400 Body temperature 97.16 [degF] [employer] [facility] 12-25-2022 12:55-0400 Diastolic blood pressure 61 mm[Hg] [employer] [facility] 12-25-2022 12:55-0400 Heart rate 92 /min [employer] [facility] 12-25-2022 12:55-0400 Systolic blood pressure 97 mm[Hg] [employer] [facility] 11-27-2022 14:24-0400 Blood Pressure Location [employer] [facility] 11-27-2022 14:24-0400 Diastolic blood pressure 80 mm[Hg] [email or web address] [facility] 11-27-2022 14:24-0400 Heart rate 73 /min Bob SALAM [facility] 11-27-2022 14:24-0400 Mean blood pressure 99 mm[Hg] Bob SALAM [facility] 11-27-2022 14:24-0400 Respiratory rate 12 /min Bob SALAM [facility] 11-27-2022 14:24-0400 SaO2% (BldA) [Mass fraction] 95 % Bob SALAM [facility] 11-27-2022 14:24-0400 Systolic blood pressure 136 mm[Hg] Bob SALAM [facility] 11-27-2022 14:11-0400 Blood Pressure Location Bob SALAM [facility] 11-27-2022 14:11-0400 Diastolic blood pressure 80 mm[Hg] Bob SALAM [facility] 11-27-2022 14:11-0400 Heart rate 86 /min Bob SALAM [facility] 11-27-2022 14:11-0400 Mean blood pressure 94 mm[Hg] Bob SALAM [facility] 11-27-2022 14:11-0400 Respiratory rate 10 /min Bob SALAM [facility] 11-27-2022 14:11-0400 SaO2% (BldA) [Mass fraction] 97 % Bob SALAM [facility] 11-27-2022 14:11-0400 Systolic blood pressure 121 mm[Hg] Bob SALAM [facility] 11-27-2022 14:06-0400 Blood Pressure Location Bob SALAM [facility] 11-27-2022 14:06-0400 Diastolic blood pressure 81 mm[Hg] Bob SALAM [facility] 11-27-2022 14:06-0400 Heart rate 85 /min Bob SALAM [facility] 11-27-2022 14:06-0400 Mean blood pressure 93 mm[Hg] Bob SALAM [facility] 11-27-2022 14:06-0400 Respiratory rate 18 /min Bob SALAM [facility] 11-27-2022 14:06-0400 SaO2% (BldA) [Mass fraction] 99 % Bob SALAM [facility] 11-27-2022 14:06-0400 Systolic blood pressure 118 mm[Hg] Bob SALAM [facility] 11-27-2022 13:56-0400 Body temperature 97.52 [degF] Bob SALAM [facility] 11-27-2022 12:51-0400 Body temperature 97.52 [degF] Bob SALAM [facility] 11-27-2022 12:51-0400 Respiratory rate 12 /min Bob SALAM [facility] 10-03-2022 14:23-0500 Diastolic blood pressure 98 mm[Hg] Bob SALAM [facility] 10-03-2022 14:23-0500 Mean blood pressure 121 mm[Hg] Bob SALAM [facility] 10-03-2022 14:23-0500 Systolic blood pressure 168 mm[Hg] Bob SALAM [facility] 10-03-2022 14:20-0500 Blood Pressure Location Bob SALAM [facility] 10-03-2022 14:20-0500 Diastolic blood pressure 90 mm[Hg] Bob SALAM [facility] 10-03-2022 14:20-0500 Heart rate 67 /min Bob SALAM [facility] 10-03-2022 14:20-0500 Respiratory rate 16 /min Bob SALAM [facility] 10-03-2022 14:20-0500 Systolic blood pressure 160 mm[Hg] Bob SALAM [facility] 06-06-2022 14:00-0400 Diastolic blood pressure 78 mm[Hg] Laura Aichholz Work Phone: [facility] 06-06-2022 14:00-0400 Heart rate 80 /min Laura Aichholz Work Phone: [facility] 06-06-2022 14:00-0400 SaO2% (BldA) [Mass fraction] 96 % Laura Aichholz Work Phone: [facility] 06-06-2022 14:00-0400 Systolic blood pressure 115 mm[Hg] Laura Aichholz Work Phone: [facility] 06-06-2022 12:00-0400 Inhaled oxygen flow rate 2 L/min Laura Aichholz Work Phone: [facility] 06-06-2022 11:45-0400 Respiratory rate 18 /min Laura Aichholz Work Phone: [facility] 06-06-2022 11:00-0400 Body temperature 97.2 [degF] Laura Aichholz Work Phone: [facility] 06-06-2022 08:25-0400 Body height 158.75 cm Laura Aichholz Work Phone: [facility] 06-06-2022 08:25-0400 Body mass index (BMI) [Ratio] 47.6 kg/m2 Laura Howe Work Phone: [facility] 06-06-2022 08:25-0400 Body weight 120 kg Laura Howe Work Phone: [facility] 03-01-2022 14:15-0400 Body height 157.48 cm Lon Allen Other [employer] Other 03-01-2022 14:15-0400 Body mass index (BMI) [Ratio] 46.45 kg/m2 Lon Sotelotty Other [facility] [facility] Other 03-01-2022 14:15-0400 Body weight 115.21 kg Lon Grahamy Other [facility] Other 03-01-2022 14:15-0400 Diastolic blood pressure 105 mm[Hg] Lon Ditty Other [facility] Other 03-01-2022 14:15-0400 Systolic blood pressure 149 mm[Hg] Lon Ditty Other [facility] Other 08-27-2021 12:00-0500 Body height 157.48 cm Suzanna Ginty Other [facility] [facility] Other 08-27-2021 12:00-0500 Body mass index (BMI) [Ratio] 48.46 kg/m2 Suzanna Ginty Other [facility] Other 08-27-2021 12:00-0500 Body weight 120.2 kg Suzanna Ginty Other [facility] Other 08-08-2021 15:30-0500 Body height 157.48 cm Lon Allen Other [facility] Other 08-08-2021 15:30-0500 Body mass index (BMI) [Ratio] 47.55 kg/m2 Lon Allen Other [facility] [facility] Other 08-08-2021 15:30-0500 Body weight 117.94 kg Lon Allen Other [facility] [facility] Other 06-13-2021 16:35-0400 Body height 157.48 cm Suzanna Ginty Other [employer] [facility] Other 06-13-2021 16:35-0400 Body mass index (BMI) [Ratio] 48.28 kg/m2 Suzanna Ginty Other [facility] Other 06-13-2021 16:35-0400 Body temperature 99.3 [degF] Suzanna Ginty Other [facility] [employer] Other 06-13-2021 16:35-0400 Body weight 119.75 kg Suzanna Ginty Other [facility] Other 06-13-2021 16:35-0400 Diastolic blood pressure 95 mm[Hg] Suzanna Ginty Other [facility] Other 06-13-2021 16:35-0400 Respiratory rate 18 /min Suzanna Ginty Other [facility] Other 06-13-2021 16:35-0400 SaO2% (BldA) [Mass fraction] 99 % Suzanna Ginty Other [employer] Other 06-13-2021 16:35-0400 Systolic blood pressure 155 mm[Hg] Suzanna Milligan Other [facility] Other Encounters Encounter Date Encounter Type Care Provider Facility Start: 01-01-2024 End: 01-01-2024 ambulatory LAURA AICHHOLZ Not Available Start: 09-26-2023 Clinisync Result Encounter Generic External Data Provider [facility] External Department Unsolicited Start: 09-26-2023 Clinisync Result Encounter Generic External Data Provider [facility] External Department Unsolicited Start: 09-18-2023 End: 09-18-2023 ambulatory LAURA AICHHOLZ Not Available Start: 08-07-2023 End: 08-07-2023 ambulatory LAURA AICHHOLZ Not Available Start: 07-17-2023 End: 07-17-2023 ambulatory LAURA AICHHOLZ Not Available Start: 03-28-2023 [facility]ulatory [facility] Start: 03-26-2023 Telephone encounter Esvin Olmstead MD Work Phone: [facility] Start: 03-26-2023 End: 03-27-2023 ambulatory Robert Vila MD Facility:[facility] Start: 01-09-2023 End: 01-10-2023 ambulatory Jasmeet Tierney MD Facility:[facility] Start: 12-25-2022 End: 12-26-2022 [facility]ulatory [facility] Start: 12-25-2022 End: 12-25-2022 Patient encounter procedure Princess Galvin [facility] Start: 12-22-2022 End: 12-23-2022 ambulatory LISBETH DE LA ROSA Facility: Start: 11-27-2022 End: 11-28-2022 ambulatory [facility] Facility:[facility] Start: 11-27-2022 End: 11-27-2022 Patient encounter procedure Lisbeth DE LA ROSA [facility] Start: 11-21-2022 End: 11-22-2022 ambulatory LAW ENFORCEMENT OFFICER LAURA SHYAM Facility:[facility] Start: 11-20-2022 End: 02-19-2023 ambulatory LAW ENFORCEMENT OFFICER LAURA AICHHOLZ Facility:[facility] Start: 10-24-2022 End: 10-25-2022 ambulatory Bob SALAM Facility:[facility] Start: 10-24-2022 End: 10-24-2022 Lab Drop off Bob SALAM [facility] Start: 10-11-2022 End: 10-12-2022 ambulatory ESVIN BEJ Facility:[facility] Start: 10-03-2022 End: 10-04-2022 ambulatory LAURA J NAZARIOHLAZAROZ Facility:[facility] Start: 10-03-2022 End: 02-18-2023 Recurring Bob SALAM [facility] Start: 10-03-2022 End: 10-03-2022 Patient encounter procedure Bob SALAM [facility] Start: 09-18-2022 [facility]ulatory [facility] Start: 07-05-2022 End: 07-06-2022 ambulatory ESVIN BEJ Facility:[facility] Start: 06-06-2022 End: 06-06-2022 ambulatory Mac Printy Facility:[facility] Start: 06-06-2022 End: 06-06-2022 Admission to same day surgery center Laura Howe Work Phone: [facility] [place] Start: 06-06-2022 End: 06-06-2022 ambulatory Laura J Manfredz Work Phone: [facility] Work Phone: Start: 06-02-2022 End: 06-02-2022 ambulatory Mac Printy Facility:[facility] Start: 06-02-2022 End: 06-02-2022 ambulatory Laura Howe Work Phone: [facility] Work Phone: Start: 06-02-2022 End: 06-02-2022 Patient encounter procedure Laura Howe Work Phone: [facility] Drq-Zbx-Ccymqtzj Testing Start: 05-26-2022 End: 05-26-2022 ambulatory Laura Howe Work Phone: [facility] Work Phone: Start: 05-26-2022 End: 05-26-2022 Patient encounter procedure Laura Howe Work Phone: [facility] Bwe-Tza-Ughqheck Testing Start: 04-19-2022 End: 04-20-2022 ambulatory LAW ENFORCEMENT OFFICER LAURA HOWE Facility:[facility] Start: 03-16-2022 End: 03-17-[address] DOCTOR SALEH Facility:[facility] Start: 03-01-2022 End: 03-01-2022 ambulatory Lon Allen Other [facility] Other Start: 03-01-2022 Patient encounter procedure Lon WADE [facility] Start: 01-02-2022 End: 2022 ambulatory LAW ENFORCEMENT OFFICER LAURA HOWE Facility:[facility] Start: 10-17-2021 End: 10-17-2021 ambulatory oLn Allen Other [facility] Other Start: 10-17-2021 Telephone encounter Lon Rosado [facility] Start: 10-13-2021 End: 10-13-2021 ambulatory Lon Allen Facility:[facility] Start: 09-27-2021 End: 09-27-2021 ambulatory Lon Allen Other [facility] Other Start: 09-27-2021 Telephone encounter Lon LUBIN [facility] Start: 09-26-2021 End: 09-26-2021 ambulatory Laura Howe Facility:[facility] Start: 08-27-2021 End: 08-27-2021 ambulatory Suzanna Ginty Other [facility] Other Start: 08-27-2021 Office outpatient visit 15 minutes Suzanna Ginty [facility] Start: 08-26-2021 End: 08-26-2021 ambulatory Lon Allen Other [facility] Other Start: 08-26-2021 Telephone encounter Lon LUBIN [facility] Start: 08-08-2021 End: 08-08-2021 ambulatory Lon Allen Other [facility] Other Start: 08-08-2021 [facility] visit new patient Lon WADE [facility] Start: 06-13-2021 Office outpatient ne w 20 minutes Suzanna Ginty [facility] Start: 04-30-2018 End: 05-01-2018 Patient encounter YAKELIN CARRILLO [facility] Start: 10-23-2017 End: 10-25-2017 Patient encounter KG (AURE) JOHNNY [facility] Procedures Date Procedure Procedure Detail Performing Clinician Start: 10-01-2023 Mammography Esvin Olmstead MD Work Phone: Start: 09-26-2023 [facility] RHEUMATOID FA[facility] Generic External Data Provider Start: 11-27-2022 Colonoscopy Bob SALDealCurious Start: 11-27-2022 Esophagogastroduodenoscopy Bob Trulia Start: 06-06-2022 Total hysterectomy via vaginal approach Laura Howe Work Phone: Start: 05-20-2022 Hysterectomy Lisbeth TENORIOAM Plan of Treatment Date Care Activity Detail Author Start: 02-12-2025 Screening for malign ant neoplasm of breast Mammogram [facility] Start: 02-17-2024 Influenza vaccination Influenza Vacc ine (#1) [facility] Comment on above: Postponed from 04/20 (Patient Refused) Start: 12-18-2023 End: 12-18-2023 Patient encounter procedure 12/18/2023 9:20 AM EDT Office Visit [facility] [address] [place] [address] Laura Howe, IRIS [address] [place] [address] [facility] Start: 2023 Screening for malign ant neoplasm of breast Mammogram [facility] Start: 06-06-2022 [facility] Start: 06-06-2022 Hospital admission [facility] Start: 2013 Screening for malign ant neoplasm of cervix HPV/Cotest [facility] Start: 01-04-2004 Screening for malign ant neoplasm of cervix Pap Smear [facility] Patient Education Hysterectomy, Abdominal or Laparoscopic Surgery [facility] Work Phone: Patient referral [facility] Work Phone: Immunizations Immunization Date Immunization Notes Care Provider Sole garcia 07-21-2017 KENALOG - 10 mg Suzanna Ginty Other [facility] Other 07-21-2017 Toradol per 15 mg Suzanna Gint y Other [facility] Other 01-25-2007 measles, mumps and rubella virus vaccine [facility] 01-25-2007 poliovirus vaccine, unspecified formulation [facility] 08-02-2006 hepatitis A vaccine, adult dosage [facility] 08-02-2006 tetanus and diphtheria toxoids, adsorbed, preservative free, for adult use (2 Lf of tetanus toxoid and 2 Lf of diphtheria toxoid) [facility] NEGATED: Highlighted row has not occurred!10-03-2022 influenza virus vaccine, unspecified formulation [facility] Payers Date Payer Category Payer Medicaid [id number] 2022 Medicaid [place] [id number] 2022-Present [address] [place] [address] [id number] 2022 Unknown 2021 Self-pay [id number] 1985 Unknown [id number] [id number]3 1983 Unknown [id number] 2.16.840.1.412948.3.579.2 1983 Unknown [id number] 2.16.840.1.669511.3.579.2.593 1983 Unknown [id number] 2.16.840.1.329025.3.579.2.59 1983 Unknown [id number] 2.16.840.1.849604.3.579.2.59 1983 Unknown [id number] 2.16.840.1.163629.3.579.2.59 1983 Unknown [id number] 2.16.840.1.530759.3.579.2.59 1983 Unknown [id number] 2.16.840.1.198103.3.579.2.59 1983 Unknown [id number] 2.16.840.1.364791.3.579.2.727 1983 Unknown [id number] 2.16.840.1.646113.3.579.2.727 1983 Unknown [id number] 2.16.840.1.290498.3.579.2.727 1983 Unknown [id number] 2.16.840.1.551337.3.579.2.727 1983 Unknown [id number] 2.16.840.1.325944.3.579.2.727 1983 Unknown [id number] 2.16840.1.151873.3.579.2.72 1983 Unknown [id number] 2.16840.1.658738.3.579.2.196 1983 Unknown [id number] 2.840.1.389759.3.579.2.1258 1983 Unknown [id number] 2.840.1.895691.3.579.2.9 1983 Unknown [id number] 2.16840.1.221348.3.579.2.1258 1983 Unknown [id number] 2.16840.1.161136.3.579.2.1259 1959 Unknown [id number] 2.16840.1.988054.19 Unknown [id number] 2.840.1.041141.3.579.2.531 Unknown [id number] 2.16840.1.928297.3.579.2.531 Unknown [id number] 2.16840.1.636899.3.579.2.531 Unknown [id number] 2.16840.1.499253.3.579.2.531 Unknown [id number] 2.16840.1.634678.3.579.2.531 Social History Date Type Detail Facility Unknown if ever smoked [facility] Other Start: 09-18-2023 Sex Assigned At [facility] Start: 05-26-2022 End: 08-07-2023 Tobacco smoking status DCIS Ex-smoker (finding) [facility] Start: 1985 Sex Assigned At Female [facility] Tobacco smoking status Never [facility] Start: 02-28-2000 End: 08-20-2014 History of tobacco use Current smoker [facility] Start: 02-28-2000 End: 08-20-2014 History of tobacco use Cigarette Smoker [facility] Start: 08-07-2023 End: 09-18-2023 Cigarettes smoked current (pack per day) - Reported 0.5 [facility] Start: 08-07-2023 Tobacco use and exposure Smokeless tobacco non-user [facility] Start: 09-18-2023 Alcohol intake Lifetime non-drinker (finding) [facility] Start: 08-07-2023 Alcohol Comment soda: 1 daily [facility] Start: 1985 Sex Assigned At Not on file [facility] Tobacco smoking stat [facility] Tobacco smoking consumption unknown [facility] Goals Date Patient Goal Desired Activity /State Functional Status Date Assessment Result Facility 12-25-2022 Functional Status N/A [facility] 11-27-2022 Functional Status N/A [facility] 10-03-2022 Functional Status N/A [facility] Clinical Notes 06-13-2021 to 03-26-2023 Telephone Encounter - Esvin Olmstead MD - 03/26/2023 10:29 PM EDTTelephone Encounter - Esvin Olmstead MD - 03/26/2023 10:29 PM EDT Note Date & Type Note Facility 03-26-2023 Telephone encounter Note It appears pt has discharged herself (see 02/2023 note from [facility]). Also, of significance, she has been going back and forth between practices (see 08/2021, 08/2020 [facility] notes, while there are 06/2022, 03/2022, 10/2020 appts with me. Please discharge pt. [facility] 03-26-2023 Miscellaneous Notes It appears pt has discharged herself (see 02/2023 note from [facility]). Also, of significance, she has been going back and forth between practices (see 08/2021, 08/2020 [facility] notes, while there are 06/2022, 03/2022, 10/2020 appts with me. Please discharge pt. documented in this encounter [facility] 12-25-2022 Hospital Discharg e instructions Patient Education [...] hard liquor (44 mL). General instructions Take tcgg-hsn-riykufh and prescription medicines only as told by [...] provider. Document Revised: 11/24/2020 Document Reviewed: 11/24/2020 [email or web address] Patient Education 2022 Analyze Re. Follow Up Care 12/06/2022 10:44:07 With:Princess Galvin CNP Address: When:3 months [facility] 11-29-2022 Note [id number] [facility] 11-27-2022 Hospital Discharg e instructions Patient Education [...] what activities are safe for you. Take kajc-xxr-vffqxqu and prescription medicines only as told by [...] 02/04/2013 Document Revised: 01/28/2019 Document Reviewed: 01/06/2019 [email or web address] Patient Education 2020 Analyze Re. 11/27/2022 14:12:05 Colonoscopy, Care After Surgery Salam [...] 05/02/2005 Document Revised: 11/21/2018 Document Reviewed: 11/21/2018 [email or web address] Patient Education 2020 Analyze Re. 11/27/2022 14:12:05 Hemorrhoids Hemorrhoids Hemorrhoids are swollen [...] 3 times a day. General instructions Take vrpi-wie-nsokhpa and prescription medicines only as told by [...] 08/03/2001 Document Revised: 01/02/2020 Document Reviewed: 12/26/2018 [email or web address] Patient Education 2019 [employer] Follow Up Care 10/03/2022 15:02:46 With:Lisbeth DE LA ROSA Address: [facility] [address] [place] [address] Business (1) When: Unknown Comments:Call for any problemsCall for followup appointment [facility] 11-27-2022 Evaluation + Plan note Extrac dejon from: Title:ANES Post-operative Note - General Author: Dilan Daniels Jr., DO Date:11/27/22 Plan Transfer/Discharge: Transfer/Discharge Discharge when meets criteria ( From PACU to Ambulatory Surgery Unit, and To home ). Extracted from: Title:ANES Pre-operative Note - Endo Author:Dilan Davey Jr., DO Date:11/27/22 Plan [employer]hesi[employer] (ASA) physical status classification: Class II. Anesthetic Preoperative Plan: Anesthesia General, and -TIVA. Future Scheduled Tests Laboratory* IgA, Quant. 10/03/22 * t-Transglutaminase IgA 10/03/22 * CBC w/ Auto Diff 10/03/22 * Comprehensive Metabolic Panel 10/03/22 * Thyroid Stimulating Hormone 10/03/22 [facility]07-13-2022 Evaluation note* Encounter Date Diagnosis Assessment Notes Treatment Notes Treatment Clinical Notes Feb, Dyspepsia (ICD-10 - K30) Feb, Nausea & vomiting (ICD-10 - R11.2) Proceed with gastric emptying study as ordered previously - pt states she would like to have this done at [facility] Other 02-28-2022 Evaluation note* Encounter Date Diagnosis Assessment Notes Treatment Notes Treatment Clinical Notes Sep, Dyspepsia (ICD-10 - K30) [facility] Other 01-08-2022 Evaluation note* Encounter Date Diagnosis [...] Patient care instructions given in writting by [facility] Care At Home document [facility] Other 01-07-2022 Evaluation note* Encounter Date Diagnosis Assessment Notes Treatment Notes Treatment Clinical Notes Aug, Nausea (ICD-10 - R11.0) Aug, Vomiting (ICD-10 - R11.10) [facility] Other 12-20-2021 Evaluation note* Encounter Date Diagnosis Assessment Notes Treatment Notes Treatment Clinical Notes Jul, Abdominal bloating (ICD-10 - R14.0) AFTER EATING ABOUT 30-45 MINS. ONGOING FOR A FEW MONTHS PROCEED WITH EGD Jul, Nausea (ICD-10 - R11.0) AFTER EATING ABOUT 30-45 MINS. PROCEED WITH EGD [facility] Other 10-25-2021 Evaluation note* Encounter Date Diagnosis [...] understanding and is agreeable to treatment plan [facility] Other Evaluation + Plan note Future Appointments Appointment Date:11/20/2022 01:00:00 PM Scheduled Provider: Location:[facility] Appointment Type:Surgery PAT COVID Testing Appointment Date:11/27/2022 01:30:00 PM Scheduled Provider: Location:[facility] Appointment Type:Surgery FT Future Scheduled Tests Laboratory* Fecal WBC Lactoferrin 10/03/22 * Giardia lamblia, Direct Detection EIA 10/03/22 * IgA, Quant. 10/03/22 * O & P Exam, Routine 10/03/22 * t-Transglutaminase IgA 10/03/22 * Clostridium Difficile PCR 10/03/22 * Enteric Panel by PCR 10/03/22 * CBC w/ Auto Diff 10/03/22 * Comprehensive Metabolic Panel 10/03/22 * Thyroid Stimulating Hormone 10/03/22 [facility] Evaluation + Plan note Future Appointments Appointment Date:11/20/2022 01:00:00 PM Scheduled Provider: Location:[facility] Appointment Type:Surgery PAT COVID Testing Appointment Date:11/27/2022 01:30:00 PM Scheduled Provider: Location:[facility] Appointment Type:Surgery FT Diagnostic Tests Pending * O & P Exam, Routine 10/24/22 * Giardia lamblia, Direct Detection EIA 10/24/22 Future Scheduled Tests Laboratory* IgA, Quant. 10/03/22 * t-Transglutaminase IgA 10/03/22 * CBC w/ Auto Diff 10/03/22 * Comprehensive Metabolic Panel 10/03/22 * Thyroid Stimulating Hormone [facility]03[facility]22 [facility] Future Appointments Appointment Date:03/28/2023 01:00:00 PM Scheduled Provider:Princess Galvin CNP Location:[facility] Appointment Type:[facility] Follow Up Future Scheduled Tests Laboratory* IgA, Quant. 10/03/22 * t-Transglutaminase IgA 10/03/22 * CBC w/ Auto Diff 10/03/22 * Comprehensive Metabolic Panel 10/03/22 * Thyroid Stimulating Hormone 10/03/22 [facility] Other Evaluation noteNo assessment information available [facility] Work Phone: [facility] Narrative - Reported* Type Description Date Medical History Fungal infection of toenail Medical History Gout Medical History neuropathy in feet Surgical History breast reduction 1998 Surgical History appendectomy 2001 Surgical History lumpectomy, right breast November 17, 2014 Surgical History Hospitalization History see above surgical histo ry [facility] Other Hospital course Narrative No data available for this section [facility] Hospital Discharge instructions No data available for this section [facility] Progress note No data available for this section [facility] Reason for visit NarrativePATIENT HERE AT THE REQUEST OF LAURA HOWE FOR EVALUATION & TREATMENT OF ABDOMINAL BLOATING, PATIENT STATES THIS HAS BEEN ONGOING SINCE . PATIENT STATES WORSE AT NIGHT, NAUSEATED AFTEREATING. PATIENT STATES MOVING BOWELS DO NOT HELP. PATIENT HAS NEVER HAD EGD/COLON BEFORE.[facility] Other Summary Purpose Family History No Family History Records Found Relationship Condition Age at Onset Recorded Date/T [place] Not Specified Malignant neoplasm of ovary Unknown grandparent Kidney disorder Unknown Heart problem Unknown Malignant neoplasm of lung Unknown grandparent Malignant neoplasm of spleen Unknown sister Malignant neoplasm of thyroid gland Unkno wn father Medical history unknown Unknown Advance Directives No Advanced Directives Records Found Advance Directive Response Recorded Date/ Time Advance [...] section and content) DATE CREATED AUTHOR 05/22/2018 [facility] DATE CREATED AUTHOR AUTHOR'S ORGANIZ ATION 03/22/2022 [facility] dical Specialist DATE CREATED AUTHOR AUTHOR'S ORGANIZ ATION 09/23/2022 [facility] DATE CREATED AUTHOR AUTHOR'S ORGANIZ ATION 12/29/2022 [facility] DATE CREATED AUTHOR AUTHOR'S ORGANIZ ATION 03/26/2023 [facility] DATE CREATED AUTHOR AUTHOR'S ORGANIZ ATION 03/27/2023 [facility] DATE CREATED AUTHOR AUTHOR'S ORGANIZ ATION 2024 [facility] dical Specialists EPIC REASON FOR VISIT (unrecogniz ed section and content) LOWER BACK PAINNo Informatio nClinical Acute Otpdied54 ORANGE DODGE DART, FEVER, B/A, EXPOSURElab orderPATIENT HERE FOR FOLLOW UP EGD. PT WAS TO HAVE CEL[facility]AC LAB DRAWN AT [place]. 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 [facility] [employer] provides no warranty or guarantee of the accuracy or completeness of information in this document.
[2024-01-07 09:25] LABS: Basophils Percent Auto 0.3 % (0.2-2.0); Eosinophils Absolute Auto 0.3 10^3/uL (0.0-0.7); Hematocrit 41.6 % (36.0-48.0); Hemoglobin 14.4 g/dL (12.0-16.0); Immature Granulocytes Abs Auto 0.01 10^3/uL (0.00-0.03); Immature Granulocytes Pct Auto 0.2 % (0.0-0.5); Lymphocytes Absolute Auto 1.7 10^3/uL (1.2-3.8); Lymphocytes Percent Auto 27.9 % (20.5-60.0); Mean Corpuscular HGB Conc 34.6 g/dL (29.9-35.2); Mean Corpuscular Hemoglobin 32.1 pg (26.7-34.0); Mean Corpuscular Volume 92.9 fL (81.0-99.0); Mean Platelet Volume 8.9 fL (9.5-13.5); Monocytes Absolute Auto 0.5 10^3/uL (0.3-0.8); Monocytes Percent Auto 7.6 % (1.7-12.0); Neutrophils Absolute Auto 3.5 10^3/uL (1.4-6.5); Platelet Count 210 10^3/uL (150-450); Red Blood Count 4.48 10^6/uL (4.20-5.40)
[2024-01-07 09:36] LABS: Bilirubin Urine NEGATIVE (NEGATIVE); Blood Urine NEGATIVE (NEGATIVE); Clarity Urine CLEAR (CLEAR); Color Urine YELLOW (YELLOW); Glucose Urine UA NEGATIVE (NEGATIVE); Ketones Urine NEGATIVE (NEGATIVE); Leukocyte Esterase Urine NEGATIVE (NEGATIVE); Nitrite Urine NEGATIVE (NEGATIVE); Protein Urine NEGATIVE (NEG/TRACE); Urobilinogen Urine 0.2 EU/dL (0.2-1.0); pH Urine 5.5 (5.0-9.0)
[2024-01-07 09:42] LABS: Urine Microscopic Indicated NO
[2024-01-07 10:03] LABS: Alanine Aminotransferase 27 U/L (14-59); Albumin Globulin Ratio 1.1; Albumin Level 3.8 g/dL (3.4-5.0); Alkaline Phosphatase 114 U/L (46-116); Anion Gap 12.6; Aspartate Amino Transferase 16 U/L (15-37); BUN Creatinine Ratio 14.3; Bilirubin Total 0.2 mg/dL (0.2-1.0); Calcium 9.6 mg/dL (8.5-10.1); Carbon Dioxide 28.3 mmol/L (21.0-32.0); Chloride 104 mmol/L (98-107); Chol HDL Ratio 5.3; Cholesterol 208 mg/dL (<=200); Estimated GFR (African America >60 (>=60); Estimated GFR (Non-African Ame >60 (>=60); Globulin 3.5 g/dL; Glucose 108 mg/dL (74-106); HDL Cholesterol 39 mg/dL (40-60); Potassium 3.9 mmol/L (3.5-5.1); Sodium 141 mmol/L (136-145); Total Protein 7.3 g/dL (6.4-8.2); Triglycerides 230 mg/dL (<=150); Uric Acid 5.7 mg/dL (2.6-6.0)
[2024-01-07 10:24] LABS: Creatinine Urine Random 109.21 mg/dL (20.00-300.00); Microalbum Creatinine Ratio Ur 11.9 mg/g (0.0-29.9); Microalbumin Urine Random <1.3 mg/dL (<=30.0)
[2024-01-07 11:19] LABS: Thyroid Stimulating Hormone 1.272 uIU/mL (0.358-3.740)
[2024-01-07 14:04] LABS: Estimated Average Glucose 108 mg/dL; Glycohemoglobin A1C 5.4 % (4.5-6.2)
== END 2024-01-07 08:59 | disposition home or self-care (01) ==
LOC: LAB 08:59
PROVIDERS: PCP Nurse Practitioner; Visit Provider Nurse Practitioner
DX: R73.09 Other abnormal glucose (principal); I10 Essential (primary) hypertension; E53.8 Deficiency of other specified B group vitamins; M1A.9XX0 Chronic gout, unspecified, without tophus (tophi); E66.01 Morbid (severe) obesity due to excess calories; Z68.42 Body mass index [BMI] 45.0-49.9, adult
CPT/HCPCS: 36415; 80053; 80061; 81003; 82043; 82570; 82607; 83036; 84443; 84550; 85025

== ENCOUNTER 2025-04-28 14:53 | Outpatient (RCR) | payer MEDICAID, SELFPAY | END 2025-05-22 16:18 | disposition home or self-care (01) | LOC: PT 14:53 | PROVIDERS: PCP Nurse Practitioner; Visit Provider Nurse Practitioner | DX: G62.9 Polyneuropathy, unspecified (principal); M79.671 Pain in right foot; M79.672 Pain in left foot; M79.641 Pain in right hand; M79.642 Pain in left hand; M79.7 Fibromyalgia | CPT/HCPCS: 97110; 97113; 97161 ==